=== PATIENT | male | born 1960 | race Caucasian/White ===

== ENCOUNTER → 2017-07-31 | Outpatient (CLI) | payer BC ==
[~2017-07-31] MED LIST: CATHETER FLUSH 10 ML SYR IV PRN; IOHEXOL 350 MG/ML 100 ML (OMNIPAQUE 350) VIAL IV ONE; LISI20TA PO; NS 100 ML (IVPB) BAG IV ONE; OXC10TCR PO; QTP100T PO; RT-COMBINH IH
--- NOTE | 2017-07-31 17:01 | Diagnostic Imaging Report ---
EXAMINATION: Multiplanar/multisequence MRI of the thoracic spine performed without intravenous contrast. INDICATION: Chronic back pain. FINDINGS: The thoracic spine has normal alignment at the posterior spinal line. The vertebral body heights are preserved. There is disc desiccation at the lower lumbar spine levels. There is mild disc herniations at T7/8 and T8/9 levels. This is not associated with significant spinal canal stenosis. The spinal cord has normal caliber, contour and signal. There is no cord compression at any level. The neural foramina are patent. There is an incidental note of a pulmonary nodule measuring 1.2 cm within the right lower lobe. Further evaluation with CT scan of the chest is recommended. IMPRESSION: 1. Mild degenerative changes and mild disc herniations around the mid to lower thoracic spine with no significant spinal canal stenosis or cord compression seen at any level. 2. There is an incidental note of a 1.2 cm pulmonary nodule in the right lower lobe. Further evaluation with an enhanced CT scan of the chest is recommended. The findings and the recommendations were discussed with Dr. Ara Abbasi by Dr. Neri at time of dictation. Dictated by: Dictated on workstation # [id number]
--- NOTE | 2017-07-31 17:18 | Diagnostic Imaging Report ---
PROCEDURE: MRI lumbar spine. TECHNIQUE: Multiplanar, multisequence MRI of the lumbar spine was performed without contrast. INDICATION: Back pain. FINDINGS: There is grade 1 spondylolisthesis of L5 over S1. Bilateral L5 pars defects are suggested. The vertebral body heights are preserved. There is disc desiccation at the lower lumbar spine and disc height loss. Significant disc height loss at L5/S1 is seen. There is mild marrow edema around the posterior elements of L4 and L5 that appears to relate to degenerative changes in the adjacent facet joints. No suspicious focal marrow lesion is identified. The cauda equina and conus medullaris appear grossly unremarkable. T12/L1: No disc herniation. No spinal canal or foraminal stenosis. L1/2: There is a mild disc bulge and mild to moderate facet hypertrophy. No central canal or lateral recess stenosis. No foraminal narrowing. L2/3: There is no disc herniation. There is mild to moderate facet hypertrophy. No central canal or lateral recess stenosis. No foraminal narrowing. L3/4: There is a minimal disc bulge and mild to moderate facet hypertrophy. No central canal or lateral recess stenosis. There is no foraminal stenosis. L4/5: There is a mild diffuse disc bulge with a posterior central annular tear. The facet joints demonstrate moderate to severe arthropathy. No central canal stenosis. Mild lateral recess stenosis on the left and minimal lateral recess stenosis on the right is seen. The foramina demonstrate bilateral stenosis moderate on the right and moderate to severe on the left. This is associated with a perineural cyst along the outer aspect of the foramen measuring 6 mm. L5/S1: There is grade 1 spondylolisthesis and facet hypertrophy. Mild diffuse disc bulge is seen. There is no central canal or lateral recess stenosis. The foramina demonstrate bilateral severe stenosis worse on the left side encroaching upon the exiting L5 spinal nerves bilaterally. IMPRESSION: 1. Grade 1 spondylolisthesis of L5 over S1 with underlying bilateral pars defects. 2. Bilateral severe foraminal stenosis at L5/S1 worse on the left side encroaching upon the exiting L5 spinal nerves. 3. Moderate to severe foraminal stenosis on the left side at L4/5 level. Dictated by: Dictated on workstation # [id number]
--- NOTE | 2017-08-01 13:46 | Diagnostic Imaging Report ---
PROCEDURE: CT chest with contrast only. TECHNIQUE: Multiple contiguous axial images were obtained through the chest after administration of intravenous contrast. DATE: July 31, 2017. COMPARISON: Chest radiograph, September 13, 2013. INDICATION: 56-year-old male, evaluation of right-sided pulmonary nodule. FINDINGS: There is a spiculated right lower lobe pulmonary nodule measuring 8.5 mm in size on axial image 38. There are areas of tree-in-bud nodularity in the lingula on axial image 42 and adjacent sequential images. There are upper lobe predominant changes of both centrilobular and paraseptal emphysema. There is no additional focal airspace consolidation. There is no pneumothorax. There is no pleural effusion. There is no identified pulmonary embolus. The main pulmonary artery is normal in caliber. The heart is not enlarged. There is no pericardial effusion. There is a right hilar lymph node on axial image 32 which measures 10 mm in short axis. There is no identified abnormally enlarged mediastinal or axillary lymph node. There is incompletely visualized ectasia of the infrarenal abdominal aorta which measures up to at least 2.4 cm in diameter. There is mild left intrahepatic bile duct dilation. Additional very limited evaluation of the visualized portions of the upper abdomen is grossly unremarkable. There is no identified acute bony abnormality. IMPRESSION: CT CHEST. 1. 8.5 mm spiculated right lower lobe pulmonary nodule. Recommend comparison with prior cross-sectional imaging if available to assess for stability. If comparison cross-sectional imaging is not available, consider PET/CT for further evaluation. 2. Upper lobe predominant changes of centrilobular and paraseptal emphysema. 3. Tree-in-bud nodularity in the left lingula which most likely relates to sequela of an infectious bronchiolitis or other process spreading via endobronchial means. This is uncertain in exact acuity without comparisons. Recommend correlation clinically. 4. Mild left intrahepatic bile duct dilation. Dictated by: Dictated on workstation # [id number]
== END ==
LOC: RAD 15:42
PROVIDERS: ATTEND Nurse Practitioner Family
DX: M43.17 Spondylolisthesis, lumbosacral region (principal); M48.07 Spinal stenosis, lumbosacral region; R91.1 Solitary pulmonary nodule
CPT/HCPCS: 71260; 72146; 72148

== ENCOUNTER → 2017-08-29 | Outpatient (CLI) | payer BC ==
[~2017-08-29] MED LIST changes: -CATHETER FLUSH 10 ML SYR IV PRN; -IOHEXOL 350 MG/ML 100 ML (OMNIPAQUE 350) VIAL IV ONE; -NS 100 ML (IVPB) BAG IV ONE
--- NOTE | 2017-08-30 10:02 | Diagnostic Imaging Report ---
EXAMINATION: PET-CT TECHNIQUE: Serum glucose level at the time of the study is: 98 mg/dL. 14.6 mCi of FDG was administered intravenously followed by obtaining PET images with corresponding noncontrast CT scan images. The CT scan was performed for anatomic correlation and attenuation correction and was not performed according to the diagnostic protocol of the areas covered. The scan was performed from the head to mid thighs. INDICATION: Right lower lobe lung nodule/mass. FINDINGS: There is symmetric FDG uptake in the brain seen. No hypermetabolic mass is seen in the neck. The right lower lobe pulmonary nodule demonstrates no associated significant hypermetabolism. There is also suggestion of decrease in the size of this nodule based on the localizer CT scan when compared to CT from 07/31/2017. No suspicious hypermetabolic mass is seen in the chest. IN THE ABDOMEN AND PELVIS: There is expected excretion of the tracer in the urinary tract with no definite suspicious hypermetabolic mass seen. IMPRESSION: No suspicious hypermetabolic mass. The right lower lobe nodule appears less prominent on the localizer CT compared to the previous exam also in favor of transient benign process. Followup low dose unenhanced CT chest in 3 months is suggested to ensure complete resolution. Dictated by: Dictated on workstation # [id number]
== END ==
LOC: RAD 08:19
PROVIDERS: ATTEND Nurse Practitioner Family
DX: R91.1 Solitary pulmonary nodule (principal); Z72.0 Tobacco use

== ENCOUNTER → 2017-11-27 | Outpatient (CLI) | payer SELFPAY ==
--- NOTE | 2017-11-27 14:18 | Diagnostic Imaging Report ---
PROCEDURE: CT chest without contrast. TECHNIQUE: Multiple contiguous axial images were obtained through the chest without the use of intravenous contrast. INDICATION: COPD and followup lung nodule. Comparison is made with prior CT from 07/31/2017. Comparison is also made with PET CT from 08/29/2017. FINDINGS: No axillary lymphadenopathy is identified. Hilar and mediastinal evaluation is limited without intravenous contrast but no gross abnormality is identified. There are coronary arterial calcifications present. No pericardial or pleural fluid is identified. Parenchymal evaluation again demonstrates significant emphysematous changes in both lungs. The previously noted irregular nodular density in the right lower lobe is no longer present and most likely was owing to an infectious/inflammatory process. No new parenchymal mass is identified. The upper abdomen is unremarkable. IMPRESSION: COPD. Previously noted right lower lobe parenchymal nodule has resolved and was likely on an infectious/inflammatory basis. No new abnormality is identified. Dictated by: Dictated on workstation # [id number]
== END ==
LOC: RAD 10:58
PROVIDERS: ATTEND Nurse Practitioner Family
DX: J44.9 Chronic obstructive pulmonary disease, unspecified (principal); Z72.0 Tobacco use
CPT/HCPCS: 71250

== ENCOUNTER → 2018-06-12 | Outpatient (CLI) | payer OTHER ==
[~2018-06-12] VITALS: Ht 175.3 cm; Wt 63.5 kg
[~2018-06-12] MED LIST changes: +ASCO500C17 PO; +ASPI-586 PO; +CATHETER FLUSH 10 ML SYR IV PRN; +IRON1TAB95 PO; +MULT-517 PO; +REGADENOSON 0.4 MG/5 ML SYR (LEXISCAN) IV ONE
[2018-06-12 12:48] VITALS: BP 144/98
--- NOTE | 2018-06-13 10:18 | STRESS TEST ---
DATE OF SERVICE: 06/12/2018 RESTING AND POST REGADENOSON TECHNETIUM-99M TETROFOSMIN SPECT CT IMAGING ORDERING PHYSICIAN: Minerva Concepcion APRN. OTHER PHYSICIAN: Patricia Varghese APRN. CLINICAL DIAGNOSES: Shortness of breath and hypertension. Baseline images were carried out after injection of 10.81 mCi of technetium-99m Tetrofosmin. This was followed by 0.4 mg of Regadenoson and 30.6 mCi of technetium-99m Tetrofosmin for stress imaging. The electrocardiogram showed sinus rhythm and did not change significantly with the Regadenoson infusion. The patient did not report any symptoms. Review of images at rest and following stress indicate a minimal apical perfusion defect, which appears transient. Gated images show normal global left ventricular systolic function, normal regional wall motion. Left ventricular ejection fraction is calculated to be 59%. Left ventricular end diastolic volume is 87 mL. TID is absent (1). CONCLUSIONS: 1. This study is suggestive of a minimal amount of apical ischemia. 2. Normal regional wall motion. 3. Normal global left ventricular systolic function with ejection fraction of 59%. Job ID: [id number] DocumentID: [id number] Dictated Date: 06/13/2018 09:06:58 [employer] Date: 06/13/2018 10:17:18 Dictated By: AFRICA MIRANDA MD, MA, FACP, FACC, MTDD
== END ==
LOC: RAD 10:49
PROVIDERS: ATTEND Nurse Practitioner Family
DX: I34.0 Nonrheumatic mitral (valve) insufficiency (principal); I10 Essential (primary) hypertension; J44.9 Chronic obstructive pulmonary disease, unspecified; R09.89 Other specified symptoms and signs involving the circulatory and respiratory systems
CPT/HCPCS: 78452; 93017; 93306

== ENCOUNTER 2018-07-03 09:22 | Day surgery (SDC) | payer OTHER ==
[2018-07-03] VITALS (9 sets, daily range): BP systolic 97–115; BP diastolic 58–77
[~2018-07-03] VITALS: Ht 175.3 cm; Wt 65.8 kg
[~2018-07-03 09:22] MED LIST changes: -ASCO500C17 PO; -ASPI-586 PO; -CATHETER FLUSH 10 ML SYR IV PRN; -IRON1TAB95 PO; -MULT-517 PO; -REGADENOSON 0.4 MG/5 ML SYR (LEXISCAN) IV ONE
[2018-07-03] MEDS ORDERED: HEParin (CATH LAB) 2,000 ML IV ONE (09:29)
[2018-07-03] MEDS ORDERED: LIDOCAINE 1% INJ 20 ML 20 ML VIAL ONE (09:29)
[2018-07-03] MEDS ORDERED: NS IV 1000 ML 1,000 ML ONE (09:29)
[2018-07-03] MEDS ORDERED: diphenhydrAMINE 25 MG TAB (BENADRYL) PO ONE (09:45)
--- OUTSIDE RECORDS SUMMARY | 2018-07-03 09:47 | XMS REPORT ---
Author Author [facility] Address [address] [place] [address] Care Team Providers Care External Grinder Name Role Phone SAMUEL VARGAS Unavailable PROBLEMS Type Condition ICD9-CM Code AFP57-CF Code Onset Dates Condition Status SNOMED Code Problem Essential (primary) hypertension I10 Active 87962440 Problem Other iron deficiency anemia D50.8 Active 27531621 Problem Anxiety F41.9 Active 41088183 Problem Chronic obstructive pulmonary disease, unspecified COPD type J44.9 Active 86479669 Problem Hypertension, unspecified type I10 Active 20125110 Problem Dysthymia F34.1 Active 86593198 Problem Long-term use of high-risk medication Z79.899 Active 061756488 Problem Aortic ectasia, abdominal I77.811 Active 256594707191831 Problem Pain in thoracic spine M54.6 Active 651190347142614 Problem Lumbago with sciatica, left side M54.42 Active 243735372 Problem Lumbago with sciatica, right side M54.41 Active 749667862 Problem Foraminal stenosis of lumbar region M99.83 Active 90676822 Problem Other chronic pain G89.29 Active 22553223 Problem COPD without exacerbation J44.9 Active 09160977 Problem Chronic viral hepatitis C B18.2 Active 820910335 ALLERGIES No Information ENCOUNTERS Encounter Location Date Diagnosis [facility] [id number] [address] Aug, [facility] [id number] [place] [address] 64858- 5153 Jun, [facility] [id number] [place] [address] 54800- 1350 13 May, 2018 Foraminal stenosis of lumbar region M99.83 [facility] [id number] [place] [address] 15734- 7337 May, Shortness of breath R06.02 ; Hypertension, unspecified type I10 ; Chronic obstructive pulmonary disease, unspecified COPD type J44.9 ; Bilateral carotid bruits R09.89 and Tobacco use Z72.0 [facility] [id number] [place] [address] 50952- 1617 Apr, Foraminal stenosis of lumbar region M99.83 [facility] [address] 31348- 8102 Mar, Foraminal stenosis of lumbar region M99.83 [place] [address] 27711- 4564 Mar, Essential (primary) hypertension I10 ; Foraminal stenosis of lumbar region M99.83 ; Long-term use of high-risk medication Z79.899 and Aortic ectasia, abdominal I77.811 [place] [address] 66346- 7303 February, Lumbago with sciatica, unspecified side M54.40 [facility] [id number] [place] [address] 82767- 7477 Jan, Lumbago with sciatica, unspecified side M54.40 [facility] [id number] [place] [address] 10570- 7743 Jan, Lumbago with sciatica, unspecified side M54.40 ; Essential ( primary) hypertension I10 ; COPD without exacerbation J44.9 ; Long-term use of high-risk medication Z79.899 ; Anxiety F41.9 and Dysthymia F34.1 [place] [id number] [place] [address] 15473- 9086 Dec, [facility] [address] 64223- 4430 Dec, Lumbago with sciatica, unspecified side M54.40 [place] [address] 08857- 2371 Dec, Anxiety F41.9 and Dysthymia F34.1 [place] [address] 37783- 7650 Nov, Other chronic pain G89.29 and Lumbago with sciatica, unspecified side M54.40 [place] [address] 92118- 7365 Oct, Lumbago with sciatica, unspecified side M54.40 [place] [address] 39158- 2909 Oct, Anxiety F41.9 and Dysthymia F34.1 [place] [address] 35492- 6108 Oct, Abnormal fasting glucose R73.01 [place] [address] 29224- 8351 Oct, Essential (primary) hypertension I10 and Lumbago with sciatica, unspecified side M54.40 [facility] [address] 34406- 5235 Sep, Abnormal fasting glucose R73.01 [place] [address] 73408- 1820 Sep, Pulmonary nodule R91.1 ; Aortic ectasia, abdominal I77.811 and Anxiety F41.9 [facility] [id number] [place] [address] 57778- 0942 Sep, Lumbago with sciatica, unspecified side M54.40 [facility] [address] 68332- 1130 Aug, Essential (primary) hypertension I10 and Lumbago with sciatica, unspecified side M54.40 [facility] [id number] [place] [address] 68979- [address] Jul, [address] R93.8 [facility] [address] [address]- 9479 16 Jul, 2017 Right pulmonary lesion R91.1 [facility] [id number] [place] [address] 70189- 7193 10 Jul, 2017 Lumbago with sciatica, unspecified side M54.40 [facility] [id number] [place] [address] 66666- 9275 Jul, Pain in thoracic spine M54.6 ; Lumbago with sciatica, left side M54.42 and Lumbago with sciatica, right side M54.41 [facility] [id number] [place] [address] 29319- 0188 13 Jun, 2017 Essential (primary) hypertension I10 ; Other chronic pain G89.29 ; Anxiety F41.9 ; Dysthymia F34.1 ; Sinusitis J32.9 ; Lumbago with sciatica, right side M54.41 ; Lumbago with sciatica, left side M54.42 ; History of long-term use of multiple prescription drugs Z92.29 ; COPD without exacerbation J44.9 ; Lumbago with sciatica, unspecified side M54.40 ; Chronic viral hepatitis C B18.2 ; Chronic obstructive pulmonary disease, unspecified J44.9 ; Other iron deficiency anemia D50.8 ; Long-term use of high-risk medication Z79.899 and Pain in thoracic spine M54.6 [facility] [id number] [place] [address] 59623- 7474 May, [facility] [id number] [place] [address] 59170- 0746 Apr, Lumbago with sciatica, unspecified side M54.40 [facility] [id number] [place] [address] 54251- 7283 Mar, Essential (primary) hypertension I10 ; Lumbago with sciatica , unspecified side M54.40 ; Chronic viral hepatitis C B18.2 ; Chronic obstructive pulmonary disease, unspecified J44.9 ; Other iron deficiency anemia D50.8 and Long-term use of high-risk medication Z79.899 [place] [address] [address]- 0056 Mar, Essential (primary) hypertension I10 [facility] [id number] [place] [address] 29436- 6962 February, [facility] [id number] [place] [address] 15303- 4073 February, Lumbago with sciatica, unspecified side M54.40 [facility] [id number] [place] [address] 67416- 1325 Jan, Lumbago with sciatica, unspecified side M54.40 [facility] [id number] [place] [address] 06047- 6788 Dec, Essential (primary) hypertension I10 ; Lumbago with sciatica , unspecified side M54.40 ; Chronic viral hepatitis C B18.2 ; Chronic obstructive pulmonary disease, unspecified J44.9 ; Other iron deficiency anemia D50.8 ; Long-term use of high-risk medication Z79.899 and General medical exam Z00.00 [facility] [id number] [place] [address] 32815- 7430 Nov, Essential (primary) hypertension I10 [facility] [id number] [place] [address] 58105- 7642 Oct, [facility] [id number] [place] [address] 77525- 0310 Oct, Essential (primary) hypertension I10 [facility] [id number] [place] [address] 90578- 0861 Oct, Anxiety F41.9 and Dysthymia F34.1 [facility] [id number] [place] [address] 80922- 2233 Oct, [facility] [id number] [place] [address] 60741- 9576 Oct, [facility] [id number] [place] [address] 08856- 7695 Oct, Essential (primary) hypertension I10 ; Lumbago with sciatica , unspecified side M54.40 ; Chronic viral hepatitis C B18.2 ; Chronic obstructive pulmonary disease, unspecified J44.9 ; Other iron deficiency anemia D50.8 ; Long-term use of high-risk medication Z79.899 and Anxiety F41.9 [place] [address] 48212- 1353 Sep, [address] 50491- 8914 Aug, [facility] [address] 57556- 5782 Jul, Abnormal fasting glucose R73.[address] 84363- 5247 Jul, Essential (primary) hypertension I10 ; Lumbago with sciatica , unspecified side M54.40 ; Chronic viral hepatitis C B18.2 ; Chronic obstructive pulmonary disease, unspecified J44.9 ; Other iron deficiency anemia D50.8 ; Long-term use of high-risk medication Z79.899 and Encounter for immunization Z23 [place] [id number] [place] [address] 35251- 0149 Jun, [address] [address]40- 0944 May, [facility] [address] 44578- 2759 Apr, Other iron deficiency anemia D50.8 [facility] [address] [address]257 -1099 Apr, Chronic fatigue R53.82 and Bradycardia R00.[address] 97866- 5634 Apr, [facility] [address] [place] [address] 75547- 6692 Mar, Essential (primary) hypertension I10 ; Lumbago with sciatica , unspecified side M54.40 ; Chronic viral hepatitis C B18.2 ; Chronic obstructive pulmonary disease, unspecified J44.9 and Other iron deficiency anemia D50.8 [place] [id number] [place] [address] 60449- 4618 February, [place] [id number] [place] [address] 68587- 2491 Jan, [place] [id number] [place] [address] 08730- 8063 Jan, Fatigue R53.83 [place] [place] [id number] [place] [address] 52865- 9638 Dec, Essential (primary) hypertension I10 ; Lumbago with sciatica , unspecified side M54.40 ; Chronic viral hepatitis C B18.2 ; Chronic obstructive pulmonary disease, unspecified J44.9 ; Sinusitis J32.9 and Fatigue R53.83 [place] [id number] [place] [address] 59030- 7619 Dec, [place] [address] [place] [address] 83089- 2611 Nov, [place] [address] [place] [address] 06871- 1167 Oct, Essential (primary) hypertension I10 ; Lumbago with sciatica , unspecified side M54.40 ; Chronic viral hepatitis C B18.2 ; Chronic obstructive pulmonary disease, unspecified J44.9 and History of long-term use of multiple prescription drugs Z92.29 [place] [address] [place] [address] 11357- 6584 Sep, [place] [address] [place] [address] 59648- 3410 Aug, [place] [place] [id number] [place] [address] 838571- 2827 Jul, Essential (primary) hypertension I10 ; Lumbago with sciatica , unspecified side M54.40 ; Chronic viral hepatitis C B18.2 ; Chronic obstructive pulmonary disease, unspecified J44.9 and Anxiety F41.9 [facility] [id number] [place] [address] 27415- 1216 Jun, [facility] [address] 528341- 4876 May, [facility] [id number] [place] [address] 355142- 2473 Apr, Essential hypertension, benign 401.1 ; Lumbago 724.2 ; Nondependent tobacco use disorder 305.1 and Chronic hepatitis C without mention of hepatic coma 070.54 [place] [id number] [place] [address] 98631- 3304 Mar, Lumbago 724.2 [facility] [id number] [place] [address] 71317- 7598 February, Essential hypertension, benign 401.1 ; Lumbago 724.2 ; Nondependent tobacco use disorder 305.1 and Chronic hepatitis C without mention of hepatic coma 070.54 [place] [id number] [place] [address] 15156- 8126 February, [place] [id number] [place] [address] 19055- 5530 Jan, [facility] [id number] [place] [address] 40686- 8052 Jan, [facility] [id number] [place] [address] 68384- 6696 Dec, [facility] [id number] [place] [address] 51858- 3156 Dec, [facility] [id number] [place] [address] 33253- 6935 Nov, 2014 [facility] [place] [facility] [address] [id number] [place] [address]- 3819 Nov, [facility] [place] [facility] [address] [id number] [place] [address]- 1385 Oct, [facility] [place] [facility] [address] [facility] [id number] [place] [address]- 8829 Oct, [facility] [place] [facility] [address] [id number] [place] [address]- 1472 Sep, [facility] [place] [facility] [address] [id number] [place] [address]- 7950 Sep, [facility] [place] [facility] [address] [id number] [place] [address]- 2834 Aug, [facility] [place] [facility] [address] [id number] [place] [address]- 7361 Aug, [facility] [place] [facility] [address] [id number] [address]- 7879 Aug, [facility] [place] [facility] [address] [id number] [place] [address]- 0895 Aug, [facility] [place] [facility] [address] [id number] [place] [address]- 2015 Jul, [facility] [place] [facility] [address] [id number] [place] [address]- 5154 17 Jul, 2014 [facility] [place] [facility] [address] [id number] [place] [address]- 9846 16 Jul, 2014 [facility] [place] [facility] [address] [id number] [place] [address]- 3171 13 Jul, 2014 [facility] [place] [facility] [address] [id number] [place] [address]- 6497 Jul, [facility] [place] [facility] [address] [id number] [place] [address]- 1156 10 Jul, 2014 [facility] [place] [facility] [address] [id number] [place] [address]- 2430 Jul, [facility] [place] [facility] [address] [id number] [place] [address]- 4986 11 Jun, 2014 [facility] [place] [facility] [address] [id number] [place] [address] 2546 Jun, [facility] [place] [facility] [address] [id number] [place] [address]- 2606 Jun, [facility] [place] [facility] [address] [id number] [place] [address] 2546 Jun, [facility] [place] [facility] [address] [id number] [place] [address]- 8352 Jun, [facility] [place] [facility] [address] [id number] [place] [address]- 4323 Jun, [facility] [place] [facility] [address] [id number] [place] [address]- 5545 Jun, [facility] [place] [facility] [address] [id number] [place] [address]- 9900 Jun, [facility] [place] [facility] [address] [id number] [place] [address]- 5010 May, [facility] [place] [facility] [address] [id number] [place] [address]- 8094 May, [facility] [place] [facility] [address] [id number] [place] [address]- 3322 Apr, [facility] [place] [facility] [address] [id number] [place] [address]- 4045 Apr, [facility] [place] [facility] [address] [id number] [place] [address]- 2194 Mar, [facility] [place] [facility] [address] [id number] [place] [address]- 0252 Mar, [facility] [place] [facility] [address] [id number] [place] [address]- 8648 Mar, [facility] [place] [facility] [address] [id number] [place] [address]- 1926 Mar, [facility] [place] [facility] [address] [id number] [place] [address]- 2143 Mar, [facility] [place] [facility] [address] [id number] [place] [address]- 4647 February, [facility] [place] [facility] [address] [id number] [place] [address]- 0800 February, [facility] [place] [facility] [address] [id number] [place] [address]- 2555 February, [facility] [place] [facility] [address] [id number] [place] [address]- 4587 February, [facility] [place] [facility] [address] [id number] [place] [address]- 2478 Jan, [facility] [place] [facility] [address] [id number] [place] [address]- 4880 Jan, [facility] [place] [facility] [address] [id number] [place] [address]- 9468 Jan, [facility] [place] [facility] [address] [id number] [place] [address]- 4281 Jan, [facility] [place] [facility] [address] [id number] [place] [address]- 6704 Jan, [facility] [place] [facility] [address] [id number] [place] [address]- 5514 Jan, [facility] [place] [facility] [address] [id number] [place] [address]- 7342 Jan, [facility] [place] [facility] [address] [id number] [place] [address]- 7686 Jan, [facility] [place] [facility] [address] [id number] [place] Dec, [facility] [place] [facility] [address] [id number] [place] [address]- 2079 Dec, [facility] [place] [facility] [address] [id number] [place] [address]- 0804 Dec, [facility] [place] [facility] [address] [id number] [place] [address]- 2219 Dec, [facility] [place] [facility] [address] [id number] [place] [address]- 3421 Dec, [facility] [place] [facility] [address] [id number] [place] [address]- 0288 Dec, [facility] [place] [facility] [address] [id number] [place] [address]- 7673 Dec, [facility] [place] [facility] [address] [id number] [place] [address]- 1752 Dec, [facility] [place] [facility] [address] [facility] [id number] [place] [address]- 1986 Dec, [facility] [place] [facility] [address] [id number] [place] [address]- 4400 Dec, [facility] [place] [facility] [address] [id number] [place] [address]- 7847 Nov, [facility] [place] [facility] [address] [id number] [place] [address]- 9168 Nov, [facility] [place] [facility] [address] [id number] [place] [address]- 6462 Nov, [facility] [place] [facility] [address] [id number] [place] [address]- 8725 Nov, [facility] [place] [facility] [address] [id number] [place] [address]- 4115 Nov, [facility] [place] [facility] [address] [id number] [place] [address]- 1143 Nov, [facility] [place] [facility] [address] [id number] [place] [address]- 2506 Oct, [facility] [place] [facility] [address] [id number] [place] [address]- 7362 Oct, [facility] [place] [facility] [address] [id number] [place] [address]- 1303 Sep, [facility] [place] [facility] [address] [id number] [place] [address]- 9857 Sep, [facility] [place] [facility] [address] [id number] [place] [address]- 8636 Sep, [facility] [place] [facility] [address] [id number] [place] [address]- 4920 Sep, [facility] [place] [facility] [address] [id number] [place] [address]- 6983 Aug, [facility] [place] [facility] [address] [id number] [place] [address]- 0966 Aug, [facility] [place] [facility] [address] [id number] [place] [address]- 5122 Aug, [facility] [place] [facility] [address] [id number] [place] [address]- 4483 Aug, [facility] [place] [facility] [address] [id number] [place] [address]- 8248 Aug, [facility] [place] [facility] [address] [id number] [place] [address]- 5583 Aug, [facility] [place] [facility] [address] [id number] [place] [address]- 9307 Aug, [facility] [place] [facility] [address] [id number] [place] [address]- 7901 Aug, [facility] [place] [facility] [address] [id number] [place] [address]- 7089 Jul, [facility] [place] [facility] [address] [id number] [place] [address]- 9101 Jul, [facility] [place] [facility] [address] [id number] [place] [address]- 4731 Jul, 2012 [facility] [place] [facility] [address] [id number] [place] [address]- 9384 25 Jul, 2012 [facility] [place] [facility] [address] [id number] [place] [address]- 1675 25 Jul, 2012 [facility] [place] [facility] [address] [id number] [place] [address]- 0077 Jul, 2012 [facility] [place] [facility] [address] [id number] [place] [address]- 3442 Jul, 2012 [facility] [place] [facility] [address] [id number] [place] [address]- 1007 Jul, 2012 [facility] [place] [facility] [address] [id number] [place] [address]- 9767 Jul, 2012 [facility] [place] [facility] [address] [id number] [place] [address]- 7560 Jul, 2012 [facility] [place] [facility] [address] [id number] [place] [address]- 9[address] 17 Jul, 2012 [facility] [place] [facility] [address] [id number] [place] [address] 17 Jul, 2012 [facility] [place] [facility] [address] [id number] [place] [address] 15 Jul, 2012 [facility] [place] [facility] [address] [id number] [place] [address] 15 Jul, 2012 [facility] [place] [facility] [address] [id number] [place] [address] 15 Jul, 2012 [facility] [place] [facility] [address] [id number] [place] [address] 1106 15 Jul, 2012 [facility] [place] [facility] [address] [id number] [place] [address] 14 Jul, 2012 [facility] [place] [facility] [address] [id number] [place] [address] 14 Jul, 2012 [facility] [place] [facility] [address] [id number] [place] [address] Jul, [facility] [address] [id number] [place] [address] Jul, [facility] [place] [facility] [address] [id number] [place] [address] Jul, [facility] [place] [facility] [address] [id number] [place] [address] Jul, [facility] [place] [facility] [address] [id number] [place] [address] Jul, [facility] [place] [facility] [address] [id number] [place] [address] Jun, [facility] [place] [facility] [address] [id number] [place] [address] Jun, [facility] [place] [facility] [address] [id number] [place] [address] May, [facility] [place] [facility] [address] [id number] [place] [address]99 May, [facility] [place] [facility] [address] [id number] [place] [address]- [address] May, [facility] [place] [facility] [address] [id number] [place] [address]- [address] May, [facility] [place] [facility] [address] [id number] [place] [address]- [address] May, [facility] [place] [facility] [address] [id number] [place] [address] May, [facility] [place] [facility] [address] [id number] [place] [address]- [address] May, [facility] [place] [facility] [address] [id number] [place] [address]- [address] May, [facility] [place] [facility] [address] [id number] [place] [address] Apr, [facility] [address] [id number] [place] [address] 14 Mar, 2013 [facility] [address] [id number] [place] [address] 14 Feb, 2013 [facility] [address] [id number] [place] [address] 12 Jan, 2013 [facility] [place] [facility] [address] [id number] [place] [address] 21 Dec, 2012 [facility] [address] [id number] [place] [address]- [address] 18 Dec, 2012 [facility] [place] [facility] [address] [id number] [place] [address]- [address] 15 Dec, 2012 [facility] [address] [id number] [place] [address]- [address] 07 Dec, 2012 [facility] [address] [id number] [place] [address] 28 Nov, 2012 [facility] [address] [id number] [place] [address]26 26 Nov, 2012 [facility] [address] [id number] [place] [address]- [address]26 15 Nov, 2012 [facility] [place] [facility] [address] [id number] [place] [address] 7026 15 Nov, 2012 [facility] [place] [facility] [address] [id number] [place] [address] 16 Oct, 2012 [facility] [place] [facility] [address] [id number] [place] [address]30 15 Oct, 2012 [facility] [place] [facility] [address] [id number] [place] [address] 15 Oct, 2012 [facility] [place] [facility] [address] [id number] [place] [address]- [address] 31 Sep, 2012 [facility] [place] [facility] [address] [facility] [id number] [place] [address] Sep, [facility] [facility] [address] [facility] [id number] [place] [address] Sep, [facility] [address] [facility] [id number] [place] [address] Sep, IMMUNIZATIONS No Known Immunizations SOCIAL HISTORY Never Assessed REASON FOR VISIT Controlled Med Refill 04/03 PLAN OF CARE VITAL SIGNS MEDICATIONS Medication Instructions Dosage Frequency Start Date End Date Duration Status Oxycodone HCl 10 mg Orally every 4-6 hrs hrs prn must last 28 days 1 tablet as needed February, Active RESULTS No Results PROCEDURES No Known procedures INSTRUCTIONS MEDICATIONS ADMINISTERED No Known Medications MEDICAL (GENERAL) HISTORY Type Description Date Medical History hepatitis C - Completed 6 months of treatment and had to have multiple transfusions. Did not complete full treatment. Medical History chronic bronchitis Medical History hypertension Medical History lower back pain Medical History 2008 MRI L-spine: Marked degenerative disc changes present with marked narrowing of L5 on S1. Moderate degenerative disc changes noted at L4-5. Mild posterior buldging at L4-5 with grade I anterolisthesis of L5 on S1 with bilateral spondylolysis with spinal fragmentation and mild spinal stenosis at L5-S1. Medical History 2011 Spine X-Ray: no evidence for an acute bony abnormality of the cervical, thoracic, or lumbar spine. The mild compression deformity of T5 is felt to be long standing in nature. Severe degenerative disc and bony disease at C5-C6, C6-C7, and L5-S1. Medical History Anxiety Medical History Depression Medical History Psychosis Mood Disorder Medical History herniated disc Medical History Right PUlmonary Nodule [address] Somers resolution -will continue fu Surgical History appendectomy Hospitalization History Blood transfusions for anemia from Hep C Treatments 2012
--- OUTSIDE RECORDS SUMMARY | 2018-07-03 09:47 | XMS REPORT ---
Author Author KING SAMU[facility] Address [address] [place] [address] Care Team Providers Care Tour Driver Name Role Phone SAMUEL VARGAS Unavailable PROBLEMS Type Condition ICD9-CM Code BDR85-GB Code Onset Dates Condition Status SNOMED Code Problem Essential (primary) hypertension I10 Active 47475722 Problem Other iron deficiency anemia D50.8 Active 43690315 Problem Anxiety F41.9 Active 00288656 Problem Chronic obstructive pulmonary disease, unspecified COPD type J44.9 Active 79558701 Problem Hypertension, unspecified type I10 Active 81120912 Problem Dysthymia F34.1 Active 13568769 Problem Long-term use of high-risk medication Z79.899 Active 312541096 Problem Aortic ectasia, abdominal I77.811 Active 458348652349045 Problem Pain in thoracic spine M54.6 Active 237896283048666 Problem Lumbago with sciatica, left side M54.42 Active 301434045 Problem Lumbago with sciatica, right side M54.41 Active 702895775 Problem Foraminal stenosis of lumbar region M99.83 Active 49732743 Problem Other chronic pain G89.29 Active 74465043 Problem COPD without exacerbation J44.9 Active 79456276 Problem Chronic viral hepatitis C B18.2 Active 413575984 ALLERGIES No Information ENCOUNTERS Encounter Location Date Diagnosis [facility] [id number] [address] Aug, [facility] [id number] [place] [address] 51052- 4904 Jun, [facility] [id number] [place] [address] 15864- 3434 May, Foraminal stenosis of lumbar region M99.83 [facility] [id number] [place] [address] 70488- 8244 May, Shortness of breath R06.02 ; Hypertension, unspecified type I10 ; Chronic obstructive pulmonary disease, unspecified COPD type J44.9 ; Bilateral carotid bruits R09.89 and Tobacco use Z72.0 [place] [id number] [place] [address] 05454- 4684 Apr, Foraminal stenosis of lumbar region M99.83 [place] [address] 43680- 9088 Mar, Foraminal stenosis of lumbar region M99.83 [place] [address] 77753- 8852 Mar, Essential (primary) hypertension I10 ; Foraminal stenosis of lumbar region M99.83 ; Long-term use of high-risk medication Z79.899 and Aortic ectasia, abdominal I77.811 [address] [address] 95917- 3418 February, Lumbago with sciatica, unspecified side M54.40 [place] [id number] [place] [address] 16458- 7731 Jan, Lumbago with sciatica, unspecified side M54.40 [place] [id number] [place] [address] 80860- 8659 Jan, Lumbago with sciatica, unspecified side M54.40 ; Essential ( primary) hypertension I10 ; COPD without exacerbation J44.9 ; Long-term use of high-risk medication Z79.899 ; Anxiety F41.9 and Dysthymia F34.1 [place] [id number] [place] [address] 64020- 2141 Dec, [place] [address] 82549- 7793 Dec, Lumbago with sciatica, unspecified side M54.40 [place] [address] 00828- 2162 Dec, Anxiety F41.9 and Dysthymia F34.1 [place] [address] 26842- 7338 Nov, Other chronic pain G89.29 and Lumbago with sciatica, unspecified side M54.40 [place] [address] 71608- 1351 Oct, Lumbago with sciatica, unspecified side M54.40 [place] [address] 51339- 4151 Oct, Anxiety F41.9 and Dysthymia F34.1 [address] [address] 20039- 2962 Oct, Abnormal fasting glucose R73.01 [place] [address] 03247- 6673 Oct, Essential (primary) hypertension I10 and Lumbago with sciatica, unspecified side M54.40 [place] [address] 65054- 5921 Sep, Abnormal fasting glucose R73.01 [place] [address] 55838- 0325 Sep, Pulmonary nodule R91.1 ; Aortic ectasia, abdominal I77.811 and Anxiety F41.9 [place] [id number] [place] [address] 74782- 2348 Sep, Lumbago with sciatica, unspecified side M54.40 [place] [address] 60317- 1361 Aug, Essential (primary) hypertension I10 and Lumbago with sciatica, unspecified side M54.40 [place] [id number] [place] [address] 69115- [address] Jul, [address] R93.8 [place] [address] [address] 7606 16 Jul, 2017 Right pulmonary lesion R91.1 [place] [id number] [place] [address] 80319- 9363 10 Jul, 2017 Lumbago with sciatica, unspecified side M54.40 [place] [id number] [place] [address] 81845- 0090 Jul, Pain in thoracic spine M54.6 ; Lumbago with sciatica, left side M54.42 and Lumbago with sciatica, right side M54.41 [place] [id number] [place] [address] 92372- 0123 13 Jun, 2017 Essential (primary) hypertension I10 ; COPD without exacerbation J44.9 ; Anxiety F41.9 ; History of long-term use of multiple prescription drugs Z92.29 ; Sinusitis J32.9 ; Other chronic pain G89.29 ; Lumbago with sciatica, right side M54.41 ; Lumbago with sciatica, left side M54.42 ; Dysthymia F34.1 ; Lumbago with sciatica, unspecified side M54.40 ; Chronic viral hepatitis C B18.2 ; Chronic obstructive pulmonary disease, unspecified J44.9 ; Other iron deficiency anemia D50.8 ; Long-term use of high- risk medication Z79.899 and Pain in thoracic spine M54.6 [place] [id number] [place] [address] 22796- 1390 May, [place] [id number] [place] [address] 99202- 8278 Apr, Lumbago with sciatica, unspecified side M54.40 [place] [id number] [place] [address] 25794- 9396 Mar, Essential (primary) hypertension I10 ; Lumbago with sciatica , unspecified side M54.40 ; Chronic viral hepatitis C B18.2 ; Chronic obstructive pulmonary disease, unspecified J44.9 ; Other iron deficiency anemia D50.8 and Long-term use of high-risk medication Z79.899 [address] [address] 2551 Mar, Essential (primary) hypertension I10 [place] [id number] [place] [address] 48396- 3818 February, [place] [id number] [place] [address] 05428- 2162 February, Lumbago with sciatica, unspecified side M54.40 [place] [id number] [place] [address] 97840- 7214 Jan, Lumbago with sciatica, unspecified side M54.40 [facility] [facility] [id number] [place] [address] 87139- 8590 Dec, Essential (primary) hypertension I10 ; Lumbago with sciatica , unspecified side M54.40 ; Chronic viral hepatitis C B18.2 ; Chronic obstructive pulmonary disease, unspecified J44.9 ; Other iron deficiency anemia D50.8 ; Long-term use of high-risk medication Z79.899 and General medical exam Z00.00 [place] [id number] [place] [address] 47024- 9756 Nov, Essential (primary) hypertension I10 [place] [id number] [place] [address] 91306- 2161 Oct, [place] [id number] [place] [address] 98537- 9709 Oct, Essential (primary) hypertension I10 [place] [id number] [place] [address] 44673- 1730 Oct, Anxiety F41.9 and Dysthymia F34.1 [place] [id number] [place] [address] 83631- 4899 Oct, [place] [id number] [place] [address] 09784- 7554 Oct, [place] [id number] [place] [address] 78797- 5615 Oct, Essential (primary) hypertension I10 ; Lumbago with sciatica , unspecified side M54.40 ; Chronic viral hepatitis C B18.2 ; Chronic obstructive pulmonary disease, unspecified J44.9 ; Other iron deficiency anemia D50.8 ; Long-term use of high-risk medication Z79.899 and Anxiety F41.9 [place] [address] 63446- 2767 Sep, [address] 79127- 0685 Aug, [place] [address] 36590- 5997 Jul, Abnormal fasting glucose R73.[address] 01564- 1431 Jul, Essential (primary) hypertension I10 ; Lumbago with sciatica , unspecified side M54.40 ; Chronic viral hepatitis C B18.2 ; Chronic obstructive pulmonary disease, unspecified J44.9 ; Other iron deficiency anemia D50.8 ; Long-term use of high-risk medication Z79.899 and Encounter for immunization Z23 [id number] [place] [address] 82059- 0050 Jun, [address] 74397- 2882 May, [place] [address] 09637- 3833 Apr, Other iron deficiency anemia D50.8 [facility] [address] [address]65 -2991 Apr, Chronic fatigue R53.82 and Bradycardia R00.[address] 71421- 8932 Apr, [facility] [address] [place] [address] 46087- 1684 Mar, Essential (primary) hypertension I10 ; Lumbago with sciatica , unspecified side M54.40 ; Chronic viral hepatitis C B18.2 ; Chronic obstructive pulmonary disease, unspecified J44.9 and Other iron deficiency anemia D50.8 [place] [id number] [place] [address] 97676- 1469 February, [place] [id number] [place] [address] 82982- 7173 Jan, [place] [id number] [place] [address] 33023- 8430 Jan, Fatigue R53.83 [place] [id number] [place] [address] 24958- 8362 Dec, Essential (primary) hypertension I10 ; Lumbago with sciatica , unspecified side M54.40 ; Chronic viral hepatitis C B18.2 ; Chronic obstructive pulmonary disease, unspecified J44.9 ; Sinusitis J32.9 and Fatigue R53.83 [place] [id number] [place] [address] 13471- 8151 Dec, [place] [address] [place] [address] 67218- 8579 Nov, [address] [address] [place] [address] 17739- 7833 Oct, Essential (primary) hypertension I10 ; Lumbago with sciatica , unspecified side M54.40 ; Chronic viral hepatitis C B18.2 ; Chronic obstructive pulmonary disease, unspecified J44.9 and History of long-term use of multiple prescription drugs Z92.29 [place] [address] [place] [address] 03681- 5430 Sep, [place] [address] [place] [address] 60844- 4191 Aug, [place] [id number] [place] [address] 851933- 9326 Jul, Essential (primary) hypertension I10 ; Lumbago with sciatica , unspecified side M54.40 ; Chronic viral hepatitis C B18.2 ; Chronic obstructive pulmonary disease, unspecified J44.9 and Anxiety F41.9 [facility] [id number] [place] [address] 39027- 6966 Jun, [facility] [address] 993726- 1296 May, [facility] [id number] [place] [address] 347880- 0911 Apr, Essential hypertension, benign 401.1 ; Lumbago 724.2 ; Nondependent tobacco use disorder 305.1 and Chronic hepatitis C without mention of hepatic coma 070.54 [place] [id number] [place] [address] 58007- 4797 Mar, Lumbago 724.2 [facility] [id number] [place] [address] 20953- 9923 February, Essential hypertension, benign 401.1 ; Lumbago 724.2 ; Nondependent tobacco use disorder 305.1 and Chronic hepatitis C without mention of hepatic coma 070.54 [place] [id number] [place] [address] 16039- 5546 February, [place] [id number] [place] [address] 07106- 4897 Jan, [facility] [id number] [place] [address] 69316- 1374 Jan, [facility] [id number] [place] [address] 11893- 8986 Dec, [facility] [id number] [place] [address] 05388- 5316 Dec, [facility] [id number] [place] [address] 09788- 2801 Nov, 2014 [facility] [place] [facility] [address] [id number] [place] [address]- 2670 Nov, [facility] [place] [facility] [address] [id number] [place] [address]- 9650 Oct, [facility] [place] [facility] [address] [facility] [id number] [place] [address]- 1318 Oct, [facility] [place] [facility] [address] [id number] [place] [address]- 1335 Sep, [facility] [place] [facility] [address] [id number] [place] [address]- 2666 Sep, [facility] [place] [facility] [address] [id number] [place] [address]- 2893 Aug, [facility] [place] [facility] [address] [id number] [place] [address]- 7436 Aug, [facility] [place] [facility] [address] [id number] [address]- 9493 Aug, [facility] [place] [facility] [address] [id number] [address]- 3473 Aug, [facility] [place] [facility] [address] [id number] [address]- 6480 Jul, [facility] [place] [facility] [address] [id number] [address]- 2280 17 Jul, 2014 [facility] [place] [facility] [address] [id number] [address]- 0021 16 Jul, 2014 [facility] [place] [facility] [address] [id number] [address]- 1918 13 Jul, 2014 [facility] [place] [facility] [address] [id number] [address]- 5786 Jul, [facility] [place] [facility] [address] [id number] [address]- 1315 10 Jul, 2014 [facility] [place] [facility] [address] [id number] [place] [address]- 7327 Jul, [facility] [place] [facility] [address] [id number] [place] [address]- 0916 11 Jun, 2014 [facility] [place] [facility] [address] [id number] [place] [address] 2546 Jun, [facility] [place] [facility] [address] [id number] [place] [address]- 7206 Jun, [facility] [place] [facility] [address] [id number] [place] [address] 2546 Jun, [facility] [place] [facility] [address] [id number] [place] [address]- 5027 Jun, [facility] [place] [facility] [address] [id number] [place] [address]- 3080 Jun, [facility] [place] [facility] [address] [id number] [place] [address]- 8258 Jun, [facility] [place] [facility] [address] [id number] [place] [address]- 1050 Jun, [facility] [place] [facility] [address] [id number] [place] [address]- 6091 May, [facility] [place] [facility] [address] [id number] [place] [address]- 8113 May, [facility] [place] [facility] [address] [id number] [place] [address]- 9572 Apr, [facility] [place] [facility] [address] [id number] [place] [address]- 0361 Apr, [facility] [place] [facility] [address] [id number] [place] [address]- 0407 Mar, [facility] [place] [facility] [address] [id number] [place] [address]- 5114 Mar, [facility] [place] [facility] [address] [id number] [place] [address]- 6623 Mar, [facility] [place] [facility] [address] [id number] [place] [address]- 9709 Mar, [facility] [place] [facility] [address] [id number] [place] [address]- 5258 Mar, [facility] [place] [facility] [address] [id number] [place] [address]- 2825 February, [facility] [place] [facility] [address] [id number] [place] [address]- 7383 February, [facility] [place] [facility] [address] [id number] [place] [address]- 6930 February, [facility] [place] [facility] [address] [id number] [place] [address]- 5822 February, [facility] [place] [facility] [address] [id number] [place] [address]- 6015 Jan, [facility] [place] [facility] [address] [id number] [place] [address]- 0598 Jan, [facility] [place] [facility] [address] [id number] [place] [address]- 2371 Jan, [facility] [place] [facility] [address] [id number] [place] [address]- 7942 Jan, [facility] [place] [facility] [address] [id number] [place] [address]- 6120 Jan, [facility] [place] [facility] [address] [id number] [place] [address]- 4255 Jan, [facility] [place] [facility] [address] [id number] [place] [address]- 2589 Jan, [facility] [place] [facility] [address] [id number] [place] [address]- 6479 Jan, [facility] [place] [facility] [address] [id number] [place] 8083 Dec, [facility] [place] [facility] [address] [id number] [address]- 6167 Dec, [facility] [place] [facility] [address] [id number] [place] [address]- 2807 Dec, [facility] [place] [facility] [address] [id number] [place] [address]- 1253 Dec, [facility] [place] [facility] [address] [id number] [place] [address]- 0228 Dec, [facility] [place] [facility] [address] [id number] [place] [address]- 3599 Dec, [facility] [place] [facility] [address] [id number] [place] [address]- 9501 Dec, [facility] [place] [facility] [address] [id number] [place] [address]- 2802 Dec, [facility] [place] [facility] [address] [facility] [id number] [place] [address]- 7507 Dec, [facility] [place] [facility] [address] [id number] [place] [address]- 2390 Dec, [facility] [place] [facility] [address] [id number] [place] [address]- 0205 Nov, [facility] [place] [facility] [address] [id number] [place] [address]- 9740 Nov, [facility] [place] [facility] [address] [id number] [place] [address]- 6665 Nov, [facility] [place] [facility] [address] [id number] [place] [address]- 0921 Nov, [facility] [place] [facility] [address] [id number] [place] [address]- 1695 Nov, [facility] [place] [facility] [address] [id number] [place] [address]- 9474 Nov, [facility] [place] [facility] [address] [id number] [place] [address]- 4971 Oct, [facility] [place] [facility] [address] [id number] [place] [address]- 5596 Oct, [facility] [place] [facility] [address] [id number] [place] [address]- 3450 Sep, [facility] [place] [facility] [address] [id number] [place] [address]- 5380 Sep, [facility] [place] [facility] [address] [id number] [place] [address]- 3567 Sep, [facility] [place] [facility] [address] [id number] [place] [address]- 2688 Sep, [facility] [place] [facility] [address] [id number] [place] [address]- 6206 Aug, [facility] [place] [facility] [address] [id number] [place] [address]- 3395 Aug, [facility] [place] [facility] [address] [id number] [place] [address]- 3515 Aug, [facility] [place] [facility] [address] [id number] [place] [address]- 1849 Aug, [facility] [place] [facility] [address] [id number] [place] [address]- 8086 Aug, [facility] [place] [facility] [address] [id number] [place] [address]- 8771 Aug, [facility] [place] [facility] [address] [id number] [place] [address]- 9744 Aug, [facility] [place] [facility] [address] [id number] [place] [address]- 4406 Aug, [facility] [place] [facility] [address] [id number] [place] [address]- 0674 Jul, [facility] [place] [facility] [address] [id number] [place] [address]- 7670 Jul, [facility] [place] [facility] [address] [id number] [place] [address]- 4315 Jul, 2012 [facility] [place] [facility] [address] [id number] [place] [address]- 8236 25 Jul, 2012 [facility] [place] [facility] [address] [id number] [place] [address]- 9521 25 Jul, 2012 [facility] [place] [facility] [address] [id number] [place] [address]- 8954 Jul, 2012 [facility] [place] [facility] [address] [id number] [place] [address]- 6715 Jul, 2012 [facility] [place] [facility] [address] [id number] [place] [address]- 6347 Jul, 2012 [facility] [place] [facility] [address] [id number] [place] [address]- 2081 Jul, 2012 [facility] [place] [facility] [address] [id number] [place] [address]- 1527 Jul, 2012 [facility] [place] [facility] [address] [id number] [place] [address]- 5473 17 Jul, 2012 [facility] [place] [facility] [address] [id number] [place] [address]- 9354 17 Jul, 2012 [facility] [place] [facility] [address] [id number] [place] [address]- 5744 15 Jul, 2012 [facility] [place] [facility] [address] [id number] [place] [address]- 1712 15 Jul, 2012 [facility] [place] [facility] [address] [id number] [place] [address]- 2341 15 Jul, 2012 [facility] [place] [facility] [address] [id number] [place] [address]- 9447 15 Jul, 2012 [facility] [place] [facility] [address] [id number] [place] [address]- 1892 14 Jul, 2012 [facility] [place] [facility] [address] [id number] [place] [address]- 3190 14 Jul, 2012 [facility] [place] [facility] [address] [id number] [place] [address]- 7033 Jul, [facility] [address] [id number] [place] [address]- 9273 Jul, [facility] [place] [facility] [address] [id number] [place] [address]- 7309 Jul, [facility] [place] [facility] [address] [id number] [place] [address]- 7181 Jul, [facility] [place] [facility] [address] [id number] [place] [address]- 1060 Jul, [facility] [place] [facility] [address] [id number] [place] [address]- [address] Jun, [facility] [place] [facility] [address] [id number] [place] [address] Jun, [facility] [place] [facility] [address] [id number] [place] [address] May, [facility] [place] [facility] [address] [id number] [place] [address] May, [facility] [place] [facility] [address] [id number] [place] [address] May, [facility] [place] [facility] [address] [id number] [place] [address] May, [facility] [place] [facility] [address] [id number] [place] [address] May, [facility] [place] [facility] [address] [id number] [place] [address] May, [facility] [place] [facility] [address] [id number] [place] [address] May, [facility] [place] [facility] [address] [id number] [place] [address] May, [facility] [place] [facility] [address] [id number] [place] [address] Apr, [facility] [address] [id number] [place] [address] 14 Mar, 2013 [facility] [address] [id number] [place] [address] 14 Feb, 2013 [facility] [address] [id number] [place] [address] 12 Jan, 2013 [facility] [place] [facility] [address] [id number] [place] [address] 21 Dec, 2012 [facility] [address] [id number] [place] [address] 18 Dec, 2012 [facility] [place] [facility] [address] [id number] [place] [address] 15 Dec, 2012 [facility] [address] [id number] [place] [address] 07 Dec, 2012 [facility] [address] [id number] [place] [address] 28 Nov, 2012 [facility] [address] [id number] [place] [address] 26 Nov, 2012 [facility] [address] [id number] [place] [address] 15 Nov, 2012 [facility] [place] [facility] [address] [id number] [place] [address] 15 Nov, 2012 [facility] [place] [facility] [address] [id number] [address] 16 Oct, 2012 [facility] [place] [facility] [address] [id number] [place] [address] 15 Oct, 2012 [facility] [place] [facility] [address] [id number] [place] [address] 15 Oct, 2012 [facility] [place] [facility] [address] [id number] [place] [address] 31 Sep, 2012 [facility] [place] [facility] [address] [facility] [id number] [place] [address] Sep, [facility] [address] [facility] [id number] [place] [address] Sep, [facility] [address] [facility] [id number] [place] [address] Sep, IMMUNIZATIONS No Known Immunizations SOCIAL HISTORY Never Assessed REASON FOR VISIT Controlled Med Refill PLAN OF CARE VITAL SIGNS MEDICATIONS Medication Instructions Dosage Frequency Start Date End Date Duration Status Oxycodone HCl 10 mg Orally every 4-6 hrs hrs prn must last 28 days 1 tablet as needed Apr, May, 28 days Active RESULTS No Results PROCEDURES No Known [...]
--- OUTSIDE RECORDS SUMMARY | 2018-07-03 09:48 | XMS REPORT ---
Author Author KING SAMUEL [facility] Address [address] [place] [address] Care Team Providers Care Tongue Trimmer Name Role Phone SAMUEL VARGAS Unavailable PROBLEMS Type Condition ICD9-CM Code EWW91-WS Code Onset Dates Condition Status SNOMED Code Problem Essential (primary) hypertension I10 Active 56900972 Problem Other iron deficiency anemia D50.8 Active 96339502 Problem Anxiety F41.9 Active 98311816 Problem Chronic obstructive pulmonary disease, unspecified COPD type J44.9 Active 95237418 Problem Hypertension, unspecified type I10 Active 43602384 Problem Dysthymia F34.1 Active 59676249 Problem Long-term use of high-risk medication Z79.899 Active 262084798 Problem Aortic ectasia, abdominal I77.811 Active [id number] Problem Pain in thoracic spine M54.6 Active [id number] Problem Lumbago with sciatica, left side M54.42 Active 411219115 Problem Lumbago with sciatica, right side M54.41 Active 002159613 Problem Foraminal stenosis of lumbar region M99.83 Active 49745490 Problem Other chronic pain G89.29 Active 48085590 Problem COPD without exacerbation J44.9 Active 06495611 Problem Chronic viral hepatitis C B18.2 Active 292753543 ALLERGIES No Known Allergies ENCOUNTERS Encounter Location Date Diagnosis [facility] [id number] [address] Aug, [facility] [id number] [place] [address] 39018- 3713 19 Jun, 2018 [facility] [id number] [place] [address] 75426- 8945 13 May, 2018 Foraminal stenosis of lumbar region M99.83 [facility] [id number] [place] [address] 47065- 0350 May, Shortness of breath R06.02 ; Hypertension, unspecified type I10 ; Chronic obstructive pulmonary disease, unspecified COPD type J44.9 ; Bilateral carotid bruits R09.89 and Tobacco use Z72.0 [place] [id number] [place] [address] 20885- 9107 Apr, Foraminal stenosis of lumbar region M99.83 [place] [address] 66207- 4565 Mar, Foraminal stenosis of lumbar region M99.83 [place] [address] 51621- 4882 Mar, Essential (primary) hypertension I10 ; Foraminal stenosis of lumbar region M99.83 ; Long-term use of high-risk medication Z79.899 and Aortic ectasia, abdominal I77.811 [place] [address] 24884- 0107 February, Lumbago with sciatica, unspecified side M54.40 [place] [id number] [place] [address] 97891- 4659 Jan, Lumbago with sciatica, unspecified side M54.40 [place] [id number] [place] [address] 10571- 6535 Jan, Lumbago with sciatica, unspecified side M54.40 ; Essential ( primary) hypertension I10 ; COPD without exacerbation J44.9 ; Long-term use of high-risk medication Z79.899 ; Anxiety F41.9 and Dysthymia F34.1 [place] [id number] [place] [address] 20553- 1376 Dec, [place] [address] 11201- 2598 Dec, Lumbago with sciatica, unspecified side M54.40 [place] [address] 62426- 2105 Dec, Anxiety F41.9 and Dysthymia F34.1 [place] [address] 071553- 1799 Nov, Other chronic pain G89.29 and Lumbago with sciatica, unspecified side M54.40 [place] [address] 04817- 1114 Oct, Lumbago with sciatica, unspecified side M54.40 [place] [address] 70500- 8190 Oct, Anxiety F41.9 and Dysthymia F34.1 [place] [address] 32169- 6334 Oct, Abnormal fasting glucose R73.01 [place] [address] 09910- 4718 Oct, Essential (primary) hypertension I10 and Lumbago with sciatica, unspecified side M54.40 [facility] [id number] [place] [address] 34820- 5543 Sep, Abnormal fasting glucose R73.01 [place] [id number] [place] [address] 59855- 6868 Sep, Pulmonary nodule R91.1 ; Aortic ectasia, abdominal I77.811 and Anxiety F41.9 [facility] [id number] [place] [address] 67014- 9707 Sep, Lumbago with sciatica, unspecified side M54.40 [place] [address] 99294- 1763 Aug, Essential (primary) hypertension I10 and Lumbago with sciatica, unspecified side M54.40 [facility] [id number] [place] [address] 87437- [address] Jul, [address] R93.8 [place] [address] [address] 8101 16 Jul, 2017 Right pulmonary lesion R91.1 [facility] [id number] [place] [address] 95427- 7730 10 Jul, 2017 Lumbago with sciatica, unspecified side M54.40 [place] [id number] [place] [address] 12711- 0383 Jul, Pain in thoracic spine M54.6 ; Lumbago with sciatica, left side M54.42 and Lumbago with sciatica, right side M54.41 [place] [id number] [place] [address] 32296- 2752 13 Jun, 2017 Essential (primary) hypertension I10 [...] Z79.899 and Pain in thoracic spine M54.6 [facility] [id number] [place] [address] 46602- 0115 May, [facility] [id number] [place] [address] 11446- 8418 Apr, Lumbago with sciatica, unspecified side M54.40 [place] [id number] [place] [address] 78955- 4791 Mar, Essential (primary) hypertension I10 ; Lumbago with sciatica , unspecified side M54.40 ; Chronic viral hepatitis C B18.2 ; Chronic obstructive pulmonary disease, unspecified J44.9 ; Other iron deficiency anemia D50.8 and Long-term use of high-risk medication Z79.899 [place] [address] [place] [address] 86949- 2929 Mar, Essential (primary) hypertension I10 [place] [id number] [place] [address] 51754- 8436 February, [place] [id number] [place] [address] 32325- 5843 February, Lumbago with sciatica, unspecified side M54.40 [place] [id number] [place] [address] 87587- 4416 Jan, Lumbago with sciatica, unspecified side M54.40 [place] [id number] [place] [address] 40631- 0432 Dec, Essential (primary) hypertension I10 ; Lumbago with sciatica , unspecified side M54.40 ; Chronic viral hepatitis C B18.2 ; Chronic obstructive pulmonary disease, unspecified J44.9 ; Other iron deficiency anemia D50.8 ; Long-term use of high-risk medication Z79.899 and General medical exam Z00.00 [place] [id number] [place] [address] 39424- 5695 Nov, Essential (primary) hypertension I10 [place] [id number] [place] [address] 44658- 0764 Oct, [place] [id number] [place] [address] 35962- 7034 Oct, Essential (primary) hypertension I10 [place] [id number] [place] [address] 64552- 7532 Oct, Anxiety F41.9 and Dysthymia F34.1 [place] [id number] [place] [address] 32463- 1223 Oct, [place] [id number] [place] [address] 92739- 9191 Oct, [place] [id number] [place] [address] 01528- 8550 Oct, Essential (primary) hypertension I10 ; Lumbago with sciatica , unspecified side M54.40 ; Chronic viral hepatitis C B18.2 ; Chronic obstructive pulmonary disease, unspecified J44.9 ; Other iron deficiency anemia D50.8 ; Long-term use of high-risk medication Z79.899 and Anxiety F41.9 [place] [address] 12010- 0072 Sep, [address] 11006- 4168 Aug, [place] [address] 23636- 5863 Jul, Abnormal fasting glucose R73.[address] 29660- 8719 Jul, Essential (primary) hypertension I10 ; Lumbago with sciatica , unspecified side M54.40 ; Chronic viral hepatitis C B18.2 ; Chronic obstructive pulmonary disease, unspecified J44.9 ; Other iron deficiency anemia D50.8 ; Long-term use of high-risk medication Z79.899 and Encounter for immunization Z23 [place] [id number] [place] [address] 72321- 5984 Jun, [address] 43995- 8500 May, [place] [address] 07391- 1785 Apr, Other iron deficiency anemia D50.8 [facility] [address] [place] [address] 11247 -1967 Apr, Chronic fatigue R53.82 and Bradycardia R00.[address] 90789- 9359 Apr, [facility] [address] [place] [address] 18884- 7148 Mar, Essential (primary) hypertension I10 ; Lumbago with sciatica , unspecified side M54.40 ; Chronic viral hepatitis C B18.2 ; Chronic obstructive pulmonary disease, unspecified J44.9 and Other iron deficiency anemia D50.8 [place] [id number] [place] [address] 03740- 9230 February, [place] [id number] [place] [address] 64103- 4053 Jan, [place] [id number] [place] [address] 83605- 9266 Jan, Fatigue R53.83 [place] [id number] [place] [address] 69783- 4534 Dec, Essential (primary) hypertension I10 ; Lumbago with sciatica , unspecified side M54.40 ; Chronic viral hepatitis C B18.2 ; Chronic obstructive pulmonary disease, unspecified J44.9 ; Sinusitis J32.9 and Fatigue R53.83 [place] [id number] [place] [address] 54999- 7059 Dec, [place] [id number] [place] [address] 56646- 6896 Nov, [place] [id number] [place] [address] 95623- 3617 Oct, Essential (primary) hypertension I10 ; Lumbago with sciatica , unspecified side M54.40 ; Chronic viral hepatitis C B18.2 ; Chronic obstructive pulmonary disease, unspecified J44.9 and History of long-term use of multiple prescription drugs Z92.29 [place] [address] [place] [address] 66235- 0908 Sep, [place] [id number] [place] [address] 25157- 9166 Aug, [place] [id number] [place] [address] 63555- 0668 Jul, Essential (primary) hypertension I10 ; Lumbago with sciatica , unspecified side M54.40 ; Chronic viral hepatitis C B18.2 ; Chronic obstructive pulmonary disease, unspecified J44.9 and Anxiety F41.9 [facility] [id number] [place] [address] 96243- 2746 Jun, [facility] [id number] [place] [address] 88686- 4606 May, [facility] [id number] [place] [address] 32848- 0059 Apr, Essential hypertension, benign 401.1 ; Lumbago 724.2 ; Nondependent tobacco use disorder 305.1 and Chronic hepatitis C without mention of hepatic coma 070.54 [place] [id number] [place] [address] 97865- 1899 Mar, Lumbago 724.2 [facility] [id number] [place] [address] 330021- 8918 February, Essential hypertension, benign 401.1 ; Lumbago 724.2 ; Nondependent tobacco use disorder 305.1 and Chronic hepatitis C without mention of hepatic coma 070.54 [place] [id number] [address]- 8636 February, [place] [id number] [place] [address] 03664- 9676 Jan, [facility] [id number] [place] [address] 17867- 4639 Jan, [facility] [id number] [place] [address] 45779- 6336 Dec, [facility] [id number] [place] [address] 73508- 6176 Dec, [facility] [id number] [place] [address] 21093- 4082 Nov, 2014 [facility] [place] [facility] [address] [id number] [place] [address]- 8557 Nov, [facility] [place] [facility] [address] [id number] [place] [address]- 1581 Oct, [facility] [place] [facility] [address] [facility] [id number] [place] [address]- 7321 Oct, [facility] [place] [facility] [address] [id number] [place] [address]- 7839 Sep, [facility] [place] [facility] [address] [id number] [place]377 Sep, [facility] [place] [facility] [address] [facility] [place] [id number] [address]- 6674 Aug, [facility] [place] [facility] [address] [facility] [place] [id number] [address]- 8267 Aug, [facility] [place] [facility] [address] [id number] [address]- 5946 Aug, [facility] [place] [facility] [address] [id number] [address]- 1517 Aug, [facility] [place] [facility] [address] [facility] [place] [id number] [address]- 2038 Jul, [facility] [place] [facility] [address] [id number] [address]- 0787 Jul, [facility] [place] [facility] [address] [id number] [address]- 2626 16 Jul, 2014 [facility] [place] [facility] [address] [id number] [address]- 4092 Jul, [facility] [place] [facility] [address] [facility] [place] [facility] [id number] [address]- 7492 Jul, [facility] [place] [facility] [address] [facility] [place] [facility] [id number] [address]- 7882 10 Jul, 2014 [facility] [place] [facility] [address] [id number] [place] [address]- 4142 Jul, [facility] [place] [facility] [address] [id number] [place] [address]- 3666 11 Jun, 2014 [facility] [place] [facility] [address] [id number] [place] [address]- 0806 Jun, [facility] [place] [facility] [address] [id number] [place] [address]- 9916 Jun, [facility] [place] [facility] [address] [id number] [place] [address]- 2544 Jun, [facility] [place] [facility] [address] [id number] [place] [address]- 1161 Jun, [facility] [place] [facility] [address] [id number] [place] [address]- 3797 Jun, [facility] [place] [facility] [address] [id number] [place] [address]- 1774 Jun, [facility] [place] [facility] [address] [id number] [place] [address]- 3639 Jun, [facility] [place] [facility] [address] [id number] [place] [address]- 9567 May, [facility] [place] [facility] [address] [id number] [place] [address]- 3178 May, [facility] [place] [facility] [address] [id number] [place] [address]- 4693 Apr, [facility] [place] [facility] [address] [id number] [place] [address]- 0419 Apr, [facility] [place] [facility] [address] [id number] [place] [address]- 4448 Mar, [facility] [place] [facility] [address] [id number] [place] [address]- 5900 Mar, [facility] [place] [facility] [address] [id number] [place] [address]- 4119 Mar, [facility] [place] [facility] [address] [id number] [place] [address]- 1954 Mar, [facility] [place] [facility] [address] [id number] [place] [address]- 3813 Mar, [facility] [place] [facility] [address] [id number] [place] [address]- 2121 February, [facility] [place] [facility] [address] [id number] [place] [address]- 9573 February, [facility] [place] [facility] [address] [id number] [place] [address]- 4430 February, [facility] [place] [facility] [address] [id number] [place] [address]- 5029 February, [facility] [place] [facility] [address] [id number] [place] [address]- 3325 Jan, [facility] [place] [facility] [address] [id number] [place] [address]- 0863 Jan, [facility] [place] [facility] [address] [id number] [place] [address]- 5947 Jan, [facility] [place] [facility] [address] [id number] [place] [address]- 4717 Jan, [facility] [place] [facility] [address] [id number] [place] [address]- 9267 Jan, [facility] [place] [facility] [address] [id number] [place] [address]- 5526 Jan, [facility] [place] [facility] [address] [id number] [place] [address]- 1112 Jan, [facility] [place] [facility] [address] [id number] [place] [address]- 1783 Jan, [facility] [place] [facility] [address] [id number] [place] 6397 Dec, [facility] [place] [facility] [address] [id number] [address]- 8267 Dec, [facility] [place] [facility] [address] [id number] [place] [address]- 3727 Dec, [facility] [place] [facility] [address] [id number] [place] [address]- 5808 14 Dec, 2013 [facility] [place] [facility] [address] [facility] [place] [id number] [place] [address]- 4493 Dec, [facility] [place] [facility] [address] [id number] [place] [address]- 3216 Dec, [facility] [place] [facility] [address] [id number] [place] [address]- 5592 Dec, [facility] [place] [facility] [address] [facility] [id number] [place] [address]- 6919 Dec, [facility] [place] [facility] [address] [facility] [id number] [place] [address]- 2155 Dec, [facility] [place] [facility] [address] [facility] [id number] [place] [address]- 6066 Dec, [facility] [place] [facility] [address] [id number] [place] [address]- 5592 Nov, [facility] [place] [facility] [address] [facility] [id number] [place] [address]- 0939 Nov, [facility] [place] [facility] [address] [id number] [place] [address]- 4588 Nov, [facility] [place] [facility] [address] [facility] [id number] [place] [address]- 1498 Nov, [facility] [place] [facility] [address] [id number] [place] [address]- 1269 Nov, [facility] [place] [facility] [address] [id number] [place] [address]- 4225 Nov, [facility] [place] [facility] [address] [id number] [address]- 2558 Oct, [facility] [place] [facility] [address] [id number] [place] [address]- 0906 Oct, [facility] [address] [id number] [place] [address]- 5974 Sep, [facility] [place] [facility] [address] [id number] [place] 0453 Sep, [facility] [place] [facility] [address] [id number] [place] 8102 Sep, [facility] [address] [id number] [place] [address]- 1920 Sep, [facility] [place] [facility] [address] [id number] [place] [address]- 4920 Aug, [facility] [address] [id number] [place] [address]- 7602 Aug, [facility] [address] [id number] [place] [address]- 3550 Aug, [facility] [address] [id number] [place] [address]- 8384 Aug, [facility] [address] [id number] [place] [address]- 7168 Aug, [facility] [place] [facility] [address] [id number] [place] [address]- 4885 Aug, [facility] [place] [facility] [address] [id number] [address]- 0739 Aug, [facility] [place] [facility] [address] [id number] [place] [address]- 7462 Aug, [facility] [place] [facility] [address] [id number] [place] [address]- 6421 Jul, [facility] [place] [facility] [address] [id number] [place] [address]- 4818 Jul, [facility] [place] [facility] [address] [id number] [place] [address]- 4848 Jul, 2012 [facility] [place] [facility] [address] [id number] [place] [address]- 7036 Jul, 2012 [facility] [place] [facility] [address] [id number] [place] [address]- 9453 Jul, 2012 [facility] [place] [facility] [address] [id number] [place] [address]- 9636 Jul, 2012 [facility] [place] [facility] [address] [id number] [address]- 2691 Jul, 2012 [facility] [place] [facility] [address] [id number] [place] [address]- 0576 Jul, 2012 [facility] [place] [facility] [address] [id number] [place] [address]- 0447 Jul, 2012 [facility] [place] [facility] [address] [id number] [address]- 5189 Jul, [facility] [place] [facility] [address] [id number] [address]- 6027 17 Jul, 2012 [facility] [place] [facility] [address] [id number] [place] [address]- 7820 17 Jul, 2012 [facility] [place] [facility] [address] [id number] [address] 15 Jul, 2012 [facility] [place] [facility] [address] [id number] [place] [address] 15 Jul, 2012 [facility] [place] [facility] [address] [id number] [address] 15 Jul, 2012 [facility] [place] [facility] [address] [id number] [address] 15 Jul, 2012 [facility] [place] [facility] [address] [id number] [address] 14 Jul, 2012 [facility] [place] [facility] [address] [id number] [address] 14 Jul, 2012 [facility] [place] [facility] [address] [id number] [place] [address] Jul, [facility] [place] [facility] [address] [id number] [place] [address] Jul, [facility] [place] [facility] [address] [id number] [place] [address] Jul, [facility] [place] [facility] [address] [id number] [place] [address] 79[address] Jul, [facility] [place] [facility] [address] [id number] [place] [address] Jul, [facility] [place] [facility] [address] [id number] [place] [address] Jun, [facility] [place] [facility] [address] [id number] [place] [address] Jun, [facility] [place] [facility] [address] [id number] [place] [address] May, [facility] [place] [facility] [address] [id number] [place] [address] May, [facility] [place] [facility] [address] [id number] [place] [address] May, [facility] [place] [facility] [address] [id number] [place] [address] May, [facility] [place] [facility] [address] [id number] [place] [address]- [address] May, [facility] [place] [facility] [address] [id number] [place] [address] May, [facility] [place] [facility] [address] [id number] [place] [address] May, [facility] [place] [facility] [address] [id number] [place] [address]- [address] May, [facility] [place] [facility] [address] [id number] [place] [address] Apr, [facility] [address] [id number] [place] [address] 14 Mar, 2013 [facility] [address] [id number] [place] [address] 14 Feb, 2013 [facility] [address] [id number] [place] [address]- [address] 12 Jan, 2013 [facility] [place] [facility] [address] [id number] [place] [address]24 21 Dec, 2012 [facility] [address] [id number] [place] [address] 18 Dec, 2012 [facility] [address] [id number] [place] [address] 15 Dec, 2012 [facility] [address] [id number] [place] [address]- [address] 07 Dec, 2012 [facility] [address] [id number] [place] [address] 8968 28 Nov, 2012 [facility] [address] [id number] [place] [address]- 2624 26 Nov, 2012 [facility] [address] [id number] [place] [address] 15 Nov, 2012 [facility] [address] [id number] [place] [address] 15 Nov, 2012 [facility] [place] [facility] [address] [id number] [address] 16 Oct, 2012 [facility] [place] [facility] [address] [id number] [place] [address]- [address]69 15 Oct, 2012 [facility] [place] [facility] [address] [id number] [place], [place] [address] 15 Oct, 2012 [facility] [place] [facility] [address] [id number] [place] [address] 31 Sep, 2012 [facility] [place] [facility] [address] [facility] [place] [id number] [place] [address] Sep, [facility] [address] [facility] [place] [id number] [place] [address] Sep, [facility] [address] [facility] [place] [id number] [place] [address] Sep, IMMUNIZATIONS No Known Immunizations SOCIAL HISTORY Never Assessed REASON FOR VISIT Transition of Care from enoch [facility] three month medication review. KIANA Murphy PLAN OF CARE Activity Details Follow Up 3 Months Reason:pain VITAL SIGNS Height 70 in 2018-03-26 Weight 139.3 lbs 2018-03-26 Temperature 98.2 degrees Fahrenheit 2018-03-26 Heart Rate 86 bpm 2018-03-26 Respiratory Rate 18 2018-03-26 Oximetry 99 % 2018-03-26 BMI 19.99 kg/m2 2018-03-26 Blood pressure systolic 122 mmHg 2018-03-26 Blood pressure diastolic 58 mmHg 2018-03-26 MEDICATIONS Medication Instructions Dosage Frequency Start Date End Date Duration Status Lisinopril 10 mg Orally Once a day TAKE ONE TABLET BY MOUTH ONCE DAILY 24h Active Oxycodone HCl 10 mg Orally every 4-6 hrs hrs prn must last 28 days 1 tablet as needed February, Active Iron Active Remeron 15 mg Orally QHS 1/2 tablet Active Prozac 10 mg Orally Once a day 1 capsule in the morning 24h Active Multi Complete Active Vitamin C Active RESULTS No Results PROCEDURES Procedure Date Ordered Result Body Site DRUG TEST PRSMV CHEM ANLYZR March 26, 2018 INSTRUCTIONS MEDICATIONS ADMINISTERED No Known Medications MEDICAL [...]
--- OUTSIDE RECORDS SUMMARY | 2018-07-03 09:48 | XMS REPORT ---
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 Name Role Phone DARLENE HARRY Unavailable PROBLEMS Type Condition ICD9-CM Code STK51-IU Code Onset Dates Condition Status SNOMED Code Problem Essential (primary) hypertension I10 Active 89887497 Problem Other iron deficiency anemia D50.8 Active 91923339 Problem Anxiety F41.9 Active 24030111 Problem Chronic obstructive pulmonary disease, unspecified COPD type J44.9 Active 80753068 Problem Hypertension, unspecified type I10 Active 37363401 Problem Dysthymia F34.1 Active 20242862 Problem Long-term use of high-risk medication Z79.899 Active 938529809 Problem Aortic ectasia, abdominal I77.811 Active 741208033547394 Problem Pain in thoracic spine M54.6 Active 280723626105718 Problem Lumbago with sciatica, left side M54.42 Active 838402907 Problem Lumbago with sciatica, right side M54.41 Active 470153621 Problem Foraminal stenosis of lumbar region M99.83 Active 71111850 Problem Other chronic pain G89.29 Active 89240945 Problem COPD without exacerbation J44.9 Active 44390785 Problem Chronic viral hepatitis C B18.2 Active 954226695 ALLERGIES No Information ENCOUNTERS Encounter Location Date Diagnosis [facility] [id number] [address] Aug, [facility] [id number] [place] [address] 14025- 6697 19 Jun, 2018 [facility] [address] [address] 13 May, 2018 Foraminal stenosis of lumbar region M99.83 [facility] [id number] [place] [address] 94817- 1351 May, Shortness of breath R06.02 ; Hypertension, unspecified type I10 ; Chronic obstructive pulmonary disease, unspecified COPD type J44.9 ; Bilateral carotid bruits R09.89 and Tobacco use Z72.0 [place] [id number] [place] [address] 91595- 4242 Apr, Foraminal stenosis of lumbar region M99.83 [place] [address] 36140- 7136 Mar, Foraminal stenosis of lumbar region M99.83 [place] [address] 509932- 0985 Mar, Essential (primary) hypertension I10 ; Foraminal stenosis of lumbar region M99.83 ; Long-term use of high-risk medication Z79.899 and Aortic ectasia, abdominal I77.811 [place] [address] [address]- 2300 February, Lumbago with sciatica, unspecified side M54.40 [place] [address] [address]- 8570 Jan, Lumbago with sciatica, unspecified side M54.40 [place] [address] 49256- 0437 Jan, Lumbago with sciatica, unspecified side M54.40 ; Essential ( primary) hypertension I10 ; COPD without exacerbation J44.9 ; Long-term use of high-risk medication Z79.899 ; Anxiety F41.9 and Dysthymia F34.1 [place] [address] 22293- 5506 Dec, [place] [address] 98404- 7752 Dec, Lumbago with sciatica, unspecified side M54.40 [place] [address] [place] [address] 7809 Dec, Anxiety F41.9 and Dysthymia F34.1 [place] [address] [id number]- 3925 Nov, Other chronic pain G89.29 and Lumbago with sciatica, unspecified side M54.40 [place] [address] 28961- 9185 Oct, Lumbago with sciatica, unspecified side M54.40 [place] [address] 54081- 7403 Oct, Anxiety F41.9 and Dysthymia F34.1 [place] [address] 22200- 9798 Oct, Abnormal fasting glucose R73.01 [place] [address] 74117- 7959 Oct, Essential (primary) hypertension I10 and Lumbago with sciatica, unspecified side M54.40 [place] [address] 83648- 2416 Sep, Abnormal fasting glucose R73.01 [place] [address] 42753- 7173 Sep, Pulmonary nodule R91.1 ; Aortic ectasia, abdominal I77.811 and Anxiety F41.9 [place] [address] 87059- 6345 Sep, Lumbago with sciatica, unspecified side M54.40 [place] [address] 135430- 5833 Aug, Essential (primary) hypertension I10 and Lumbago with sciatica, unspecified side M54.40 [place] [address] 63786- 2111 Jul, Abnormal chest CT R93.8 [place] [address] [place] [address] 96818- 1338 16 Jul, 2017 Right pulmonary lesion R91.1 [place] [id number] [place] [address] 04043- 1681 10 Jul, 2017 Lumbago with sciatica, unspecified side M54.40 [place] [id number] [place] [address] 29404- 5571 10 Jul, 2017 Pain in thoracic spine M54.6 ; Lumbago with sciatica, left side M54.42 and Lumbago with sciatica, right side M54.41 [place] [id number] [place] [address] 39952- 4046 13 Jun, 2017 Essential (primary) hypertension I10 [...] Z79.899 and Pain in thoracic spine M54.6 [place] [address] [place] [address] 09163- 0146 May, [place] [id number] [place] [address] 89226- 2496 Apr, Lumbago with sciatica, unspecified side M54.40 [place] [id number] [place] [address] 23244- 2056 Mar, Essential (primary) hypertension I10 ; Lumbago with sciatica , unspecified side M54.40 ; Chronic viral hepatitis C B18.2 ; Chronic obstructive pulmonary disease, unspecified J44.9 ; Other iron deficiency anemia D50.8 and Long-term use of high-risk medication Z79.899 [place] [address] [place] [address] 23158- 8502 Mar, Essential (primary) hypertension I10 [facility] [id number] [place] [address] 46812- 5383 February, [facility] [id number] [place] [address] 70393- 4645 February, Lumbago with sciatica, unspecified side M54.40 [place] [id number] [place] [address] 50764- 4879 Jan, Lumbago with sciatica, unspecified side M54.40 [place] [id number] [place] [address] 58082- 9763 Dec, Essential (primary) hypertension I10 ; Lumbago with sciatica , unspecified side M54.40 ; Chronic viral hepatitis C B18.2 ; Chronic obstructive pulmonary disease, unspecified J44.9 ; Other iron deficiency anemia D50.8 ; Long-term use of high-risk medication Z79.899 and General medical exam Z00.00 [place] [id number] [place] [address] 68568- 5495 Nov, Essential (primary) hypertension I10 [place] [id number] [place] [address] 08740- 6063 Oct, [place] [id number] [place] [address] 67236- 7092 Oct, Essential (primary) hypertension I10 [place] [id number] [place] [address] 43401- 5417 Oct, Anxiety F41.9 and Dysthymia F34.1 [place] [id number] [place] [address] 35713- 0925 Oct, [place] [id number] [place] [address] 67191- 5456 Oct, [place] [id number] [place] [address] 67949- 9826 Oct, Essential (primary) hypertension I10 ; Lumbago with sciatica , unspecified side M54.40 ; Chronic viral hepatitis C B18.2 ; Chronic obstructive pulmonary disease, unspecified J44.9 ; Other iron deficiency anemia D50.8 ; Long-term use of high-risk medication Z79.899 and Anxiety F41.9 [place] [address] 59095- 9733 Sep, [address] 91678- 0802 Aug, [place] [address] 74531- 6757 Jul, Abnormal fasting glucose R73.[address] 73794- 7115 Jul, Essential (primary) hypertension I10 ; Lumbago with sciatica , unspecified side M54.40 ; Chronic viral hepatitis C B18.2 ; Chronic obstructive pulmonary disease, unspecified J44.9 ; Other iron deficiency anemia D50.8 ; Long-term use of high-risk medication Z79.899 and Encounter for immunization Z23 [address] [id number] [place] [address] 91694- 5003 Jun, [place] [address] 03736- 0912 May, [place] [id number] [place] [address] 90875- 0494 Apr, Other iron deficiency anemia D50.8 [facility] [id number] [place] [address] 46275 -6663 Apr, Chronic fatigue R53.82 and Bradycardia R00.[address] 43927- 2493 Apr, [facility] [id number] [place] [address] 80124- 9516 Mar, Essential (primary) hypertension I10 ; Lumbago with sciatica , unspecified side M54.40 ; Chronic viral hepatitis C B18.2 ; Chronic obstructive pulmonary disease, unspecified J44.9 and Other iron deficiency anemia D50.8 [place] [address] 50644- 1947 February, [facility] [address] 73299- 1196 Jan, [place] [address] 04292- 1279 Jan, Fatigue R53.83 [place] [id number] [place] [address] 57792- 7529 Dec, Essential (primary) hypertension I10 ; Lumbago with sciatica , unspecified side M54.40 ; Chronic viral hepatitis C B18.2 ; Chronic obstructive pulmonary disease, unspecified J44.9 ; Sinusitis J32.9 and Fatigue R53.83 [place] [id number] [place] [address] 30760- 5893 Dec, [place] [id number] [place] [address] 09973- 9035 Nov, [place] [id number] [place] [address] 39866- 0963 Oct, Essential (primary) hypertension I10 ; Lumbago with sciatica , unspecified side M54.40 ; Chronic viral hepatitis C B18.2 ; Chronic obstructive pulmonary disease, unspecified J44.9 and History of long-term use of multiple prescription drugs Z92.29 [place] [id number] [place] [address] 51540- 9830 Sep, [place] [id number] [place] [address] 96345- 4459 Aug, [place] [address] [id number] [address]- 6038 Jul, Essential (primary) hypertension I10 ; Lumbago with sciatica , unspecified side M54.40 ; Chronic viral hepatitis C B18.2 ; Chronic obstructive pulmonary disease, unspecified J44.9 and Anxiety F41.9 [facility] [id number] [place] [address] 68775- 8447 Jun, [facility] [id number] [place] [address] 58160- 0508 May, [facility] [id number] [place] [address] 04976- 5725 Apr, Essential hypertension, benign 401.1 ; Lumbago 724.2 ; Nondependent tobacco use disorder 305.1 and Chronic hepatitis C without mention of hepatic coma 070.54 [place] [id number] [place] [address] 28854- 2398 Mar, Lumbago 724.2 [facility] [id number] [place] [address] 25873- 5768 February, Essential hypertension, benign 401.1 ; Lumbago 724.2 ; Nondependent tobacco use disorder 305.1 and Chronic hepatitis C without mention of hepatic coma 070.54 [place] [id number] [place] [address] 12280- 0040 February, [place] [id number] [place] [address] 84741- 6809 Jan, [facility] [id number] [place] [address] 15136- 6054 Jan, [facility] [id number] [place] [address] 08370- 8356 Dec, [facility] [id number] [place] [address] 91324- 0572 Dec, [facility] [id number] [place] [address] 97859- 8737 Nov, [facility] [place] [facility] [address] [id number] [place] [address]- 7668 Nov, [facility] [place] [facility] [address] [id number] 3461 Oct, [facility] [place] [facility] [address] [facility] [id number] [place] [address]- 8120 Oct, [facility] [place] [facility] [address] [id number], [place] [address]- 0520 Sep, [facility] [place] [facility] [address] [id number] [place] [address]- 8054 Sep, [facility] [place] [facility] [address] [id number] [place] [address]- 0074 Aug, [facility] [place] [facility] [address] [facility] [id number] [address]- 1599 Aug, [facility] [place] [facility] [address] [id number], [place] [address]- 1317 Aug, [facility] [place] [facility] [address] [id number], [place] [address]- 8976 Aug, [facility] [place] [facility] [address] [facility] [id number] [address]- 9554 Jul, [facility] [place] [facility] [address] [id number], [place] [address]- 0379 Jul, [facility] [place] [facility] [address] [id number], [place] [address]- 3084 16 Jul, 2014 [facility] [place] [facility] [address] [id number] [address]- 8723 13 Jul, 2014 [facility] [place] [facility] [address] [id number], [place] [address]- 4841 Jul, [facility] [place] [facility] [address] [id number] [address]- 3829 10 Jul, 2014 [facility] [place] [facility] [address] [id number] [place] [address]- 5928 Jul, [facility] [place] [facility] [address] [id number] [place] [address]- 8536 11 Jun, 2014 [facility] [place] [facility] [address] [id number] [place] [address]- 9296 Jun, [facility] [place] [facility] [address] [id number] [place] [address]- 3266 Jun, 2013 [facility] [place] [facility] [address] [id number] [place] [address]- 8626 Jun, [facility] [place] [facility] [address] [id number] [place] [address]- 2796 Jun, [facility] [place] [facility] [address] [id number] [place] [address]- 0135 Jun, [facility] [place] [facility] [address] [id number] [place] [address]- 3490 Jun, [facility] [place] [facility] [address] [id number] [place] [address]- 0948 Jun, [facility] [place] [facility] [address] [id number] [place] [address]- 7026 May, [facility] [place] [facility] [address] [id number] [place] [address]- 3597 May, [facility] [place] [facility] [address] [id number] [place] [address]- 8071 Apr, [facility] [place] [facility] [address] [id number] [place] [address]- 4732 Apr, [facility] [place] [facility] [address] [id number] [place] [address]- 4471 Mar, [facility] [place] [facility] [address] [id number] [place] [address]- 9820 Mar, [facility] [place] [facility] [address] [id number] [place] [address]- 9990 Mar, [facility] [place] [facility] [address] [id number] [place] [address]- 4418 Mar, [facility] [place] [facility] [address] [id number] [place] [address]- 3497 Mar, [facility] [place] [facility] [address] [id number] [place] [address]- 9343 February, [facility] [place] [facility] [address] [id number] [place] [address]- 9894 February, [facility] [place] [facility] [address] [id number] [place] [address]- 7658 February, [facility] [place] [facility] [address] [id number] [place] [address]- 1786 February, [facility] [place] [facility] [address] [id number] [place] [address]- 4991 Jan, [facility] [place] [facility] [address] [id number] [place] [address]- 7064 Jan, [facility] [place] [facility] [address] [id number] [place] [address]- 8634 Jan, [facility] [place] [facility] [address] [id number] [place] [address]- 5504 Jan, [facility] [place] [facility] [address] [id number] [place] [address]- 1185 Jan, [facility] [place] [facility] [address] [id number] [place] [address]- 2804 Jan, [facility] [place] [facility] [address] [id number] [place] [address]- 0558 Jan, [facility] [place] [facility] [address] [id number] [place] [address]- 5497 Jan, [facility] [place] [facility] [address] [id number] [place] [address]- 4310 Dec, [facility] [place] [facility] [address] [id number] [place] [address]- 9551 25 Dec, 2013 [facility] [place] [facility] [address] [id number] [place] [address]- 7680 14 Dec, 2013 [facility] [place] [facility] [address] [id number] [place] [address]- 3469 14 Dec, 2013 [facility] [place] [facility] [address] [facility] [id number] [place] [address]- 4766 Dec, [facility] [place] [facility] [address] [id number] [place] [address]- 8080 Dec, [facility] [place] [facility] [address] [id number] [place] [address]- 0269 Dec, [facility] [place] [facility] [address] [facility] [id number] [place] [address]- 1035 Dec, [facility] [place] [facility] [address] [id number] [place] [address]- 5065 Dec, [facility] [place] [facility] [address] [facility] [id number] [place] [address]- 9906 Dec, [facility] [place] [facility] [address] [id number] [place] [address]- 1246 Nov, [facility] [place] [facility] [address] [facility] [id number] [place] [address]- 8134 Nov, [facility] [place] [facility] [address] [facility] [id number] [place] [address]- 6040 Nov, [facility] [place] [facility] [address] [facility] [id number] [place] [address]- 7931 Nov, [facility] [place] [facility] [address] [id number] [place] [address]- 2889 Nov, [facility] [place] [facility] [address] [facility] [id number] [place] [address]- 6005 Nov, [facility] [place] [facility] [address] [facility] [id number] [place] [address]- 5357 Oct, [facility] [address] [id number] [place] [address]- 4560 Oct, [facility] [place] [facility] [address] [id number] [place] [address]- 6199 Sep, [facility] [place] [facility] [address] [id number] [place] [address]- 1929 Sep, [facility] [place] [facility] [address] [id number] [place] [address]- 8092 Sep, [facility] [place] [facility] [address] [id number] [place] [address]- 7270 Sep, [facility] [place] [facility] [address] [id number] [place] [address]- 5630 Aug, [facility] [place] [facility] [address] [id number] [place] [address]- 5957 Aug, [facility] [place] [facility] [address] [id number], [place] [address]- 2216 Aug, [facility] [place] [facility] [address] [id number] [place] [address]- 0404 Aug, [facility] [place] [facility] [address] [id number], [place] [address]- 9625 Aug, [facility] [place] [facility] [address] [id number], [place] [address]- 8222 Aug, [facility] [place] [facility] [address] [id number], [place] [address]- 3938 Aug, [facility] [place] [facility] [address] [id number], [place] [address]- 8531 Aug, [facility] [place] [facility] [address] [id number], [place] [address]- 4216 Jul, [facility] [place] [facility] [address] [id number] 9738 Jul, [facility] [place] [facility] [address] [id number], [place] [address]- 6952 25 Jul, 2012 [facility] [place] [facility] [address] [id number] [place] [address]- 5140 25 Jul, 2012 [facility] [place] [facility] [address] [id number], [place] [address]- 4507 25 Jul, 2012 [facility] [place] [facility] [address] [id number] [place] [address]- 2732 25 Jul, 2012 [facility] [place] [facility] [address] [id number][place] [address]- 8459 Jul, 2012 [facility] [place] [facility] [address] [id number] [place] [address]- 8154 21 Jul, 2012 [facility] [place] [facility] [address] [id number], [place] [address]- 9401 21 Jul, 2012 [facility] [place] [facility] [address] [id number], [place] [address]- 4365 21 Jul, 2012 [facility] [place] [facility] [address] [id number], [place] [address]- 3652 17 Jul, 2012 [facility] [place] [facility] [address] [id number][place] [address]- 2257 17 Jul, 2012 [facility] [place] [facility] [address] [id number], [place] [address]- 4611 15 Jul, 2012 [facility] [place] [facility] [address] [id number], [place] [address]- 2820 15 Jul, 2012 [facility] [place] [facility] [address] [id number], [place] [address]- 3686 15 Jul, 2012 [facility] [place] [facility] [address] [id number], [place] [address] 15 Jul, 2012 [facility] [place] [facility] [address] [id number], [place] [address] 14 Jul, 2012 [facility] [place] [facility] [address] [id number], [place] [address] 14 Jul, 2012 [facility] [place] [facility] [address] [id number] [place] [address] Jul, [facility] [place] [facility] [address] [id number] [place] [address] Jul, [facility] [place] [facility] [address] [id number] [place] [address] Jul, [facility] [place] [facility] [address] [id number] [place] [address] Jul, [facility] [place] [facility] [address] [id number] [place] [address] Jul, [facility] [place] [facility] [address] [id number] [place] [address] Jun, [facility] [place] [facility] [address] [id number] [place] [address] Jun, [facility] [place] [facility] [address] [id number] [place] [address] May, [facility] [place] [facility] [address] [id number] [place] [address] May, [facility] [place] [facility] [address] [id number] [place] [address] May, [facility] [place] [facility] [address] [id number] [place] [address] May, [facility] [place] [facility] [address] [id number] [place] [address] 16 May, 2013 [facility] [place] [facility] [address] [id number] [place] [address] May, [facility] [place] [facility] [address] [id number] [place] [address] May, [facility] [place] [facility] [address] [id number] [place] [address] May, [facility] [place] [facility] [address] [id number] [place] [address]- [address] 11 Apr, 2013 [facility] [address] [id number] [place] [address] 14 Mar, 2013 [facility] [address] [id number] [place] [address]- [address] 14 Feb, 2013 [facility] [address] [id number] [place] [address] 12 Jan, 2013 [facility] [place] [facility] [address] [id number] [place] [address]- [address] 21 Dec, 2012 [facility] [address] [id number] [place] [address] 18 Dec, 2012 [facility] [place] [facility] [address] [id number] [place] [address] 15 Dec, 2012 [facility] [address] [id number] [place] [address]- [address] Dec, [facility] [place] [facility] [address] [id number] [place] [address] 28 Nov, 2012 [facility] [place] [facility] [address] [id number] [place] [address] 26 Nov, 2012 [facility] [place] [facility] [address] [id number] [place] [address] 15 Nov, 2012 [facility] [place] [facility] [address] [id number] [place] [address]- [address] 15 Nov, 2012 [facility] [place] [facility] [address] [id number] [place] [address] 16 Oct, 2012 [facility] [place] [facility] [address] [id number] [place] [address] 15 Oct, 2012 [facility] [place] [facility] [address] [id number] [place] [address]- [address] 15 Oct, 2012 [facility] [place] [facility] [address] [id number] [place] [address]- [address] 31 Sep, 2012 [facility] [place] [facility] [address] [facility] [id number] [place] [address] Sep, [facility] [address] [facility] [id number] [place] [address] Sep, [facility] [address] [facility] [id number] [place] [id number] Sep, IMMUNIZATIONS No Known Immunizations SOCIAL HISTORY Never Assessed REASON FOR VISIT Controlled Med Refill 03/06 PLAN OF CARE VITAL SIGNS MEDICATIONS Medication Instructions Dosage Frequency Start Date End Date Duration Status Oxycodone HCl 10 mg Orally every 4-6 hrs hrs prn must last 28 days 1 tablet as needed February, 28 days Active RESULTS No Results PROCEDURES [...]
--- OUTSIDE RECORDS SUMMARY | 2018-07-03 09:49 | XMS REPORT ---
Author Author DARLENE HARRY [facility] Address [address] [place] [address] Care Team Providers Care Custom Studio Coordinator Name Role Phone DARLENE HARRY Unavailable PROBLEMS Type Condition ICD9-CM Code RMS98-YZ Code Onset Dates Condition Status SNOMED Code Problem Other chronic pain G89.29 Active 27470929 Problem Essential (primary) hypertension I10 Active 79702121 Problem Chronic viral hepatitis C B18.2 Active 635911454 Problem COPD without exacerbation J44.9 Active 48519425 Problem Foraminal stenosis of lumbar region M99.83 Active 97057703 Problem Lumbago with sciatica, left side M54.42 Active 954327979 Problem Lumbago with sciatica, right side M54.41 Active 131859595 Problem Aortic ectasia, abdominal I77.811 Active 417616129623558 Problem Pain in thoracic spine M54.6 Active 740950432398591 Problem Other iron deficiency anemia D50.8 Active 28266953 Problem Anxiety F41.9 Active 55332193 Problem Dysthymia F34.1 Active 89405272 Problem Long-term use of high-risk medication Z79.899 Active 750024909 ALLERGIES No Information ENCOUNTERS Encounter Location Date Diagnosis [place] [id number] [address] May, [place] [id number], [place] [address] Apr, Foraminal stenosis of lumbar region M99.83 [place] [id number] [place] [address] 68007- 6265 Mar, Foraminal stenosis of lumbar region M99.83 [place] [id number] [address] Mar, Essential (primary) hypertension I10 ; Foraminal stenosis of lumbar region M99.83 ; Long-term use of high-risk medication Z79.899 and Aortic ectasia, abdominal I77.811 [place] [address] [address]- [address] February, Lumbago with sciatica, unspecified side M54.40 [place] [address] [address]- [address] Jan, Lumbago with sciatica, unspecified side M54.40 [place] [address] 267 Jan, Lumbago with sciatica, unspecified side M54.40 ; Essential ( primary) hypertension I10 ; COPD without exacerbation J44.9 ; Long-term use of high-risk medication Z79.899 ; Anxiety F41.9 and Dysthymia F34.1 [place] [address] [address]- [address]90 Dec, [place] [address] [address] 7074 Dec, Lumbago with sciatica, unspecified side M54.40 [place] [id number] Dec, Anxiety F41.9 and Dysthymia F34.1 [place] [address] [address]- 6811 Nov, Other chronic pain G89.29 and Lumbago with sciatica, unspecified side M54.40 [place] [address] [place]- 6959 Oct, Lumbago with sciatica, unspecified side M54.40 [place] [address] [address]247- 412 Oct, Anxiety F41.9 and Dysthymia F34.1 [place] [id number] [place] [address] 36576- 5686 Oct, Abnormal fasting glucose R73.01 [place] [address] 9[address]60- 0985 Oct, Essential (primary) hypertension I10 and Lumbago with sciatica, unspecified side M54.40 [place] [address] 23679- 9118 Sep, Abnormal fasting glucose R73.01 [place] [address] 85936- 3513 Sep, Pulmonary nodule R91.1 ; Aortic ectasia, abdominal I77.811 and Anxiety F41.9 [place] [address] 21629- 2956 Sep, Lumbago with sciatica, unspecified side M54.40 [place] [address] 75907- 6589 Aug, Essential (primary) hypertension I10 and Lumbago with sciatica, unspecified side M54.40 [place] [address] 88000- 8027 Jul, Abnormal chest CT R93.8 [place] [address] 04498- 2649 Jul, Right pulmonary lesion R91.1 [place] [address] 60782- 6954 Jul, Lumbago with sciatica, unspecified side M54.40 [place] [address] 84764- 4738 Jul, Pain in thoracic spine M54.6 ; Lumbago with sciatica, left side M54.42 and Lumbago with sciatica, right side M54.41 [place] [address] 20547- 6406 Jun, Essential (primary) hypertension I10 ; COPD without [...] Z79.899 and Pain in thoracic spine M54.6 [place] [address] 7[address]- 4895 May, [place] [address] 22369- 1430 Apr, Lumbago with sciatica, unspecified side M54.40 [place] [address] 43350- 1117 Mar, Essential (primary) hypertension I10 ; Lumbago with sciatica , unspecified side M54.40 ; Chronic viral hepatitis C B18.2 ; Chronic obstructive pulmonary disease, unspecified J44.9 ; Other iron deficiency anemia D50.8 and Long-term use of high-risk medication Z79.899 [place] [id number] [place] [address] 95238- 2091 Mar, Essential (primary) hypertension I10 [place] [id number] [place] [address] 86780- 1763 February, [place] [address] 43321- 5824 February, Lumbago with sciatica, unspecified side M54.40 [place] [address] 00889- 4987 Jan, Lumbago with sciatica, unspecified side M54.40 [place] [address] [place] [address] 07237- 0378 Dec, Essential (primary) hypertension I10 ; Lumbago with sciatica , unspecified side M54.40 ; Chronic viral hepatitis C B18.2 ; Chronic obstructive pulmonary disease, unspecified J44.9 ; Other iron deficiency anemia D50.8 ; Long-term use of high-risk medication Z79.899 and General medical exam Z00.00 [place] [id number] [place] [address] 80783- 4515 Nov, Essential (primary) hypertension I10 [place] [id number] [place] [address] 80687- 1502 Oct, [place] [id number] [place] [address] 60641- 9854 Oct, Essential (primary) hypertension I10 [place] [address] 83618- 7365 Oct, Anxiety F41.9 and Dysthymia F34.1 [place] [id number] [place] [address] 56316- 1896 Oct, [place] [id number] [place] [address] 01167- 4274 Oct, [place] [id number] [place] [address] 47909- 1795 Oct, Essential (primary) hypertension I10 ; Lumbago with sciatica , unspecified side M54.40 ; Chronic viral hepatitis C B18.2 ; Chronic obstructive pulmonary disease, unspecified J44.9 ; Other iron deficiency anemia D50.8 ; Long-term use of high-risk medication Z79.899 and Anxiety F41.9 [place] [id number] [place] [address] 99303- 7038 Sep, [place] [id number] [place] [address] 71502- 1985 Aug, [place] [id number] [place] [address] 68533- 1544 Jul, Abnormal fasting glucose R73.01 [place] [id number] [place] [address] 13281- 0434 Jul, Essential (primary) hypertension I10 ; Lumbago with sciatica , unspecified side M54.40 ; Chronic viral hepatitis C B18.2 ; Chronic obstructive pulmonary disease, unspecified J44.9 ; Other iron deficiency anemia D50.8 ; Long-term use of high-risk medication Z79.899 and Encounter for immunization Z23 [place] [id number] [place] [address] 71282- 7637 Jun, [place] [id number] [place] [address] 93179- 7742 May, [place] [id number] [place] [address] 65796- 6986 Apr, Other iron deficiency anemia D50.8 [facility] [id number] [place] [address] 89402 -8282 Apr, Chronic fatigue R53.82 and Bradycardia R00.1 [place] [id number] [place] [address] 73530- 7550 Apr, [place] [id number] [place] [address] 60699- 4782 Mar, Essential (primary) hypertension I10 ; Lumbago with sciatica , unspecified side M54.40 ; Chronic viral hepatitis C B18.2 ; Chronic obstructive pulmonary disease, unspecified J44.9 and Other iron deficiency anemia D50.8 [place] [id number] [place] [address] 90911- 7106 February, [facility] [id number] [place] [address] 73333- 9650 Jan, [place] [id number] [place] [address] 56503- 3159 Jan, Fatigue R53.83 [place] [address] [place] [address] 49777- 0422 Dec, Essential (primary) hypertension I10 ; Lumbago with sciatica , unspecified side M54.40 ; Chronic viral hepatitis C B18.2 ; Chronic obstructive pulmonary disease, unspecified J44.9 ; Sinusitis J32.9 and Fatigue R53.83 [place] [address] 89386- 9883 Dec, [place] [id number] [place] [address] 52969- 2387 Nov, [place] [address] 84569- 2060 Oct, Essential (primary) hypertension I10 ; Lumbago with sciatica , unspecified side M54.40 ; Chronic viral hepatitis C B18.2 ; Chronic obstructive pulmonary disease, unspecified J44.9 and History of long-term use of multiple prescription drugs Z92.29 [place] [id number] [place] [address] 38807- 8041 Sep, [place] [id number] [place] [address] 50119- 2368 Aug, [place] [id number] [place] [address] 86201- 2650 Jul, Essential (primary) hypertension I10 ; Lumbago with sciatica , unspecified side M54.40 ; Chronic viral hepatitis C B18.2 ; Chronic obstructive pulmonary disease, unspecified J44.9 and Anxiety F41.9 [place] [id number] [place] [address] 15529- 6756 Jun, [place] [id number] [place] [address] 83653- 0848 May, [place] [id number] [place] [address] 65760- 7198 Apr, Essential hypertension, benign 401.1 ; Lumbago 724.2 ; Nondependent tobacco use disorder 305.1 and Chronic hepatitis C without mention of hepatic coma 070.54 [facility] [address] [address]- 5654 Mar, Lumbago 724.2 [facility] [address] [address]- 3429 February, Essential hypertension, benign 401.1 ; Lumbago 724.2 ; Nondependent tobacco use disorder 305.1 and Chronic hepatitis C without mention of hepatic coma 070.54 [facility] [address] [address]- 3100 February, [facility] [address] [address]- 0979 Jan, [facility] [address] [address]- 1177 Jan, [facility] [address] [address]- 2285 Dec, [facility] [address] [address]- 4126 Dec, [facility] [address] [address]- 8530 Nov, [facility] [address] [address]- 7928 Nov, [facility] [address] [place] [address]- 0234 Oct, [facility] [address] 7223 Oct, [facility] [address], [place] [address]- 4214 Sep, [facility] [id number] [address]- 9030 Sep, [facility] [address] [address]- 4466 13 Aug, 2014 [facility] [place] [facility] [address] [id number] [place] [address]- 1809 13 Aug, 2014 [facility] [place] [facility] [address] [id number] [place] [address]- 4644 11 Aug, 2014 [facility] [place] [facility] [address] [id number] [place] [address]- 1167 Aug, [facility] [place] [facility] [address] [id number] [place] [address]- 7835 17 Jul, 2014 [facility] [place] [facility] [address] [id number] [place] [address]- 5554 17 Jul, 2014 [facility] [place] [facility] [address] [id number] [place] [address]- 6965 16 Jul, 2014 [facility] [place] [facility] [address] [id number] [place] [address]- 4083 Jul, [facility] [place] [facility] [address] [id number] [place] [address]- 1926 13 Jul, 2014 [facility] [place] [facility] [address] [id number] [place] [address]- 8113 10 Jul, 2014 [facility] [place] [facility] [address] [id number] [place] [address]- 8545 10 Jul, 2014 [facility] [place] [facility] [address] [id number] [place] [address]- 2978 11 Jun, 2014 [facility] [place] [facility] [address] [id number] [place] [address]- 9912 11 Jun, 2014 [facility] [place] [facility] [address] [id number] [place] [address]- 8976 11 Jun, 2014 [facility] [place] [facility] [address] [id number] [place] [address]- 1782 11 Jun, 2013 [facility] [place] [facility] [address] [id number] [place] [address]- 2307 Jun, [facility] [place] [facility] [address] [id number] [place] [address]- 4392 Jun, [facility] [place] [facility] [address] [id number] [place] [address]- 1553 Jun, [facility] [place] [facility] [address] [id number] [place] [address]- 2875 Jun, [facility] [place] [facility] [address] [id number] [place] [address]- 9824 May, [facility] [place] [facility] [address] [id number] [place] [address]- 6574 May, [facility] [place] [facility] [address] [id number] [place] [address]- 6532 Apr, [facility] [place] [facility] [address] [id number] [place] [address]- 4541 Apr, [facility] [place] [facility] [address] [id number] [place] [address]- 8488 Mar, [facility] [place] [facility] [address] [id number] [place] [address]- 7598 Mar, [facility] [place] [facility] [address] [id number] [place] [address]- 8273 Mar, [facility] [place] [facility] [address] [id number] [place] [address]- 0926 Mar, [facility] [place] [facility] [address] [id number] [place] [address]- 8288 Mar, [facility] [place] [facility] [address] [id number] [place] [address]- 6066 February, [facility] [place] [facility] [address] [id number] [place] [address]- 3077 February, [facility] [place] [facility] [address] [id number] [place] [address]- 1534 February, [facility] [place] [facility] [address] [id number] [place] [address]- 2950 February, [facility] [place] [facility] [address] [id number] [place] [address]- 7611 Jan, [facility] [place] [facility] [address] [id number] [place] [address]- 3909 Jan, [facility] [place] [facility] [address] [id number] [place] [address]- 4917 Jan, [facility] [place] [facility] [address] [id number] [place] [address]- 4904 Jan, [facility] [place] [facility] [address] [id number] [place] [address]- 5882 Jan, [facility] [place] [facility] [address] [id number] [place] [address]- 7222 Jan, [facility] [place] [facility] [address] [id number] [place] [address]- 3864 Jan, [facility] [place] [facility] [address] [id number] [place] [address]- 6104 Jan, [facility] [place] [facility] [address] [id number] [place] [address]- 5467 Dec, [facility] [place] [facility] [address] [id number] [place] [address]- 4258 Dec, [facility] [place] [facility] [address] [id number] [place] [address]- 5089 Dec, [facility] [place] [facility] [address] [id number] [place] [address]- 5895 14 Dec, 2013 [facility] [place] [facility] [address] [id number] [place] [address]- 5638 Dec, [facility] [place] [facility] [address] [id number] [place] [address]- 2022 Dec, [facility] [place] [facility] [address] [id number] [place] [address]- 4523 Dec, [facility] [place] [facility] [address] [id number] [place] [address]- 1777 Dec, [facility] [place] [facility] [address] [id number] [place] [address]- 4656 Dec, [facility] [place] [facility] [address] [id number] [place] [address]- 0736 Dec, [facility] [place] [facility] [address] [id number] [place] [address]- 0372 Nov, [facility] [place] [facility] [address] [id number] [place] [address]- 5285 Nov, [facility] [place] [facility] [address] [id number] [place] [address]- 2400 Nov, [facility] [place] [facility] [address] [id number] [place] [address]- 1008 Nov, [facility] [place] [facility] [address] [id number] [place] [address]- 2709 Nov, [facility] [place] [facility] [address] [id number] [place] [address]- 6467 Nov, [facility] [place] [facility] [address] [id number] [place] [address]- 7085 Oct, [facility] [place] [facility] [address] [id number] [place] [address]- 8309 Oct, [facility] [place] [facility] [address] [id number] [place] [address]- 9262 Sep, [facility] [place] [facility] [address] [id number] [place] [address]- 5508 Sep, [facility] [place] [facility] [address] [id number] [place] 3076 Sep, [facility] [place] [facility] [address] [id number] [place] [address]- 4830 Sep, [facility] [place] [facility] [address] [id number], [place] [address]- 8792 Aug, [facility] [place] [facility] [address] [id number] [place] [address]- 1803 Aug, [facility] [place] [facility] [address] [id number], [place] [address]- 5951 Aug, [facility] [place] [facility] [address] [id number] [place] [address]- 8779 Aug, [facility] [place] [facility] [address] [id number], [place] [address]- 8195 Aug, [facility] [place] [facility] [address] [id number] [place] [address]- 8250 Aug, [facility] [place] [facility] [address] [id number] [place] [address]- 5689 Aug, [facility] [place] [facility] [address] [id number], [place] [address]- 6529 Aug, [facility] [place] [facility] [address] [id number], [place] [address]- 5125 Jul, [facility] [place] [facility] [address] [id number], [place] [address]- 1206 Jul, [facility] [place] [facility] [address] [id number], [place] [address]- 5380 Jul, [facility] [place] [facility] [address] [id number], [place] [address]- 9249 Jul, [facility] [place] [facility] [address] [id number], [place] [address]- 1460 Jul, [facility] [place] [facility] [address] [id number], [place] [address]- 6911 Jul, [facility] [place] [facility] [address] [id number], [place] [address]- 4763 Jul, [facility] [place] [facility] [address] [id number] [place] [address]- 0707 Jul, [facility] [place] [facility] [address] [id number] [place] [address]- 9505 21 Jul, 2012 [facility] [address] [id number] [place] [address]- 8695 21 Jul, 2012 [facility] [place] [facility] [address] [id number] [place] [address]- 0648 17 Jul, 2012 [facility] [address] [id number] [place] [address]- 5486 17 Jul, 2012 [facility] [place] [facility] [address] [id number] [place] [address]- 3599 15 Jul, 2012 [facility] [address] [id number] [place] [address]- 1780 15 Jul, 2012 [facility] [place] [facility] [address] [id number] [place] [address]- 1648 15 Jul, 2012 [facility] [place] [facility] [address] [id number] [place] [address]- 0284 15 Jul, 2012 [facility] [address] [id number] [place] [address]- 7718 14 Jul, 2012 [facility] [place] [facility] [address] [id number] [place] [address]- 6620 14 Jul, 2012 [facility] [place] [facility] [address] [id number] [place] [address]- 1042 11 Jul, 2012 [facility] [place] [facility] [address] [id number] [place] [address]- 0172 11 Jul, 2012 [facility] [place] [facility] [address] [id number] [place] [address] 11 Jul, 2012 [facility] [place] [facility] [address] [id number] [place] [address] 11 Jul, 2012 [facility] [place] [facility] [address] [id number] [place] [address] 02 Jul, 2013 [facility] [place] [facility] [address] [id number] [place] [address] Jun, [facility] [place] [facility] [address] [id number] [place] [address] 05 Jun, 2013 [facility] [place] [facility] [address] [id number] [place] [address] May, [facility] [place] [facility] [address] [id number] [place] [address] May, [facility] [place] [facility] [address] [id number] [place] [address] May, [facility] [place] [facility] [address] [id number] [place] [address] May, [facility] [place] [facility] [address] [id number] [place] [address] May, [facility] [place] [facility] [address] [id number] [place] [address] May, [facility] [place] [facility] [address] [id number] [place] [address] May, [facility] [place] [facility] [address] [id number] [place] [address] May, [facility] [place] [facility] [address] [id number] [place] [address] Apr, [facility] [place] [facility] [address] [id number] [place] [address] Mar, [facility] [place] [facility] [address] [id number] [place] [address] February, [facility] [place] [facility] [address] [id number] [place] [address] Jan, [facility] [place] [facility] [address] [id number] [place] [address] Dec, [facility] [place] [facility] [address] [id number] [place] [address] Dec, [facility] [place] [facility] [address] [id number] [address] Dec, [facility] [id number] [place] [address] Dec, [facility] [id number] [address] Nov, [facility] [id number] [place] [address] Nov, [facility] [id number], [place] [address] Nov, [facility] [id number] [place] [address] Nov, [facility] [id number] [place] [address] 810067- [address] Oct, [facility] [id number] [place] [address] 8[address]- [address] Oct, [facility] [id number] Oct, [facility] [id number] [place] [id number]- [address] Sep, [facility] [address] [address] Sep, [facility] [id number] [address] Sep, [facility] [id number], [place] [address] Sep, IMMUNIZATIONS No Known Immunizations SOCIAL HISTORY Never Assessed REASON FOR VISIT Controlled Med Refill PLAN OF CARE VITAL SIGNS MEDICATIONS Medication Instructions Dosage Frequency Start Date End Date Duration Status Oxycodone HCl 10 mg Orally every 4-6 hrs hrs prn must last 28 days 1 tablet as needed Jan, 28 days Active RESULTS No Results PROCEDURES [...]
--- OUTSIDE RECORDS SUMMARY | 2018-07-03 09:49 | XMS REPORT ---
Author Author DARLENE HARRY [facility] Address [address] [place] [address] Care Team Providers Care [employer] H[employer] Developer Name Role Phone DARLENE HARRY Unavailable PROBLEMS Type Condition ICD9-CM Code XIE46-SV Code Onset Dates Condition Status SNOMED Code Problem Other chronic pain G89.29 Active 77253084 Problem Essential (primary) hypertension I10 Active 16054642 Problem Chronic viral hepatitis C B18.2 Active 552106531 Problem COPD without exacerbation J44.9 Active 99448172 Problem Foraminal stenosis of lumbar region M99.83 Active 26508928 Problem Lumbago with sciatica, left side M54.42 Active 669250117 Problem Lumbago with sciatica, right side M54.41 Active 591710904 Problem Aortic ectasia, abdominal I77.811 Active 135445421036798 Problem Pain in thoracic spine M54.6 Active 224094449871012 Problem Other iron deficiency anemia D50.8 Active 78144412 Problem Anxiety F41.9 Active 88060120 Problem Dysthymia F34.1 Active 03926904 Problem Long-term use of high-risk medication Z79.899 Active 423584785 ALLERGIES No Known Allergies ENCOUNTERS Encounter Location Date Diagnosis [place] [address] [id number], [place] [address] May, [facility] [id number] [place] [address] 41952- 5745 Apr, Foraminal stenosis of lumbar region M99.83 [facility] [id number] [place] [address] 84701- 9829 Mar, Foraminal stenosis of lumbar region M99.83 [place] [id number], [place] [address] 1542 Mar, Essential (primary) hypertension I10 ; Foraminal stenosis of lumbar region M99.83 ; Long-term use of high-risk medication Z79.899 and Aortic ectasia, abdominal I77.811 [place] [address] 235 February, Lumbago with sciatica, unspecified side M54.40 [place] [address] 734 Jan, Lumbago with sciatica, unspecified side M54.40 [place] [address] 260 Jan, Lumbago with sciatica, unspecified side M54.40 ; Essential ( primary) hypertension I10 ; COPD without exacerbation J44.9 ; Long-term use of high-risk medication Z79.899 ; Anxiety F41.9 and Dysthymia F34.1 [place] [address] 930 Dec, [place] [address] [place] [address] 452 Dec, Lumbago with sciatica, unspecified side M54.40 [place] [address] 439 Dec, Anxiety F41.9 and Dysthymia F34.1 [place] [address] 014503- 970 Nov, Other chronic pain G89.29 and Lumbago with sciatica, unspecified side M54.40 [place] [address] 883 Oct, Lumbago with sciatica, unspecified side M54.40 [place] [address] 318357- 743 Oct, Anxiety F41.9 and Dysthymia F34.1 [place] [id number] [place] [address] 90398- 9073 Oct, Abnormal fasting glucose R73.01 [place] [address] 94067- 5370 Oct, Essential (primary) hypertension I10 and Lumbago with sciatica, unspecified side M54.40 [place] [address] 19252- 1826 Sep, Abnormal fasting glucose R73.01 [place] [address] 26513- 6851 Sep, Pulmonary nodule R91.1 ; Aortic ectasia, abdominal I77.811 and Anxiety F41.9 [place] [address] 20704- 0852 Sep, Lumbago with sciatica, unspecified side M54.40 [place] [address] 11357- 7795 Aug, Essential (primary) hypertension I10 and Lumbago with sciatica, unspecified side M54.40 [place] [address] 95063- 0996 Jul, Abnormal chest CT R93.8 [place] [address] 40474- 5879 Jul, Right pulmonary lesion R91.1 [place] [address] 75242- 7066 Jul, Lumbago with sciatica, unspecified side M54.40 [place] [address] 60460- 2429 Jul, Pain in thoracic spine M54.6 ; Lumbago with sciatica, left side M54.42 and Lumbago with sciatica, right side M54.41 [place] [address] 80427- 1142 Jun, Essential (primary) hypertension I10 ; COPD [...] Z79.899 and Pain in thoracic spine M54.6 [place] [address] 77455- 8197 May, [place] [address] 22965- 9464 Apr, Lumbago with sciatica, unspecified side M54.40 [place] [address] 55014- 0874 Mar, Essential (primary) hypertension I10 ; Lumbago with sciatica , unspecified side M54.40 ; Chronic viral hepatitis C B18.2 ; Chronic obstructive pulmonary disease, unspecified J44.9 ; Other iron deficiency anemia D50.8 and Long-term use of high-risk medication Z79.899 [place] [id number] [place] [address] 77964- 1209 Mar, Essential (primary) hypertension I10 [place] [id number] [place] [address] 50348- 0139 February, [place] [address] 96323- 4266 February, Lumbago with sciatica, unspecified side M54.40 [place] [id number] [place] [address] 62060- 3914 Jan, Lumbago with sciatica, unspecified side M54.40 [place] [id number] [place] [address] 57546- 2233 Dec, Essential (primary) hypertension I10 ; Lumbago with sciatica , unspecified side M54.40 ; Chronic viral hepatitis C B18.2 ; Chronic obstructive pulmonary disease, unspecified J44.9 ; Other iron deficiency anemia D50.8 ; Long-term use of high-risk medication Z79.899 and General medical exam Z00.00 [place] [id number] [place] [address] 78172- 9960 Nov, Essential (primary) hypertension I10 [place] [address] 99635- 6637 Oct, [place] [id number] [place] [address] 52054- 7171 Oct, Essential (primary) hypertension I10 [place] [address] 50716- 9602 Oct, Anxiety F41.9 and Dysthymia F34.1 [place] [id number] [place] [address] 39239- 1439 Oct, [place] [id number] [place] [address] 49425- 4646 Oct, [place] [address] [id number] [place] [address] 11081- 4739 Oct, Essential (primary) hypertension I10 ; Lumbago with sciatica , unspecified side M54.40 ; Chronic viral hepatitis C B18.2 ; Chronic obstructive pulmonary disease, unspecified J44.9 ; Other iron deficiency anemia D50.8 ; Long-term use of high-risk medication Z79.899 and Anxiety F41.9 [place] [id number] [place] [address] 15764- 3407 Sep, [place] [id number] [place] [address] 96144- 3906 Aug, [place] [id number] [place] [address] 17589- 1058 Jul, Abnormal fasting glucose R73.01 [place] [id number] [place] [address] 14729- 3420 Jul, Essential (primary) hypertension I10 ; Lumbago with sciatica , unspecified side M54.40 ; Chronic viral hepatitis C B18.2 ; Chronic obstructive pulmonary disease, unspecified J44.9 ; Other iron deficiency anemia D50.8 ; Long-term use of high-risk medication Z79.899 and Encounter for immunization Z23 [place] [id number] [place] [address] 58903- 0945 Jun, [place] [id number] [place] [address] 82606- 8739 May, [place] [id number] [place] [address] 86974- 4423 Apr, Other iron deficiency anemia D50.8 [facility] [id number] [place] [address] 86779 -5225 Apr, Chronic fatigue R53.82 and Bradycardia R00.1 [place] [id number] [place] [address] 64838- 5246 Apr, [place] [id number] [place] [address] 43034- 7450 Mar, Essential (primary) hypertension I10 ; Lumbago with sciatica , unspecified side M54.40 ; Chronic viral hepatitis C B18.2 ; Chronic obstructive pulmonary disease, unspecified J44.9 and Other iron deficiency anemia D50.8 [place] [id number] [place] [address] 36361- 3887 February, [facility] [id number] [place] [address] 76736- 4094 Jan, [place] [address] 54170- 7455 Jan, Fatigue R53.83 [place] [address] [place] [address] 77243- 3050 Dec, Essential (primary) hypertension I10 ; Lumbago with sciatica , unspecified side M54.40 ; Chronic viral hepatitis C B18.2 ; Chronic obstructive pulmonary disease, unspecified J44.9 ; Sinusitis J32.9 and Fatigue R53.83 [place] [id number] [place] [address] 82696- 1572 Dec, [place] [id number] [place] [address] 37753- 3736 Nov, [place] [id number] [place] [address] 18840- 2945 Oct, Essential (primary) hypertension I10 ; Lumbago with sciatica , unspecified side M54.40 ; Chronic viral hepatitis C B18.2 ; Chronic obstructive pulmonary disease, unspecified J44.9 and History of long-term use of multiple prescription drugs Z92.29 [place] [id number] [place] [address] 09065- 4123 Sep, [place] [id number] [place] [address] 58823- 5002 Aug, [place] [id number] [place] [address] 06835- 5553 Jul, Essential (primary) hypertension I10 ; Lumbago with sciatica , unspecified side M54.40 ; Chronic viral hepatitis C B18.2 ; Chronic obstructive pulmonary disease, unspecified J44.9 and Anxiety F41.9 [place] [id number] [place] [address] 41147- 1499 Jun, [place] [address] [id number] [place] [address] 818949- 8166 May, [place] [address] [id number] [place] [address] 42741- 5130 Apr, Essential hypertension, benign 401.1 ; Lumbago 724.2 ; Nondependent tobacco use disorder 305.1 and Chronic hepatitis C without mention of hepatic coma 070.54 [facility] [address], [place] [address]- 9937 Mar, Lumbago 724.2 [facility] [address], [place] [address]- 0468 February, Essential hypertension, benign 401.1 ; Lumbago 724.2 ; Nondependent tobacco use disorder 305.1 and Chronic hepatitis C without mention of hepatic coma 070.54 [facility] [address], [place] [address]- 9084 February, [facility] [id number] [place] [address] 25323- 4262 Jan, [facility] [id number] [address]- 9374 Jan, [facility] [address], [place] [address]- 7254 Dec, [facility] [address], [place] [address]- 6800 Dec, [facility] [address], [place] [address]- 7911 Nov, [facility] [address], [place] [address]- 6546 Nov, [facility] [address], [place] [address]- 9153 Oct, [facility] [address] 2923 Oct, [facility] [address] 5203 Sep, [facility] [address], [place] [address]- 5109 Sep, [facility] [address] [place] [address]- 4478 13 Aug, 2014 [facility] [place] [facility] [address] [id number] [place] [address]- 9871 13 Aug, 2014 [facility] [place] [facility] [address] [id number] [place] [address]- 5940 Aug, [facility] [place] [facility] [address] [id number] [place] [address]- 0836 Aug, [facility] [place] [facility] [address] [id number] [place] [address]- 6910 17 Jul, 2014 [facility] [place] [facility] [address] [id number] [place] [address]- 9619 17 Jul, 2014 [facility] [place] [facility] [address] [id number] [place] [address]- 3859 16 Jul, 2014 [facility] [place] [facility] [address] [id number] [place] [address]- 1516 Jul, [facility] [place] [facility] [address] [id number] [place] [address]- 0402 13 Jul, 2014 [facility] [place] [facility] [address] [id number] [place] [address]- 4126 10 Jul, 2014 [facility] [place] [facility] [address] [id number] [place] [address]- 2854 10 Jul, 2014 [facility] [place] [facility] [address] [id number] [place] [address]- 1826 11 Jun, 2014 [facility] [place] [facility] [address] [id number] [place] [address]- 8796 11 Jun, 2014 [facility] [place] [facility] [address] [id number] [place] [address]- 6372 11 Jun, 2014 [facility] [place] [facility] [address] [id number] [place] [address]- 7384 11 Jun, 2013 [facility] [place] [facility] [address] [id number] [place] [address]- 0581 Jun, [facility] [place] [facility] [address] [id number] [place] [address]- 8554 Jun, [facility] [place] [facility] [address] [id number] [place] [address]- 6084 Jun, [facility] [place] [facility] [address] [id number] [place] [address]- 4280 Jun, [facility] [place] [facility] [address] [id number] [place] [address]- 6649 May, [facility] [place] [facility] [address] [id number] [place] [address]- 0353 May, [facility] [place] [facility] [address] [id number] [place] [address]- 2969 Apr, [facility] [place] [facility] [address] [id number] [place] [address]- 3914 Apr, [facility] [place] [facility] [address] [id number] [place] [address]- 6787 Mar, [facility] [place] [facility] [address] [id number] [place] [address]- 8767 Mar, [facility] [place] [facility] [address] [id number] [place] [address]- 3513 Mar, [facility] [place] [facility] [address] [id number] [place] [address]- 2148 Mar, [facility] [place] [facility] [address] [id number] [place] [address]- 7393 Mar, [facility] [place] [facility] [address] [id number] [place] [address]- 3226 February, [facility] [place] [facility] [address] [id number] [place] [address]- 0991 February, [facility] [place] [facility] [address] [id number] [place] [address]- 8368 February, [facility] [place] [facility] [address] [id number] [address]- 8732 February, [facility] [place] [facility] [address] [id number] [place] [address]- 3174 Jan, [facility] [place] [facility] [address] [id number] [place] [address]- 7053 Jan, [facility] [place] [facility] [address] [id number] [place] [address]- 5112 Jan, [facility] [place] [facility] [address] [id number] [place] [address]- 6455 Jan, [facility] [place] [facility] [address] [id number] [place] [address]- 1363 Jan, [facility] [place] [facility] [address] [id number] [place] [address]- 7934 Jan, [facility] [place] [facility] [address] [id number] [place] [address]- 7602 Jan, [facility] [place] [facility] [address] [id number] [place] [address]- 1788 Jan, [facility] [place] [facility] [address] [id number] [place] [address]- 3278 Dec, [facility] [place] [facility] [address] [id number] [place] [address]- 7504 Dec, [facility] [place] [facility] [address] [id number] [place] [address]- 7093 Dec, [facility] [place] [facility] [address] [id number] [place] [address]- 4736 Dec, [facility] [place] [facility] [address] [id number] [place] [address]- 5111 Dec, [facility] [place] [facility] [address] [id number] [place] [address]- 5423 Dec, [facility] [place] [facility] [address] [id number] [place] [address]- 9852 Dec, [facility] [place] [facility] [address] [id number] [place] [address]- 7247 Dec, [facility] [place] [facility] [address] [id number] [place] [address]- 5730 Dec, [facility] [place] [facility] [address] [id number] [place] [address]- 6520 Dec, [facility] [place] [facility] [address] [id number] [place] [address]- 6048 Nov, [facility] [place] [facility] [address] [id number] [place] [address]- 9581 Nov, [facility] [place] [facility] [address] [id number] [place] [address]- 7918 Nov, [facility] [place] [facility] [address] [id number] [place] [address]- 1260 Nov, [facility] [place] [facility] [address] [id number] [place] [address]- 2900 Nov, [facility] [place] [facility] [address] [id number] [place] [address]- 1160 Nov, [facility] [place] [facility] [address] [id number] [place] [address]- 9067 Oct, [facility] [place] [facility] [address] [id number] [place] [address]- 2422 Oct, [facility] [place] [facility] [address] [id number] [place] [address]- 8426 Sep, [facility] [place] [facility] [address] [id number] [place] [address]- 2656 Sep, [facility] [place] [facility] [address] [id number] [place] 5127 Sep, [facility] [place] [facility] [address] [id number] [place] [address]- 1910 Sep, [facility] [place] [facility] [address] [id number], [place] [address]- 5149 Aug, [facility] [place] [facility] [address] [id number] [place] [address]- 9509 Aug, [facility] [place] [facility] [address] [id number], [place] [address]- 3971 Aug, [facility] [place] [facility] [address] [id number] [place] [address]- 7476 Aug, [facility] [place] [facility] [address] [id number] [place] [address]- 0025 Aug, [facility] [place] [facility] [address] [id number] [place] [address]- 3996 Aug, [facility] [place] [facility] [address] [id number] [place] [address]- 8321 Aug, [facility] [place] [facility] [address] [id number], [place] [address]- 3395 Aug, [facility] [place] [facility] [address] [id number] [place] [address]- 9038 Jul, [facility] [place] [facility] [address] [id number], [place] [address]- 9233 Jul, [facility] [place] [facility] [address] [id number], [place] [address]- 7914 Jul, [facility] [place] [facility] [address] [id number], [place] [address]- 5038 Jul, [facility] [place] [facility] [address] [id number], [place] [address]- 6435 Jul, [facility] [place] [facility] [address] [id number], [place] [address]- 0268 Jul, [facility] [place] [facility] [address] [id number], [place] [address]- 8350 Jul, [facility] [place] [facility] [address] [id number] [place] [address]- 7717 Jul, [facility] [place] [facility] [address] [id number] [place] [address]- 0099 21 Jul, 2012 [facility] [place] [facility] [address] [id number] [place] [address]- 0797 21 Jul, 2012 [facility] [place] [facility] [address] [id number] [place] [address]- 5688 17 Jul, 2012 [facility] [place] [facility] [address] [id number] [place] [address]- 8460 17 Jul, 2012 [facility] [place] [facility] [address] [id number] [place] [address]- 4920 15 Jul, 2012 [facility] [place] [facility] [address] [id number] [place] [address]- 3527 15 Jul, 2012 [facility] [place] [facility] [address] [id number] [place] [address]- 9046 15 Jul, 2012 [facility] [place] [facility] [address] [id number] [place] [address]- 3881 15 Jul, 2012 [facility] [place] [facility] [address] [id number] [place] [address]- 5459 14 Jul, 2012 [facility] [place] [facility] [address] [id number] [place] [address]- 9896 14 Jul, 2012 [facility] [place] [facility] [address] [id number] [place] [address]- 2782 11 Jul, 2012 [facility] [place] [facility] [address] [id number] [place] [address]- 3113 11 Jul, 2012 [facility] [place] [facility] [address] [id number] [place] [address]- 9879 11 Jul, 2012 [facility] [place] [facility] [address] [id number] [place] [address]- 3044 11 Jul, 2012 [facility] [place] [facility] [address] [id number] [place] [address]- 5324 02 Jul, 2013 [facility] [place] [facility] [address] [id number] [place] [address]- 9730 Jun, [facility] [address] [id number] [place] [address]- 4309 Jun, [facility] [place] [facility] [address] [id number] [place] [address]- 0532 May, [facility] [place] [facility] [address] [id number] [place] [address]- 6912 May, [facility] [place] [facility] [address] [id number] [place] [address]- 6474 May, [facility] [place] [facility] [address] [id number] [place] [address] May, [facility] [place] [facility] [address] [id number] [place] [address] May, [facility] [place] [facility] [address] [id number] [place] [address] May, [facility] [place] [facility] [address] [id number] [place] [address] May, [facility] [place] [facility] [address] [id number] [place] [address] May, [facility] [place] [facility] [address] [id number] [place] [address] Apr, [facility] [place] [facility] [address] [id number] [place] [address] Mar, [facility] [place] [facility] [address] [id number] [place] [address] February, [facility] [place] [facility] [address] [id number] [place] [address] Jan, [facility] [place] [facility] [address] [id number] [place] [address] Dec, [facility] [place] [facility] [address] [id number] [place] [address] Dec, [facility] [place] [facility] [address] [id number], [place] [address] Dec, [facility] [id number] [address] Dec, [facility] [address] [id number] [address] Nov, [facility] [id number] [address] Nov, [facility] [id number] [place] [address] Nov, [facility] [id number] [place] [address] Nov, [facility] [id number] [address] Oct, [facility] [id number] [place] [address] Oct, [facility] [id number], [place] [address] Oct, [facility] [id number] [place] [address] Sep, [facility] [id number], [place] [address] Sep, [facility] [id number], [place] [address] Sep, [facility] [address] [id number], [place] [address] Sep, IMMUNIZATIONS No Known Immunizations SOCIAL HISTORY Never Assessed REASON FOR VISIT Blood Pressure--Tram, --he is seeing the specialist and was told that the spot on his lung had disappeared. , --blood pressure is higher today, he states that he took his medication this am. PLAN OF CARE Activity Details Follow Up 3 Months Reason:pain VITAL SIGNS Height 70 in 2018-01-24 Weight 147.7 lbs 2018-01-24 Temperature 97.7 degrees Fahrenheit 2018-01-24 Heart Rate 80 bpm 2018-01-24 Respiratory Rate 20 2018-01-24 BMI 21.19 kg/m2 2018-01-24 Blood pressure systolic 138 mmHg 2018-01-24 Blood pressure diastolic 76 mmHg 2018-01-24 MEDICATIONS Medication Instructions Dosage Frequency Start Date End Date Duration Status Oxycodone HCl 10 mg Orally every 4-6 hrs hrs prn must last 28 days 1 tablet as needed 28 days Active Prozac 10 mg Orally Once a day 1 capsule in the morning 24h Active Remeron 15 mg Orally QHS 1/2 tablet Active Lisinopril 10 mg Orally Once a day TAKE ONE TABLET BY MOUTH ONCE DAILY 24h Active RESULTS No Results PROCEDURES No Known [...]
--- OUTSIDE RECORDS SUMMARY | 2018-07-03 09:50 | XMS REPORT ---
Author Author FREEDOM LOVE [facility] [address] Address [address] [place] [address] [address] Providers Care Drive Away Driver Name Role Phone CHELLY LOVEABHINAV Unavailable PROBLEMS Type Condition ICD9-CM Code [id number] Code Onset Dates Condition Status SNOMED Code Problem Other chronic pain G89.29 Active 71521275 Problem Essential (primary) hypertension I10 Active 14589563 Problem Chronic viral hepatitis C B18.2 Active 180365078 Problem COPD without exacerbation J44.9 Active 95149874 Problem Foraminal stenosis of lumbar region M99.83 Active 57770590 Problem Lumbago with sciatica, left side M54.42 Active 456541177 Problem Lumbago with sciatica, right side M54.41 Active 057857320 Problem Aortic ectasia, abdominal I77.811 Active 804729532420450 Problem Pain in thoracic spine M54.6 Active 476800770244222 Problem Other iron deficiency anemia D50.8 Active 99124772 Problem Anxiety F41.9 Active 94768423 Problem Dysthymia F34.1 Active 50905002 Problem Long-term use of high-risk medication Z79.899 Active 371518807 ALLERGIES No Information ENCOUNTERS Encounter Location Date Diagnosis [place] [id number], [place] [address] May, [place] [address] [address] Apr, Foraminal stenosis of lumbar region M99.83 [place] [address], [place] [address] 0288 Mar, Foraminal stenosis of lumbar region M99.83 [place] [address] [address] 5[address] Mar, Essential (primary) hypertension I10 ; Foraminal stenosis of lumbar region M99.83 ; Long-term use of high-risk medication Z79.899 and Aortic ectasia, abdominal I77.811 [place] [id number] [place] [address] 987 February, Lumbago with sciatica, unspecified side M54.40 [place] [id number] [place] [address] 259 Jan, Lumbago with sciatica, unspecified side M54.40 [place] [address] [address] Jan, Lumbago with sciatica, unspecified side M54.40 ; Essential ( primary) hypertension I10 ; COPD without exacerbation J44.9 ; Long-term use of high-risk medication Z79.899 ; Anxiety F41.9 and Dysthymia F34.1 [place] [address] [address]235[address]- 870 Dec, [place] [address] 067571- 5796 Dec, Lumbago with sciatica, unspecified side M54.40 [place] [id number] [place] [address] 261 Dec, Anxiety F41.9 and Dysthymia F34.1 [place] [id number] [place] [address]38- 0934 Nov, Other chronic pain G89.29 and Lumbago with sciatica, unspecified side M54.40 [place] [address] 932364- 909 Oct, Lumbago with sciatica, unspecified side M54.40 [place] [id number] [place] [address] 121 Oct, Anxiety F41.9 and Dysthymia F34.1 [place] [id number] [place] [address] 68840- 2716 Oct, Abnormal fasting glucose R73.01 [place] [address] [address]- 3582 Oct, Essential (primary) hypertension I10 and Lumbago with sciatica, unspecified side M54.40 [place] [id number] [place] [address] 70717- 8683 Sep, Abnormal fasting glucose R73.01 [place] [address] [address]- 7872 Sep, Pulmonary nodule R91.1 ; Aortic ectasia, abdominal I77.811 and Anxiety F41.9 [place] [id number] [place] [address] 70518- 8314 Sep, Lumbago with sciatica, unspecified side M54.40 [place] [id number] [place] [address] 28563- 6936 Aug, Essential (primary) hypertension I10 and Lumbago with sciatica, unspecified side M54.40 [place] [address] [address]- 3024 Jul, Abnormal chest CT R93.8 [place] [id number] [place] [address] 10105- 9884 Jul, Right pulmonary lesion R91.1 [place] [address] 94592- 5924 Jul, Lumbago with sciatica, unspecified side M54.40 [place] [id number] [place] [address] 21676- 7284 Jul, Pain in thoracic spine M54.6 ; Lumbago with sciatica, left side M54.42 and Lumbago with sciatica, right side M54.41 [place] [address] [address]- 4161 Jun, Essential (primary) hypertension I10 ; COPD [...] Z79.899 and Pain in thoracic spine M54.6 [place] [address] 02540- 2922 May, [place] [address] [address]- 4553 Apr, Lumbago with sciatica, unspecified side M54.40 [place] [address] 11004- 2755 Mar, Essential (primary) hypertension I10 ; Lumbago with sciatica , unspecified side M54.40 ; Chronic viral hepatitis C B18.2 ; Chronic obstructive pulmonary disease, unspecified J44.9 ; Other iron deficiency anemia D50.8 and Long-term use of high-risk medication Z79.899 [place] [id number] [place] [address] 50767- 4603 Mar, Essential (primary) hypertension I10 [place] [id number] [place] [address] 36235- 5390 February, [place] [address] 93422- 0834 February, Lumbago with sciatica, unspecified side M54.40 [place] [address] 73352- 8510 Jan, Lumbago with sciatica, unspecified side M54.40 [place] [id number] [place] [address] 84458- 6809 Dec, Essential (primary) hypertension I10 ; Lumbago with sciatica , unspecified side M54.40 ; Chronic viral hepatitis C B18.2 ; Chronic obstructive pulmonary disease, unspecified J44.9 ; Other iron deficiency anemia D50.8 ; Long-term use of high-risk medication Z79.899 and General medical exam Z00.00 [place] [id number] [place] [address] 46686- 7323 Nov, Essential (primary) hypertension I10 [place] [id number] [place] [address] 03788- 2014 Oct, [place] [id number] [place] [address] 18621- 4954 Oct, Essential (primary) hypertension I10 [place] [id number] [place] [address] 30593- 4630 Oct, Anxiety F41.9 and Dysthymia F34.1 [place] [id number] [place] [address] 97907- 8489 Oct, [place] [id number] [place] [address] 31223- 6233 Oct, [place] [id number] [place] [address] 87029- 0324 Oct, Essential (primary) hypertension I10 ; Lumbago with sciatica , unspecified side M54.40 ; Chronic viral hepatitis C B18.2 ; Chronic obstructive pulmonary disease, unspecified J44.9 ; Other iron deficiency anemia D50.8 ; Long-term use of high-risk medication Z79.899 and Anxiety F41.9 [place] [id number] [place] [address] 85169- 3230 Sep, [place] [id number] [place] [address] 78851- 9492 Aug, [id number] [place] [address] 17406- 9029 Jul, Abnormal fasting glucose R73.01 [place] [id number] [place] [address] 87731- 1190 Jul, Essential (primary) hypertension I10 ; Lumbago with sciatica , unspecified side M54.40 ; Chronic viral hepatitis C B18.2 ; Chronic obstructive pulmonary disease, unspecified J44.9 ; Other iron deficiency anemia D50.8 ; Long-term use of high-risk medication Z79.899 and Encounter for immunization Z23 [place] [id number] [place] [address] 78222- 8951 Jun, [place] [id number] [place] [address] 71719- 0577 May, [place] [id number] [place] [address] 25966- 6247 Apr, Other iron deficiency anemia D50.8 [facility] [id number] [place] [address] 63781 -9663 Apr, Chronic fatigue R53.82 and Bradycardia R00.1 [place] [id number] [place] [address] 40901- 1810 Apr, [place] [id number] [place] [address] 22745- 9902 Mar, Essential (primary) hypertension I10 ; Lumbago with sciatica , unspecified side M54.40 ; Chronic viral hepatitis C B18.2 ; Chronic obstructive pulmonary disease, unspecified J44.9 and Other iron deficiency anemia D50.8 [place] [id number] [place] [address] 33944- 3418 February, [place] [id number] [place] [address] 11289- 6761 Jan, [place] [id number] [place] [address] 67545- 7978 Jan, Fatigue R53.83 [place] [address], [place] [address]- 7756 Dec, Essential (primary) hypertension I10 ; Lumbago with sciatica , unspecified side M54.40 ; Chronic viral hepatitis C B18.2 ; Chronic obstructive pulmonary disease, unspecified J44.9 ; Sinusitis J32.9 and Fatigue R53.83 [place] [id number] [place] [address] 13817- 1704 Dec, [place] [id number] [place] [address] 59341- 7937 Nov, [place] [id number] [place] [address] 16285- 6110 Oct, Essential (primary) hypertension I10 ; Lumbago with sciatica , unspecified side M54.40 ; Chronic viral hepatitis C B18.2 ; Chronic obstructive pulmonary disease, unspecified J44.9 and History of long-term use of multiple prescription drugs Z92.29 [place] [id number] [place] [address] 25880- 4929 Sep, [place] [id number] [place] [address] 50479- 1288 Aug, [place] [id number] [place] [address] 10395- 7882 Jul, Essential (primary) hypertension I10 ; Lumbago with sciatica , unspecified side M54.40 ; Chronic viral hepatitis C B18.2 ; Chronic obstructive pulmonary disease, unspecified J44.9 and Anxiety F41.9 [place] [id number] [place] [address] 98870- 8396 Jun, [place] [id number] [place] [address] 45435- 6669 May, [place] [id number] [place] [address] 30295- 6872 Apr, Essential hypertension, benign 401.1 ; Lumbago 724.2 ; Nondependent tobacco use disorder 305.1 and Chronic hepatitis C without mention of hepatic coma 070.54 [facility] [address], [place] [address]- 6315 Mar, Lumbago 724.2 [facility] [id number] [place] [address]- 3821 February, Essential hypertension, benign 401.1 ; Lumbago 724.2 ; Nondependent tobacco use disorder 305.1 and Chronic hepatitis C without mention of hepatic coma 070.54 [facility] [address], [place] [address]- 3709 February, [facility] [id number] [place] [address] 95145- 2789 Jan, [facility] [id number] [place] [address] 79529- 3654 Jan, [facility] [id number] [place] [address] 90602- 4314 Dec, [facility] [id number] [place] [address] 92785- 4852 Dec, [facility] [id number] [place] [address] 84862- 5325 Nov, [facility] [address], [place] [address]- 3078 Nov, [facility] [address] [place] [address] 32205- 0839 Oct, [facility] [address], [place] [address]- 7324 Oct, [facility] [id number] [place] [address] 977057- 4442 Sep, [facility] [address]- 8662 Sep, [facility] [address] [place] [address]- 8183 13 Aug, 2014 [facility] [place] [facility] [address] [id number] [place] [address]- 6299 13 Aug, 2014 [facility] [place] [facility] [address] [id number] [place] [address]- 2764 11 Aug, 2014 [facility] [place] [facility] [address] [id number] [place] [address]- 8803 Aug, [facility] [place] [facility] [address] [id number] [place] [address]- 0581 17 Jul, 2014 [facility] [place] [facility] [address] [id number] [place] [address]- 7708 17 Jul, 2014 [facility] [place] [facility] [address] [id number] [place] [address]- 2845 16 Jul, 2014 [facility] [place] [facility] [address] [id number] [place] [address]- 9633 Jul, [facility] [place] [facility] [address] [id number] [place] [address]- 0787 13 Jul, 2014 [facility] [place] [facility] [address] [id number] [place] [address]- 0281 10 Jul, 2014 [facility] [place] [facility] [address] [id number] [place] [address]- 9044 10 Jul, 2014 [facility] [place] [facility] [address] [id number] [place] [address]- 6277 11 Jun, 2014 [facility] [place] [facility] [address] [id number] [place] [address]- 8397 11 Jun, 2014 [facility] [place] [facility] [address] [id number] [place] [address]- 4215 11 Jun, 2014 [facility] [place] [facility] [address] [id number] [place] [address]- 7603 11 Jun, 2013 [facility] [place] [facility] [address] [id number] [place] [address]- 9160 Jun, [facility] [place] [facility] [address] [id number] [place] [address]- 4906 Jun, [facility] [place] [facility] [address] [id number] [place] [address]- 2418 Jun, [facility] [place] [facility] [address] [id number] [place] [address]- 3291 Jun, [facility] [place] [facility] [address] [id number] [place] [address]- 5083 May, [facility] [place] [facility] [address] [id number] [place] [address]- 0861 May, [facility] [place] [facility] [address] [id number] [place] [address]- 7997 Apr, [facility] [place] [facility] [address] [id number] [place] [address]- 7303 Apr, [facility] [place] [facility] [address] [id number] [place] [address]- 7980 Mar, [facility] [place] [facility] [address] [id number] [place] [address]- 0934 Mar, [facility] [place] [facility] [address] [id number] [place] [address]- 2121 Mar, [facility] [place] [facility] [address] [id number] [place] [address]- 9466 Mar, [facility] [place] [facility] [address] [id number] [place] [address]- 2189 Mar, [facility] [place] [facility] [address] [id number] [place] [address]- 0638 February, [facility] [place] [facility] [address] [id number] [place] [address]- 7696 February, [facility] [place] [facility] [address] [id number] [place] [address]- 8911 February, [facility] [place] [facility] [address] [id number] [place] [address]- 8057 February, [facility] [place] [facility] [address] [id number] [place] [address]- 8583 Jan, [facility] [place] [facility] [address] [id number] [place] [address]- 1083 Jan, [facility] [place] [facility] [address] [id number] [place] [address]- 8807 Jan, [facility] [place] [facility] [address] [id number] [place] [address]- 1815 Jan, [facility] [place] [facility] [address] [id number] [place] [address]- 0053 Jan, [facility] [place] [facility] [address] [id number] [place] [address]- 8231 Jan, [facility] [place] [facility] [address] [id number] [place] [address]- 5537 Jan, [facility] [place] [facility] [address] [id number] [place] [address]- 5671 Jan, [facility] [place] [facility] [address] [id number] [place] [address]- 8151 Dec, [facility] [place] [facility] [address] [id number] [place] [address]- 2193 Dec, [facility] [place] [facility] [address] [id number] [place] [address]- 9154 Dec, [facility] [place] [facility] [address] [id number] [place] [address]- 7138 14 Dec, 2013 [facility] [place] [facility] [address] [id number] [place] [address]- 2447 Dec, [facility] [place] [facility] [address] [id number] [place] [address]- 0867 Dec, [facility] [place] [facility] [address] [id number] [place] [address]- 8824 Dec, [facility] [place] [facility] [address] [id number] [place] [address]- 6769 Dec, [facility] [place] [facility] [address] [id number] [place] [address]- 1927 Dec, [facility] [place] [facility] [address] [id number] [place] [address]- 4947 Dec, [facility] [place] [facility] [address] [id number] [place] [address]- 5104 Nov, [facility] [place] [facility] [address] [id number] [place] [address]- 3093 Nov, [facility] [place] [facility] [address] [id number] [place] [address]- 3463 Nov, [facility] [place] [facility] [address] [id number] [place] [address]- 7192 Nov, [facility] [place] [facility] [address] [id number] [place] [address]- 2505 Nov, [facility] [place] [facility] [address] [id number] [place] [address]- 3999 Nov, [facility] [place] [facility] [address] [id number] [place] [address]- 4561 Oct, [facility] [place] [facility] [address] [id number] [place] [address]- 8266 Oct, [facility] [place] [facility] [address] [id number] [place] [address]- 8801 Sep, [facility] [place] [facility] [address] [id number] [place] [address]- 9047 Sep, [facility] [place] [facility] [address] [id number] [place] [address]- 5802 Sep, [facility] [place] [facility] [address] [id number] [place]- 1208 Sep, [facility] [place] [facility] [address] [id number], [place] [address]- 6856 Aug, [facility] [place] [facility] [address] [id number] [place] [address]- 8568 Aug, [facility] [place] [facility] [address] [id number] [place] [address]- 5463 Aug, [facility] [place] [facility] [address] [id number] [place] [address]- 9710 Aug, [facility] [place] [facility] [address] [id number], [place] [address]- 5551 Aug, [facility] [place] [facility] [address] [id number] [place] [address]- 2826 Aug, [facility] [place] [facility] [address] [id number], [place] [address]- 2707 Aug, [facility] [place] [facility] [address] [id number], [place] [address]- 5759 Aug, [facility] [place] [facility] [address] [id number], [place] [address]- 5231 Jul, [facility] [place] [facility] [address] [id number], [place] [address]- 9259 Jul, [facility] [place] [facility] [address] [id number], [place] [address]- 3759 Jul, [facility] [place] [facility] [address] [id number], [place] [address]- 8742 Jul, [facility] [place] [facility] [address] [id number], [place] [address]- 8809 Jul, [facility] [place] [facility] [address] [id number], [place] [address]- 3590 Jul, [facility] [place] [facility] [address] [id number], [place] [address]- 6621 Jul, [facility] [place] [facility] [address] [id number], [place] [address]- 2928 Jul, [facility] [place] [facility] [address] [id number] [place] [address]- 1977 21 Jul, 2012 [facility] [address] [id number] [place] [address]- 9188 21 Jul, 2012 [facility] [place] [facility] [address] [id number] [place] [address]- 6353 17 Jul, 2012 [facility] [address] [id number] [place] [address]- 2171 17 Jul, 2012 [facility] [place] [facility] [address] [id number] [place] [address]- 4902 15 Jul, 2012 [facility] [address] [id number] [place] [address]- 1608 15 Jul, 2012 [facility] [address] [id number] [place] [address]- 4547 15 Jul, 2012 [facility] [place] [facility] [address] [id number] [place] [address]- 9252 15 Jul, 2012 [facility] [address] [id number] [place] [address]- 9478 14 Jul, 2013 [facility] [place] [facility] [address] [id number] [place] [address]- 6178 14 Jul, 2012 [facility] [address] [id number] [place] [address]- 3201 11 Jul, 2012 [facility] [place] [facility] [address] [id number] [place] [address]- 8613 11 Jul, 2012 [facility] [place] [facility] [address] [id number] [place] [address]- 2721 11 Jul, 2012 [facility] [place] [facility] [address] [id number] [place] [address]- 7416 11 Jul, 2012 [facility] [place] [facility] [address] [id number] [place] [address]- 8271 02 Jul, 2013 [facility] [place] [facility] [address] [id number] [place] [address]- 9007 Jun, [facility] [address] [id number] [place] [address]- 9884 Jun, [facility] [place] [facility] [address] [id number] [place] [address]- 3090 May, [facility] [place] [facility] [address] [id number] [place] [address]- 2650 May, [facility] [place] [facility] [address] [id number] [place] [address] May, [facility] [place] [facility] [address] [id number] [place] [address] May, [facility] [place] [facility] [address] [id number] [place] [address] May, [facility] [place] [facility] [address] [id number] [place] [address] May, [facility] [place] [facility] [address] [id number] [place] [address] May, [facility] [place] [facility] [address] [id number] [place] [address] May, [facility] [place] [facility] [address] [id number] [place] [address] Apr, [facility] [place] [facility] [address] [id number] [place] [address] Mar, [facility] [place] [facility] [address] [id number] [place] [address] February, [facility] [place] [facility] [address] [id number] [place] [address] Jan, [facility] [place] [facility] [address] [id number] [place] [address] Dec, [facility] [place] [facility] [address] [id number] [place] [address] Dec, [facility] [place] [facility] [address] [id number], [place] [address] Dec, [facility] [id number] [address] Dec, [facility] [id number] [address] Nov, [facility] [id number] [address] Nov, [facility] [id number] [address] Nov, [facility] [id number] [place] [address] Nov, [facility] [id number] [address] Oct, [facility] [id number] [place] [address] Oct, [facility] [id number] [address] Oct, [facility] [id number] [place] [address] Sep, [facility] [id number] [address] Sep, [facility] [id number] [address] Sep, [facility] [id number] [address] Sep, IMMUNIZATIONS No Known Immunizations SOCIAL HISTORY Never Assessed REASON FOR VISIT f/u PLAN OF CARE Activity Details Follow Up 2 Months Reason: VITAL SIGNS MEDICATIONS Medication Instructions Dosage Frequency Start Date End Date Duration Status Remeron 15 mg Orally QHS 1/2 tablet 30 days Active Prozac 10 mg Orally Once a day 1 capsule in the morning 24h 30 days Active RESULTS No Results PROCEDURES No [...]
--- OUTSIDE RECORDS SUMMARY | 2018-07-03 09:50 | XMS REPORT ---
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 Name Role Phone DARLENE HARRY Unavailable PROBLEMS Type Condition ICD9-CM Code ILO24-ST Code Onset Dates Condition Status SNOMED Code Problem Other chronic pain G89.29 Active 37443367 Problem Essential (primary) hypertension I10 Active 83371175 Problem Chronic viral hepatitis C B18.2 Active 391164303 Problem COPD without exacerbation J44.9 Active 30413147 Problem Foraminal stenosis of lumbar region M99.83 Active 42384808 Problem Lumbago with sciatica, left side M54.42 Active 964118098 Problem Lumbago with sciatica, right side M54.41 Active 731120458 Problem Aortic ectasia, abdominal I77.811 Active 598179327313005 Problem Pain in thoracic spine M54.6 Active 641018321990804 Problem Other iron deficiency anemia D50.8 Active 79905008 Problem Anxiety F41.9 Active 23910703 Problem Dysthymia F34.1 Active 51557951 Problem Long-term use of high-risk medication Z79.899 Active 519785699 ALLERGIES No Information ENCOUNTERS Encounter Location Date Diagnosis [place] [id number] [address] May, [place] [id number], [place] [address] Apr, Foraminal stenosis of lumbar region M99.83 [place] [id number] [place] [address]20- 6230 Mar, Foraminal stenosis of lumbar region M99.83 [place] [id number], [place] [address] Mar, Essential (primary) hypertension I10 ; Foraminal stenosis of lumbar region M99.83 ; Long-term use of high-risk medication Z79.899 and Aortic ectasia, abdominal I77.811 [place] [address] [address] February, Lumbago with sciatica, unspecified side M54.40 [place] [address] [address]89- 451 Jan, Lumbago with sciatica, unspecified side M54.40 [place] [address] 120 Jan, Lumbago with sciatica, unspecified side M54.40 ; Essential ( primary) hypertension I10 ; COPD without exacerbation J44.9 ; Long-term use of high-risk medication Z79.899 ; Anxiety F41.9 and Dysthymia F34.1 [place] [address] [address]- [address]24 Dec, [place] [address] [address] Dec, Lumbago with sciatica, unspecified side M54.40 [place] [id number] Dec, Anxiety F41.9 and Dysthymia F34.1 [place] [address] [address]- 1548 Nov, Other chronic pain G89.29 and Lumbago with sciatica, unspecified side M54.40 [place] [address] [place] [address]- 3730 Oct, Lumbago with sciatica, unspecified side M54.40 [place] [address] [address]- 304 Oct, Anxiety F41.9 and Dysthymia F34.1 [place] [id number] [place] [address] 99382- 6535 Oct, Abnormal fasting glucose R73.01 [place] [address] [address]- 3136 Oct, Essential (primary) hypertension I10 and Lumbago with sciatica, unspecified side M54.40 [place] [address] 97375- 0687 Sep, Abnormal fasting glucose R73.01 [place] [address] [address]66- 2078 Sep, Pulmonary nodule R91.1 ; Aortic ectasia, abdominal I77.811 and Anxiety F41.9 [place] [address] 8[address]90- 3969 Sep, Lumbago with sciatica, unspecified side M54.40 [place] [address] 54[address]- 9608 Aug, Essential (primary) hypertension I10 and Lumbago with sciatica, unspecified side M54.40 [place] [address] 6[address]- 7820 Jul, Abnormal chest CT R93.8 [place] [address] 46850- 8664 Jul, Right pulmonary lesion R91.1 [place] [address] 27201- 4875 Jul, Lumbago with sciatica, unspecified side M54.40 [place] [address] 81087- 9006 Jul, Pain in thoracic spine M54.6 ; Lumbago with sciatica, left side M54.42 and Lumbago with sciatica, right side M54.41 [place] [address] [address]41- 0534 Jun, Essential (primary) hypertension I10 ; Other chronic [...] Z79.899 and Pain in thoracic spine M54.6 [place] [address] 89487- 1419 May, [place] [address] 26206- 7914 Apr, Lumbago with sciatica, unspecified side M54.40 [place] [address] 07952- 9266 Mar, Essential (primary) hypertension I10 ; Lumbago with sciatica , unspecified side M54.40 ; Chronic viral hepatitis C B18.2 ; Chronic obstructive pulmonary disease, unspecified J44.9 ; Other iron deficiency anemia D50.8 and Long-term use of high-risk medication Z79.899 [place] [id number] [place] [address] 93001- 8818 Mar, Essential (primary) hypertension I10 [place] [id number] [place] [address] 02834- 9057 February, [place] [address] 51788- 6407 February, Lumbago with sciatica, unspecified side M54.40 [place] [address] 94849- 7451 Jan, Lumbago with sciatica, unspecified side M54.40 [place] [id number] [place] [address] 66123- 8266 Dec, Essential (primary) hypertension I10 ; Lumbago with sciatica , unspecified side M54.40 ; Chronic viral hepatitis C B18.2 ; Chronic obstructive pulmonary disease, unspecified J44.9 ; Other iron deficiency anemia D50.8 ; Long-term use of high-risk medication Z79.899 and General medical exam Z00.00 [place] [id number] [place] [address] 14926- 1926 Nov, Essential (primary) hypertension I10 [place] [id number] [place] [address] 44669- 1888 Oct, [place] [id number] [place] [address] 09263- 5199 Oct, Essential (primary) hypertension I10 [place] [address] 39939- 0698 Oct, Anxiety F41.9 and Dysthymia F34.1 [place] [id number] [place] [address] 73136- 3897 Oct, [place] [id number] [place] [address] 20165- 7577 Oct, [place] [id number] [place] [address] 31990- 5650 Oct, Essential (primary) hypertension I10 ; Lumbago with sciatica , unspecified side M54.40 ; Chronic viral hepatitis C B18.2 ; Chronic obstructive pulmonary disease, unspecified J44.9 ; Other iron deficiency anemia D50.8 ; Long-term use of high-risk medication Z79.899 and Anxiety F41.9 [place] [id number] [place] [address] 32044- 5982 Sep, [place] [id number] [place] [address] 50087- 1595 Aug, [place] [id number] [place] [address] 19734- 6301 Jul, Abnormal fasting glucose R73.01 [place] [id number] [place] [address] 16121- 5904 Jul, Essential (primary) hypertension I10 ; Lumbago with sciatica , unspecified side M54.40 ; Chronic viral hepatitis C B18.2 ; Chronic obstructive pulmonary disease, unspecified J44.9 ; Other iron deficiency anemia D50.8 ; Long-term use of high-risk medication Z79.899 and Encounter for immunization Z23 [place] [id number] [place] [address] 18309- 3594 Jun, [place] [id number] [place] [address] 13688- 6872 May, [place] [id number] [place] [address] 01126- 7253 Apr, Other iron deficiency anemia D50.8 [facility] [id number] [place] [address] 28395 -9934 Apr, Chronic fatigue R53.82 and Bradycardia R00.1 [place] [id number] [place] [address] 69002- 7966 Apr, [place] [id number] [place] [address] 86969- 1731 Mar, Essential (primary) hypertension I10 ; Lumbago with sciatica , unspecified side M54.40 ; Chronic viral hepatitis C B18.2 ; Chronic obstructive pulmonary disease, unspecified J44.9 and Other iron deficiency anemia D50.8 [place] [id number] [place] [address] 63797- 7884 February, [facility] [id number] [place] [address] 83527- 0002 Jan, [place] [id number] [place] [address] 77630- 7939 Jan, Fatigue R53.83 [place] [address] [place] [address] 55540- 5172 Dec, Essential (primary) hypertension I10 ; Lumbago with sciatica , unspecified side M54.40 ; Chronic viral hepatitis C B18.2 ; Chronic obstructive pulmonary disease, unspecified J44.9 ; Sinusitis J32.9 and Fatigue R53.83 [place] [address] 07537- 1495 Dec, [place] [id number] [place] [address] 43524- 8284 Nov, [place] [address] 94821- 6594 Oct, Essential (primary) hypertension I10 ; Lumbago with sciatica , unspecified side M54.40 ; Chronic viral hepatitis C B18.2 ; Chronic obstructive pulmonary disease, unspecified J44.9 and History of long-term use of multiple prescription drugs Z92.29 [place] [id number] [place] [address] 23301- 4195 Sep, [place] [id number] [place] [address] 14907- 1523 Aug, [place] [id number] [place] [address] 69807- 5518 Jul, Essential (primary) hypertension I10 ; Lumbago with sciatica , unspecified side M54.40 ; Chronic viral hepatitis C B18.2 ; Chronic obstructive pulmonary disease, unspecified J44.9 and Anxiety F41.9 [place] [id number] [place] [address] 09336- 5699 Jun, [place] [id number] [place] [address] 13387- 6095 May, [place] [id number] [place] [address] 48560- 9789 Apr, Essential hypertension, benign 401.1 ; Lumbago 724.2 ; Nondependent tobacco use disorder 305.1 and Chronic hepatitis C without mention of hepatic coma 070.54 [facility] [address], [place] [address]- 7665 Mar, Lumbago 724.2 [facility] [address], [place] [address]- 9716 February, Essential hypertension, benign 401.1 ; Lumbago 724.2 ; Nondependent tobacco use disorder 305.1 and Chronic hepatitis C without mention of hepatic coma 070.54 [facility] [address], [place] [address]- 4297 February, [facility] [address], [place] [address]- 4347 Jan, [facility] [address], [place] [address]- 8784 Jan, [facility] [address], [place] [address]- 1186 Dec, [facility] [address], [place] [address]- 8365 Dec, [facility] [address], [place] [address]- 5900 Nov, [facility] [address], [place] [address]- 7210 Nov, [facility] [address], [place] [address]- 0574 Oct, [facility] [address] 8946 Oct, [facility] [address], [place] [address]- 7725 Sep, [facility] [id number], [place] [address]- 3043 Sep, [facility] [address] [place] [address]- 8716 13 Aug, 2014 [facility] [place] [facility] [address] [id number] [place] [address]- 2386 13 Aug, 2014 [facility] [place] [facility] [address] [id number] [place] [address]- 7475 11 Aug, 2014 [facility] [place] [facility] [address] [id number] [place] [address]- 3808 Aug, [facility] [place] [facility] [address] [id number] [place] [address]- 6675 17 Jul, 2014 [facility] [place] [facility] [address] [id number] [place] [address]- 8433 17 Jul, 2014 [facility] [place] [facility] [address] [id number] [place] [address]- 2840 16 Jul, 2014 [facility] [place] [facility] [address] [id number] [place] [address]- 9805 Jul, [facility] [place] [facility] [address] [id number] [place] [address]- 3324 13 Jul, 2014 [facility] [place] [facility] [address] [id number] [place] [address]- 1691 10 Jul, 2014 [facility] [place] [facility] [address] [id number] [place] [address]- 4575 10 Jul, 2014 [facility] [place] [facility] [address] [id number] [place] [address]- 9011 11 Jun, 2014 [facility] [place] [facility] [address] [id number] [place] [address]- 3290 11 Jun, 2014 [facility] [place] [facility] [address] [id number] [place] [address]- 9118 11 Jun, 2014 [facility] [place] [facility] [address] [id number] [place] [address]- 5419 11 Jun, 2013 [facility] [place] [facility] [address] [id number] [place] [address]- 5590 Jun, [facility] [place] [facility] [address] [id number] [place] [address]- 6110 Jun, [facility] [place] [facility] [address] [id number] [place] [address]- 2738 Jun, [facility] [place] [facility] [address] [id number] [place] [address]- 5117 Jun, [facility] [place] [facility] [address] [id number] [place] [address]- 4272 May, [facility] [place] [facility] [address] [id number] [place] [address]- 4831 May, [facility] [place] [facility] [address] [id number] [place] [address]- 9914 Apr, [facility] [place] [facility] [address] [id number] [place] [address]- 6155 Apr, [facility] [place] [facility] [address] [id number] [place] [address]- 0739 Mar, [facility] [place] [facility] [address] [id number] [place] [address]- 6221 Mar, [facility] [place] [facility] [address] [id number] [place] [address]- 0754 Mar, [facility] [place] [facility] [address] [id number] [place] [address]- 9383 Mar, [facility] [place] [facility] [address] [id number] [place] [address]- 9409 Mar, [facility] [place] [facility] [address] [id number] [place] [address]- 1031 February, [facility] [place] [facility] [address] [id number] [place] [address]- 4741 February, [facility] [place] [facility] [address] [id number] [place] [address]- 9016 February, [facility] [place] [facility] [address] [id number] [place] [address]- 9461 February, [facility] [place] [facility] [address] [id number] [place] [address]- 7928 Jan, [facility] [place] [facility] [address] [id number] [place] [address]- 3432 Jan, [facility] [place] [facility] [address] [id number] [place] [address]- 2798 Jan, [facility] [place] [facility] [address] [id number] [place] [address]- 7463 Jan, [facility] [place] [facility] [address] [id number] [place] [address]- 1941 Jan, [facility] [place] [facility] [address] [id number] [place] [address]- 4009 Jan, [facility] [place] [facility] [address] [id number] [place] [address]- 1168 Jan, [facility] [place] [facility] [address] [id number] [place] [address]- 2133 Jan, [facility] [place] [facility] [address] [id number] [place] [address]- 1040 Dec, [facility] [place] [facility] [address] [id number] [place] [address]- 1703 Dec, [facility] [place] [facility] [address] [id number] [place] [address]- 5621 Dec, [facility] [place] [facility] [address] [id number] [place] [address]- 8395 14 Dec, 2013 [facility] [place] [facility] [address] [id number] [place] [address]- 0845 Dec, [facility] [place] [facility] [address] [id number] [place] [address]- 7337 Dec, [facility] [place] [facility] [address] [id number] [place] [address]- 7543 Dec, [facility] [place] [facility] [address] [id number] [place] [address]- 4241 Dec, [facility] [place] [facility] [address] [id number] [place] [address]- 1774 Dec, [facility] [place] [facility] [address] [id number] [place] [address]- 3866 Dec, [facility] [place] [facility] [address] [id number] [place] [address]- 0671 Nov, [facility] [place] [facility] [address] [id number] [place] [address]- 8442 Nov, [facility] [place] [facility] [address] [id number] [place] [address]- 1500 Nov, [facility] [place] [facility] [address] [id number] [place] [address]- 7258 Nov, [facility] [place] [facility] [address] [id number] [place] [address]- 1297 Nov, [facility] [place] [facility] [address] [id number] [place] [address]- 8120 Nov, [facility] [place] [facility] [address] [id number] [place] [address]- 0387 Oct, [facility] [place] [facility] [address] [id number] [place] [address]- 5293 Oct, [facility] [place] [facility] [address] [id number] [place] [address]- 1560 Sep, [facility] [place] [facility] [address] [id number] [place] [address]- 2087 Sep, [facility] [place] [facility] [address] [id number] [place] 4754 Sep, [facility] [place] [facility] [address] [id number] [place] [address]- 9037 Sep, [facility] [place] [facility] [address] [id number], [place] [address]- 0434 Aug, [facility] [place] [facility] [address] [id number] [place] [address]- 4377 Aug, [facility] [place] [facility] [address] [id number], [place] [address]- 6370 Aug, [facility] [place] [facility] [address] [id number] [place] [address]- 0957 Aug, [facility] [place] [facility] [address] [id number], [place] [address]- 7138 Aug, [facility] [place] [facility] [address] [id number] [place] [address]- 5357 Aug, [facility] [place] [facility] [address] [id number] [place] [address]- 7300 Aug, [facility] [place] [facility] [address] [id number], [place] [address]- 0113 Aug, [facility] [place] [facility] [address] [id number], [place] [address]- 8658 Jul, [facility] [place] [facility] [address] [id number], [place] [address]- 7849 Jul, [facility] [place] [facility] [address] [id number], [place] [address]- 5408 Jul, [facility] [place] [facility] [address] [id number], [place] [address]- 7082 Jul, [facility] [place] [facility] [address] [id number], [place] [address]- 5991 Jul, [facility] [place] [facility] [address] [id number], [place] [address]- 2994 Jul, [facility] [place] [facility] [address] [id number], [place] [address]- 8949 Jul, [facility] [place] [facility] [address] [id number] [place] [address]- 6612 Jul, [facility] [place] [facility] [address] [id number] [place] [address]- 8834 21 Jul, 2012 [facility] [address] [id number] [place] [address]- 1326 21 Jul, 2012 [facility] [place] [facility] [address] [id number] [place] [address]- 7523 17 Jul, 2012 [facility] [address] [id number] [place] [address]- 5859 17 Jul, 2012 [facility] [place] [facility] [address] [id number] [place] [address]- 4060 15 Jul, 2012 [facility] [address] [id number] [place] [address]- 3377 15 Jul, 2012 [facility] [place] [facility] [address] [id number] [place] [address]- 5405 15 Jul, 2012 [facility] [place] [facility] [address] [id number] [place] [address]- 1797 15 Jul, 2012 [facility] [address] [id number] [place] [address]- 3597 14 Jul, 2012 [facility] [place] [facility] [address] [id number] [place] [address]- 5301 14 Jul, 2012 [facility] [place] [facility] [address] [id number] [place] [address]- 2379 11 Jul, 2012 [facility] [place] [facility] [address] [id number] [place] [address]- 1526 11 Jul, 2012 [facility] [place] [facility] [address] [id number] [place] [address]- 9051 11 Jul, 2012 [facility] [place] [facility] [address] [id number] [place] [address]- 0933 11 Jul, 2012 [facility] [place] [facility] [address] [id number] [place] [address]- 4380 02 Jul, 2013 [facility] [place] [facility] [address] [id number] [place] [address]- 1463 Jun, [facility] [place] [facility] [address] [id number] [place] [address]- 6082 05 Jun, 2013 [facility] [place] [facility] [address] [id number] [place] [address] May, [facility] [place] [facility] [address] [id number] [place] [address] May, [facility] [place] [facility] [address] [id number] [place] [address] May, [facility] [place] [facility] [address] [id number] [place] [address] May, [facility] [place] [facility] [address] [id number] [place] [address] May, [facility] [place] [facility] [address] [id number] [place] [address] May, [facility] [place] [facility] [address] [id number] [place] [address] May, [facility] [place] [facility] [address] [id number] [place] [address] May, [facility] [place] [facility] [address] [id number] [place] [address] Apr, [facility] [place] [facility] [address] [id number] [place] [address] Mar, [facility] [place] [facility] [address] [id number] [place] [address] February, [facility] [place] [facility] [address] [id number] [place] [address] Jan, [facility] [place] [facility] [address] [id number] [place] [address] Dec, [facility] [place] [facility] [address] [id number] [place] [address] Dec, [facility] [place] [facility] [address] [id number], [place] [address] 15 Dec, 2012 [facility] [id number] [address] Dec, [facility] [id number] [address] Nov, [facility] [id number] [address] Nov, [facility] [id number], [place] [address] Nov, [facility] [id number] [place] [address] Nov, [facility] [id number] [place] [address]- [address] Oct, [facility] [id number] [place] [address]- [address] Oct, [facility] [id number] [address] Oct, [facility] [id number] [place] [address]- [address] Sep, [facility] [id number] [address] Sep, [facility] [id number] [address] Sep, [facility] [id number], [place] [address] Sep, IMMUNIZATIONS No Known Immunizations SOCIAL HISTORY Never Assessed REASON FOR VISIT Controlled Med Refill PLAN OF CARE VITAL SIGNS MEDICATIONS Medication Instructions Dosage Frequency Start Date End Date Duration Status Oxycodone HCl 10 mg Orally every 4-6 hrs hrs prn must last 28 days 1 tablet as needed Dec, 28 days Active RESULTS No Results PROCEDURES [...]
--- OUTSIDE RECORDS SUMMARY | 2018-07-03 09:51 | XMS REPORT ---
Author Author DARLENE HARRY [facility] Address [address] [place] [address] Care Team Providers Care Hosiery Knitter Name Role Phone DARLENE HARRY Unavailable PROBLEMS Type Condition ICD9-CM Code PGB16-EF Code Onset Dates Condition Status SNOMED Code Problem Other chronic pain G89.29 Active 44886883 Problem Essential (primary) hypertension I10 Active 40936725 Problem Chronic viral hepatitis C B18.2 Active 557211191 Problem COPD without exacerbation J44.9 Active 41776756 Problem Foraminal stenosis of lumbar region M99.83 Active 64283612 Problem Lumbago with sciatica, left side M54.42 Active 797967995 Problem Lumbago with sciatica, right side M54.41 Active 993843861 Problem Aortic ectasia, abdominal I77.811 Active [id number] Problem Pain in thoracic spine M54.6 Active 943897551105313 Problem Other iron deficiency anemia D50.8 Active 78407010 Problem Anxiety F41.9 Active 33311050 Problem Dysthymia F34.1 Active 41491451 Problem Long-term use of high-risk medication Z79.899 Active 854119477 ALLERGIES No Information ENCOUNTERS Encounter Location Date Diagnosis [place] [id number] [address] May, [place] [id number], [place] [address] Apr, Foraminal stenosis of lumbar region M99.83 [place] [id number] [place] [address]21- 9206 Mar, Foraminal stenosis of lumbar region M99.83 [place] [id number] [address] Mar, Essential (primary) hypertension I10 ; Foraminal stenosis of lumbar region M99.83 ; Long-term use of high-risk medication Z79.899 and Aortic ectasia, abdominal I77.811 [place] [address] [address] February, Lumbago with sciatica, unspecified side M54.40 [place] [address] [address]- 143 Jan, Lumbago with sciatica, unspecified side M54.40 [place] [address] 301 Jan, Lumbago with sciatica, unspecified side M54.40 ; Essential ( primary) hypertension I10 ; COPD without exacerbation J44.9 ; Long-term use of high-risk medication Z79.899 ; Anxiety F41.9 and Dysthymia F34.1 [place] [address] [address]- [address] Dec, [place] [address] [address] Dec, Lumbago with sciatica, unspecified side M54.40 [place] [id number] Dec, Anxiety F41.9 and Dysthymia F34.1 [place] [address] [address]- 1259 Nov, Other chronic pain G89.29 and Lumbago with sciatica, unspecified side M54.40 [place] [address] [place] [address]- 3667 Oct, Lumbago with sciatica, unspecified side M54.40 [place] [address] 8[address]55- 696 Oct, Anxiety F41.9 and Dysthymia F34.1 [place] [address] [id number] [place] [address] 98713- 0307 Oct, Abnormal fasting glucose R73.01 [place] [address] 81224- 0238 Oct, Essential (primary) hypertension I10 and Lumbago with sciatica, unspecified side M54.40 [place] [address] 61378- 4233 Sep, Abnormal fasting glucose R73.01 [place] [address] 26167- 1193 Sep, Pulmonary nodule R91.1 ; Aortic ectasia, abdominal I77.811 and Anxiety F41.9 [place] [address] 37622- 7675 Sep, Lumbago with sciatica, unspecified side M54.40 [place] [address] 77650- 1739 Aug, Essential (primary) hypertension I10 and Lumbago with sciatica, unspecified side M54.40 [place] [address] 41898- 0111 Jul, Abnormal chest CT R93.8 [place] [address] 79871- 5280 Jul, Right pulmonary lesion R91.1 [place] [address] 21600- 6992 Jul, Lumbago with sciatica, unspecified side M54.40 [place] [address] 08491- 6338 Jul, Pain in thoracic spine M54.6 ; Lumbago with sciatica, left side M54.42 and Lumbago with sciatica, right side M54.41 [place] [address] 16934- 9003 Jun, Essential (primary) hypertension I10 ; COPD [...] Z79.899 and Pain in thoracic spine M54.6 [place] [address] 03273- 2030 May, [place] [address] 25412- 0900 Apr, Lumbago with sciatica, unspecified side M54.40 [place] [address] 70347- 5108 Mar, Essential (primary) hypertension I10 ; Lumbago with sciatica , unspecified side M54.40 ; Chronic viral hepatitis C B18.2 ; Chronic obstructive pulmonary disease, unspecified J44.9 ; Other iron deficiency anemia D50.8 and Long-term use of high-risk medication Z79.899 [place] [id number] [place] [address] 45544- 8517 Mar, Essential (primary) hypertension I10 [place] [id number] [place] [address] 96538- 0902 February, [place] [address] 28533- 6841 February, Lumbago with sciatica, unspecified side M54.40 [place] [address] 10490- 4363 Jan, Lumbago with sciatica, unspecified side M54.40 [place] [id number] [place] [address] 87663- 2814 Dec, Essential (primary) hypertension I10 ; Lumbago with sciatica , unspecified side M54.40 ; Chronic viral hepatitis C B18.2 ; Chronic obstructive pulmonary disease, unspecified J44.9 ; Other iron deficiency anemia D50.8 ; Long-term use of high-risk medication Z79.899 and General medical exam Z00.00 [place] [id number] [place] [address] 17115- 0047 Nov, Essential (primary) hypertension I10 [place] [id number] [place] [address] 57925- 5735 Oct, [place] [id number] [place] [address] 00226- 0382 Oct, Essential (primary) hypertension I10 [place] [address] 35568- 9410 Oct, Anxiety F41.9 and Dysthymia F34.1 [place] [id number] [place] [address] 76028- 4882 Oct, [place] [id number] [place] [address] 93622- 5683 Oct, [place] [id number] [place] [address] 66331- 7338 Oct, Essential (primary) hypertension I10 ; Lumbago with sciatica , unspecified side M54.40 ; Chronic viral hepatitis C B18.2 ; Chronic obstructive pulmonary disease, unspecified J44.9 ; Other iron deficiency anemia D50.8 ; Long-term use of high-risk medication Z79.899 and Anxiety F41.9 [place] [id number] [place] [address] 10530- 2772 Sep, [place] [id number] [place] [address] 90471- 1024 Aug, [place] [id number] [place] [address] 69452- 3180 Jul, Abnormal fasting glucose R73.01 [place] [id number] [place] [address] 23877- 2713 Jul, Essential (primary) hypertension I10 ; Lumbago with sciatica , unspecified side M54.40 ; Chronic viral hepatitis C B18.2 ; Chronic obstructive pulmonary disease, unspecified J44.9 ; Other iron deficiency anemia D50.8 ; Long-term use of high-risk medication Z79.899 and Encounter for immunization Z23 [place] [id number] [place] [address] 32924- 7642 Jun, [place] [id number] [place] [address] 62336- 9839 May, [place] [id number] [place] [address] 58960- 0223 Apr, Other iron deficiency anemia D50.8 [facility] [id number] [place] [address] 12481 -3899 Apr, Chronic fatigue R53.82 and Bradycardia R00.1 [place] [id number] [place] [address] 33628- 8981 Apr, [place] [id number] [place] [address] 18263- 8327 Mar, Essential (primary) hypertension I10 ; Lumbago with sciatica , unspecified side M54.40 ; Chronic viral hepatitis C B18.2 ; Chronic obstructive pulmonary disease, unspecified J44.9 and Other iron deficiency anemia D50.8 [place] [id number] [place] [address] 51708- 3265 February, [facility] [id number] [place] [address] 10519- 1735 Jan, [place] [id number] [place] [address] 89060- 8945 Jan, Fatigue R53.83 [place] [address] [place] [address] 29705- 3926 Dec, Essential (primary) hypertension I10 ; Lumbago with sciatica , unspecified side M54.40 ; Chronic viral hepatitis C B18.2 ; Chronic obstructive pulmonary disease, unspecified J44.9 ; Sinusitis J32.9 and Fatigue R53.83 [place] [address] 66303- 7261 Dec, [place] [id number] [place] [address] 35375- 9070 Nov, [place] [address] 98163- 6580 Oct, Essential (primary) hypertension I10 ; Lumbago with sciatica , unspecified side M54.40 ; Chronic viral hepatitis C B18.2 ; Chronic obstructive pulmonary disease, unspecified J44.9 and History of long-term use of multiple prescription drugs Z92.29 [place] [id number] [place] [address] 86660- 9745 Sep, [place] [id number] [place] [address] 09041- 5729 Aug, [place] [id number] [place] [address] 19608- 0172 Jul, Essential (primary) hypertension I10 ; Lumbago with sciatica , unspecified side M54.40 ; Chronic viral hepatitis C B18.2 ; Chronic obstructive pulmonary disease, unspecified J44.9 and Anxiety F41.9 [place] [id number] [place] [address] 22504- 5719 Jun, [place] [id number] [place] [address] 46028- 9194 May, [place] [id number] [place] [address] 06402- 1937 Apr, Essential hypertension, benign 401.1 ; Lumbago 724.2 ; Nondependent tobacco use disorder 305.1 and Chronic hepatitis C without mention of hepatic coma 070.54 [facility] [address] [address]- 8515 Mar, Lumbago 724.2 [facility] [address], [place] [address]- 0191 February, Essential hypertension, benign 401.1 ; Lumbago 724.2 ; Nondependent tobacco use disorder 305.1 and Chronic hepatitis C without mention of hepatic coma 070.54 [facility] [address] [address]- 4004 February, [facility] [address], [place] [address]- 2839 Jan, [facility] [address], [place] [address]- 3922 Jan, [facility] [address], [place] [address]- 0935 Dec, [facility] [address], [place] [address]- 7617 Dec, [facility] [address], [place] [address]- 1610 Nov, [facility] [address], [place] [address]- 3058 Nov, [facility] [address], [place] [address]- 8470 Oct, [facility] [address] 6966 Oct, [facility] [address], [place] [address]- 1066 Sep, [facility] [id number], [place] [address]- 2782 Sep, [facility] [address] [place] [address]- 5818 13 Aug, 2014 [facility] [place] [facility] [address] [id number] [place] [address]- 7729 13 Aug, 2014 [facility] [place] [facility] [address] [id number] [place] [address]- 6848 11 Aug, 2014 [facility] [place] [facility] [address] [id number] [place] [address]- 2904 Aug, [facility] [place] [facility] [address] [id number] [place] [address]- 0139 17 Jul, 2014 [facility] [place] [facility] [address] [id number] [place] [address]- 5012 17 Jul, 2014 [facility] [place] [facility] [address] [id number] [place] [address]- 3924 16 Jul, 2014 [facility] [place] [facility] [address] [id number] [place] [address]- 1470 Jul, [facility] [place] [facility] [address] [id number] [place] [address]- 3359 13 Jul, 2014 [facility] [place] [facility] [address] [id number] [place] [address]- 9611 10 Jul, 2014 [facility] [place] [facility] [address] [id number] [place] [address]- 2019 10 Jul, 2014 [facility] [place] [facility] [address] [id number] [place] [address]- 8186 11 Jun, 2014 [facility] [place] [facility] [address] [id number] [place] [address]- 0364 11 Jun, 2014 [facility] [place] [facility] [address] [id number] [place] [address]- 2469 11 Jun, 2014 [facility] [place] [facility] [address] [id number] [place] [address]- 0221 11 Jun, 2013 [facility] [place] [facility] [address] [id number] [place] [address]- 7817 Jun, [facility] [place] [facility] [address] [id number] [place] [address]- 0340 Jun, [facility] [place] [facility] [address] [id number] [place] [address]- 7606 Jun, [facility] [place] [facility] [address] [id number] [place] [address]- 6202 Jun, [facility] [place] [facility] [address] [id number] [place] [address]- 5244 May, [facility] [place] [facility] [address] [id number] [place] [address]- 3782 May, [facility] [place] [facility] [address] [id number] [place] [address]- 3004 Apr, [facility] [place] [facility] [address] [id number] [place] [address]- 8139 Apr, [facility] [place] [facility] [address] [id number] [place] [address]- 7185 Mar, [facility] [place] [facility] [address] [id number] [place] [address]- 3362 Mar, [facility] [place] [facility] [address] [id number] [place] [address]- 2729 Mar, [facility] [place] [facility] [address] [id number] [place] [address]- 6712 Mar, [facility] [place] [facility] [address] [id number] [place] [address]- 3191 Mar, [facility] [place] [facility] [address] [id number] [place] [address]- 3068 February, [facility] [place] [facility] [address] [id number] [place] [address]- 5134 February, [facility] [place] [facility] [address] [id number] [place] [address]- 3296 February, [facility] [place] [facility] [address] [id number] [place] [address]- 4598 February, [facility] [place] [facility] [address] [id number] [place] [address]- 3516 Jan, [facility] [place] [facility] [address] [id number] [place] [address]- 1882 Jan, [facility] [place] [facility] [address] [id number] [place] [address]- 3474 Jan, [facility] [place] [facility] [address] [id number] [place] [address]- 1827 Jan, [facility] [place] [facility] [address] [id number] [place] [address]- 3518 Jan, [facility] [place] [facility] [address] [id number] [place] [address]- 2810 Jan, [facility] [place] [facility] [address] [id number] [place] [address]- 8100 Jan, [facility] [place] [facility] [address] [id number] [place] [address]- 0392 Jan, [facility] [place] [facility] [address] [id number] [place] [address]- 7222 Dec, [facility] [place] [facility] [address] [id number] [place] [address]- 1383 Dec, [facility] [place] [facility] [address] [id number] [place] [address]- 6482 Dec, [facility] [place] [facility] [address] [id number] [place] [address]- 7570 14 Dec, 2013 [facility] [place] [facility] [address] [id number] [place] [address]- 7723 Dec, [facility] [place] [facility] [address] [id number] [place] [address]- 1310 Dec, [facility] [place] [facility] [address] [id number] [place] [address]- 9145 Dec, [facility] [place] [facility] [address] [id number] [place] [address]- 1110 Dec, [facility] [place] [facility] [address] [id number] [place] [address]- 6383 Dec, [facility] [place] [facility] [address] [id number] [place] [address]- 7906 Dec, [facility] [place] [facility] [address] [id number] [place] [address]- 9730 Nov, [facility] [place] [facility] [address] [id number] [place] [address]- 6731 Nov, [facility] [place] [facility] [address] [id number] [place] [address]- 8328 Nov, [facility] [place] [facility] [address] [id number] [place] [address]- 0404 Nov, [facility] [place] [facility] [address] [id number] [place] [address]- 4966 Nov, [facility] [place] [facility] [address] [id number] [place] [address]- 0671 Nov, [facility] [place] [facility] [address] [id number] [place] [address]- 2364 Oct, [facility] [place] [facility] [address] [id number] [place] [address]- 8328 Oct, [facility] [place] [facility] [address] [id number] [place] [address]- 4592 Sep, [facility] [place] [facility] [address] [id number] [place] [address]- 4046 Sep, [facility] [place] [facility] [address] [id number] [place] 1824 Sep, [facility] [place] [facility] [address] [id number] [place] [address]- 9290 Sep, [facility] [place] [facility] [address] [id number], [place] [address]- 7138 Aug, [facility] [place] [facility] [address] [id number] [place] [address]- 6037 Aug, [facility] [place] [facility] [address] [id number], [place] [address]- 3072 Aug, [facility] [place] [facility] [address] [id number] [place] [address]- 8355 Aug, [facility] [place] [facility] [address] [id number], [place] [address]- 8507 Aug, [facility] [place] [facility] [address] [id number] [place] [address]- 4652 Aug, [facility] [place] [facility] [address] [id number] [place] [address]- 1704 Aug, [facility] [place] [facility] [address] [id number], [place] [address]- 0827 Aug, [facility] [place] [facility] [address] [id number], [place] [address]- 9447 Jul, [facility] [place] [facility] [address] [id number], [place] [address]- 2743 Jul, [facility] [place] [facility] [address] [id number], [place] [address]- 5622 Jul, [facility] [place] [facility] [address] [id number], [place] [address]- 6344 Jul, [facility] [place] [facility] [address] [id number], [place] [address]- 6893 Jul, [facility] [place] [facility] [address] [id number], [place] [address]- 1513 Jul, [facility] [place] [facility] [address] [id number], [place] [address]- 4160 Jul, [facility] [place] [facility] [address] [id number] [place] [address]- 0205 Jul, [facility] [place] [facility] [address] [id number] [place] [address]- 4389 21 Jul, 2012 [facility] [address] [id number] [place] [address]- 1554 21 Jul, 2012 [facility] [place] [facility] [address] [id number] [place] [address]- 2617 17 Jul, 2012 [facility] [address] [id number] [place] [address]- 0768 17 Jul, 2012 [facility] [place] [facility] [address] [id number] [place] [address]- 2121 15 Jul, 2012 [facility] [address] [id number] [place] [address]- 6760 15 Jul, 2012 [facility] [place] [facility] [address] [id number] [place] [address]- 3975 15 Jul, 2012 [facility] [place] [facility] [address] [id number] [place] [address]- 2399 15 Jul, 2012 [facility] [address] [id number] [place] [address]- 8224 14 Jul, 2012 [facility] [place] [facility] [address] [id number] [place] [address]- 2761 14 Jul, 2012 [facility] [place] [facility] [address] [id number] [place] [address]- 5484 11 Jul, 2012 [facility] [place] [facility] [address] [id number] [place] [address]- 4284 11 Jul, 2012 [facility] [place] [facility] [address] [id number] [place] [address]- 1895 11 Jul, 2012 [facility] [place] [facility] [address] [id number] [place] [address]- 0642 11 Jul, 2012 [facility] [place] [facility] [address] [id number] [place] [address]- 2395 02 Jul, 2013 [facility] [place] [facility] [address] [id number] [place] [address]- 0597 Jun, [facility] [place] [facility] [address] [id number] [place] [address]- 2239 05 Jun, 2013 [facility] [place] [facility] [address] [id number] [place] [address]- 7089 May, [facility] [place] [facility] [address] [id number] [place] [address]- 3738 May, [facility] [place] [facility] [address] [id number] [place] [address]- 8314 May, [facility] [place] [facility] [address] [id number] [place] [address]- 3999 May, [facility] [place] [facility] [address] [id number] [place] [address]- 7604 May, [facility] [place] [facility] [address] [id number] [place] [address]- 7399 May, [facility] [place] [facility] [address] [id number] [place] [address] May, [facility] [place] [facility] [address] [id number] [place] [address] May, [facility] [place] [facility] [address] [id number] [place] [address] Apr, [facility] [place] [facility] [address] [id number] [place] [address] Mar, [facility] [place] [facility] [address] [id number] [place] [address] February, [facility] [place] [facility] [address] [id number] [place] [address] Jan, [facility] [place] [facility] [address] [id number] [place] [address] Dec, [facility] [place] [facility] [address] [id number] [place] [address] Dec, [facility] [place] [facility] [address] [id number] [address] Dec, [facility] [id number] [address] Dec, [facility] [id number] [address] Nov, [facility] [id number], [place] [address] Nov, [facility] [id number], [place] [address] Nov, [facility] [id number] [place] [address] Nov, [facility] [id number], [place] [address] Oct, [facility] [id number] [place] [address] Oct, [facility] [id number], [place] [address] Oct, [facility] [id number] [place] [address] Sep, [facility] [id number], [place] [address] Sep, [facility] [id number], [place] [address] Sep, [facility] [id number], [place] [address] Sep, IMMUNIZATIONS No Known Immunizations SOCIAL HISTORY Never Assessed REASON FOR VISIT med correction PLAN OF CARE VITAL SIGNS MEDICATIONS Medication Instructions Dosage Frequency Start Date End Date Duration Status Lisinopril 10 mg Orally Once a day TAKE ONE TABLET BY MOUTH ONCE DAILY 24h 30 Active RESULTS No Results PROCEDURES No Known [...]
--- OUTSIDE RECORDS SUMMARY | 2018-07-03 09:51 | XMS REPORT ---
Author Author TEODORA JIANG [facility] Address [address] [place] [address] Care Team Providers Care Government Minister Name Role Phone TEODORA JIANG Unavailable PROBLEMS Type Condition ICD9-CM Code JTY41-KP Code Onset Dates Condition Status SNOMED Code Problem Other chronic pain G89.29 Active 53419905 Problem Essential (primary) hypertension I10 Active 91582978 Problem Chronic viral hepatitis C B18.2 Active 044644760 Problem COPD without exacerbation J44.9 Active 81920414 Problem Foraminal stenosis of lumbar region M99.83 Active 96446797 Problem Lumbago with sciatica, left side M54.42 Active 333683931 Problem Lumbago with sciatica, right side M54.41 Active 597586628 Problem Aortic ectasia, abdominal I77.811 Active 337217790613750 Problem Pain in thoracic spine M54.6 Active 859730306736562 Problem Other iron deficiency anemia D50.8 Active 44817409 Problem Anxiety F41.9 Active 63056506 Problem Dysthymia F34.1 Active 26207974 Problem Long-term use of high-risk medication Z79.899 Active 847610426 ALLERGIES No Information ENCOUNTERS Encounter Location Date Diagnosis [facility] [id number] [place] [address]20- 2755 February, [facility] [address] [address] 28[address] February, [facility] [id number] [place] [address] 73656- 1617 Jan, Lumbago with sciatica, unspecified side M54.40 [facility] [address] [place] [place] [id number] [place] [address] 27076- 7620 Jan, Lumbago with sciatica, unspecified side M54.40 ; Essential ( primary) hypertension I10 ; COPD without exacerbation J44.9 ; Long-term use of high-risk medication Z79.899 ; Anxiety F41.9 and Dysthymia F34.1 [place] [address] [address]- 8728 Dec, [place] [address] [place] [id number]- 897 Dec, Lumbago with sciatica, unspecified side M54.40 [place] [address] 05361- 4341 Dec, Anxiety F41.9 and Dysthymia F34.1 [place] [address] 32245- 6804 Nov, Other chronic pain G89.29 and Lumbago with sciatica, unspecified side M54.40 [place] [address] 68301- 6593 Oct, Lumbago with sciatica, unspecified side M54.40 [place] [address] 72117- 351 Oct, Anxiety F41.9 and Dysthymia F34.1 [place] [address] 67171- 5658 Oct, Abnormal fasting glucose R73.01 [place] [address] 96245- 4327 Oct, Essential (primary) hypertension I10 and Lumbago with sciatica, unspecified side M54.40 [place] [address] 88035- 3984 Sep, Abnormal fasting glucose R73.01 [place] [address] 12299- 8760 Sep, Pulmonary nodule R91.1 ; Aortic ectasia, abdominal I77.811 and Anxiety F41.9 [place] [id number] [place] [address] 93223- 1479 Sep, Lumbago with sciatica, unspecified side M54.40 [place] [address] [id number] [place] [address] 13740- 7881 Aug, Essential (primary) hypertension I10 and Lumbago with sciatica, unspecified side M54.40 [place] [address] [place] [id number] [place] [address] 99575- 9850 Jul, Abnormal chest CT R93.[address] 83518- 5000 Jul, Right pulmonary lesion R91.[address] 02601- 2867 Jul, Lumbago with sciatica, unspecified side M54.40 [place] [id number] [place] [address] 34640- 4571 Jul, Pain in thoracic spine M54.6 ; Lumbago with sciatica, left side M54.42 and Lumbago with sciatica, right side M54.41 [place] [address] [id number] [place] [address] 65947- 6617 Jun, Essential (primary) hypertension I10 ; COPD [...] Z79.899 and Pain in thoracic spine M54.6 [place] [id number] [place] [address] 08841- 2301 May, [place] [address] [id number] [place] [address] 24579- 0696 Apr, Lumbago with sciatica, unspecified side M54.40 [place] [id number] [place] [address] 79035- 0302 Mar, Essential (primary) hypertension I10 ; Lumbago with sciatica , unspecified side M54.40 ; Chronic viral hepatitis C B18.2 ; Chronic obstructive pulmonary disease, unspecified J44.9 ; Other iron deficiency anemia D50.8 and Long-term use of high-risk medication Z79.899 [place] [address] [id number] [place] [address] 01014- 5239 Mar, Essential (primary) hypertension I10 [place] [address] [id number] [place] [address] 44040- 9409 February, [place] [address] [id number] [place] [address] 57974- 3435 February, Lumbago with sciatica, unspecified side M54.40 [place] [address] [id number] [place] [address] 16851- 2085 Jan, Lumbago with sciatica, unspecified side M54.40 [place] [id number] [place] [address] 18361- 1272 Dec, Essential (primary) hypertension I10 ; Lumbago with sciatica , unspecified side M54.40 ; Chronic viral hepatitis C B18.2 ; Chronic obstructive pulmonary disease, unspecified J44.9 ; Other iron deficiency anemia D50.8 ; Long-term use of high-risk medication Z79.899 and General medical exam Z00.00 [place] [address] [place] [id number] [place] [address] 05108- 1588 Nov, Essential (primary) hypertension I10 [place] [id number] [place] [address] 10060- 3086 Oct, [place] [address], [place] [address] 1925 Oct, Essential (primary) hypertension I10 [place] [address] [place] [address] [id number] [place] [address] 86048- 2957 Oct, Anxiety F41.9 and Dysthymia F34.1 [place] [id number] [place] [address] 14820- 7397 Oct, [place] [address] [id number] [place] [address] 36327- 5859 Oct, [place] [address] [id number] [place] [address] 14979- 7544 Oct, Essential (primary) hypertension I10 ; Lumbago with sciatica , unspecified side M54.40 ; Chronic viral hepatitis C B18.2 ; Chronic obstructive pulmonary disease, unspecified J44.9 ; Other iron deficiency anemia D50.8 ; Long-term use of high-risk medication Z79.899 and Anxiety F41.9 [place] [address] [id number] [place] [address] 44134- 4263 Sep, [place] [address] [place] [id number] [place] [address] 25575- 0439 Aug, [place] [address] [place] [address] 49941- 0387 Jul, Abnormal fasting glucose R73.01 [place] [address] [id number] [place] [address] 40383- 9802 Jul, Essential (primary) hypertension I10 ; Lumbago with sciatica , unspecified side M54.40 ; Chronic viral hepatitis C B18.2 ; Chronic obstructive pulmonary disease, unspecified J44.9 ; Other iron deficiency anemia D50.8 ; Long-term use of high-risk medication Z79.899 and Encounter for immunization Z23 [place] [address] [place] [address] 67316- 3893 Jun, [place] [id number] [address]- 0863 May, [facility] [id number] [place] [address] 13778- 8274 Apr, Other iron deficiency anemia D50.8 [facility] [address] [address] -0251 Apr, Chronic fatigue R53.82 and Bradycardia R00.1 [facility] [address] [place] [id number] [place] [address] 52049- 9872 Apr, [facility] [address] [place] [address] [id number] [place] [address] 61894- 0175 Mar, Essential (primary) hypertension I10 ; Lumbago with sciatica , unspecified side M54.40 ; Chronic viral hepatitis C B18.2 ; Chronic obstructive pulmonary disease, unspecified J44.9 and Other iron deficiency anemia D50.8 [facility] [address] [place] [id number] [place] [address] 07187- 6163 February, [facility] [address] [id number] [place] [address] 76184- 4627 Jan, [place] [address] [id number] [place] [address] 07871- 6916 Jan, Fatigue R53.83 [facility] [address] [address]- 8114 Dec, Essential (primary) hypertension I10 ; Lumbago with sciatica , unspecified side M54.40 ; Chronic viral hepatitis C B18.2 ; Chronic obstructive pulmonary disease, unspecified J44.9 ; Sinusitis J32.9 and Fatigue R53.83 [place] [address] [place] [id number] [place] [address] 48284- 4269 Dec, [facility] [address] [id number] [place] [address] 88996- 9989 Nov, [facility] [id number] [place] [address] 29459- 1422 Oct, Essential (primary) hypertension I10 ; Lumbago with sciatica , unspecified side M54.40 ; Chronic viral hepatitis C B18.2 ; Chronic obstructive pulmonary disease, unspecified J44.9 and History of long-term use of multiple prescription drugs Z92.29 [place] [address] 6123 Sep, [facility] [address] [id number] [place] [address] 55168- 9238 Aug, [place] [address] [id number] [place] [address] 42226- 5084 Jul, Essential (primary) hypertension I10 ; Lumbago with sciatica , unspecified side M54.40 ; Chronic viral hepatitis C B18.2 ; Chronic obstructive pulmonary disease, unspecified J44.9 and Anxiety F41.9 [place] [address] [id number] [place] [address] 48725- 0171 Jun, [place] [address] [id number] [place] [address] 02463- 2058 May, [place] [id number] [place] [address] 74766- 4024 Apr, Essential hypertension, benign 401.1 ; Lumbago 724.2 ; Nondependent tobacco use disorder 305.1 and Chronic hepatitis C without mention of hepatic coma 070.54 [place] [id number] [address]- 9715 Mar, Lumbago 724.2 [place] [address] [place] [address] 40131- 7197 February, Essential hypertension, benign 401.1 ; Lumbago 724.2 ; Nondependent tobacco use disorder 305.1 and Chronic hepatitis C without mention of hepatic coma 070.54 [place] [address], [place] [address]- 9155 February, [place] [address] [id number] [place] [address]- 1204 14 Jan, 2015 [facility] [address] [id number] [place] [address]- 3465 Jan, [facility] [place] [facility] [address] [id number] [place] [address]- 6641 Dec, [facility] [address] [id number] [place] [address]- 3207 Dec, [facility] [place] [facility] [address] [id number] [place] [address]- 1250 Nov, [facility] [place] [facility] [address] [id number] [place] [address]- 6819 Nov, [facility] [place] [facility] [address] [id number] [place] [address]- 1300 Oct, [facility] [place] [facility] [address] [facility] [id number] [place] [address]- 6279 Oct, [facility] [place] [facility] [address] [id number] [place] [address]- 3226 Sep, [facility] [place] [facility] [address] [id number] [place] [address]- 3222 Sep, [facility] [place] [facility] [address] [facility] [id number] [place] [address]- 4186 Aug, [facility] [place] [facility] [address] [id number] [place] [address]- 8366 Aug, [facility] [place] [facility] [address] [id number] [place] [address]- 6620 Aug, [facility] [place] [facility] [address] [id number] [place] [address]- 9323 Aug, [facility] [place] [facility] [address] [id number] [place] [address]- 7313 Jul, [facility] [place] [facility] [address] [id number] [place] [address]- 7712 Jul, [facility] [place] [facility] [address] [id number] [place] [address]- 1627 16 Jul, 2014 [facility] [place] [facility] [address] [id number] [place] [address]- 0946 13 Jul, 2014 [facility] [place] [facility] [address] [id number] [place] [address]- 4626 13 Jul, 2014 [facility] [place] [facility] [address] [id number] [place] [address]- 4004 10 Jul, 2014 [facility] [place] [facility] [address] [id number] [place] [address]- 4865 10 Jul, 2014 [facility] [place] [facility] [address] [id number] [place] [address]- 9018 11 Jun, 2014 [facility] [place] [facility] [address] [id number] [place] [address]- 6035 11 Jun, 2014 [facility] [place] [facility] [address] [id number] [place] [address]- 4667 11 Jun, 2014 [facility] [place] [facility] [address] [id number] [place] [address]- 8045 Jun, [facility] [place] [facility] [address] [id number] [place] [address]- 2790 Jun, [facility] [place] [facility] [address] [id number] [place] [address]- 1177 Jun, [facility] [place] [facility] [address] [id number], [place] [address]- 4119 04 Jun, 2013 [facility] [place] [facility] [address] [id number] [place] [address]- 5934 Jun, [facility] [place] [facility] [address] [id number] [place] [address]- 9224 May, [facility] [place] [facility] [address] [id number] [place] [address]- 1621 May, [facility] [place] [facility] [address] [id number], [place] [address]- 9044 Apr, [facility] [place] [facility] [address] [id number] [place] [address]- 7100 Apr, [facility] [place] [facility] [address] [id number] [place] [address]- 0303 Mar, [facility] [place] [facility] [address] [id number] [place] [address]- 1660 Mar, [facility] [place] [facility] [address] [id number] [place] [address]- 4010 Mar, [facility] [place] [facility] [address] [id number] [place] [address]- 4980 Mar, [facility] [place] [facility] [address] [id number] [place] [address]- 3614 Mar, [facility] [place] [facility] [address] [id number] [place] [address]- 4834 February, [facility] [place] [facility] [address] [id number] [place] [address]- 6444 February, [facility] [place] [facility] [address] [id number] [place] [address]- 6137 February, [facility] [place] [facility] [address] [id number] [place] [address]- 4374 February, [facility] [place] [facility] [address] [id number] [place] [address]- 3725 Jan, [facility] [place] [facility] [address] [id number] [place] [address]- 4289 Jan, [facility] [place] [facility] [address] [id number] [place] [address]- 2408 Jan, [facility] [place] [facility] [address] [id number] [place] [address]- 9135 Jan, [facility] [place] [facility] [address] [id number] [place] [address]- 3574 Jan, [facility] [place] [facility] [address] [id number] [place] [address]- 4576 07 Jan, 2014 [facility] [place] [facility] [address] [id number] [place] [address]- 1560 Jan, [facility] [place] [facility] [address] [id number] [place] [address]- 4466 Jan, [facility] [place] [facility] [address] [id number] [place] [address]- 4533 Dec, [facility] [place] [facility] [address] [id number] [place] [address]- 5905 Dec, [facility] [place] [facility] [address] [id number] [place] [address]- 9319 Dec, [facility] [place] [facility] [address] [id number] [place] [address]- 6302 Dec, [facility] [place] [facility] [address] [id number] [place] [address]- 9370 Dec, [facility] [place] [facility] [address] [id number] [place] [address]- 5325 Dec, [facility] [place] [facility] [address] [id number] [place] [address]- 9165 Dec, [facility] [place] [facility] [address] [id number] [place] [address]- 9880 Dec, [facility] [place] [facility] [address] [id number] [place] [address]- 0744 Dec, [facility] [place] [facility] [address] [id number] [place] [address]- 2520 Dec, [facility] [place] [facility] [address] [id number] [place] [address]- 7320 Nov, [facility] [place] [facility] [address] [id number] [place] [address]- 1569 Nov, [facility] [place] [facility] [address] [id number] [place] [address]- 3843 Nov, [facility] [place] [facility] [address] [id number] [place] [address]- 3913 Nov, [facility] [place] [facility] [address] [id number] [place] [address]- 6086 Nov, [facility] [place] [facility] [address] [id number] [place] [address]- 0218 Nov, [facility] [place] [facility] [address] [id number] [place] [address]- 2878 Oct, [facility] [place] [facility] [address] [id number] [place] [address]- 3400 Oct, [facility] [place] [facility] [address] [id number] [place] [address]- 5927 Sep, [facility] [place] [facility] [address] [id number] [place] [address]- 3403 Sep, [facility] [place] [facility] [address] [id number] [place] [address]- 0176 Sep, [facility] [place] [facility] [address] [id number] [place] [address]- 8885 Sep, [facility] [place] [facility] [address] [id number] [place] [address]- 1822 Aug, [facility] [place] [facility] [address] [id number] [place] [address]- 8047 Aug, [facility] [place] [facility] [address] [id number] [place] [address]- 1883 Aug, [facility] [place] [facility] [address] [id number] [place] [address]- 1588 Aug, [facility] [place] [facility] [address] [id number] [place] [address]- 5928 Aug, [facility] [place] [facility] [address] [id number] [place] [address]- 4383 Aug, [facility] [place] [facility] [address] [id number] [place] [address]- 6590 Aug, 2012 [facility] [place] [facility] [address] [id number] [place] [address]- 9746 Aug, 2012 [facility] [place] [facility] [address] [id number] [place] [address]- 1341 Jul, 2012 [facility] [place] [facility] [address] [id number] [place] [address]- 0172 Jul, 2012 [facility] [place] [facility] [address] [id number] [place] [address]- 7259 Jul, 2012 [facility] [place] [facility] [address] [id number] [place] 2332 Jul, 2012 [facility] [place] [facility] [address] [id number] [place] [address]- 7367 Jul, [facility] [place] [facility] [address] [id number] [place] [address]- 3035 Jul, 2012 [facility] [address] [id number] [place] [address]- 9091 Jul, [facility] [place] [facility] [address] [id number] [place] [address]- 0653 Jul, [facility] [address] [id number] [place] [address]- 7038 Jul, [facility] [place] [facility] [address] [id number] [place] [address]- 1041 Jul, 2012 [facility] [place] [facility] [address] [id number] [place] [address]- 4291 Jul, [facility] [place] [facility] [address] [id number] [place] [address]- 4327 Jul, 2012 [facility] [place] [facility] [address] [id number] [place] [address]- 1846 Jul, [facility] [place] [facility] [address] [id number] [place] 0268 15 Jul, 2013 [facility] [place] [facility] [address] [id number] [place] [address]- 4014 15 Jul, 2013 [facility] [place] [facility] [address] [id number] [place] [address]- 6499 15 Jul, 2013 [facility] [place] [facility] [address] [id number] [place] [address]- 6840 14 Jul, 2013 [facility] [place] [facility] [address] [id number] [place] [address]- 9732 14 Jul, 2013 [facility] [place] [facility] [address] [id number] [place] [address]- 6553 Jul, [facility] [place] [facility] [address] [id number] [place] [address]- 8220 Jul, [facility] [place] [facility] [address] [id number] [place] [address]- 3401 Jul, [facility] [place] [facility] [address] [id number] [place] [address]- 8747 Jul, [facility] [place] [facility] [address] [id number] [place] [address]- 9202 Jul, [facility] [place] [facility] [address] [id number], [place] [address]- 9533 Jun, [facility] [place] [facility] [address] [id number], [place] [address]- 1946 Jun, [facility] [place] [facility] [address] [id number], [place] [address] May, [facility] [place] [facility] [address] [id number] [place] [address] May, [facility] [place] [facility] [address] [id number], [place] [address] May, [facility] [place] [facility] [address] [id number], [place] [address] May, [facility] [place] [facility] [address] [id number], [place] [address] 16 May, 2013 [facility] [address] [id number] [place] [address] May, [facility] [address] [id number] [place] [address] May, [facility] [address] [facility] [id number] [place] [address] May, [facility] [address] [id number] [place] [address] Apr, [facility] [address] [id number] [place] [address] Mar, [facility] [address] [facility] [id number] [place] [address] February, [facility] [address] [id number] [place] [address] Jan, [facility] [address] [facility] [id number] [place] [address] Dec, [facility] [address] [id number] [place] [address] Dec, [facility] [address] [id number] [place] [address] Dec, [facility] [address] [facility] [id number] [place] [address] Dec, [facility] [place] [facility] [address] [facility] [id number], [place] [address] Nov, [facility] [place] [facility] [address] [id number] [place] [address] Nov, [facility] [place] [facility] [address] [facility] [id number] [place] [address] 15 Nov, 2012 [facility] [address] [facility] [id number], [place] [address] 15 Nov, 2012 [facility] [address] [id number], [place] [address] Oct, [facility] [address] [id number], [place] [address] Oct, [facility] [address] [id number], [place] [address] Oct, [facility] [id number] [place] [address] Sep, [facility] [id number] [place] [address] Sep, [facility] [id number] [place] [address] Sep, [facility] [id number], [place] [address] Sep, IMMUNIZATIONS No Known Immunizations SOCIAL HISTORY Never Assessed REASON FOR VISIT CT PLAN OF CARE VITAL SIGNS MEDICATIONS Unknown Medications RESULTS Name Result Date Reference Range CT Scan : Chest w/ Contrast 2017-07-31 PROCEDURES No Known procedures INSTRUCTIONS MEDICATIONS ADMINISTERED No Known Medications MEDICAL (GENERAL) HISTORY Type Description Date Medical History hypertension Medical History hepatitis C - Completed 6 months of treatment and had to have multiple transfusions. Did not complete full treatment. Medical History chronic bronchitis Medical History lower back pain Medical History [...]
--- OUTSIDE RECORDS SUMMARY | 2018-07-03 09:52 | XMS REPORT ---
Author Author FREEDOM LOVE Organization [facility] Address [address] [place] [address] Care Team Providers Care Cyber Security Administrator Name Role Phone CHELLY LOVEABHINAV Unavailable PROBLEMS Type Condition ICD9-CM Code [id number] Code Onset Dates Condition Status SNOMED Code Problem Chronic viral hepatitis C B18.2 Active 557652472 Problem Anxiety F41.9 Active 07501472 Problem Essential (primary) hypertension I10 Active 20326871 Problem COPD without exacerbation J44.9 Active 27137802 Problem Lumbago with sciatica, left side M54.42 Active 575728394 Problem Lumbago with sciatica, right side M54.41 Active 077298042 Problem Other chronic pain G89.29 Active 95644269 Problem Pain in thoracic spine M54.6 Active 379200796126077 Problem Dysthymia F34.1 Active 52125077 Problem Sinusitis J32.9 Active 57751955 Problem History of long-term use of multiple prescription drugs Z92.29 Active 872297922 Problem Long-term use of high-risk medication Z79.899 Active 014749276 Problem Other iron deficiency anemia D50.8 Active 55859901 ALLERGIES No Information SOCIAL HISTORY Never Assessed PLAN OF CARE VITAL SIGNS MEDICATIONS No Known Medications RESULTS No Results PROCEDURES No Known procedures IMMUNIZATIONS No Known Immunizations MEDICAL (GENERAL) HISTORY Type Description Date Medical [...] History Depression Medical History Psychosis Mood Disorder Surgical History appendectomy Hospitalization History Blood transfusions for anemia from Hep C Treatments 2012
--- OUTSIDE RECORDS SUMMARY | 2018-07-03 09:52 | XMS REPORT ---
Author Author DARLENE HARRY Organization [facility] Address [address] [place] [address] Care Team Providers Care Property Clerk Name Role Phone DARLENE HARRY Unavailable PROBLEMS Type Condition ICD9-CM Code [id number] Code Onset Dates Condition Status SNOMED Code Problem Other chronic pain G89.29 Active 18379644 Problem Chronic viral hepatitis C B18.2 Active 904864452 Problem Anxiety F41.9 Active 43430088 Problem COPD without exacerbation J44.9 Active 04156727 Problem Lumbago with sciatica, left side M54.42 Active 414093544 Problem Lumbago with sciatica, right side M54.41 Active 367665804 Problem Dysthymia F34.1 Active 82736247 Problem Long-term use of high-risk medication Z79.899 Active 256395485 Problem History of long-term use of multiple prescription drugs Z92.29 Active 836035872 Problem Essential (primary) hypertension I10 Active 04113816 Problem Other iron deficiency anemia D50.8 Active 28160476 Problem Sinusitis J32.9 Active 63298785 ALLERGIES Unknown Allergies SOCIAL HISTORY No smoking Hx information available PLAN OF CARE VITAL SIGNS MEDICATIONS Unknown Medications RESULTS No Results PROCEDURES No Known procedures IMMUNIZATIONS No Known Immunizations
--- OUTSIDE RECORDS SUMMARY | 2018-07-03 09:52 | XMS REPORT ---
Author Author DARLENE HARRY [facility] Address [address] [place] [address] Care Team Providers Care Conductor And Engineer Name Role Phone DARLENE HARRY Unavailable PROBLEMS Type Condition ICD9-CM Code [id number] Code Onset Dates Condition Status SNOMED Code Problem Other chronic pain G89.29 Active 33442783 Problem Essential (primary) hypertension I10 Active 00955954 Problem Chronic viral hepatitis C B18.2 Active 950527638 Problem COPD without exacerbation J44.9 Active 53648684 Problem Foraminal stenosis of lumbar region M99.83 Active 68763422 Problem Lumbago with sciatica, left side M54.42 Active 585965421 Problem Lumbago with sciatica, right side M54.41 Active 529568293 Problem Aortic ectasia, abdominal I77.811 Active [id number] Problem Pain in thoracic spine M54.6 Active 144181877082476 Problem Other iron deficiency anemia D50.8 Active 71459050 Problem Anxiety F41.9 Active 57758030 Problem Dysthymia F34.1 Active 45033979 Problem Long-term use of high-risk medication Z79.899 Active 932612582 ALLERGIES No Information ENCOUNTERS Encounter Location Date Diagnosis [facility] [id number] [place] [address] 39825- 2857 February, [facility] [address] [address] February, [facility] [id number] [place] [address] 07420- 3190 Jan, Lumbago with sciatica, unspecified side M54.40 [facility] [id number] [place] [address] 24527- 2870 Jan, Lumbago with sciatica, unspecified side M54.40 ; Essential ( primary) hypertension I10 ; COPD without exacerbation J44.9 ; Long-term use of high-risk medication Z79.899 ; Anxiety F41.9 and Dysthymia F34.1 [place] [address] 39574- 9488 Dec, [place] [address] 615107- 202 Dec, Lumbago with sciatica, unspecified side M54.40 [place] [address] 05765- 1262 Dec, Anxiety F41.9 and Dysthymia F34.1 [place] [address] 8[address]39- 1970 Nov, Other chronic pain G89.29 and Lumbago with sciatica, unspecified side M54.40 [place] [address] 17297- 8344 Oct, Lumbago with sciatica, unspecified side M54.40 [place] [address] 555447- 4680 Oct, Anxiety F41.9 and Dysthymia F34.1 [place] [address] 73076- 0527 Oct, Abnormal fasting glucose R73.01 [place] [address] 30911- 2025 Oct, Essential (primary) hypertension I10 and Lumbago with sciatica, unspecified side M54.40 [place] [address] 72265- 0751 Sep, Abnormal fasting glucose R73.01 [place] [address] 31718- 8795 Sep, Pulmonary nodule R91.1 ; Aortic ectasia, abdominal I77.811 and Anxiety F41.9 [place] [id number] [place] [address] 60126- 2048 Sep, Lumbago with sciatica, unspecified side M54.40 [place] [id number] [place] [address] 24658- 1680 Aug, Essential (primary) hypertension I10 and Lumbago with sciatica, unspecified side M54.40 [place] [address] 41148- 3905 Jul, Abnormal chest CT R93.[address] 34757- 1411 Jul, Right pulmonary lesion R91.[address] 45340- 0701 Jul, Lumbago with sciatica, unspecified side M54.40 [place] [address] 86079- 3618 Jul, Pain in thoracic spine M54.6 ; Lumbago with sciatica, left side M54.42 and Lumbago with sciatica, right side M54.41 [place] [address] 08630- 9066 13 Jun, 2017 Essential (primary) hypertension I10 [...] Z79.899 and Pain in thoracic spine M54.6 [place] [id number] [place] [address] 85124- 6541 May, [place] [address] [place] [address] 28805- 4308 Apr, Lumbago with sciatica, unspecified side M54.40 [place] [id number] [place] [address] 22966- 2340 Mar, Essential (primary) hypertension I10 ; Lumbago with sciatica , unspecified side M54.40 ; Chronic viral hepatitis C B18.2 ; Chronic obstructive pulmonary disease, unspecified J44.9 ; Other iron deficiency anemia D50.8 and Long-term use of high-risk medication Z79.899 [place] [id number] [place] [address] 79278- 7226 Mar, Essential (primary) hypertension I10 [place] [id number] [place] [address] 33527- 2903 February, [place] [id number] [place] [address] 49098- 2190 February, Lumbago with sciatica, unspecified side M54.40 [place] [id number] [place] [address] 37718- 0811 Jan, Lumbago with sciatica, unspecified side M54.40 [place] [address] [place] [address] 62721- 9313 Dec, Essential (primary) hypertension I10 ; Lumbago with sciatica , unspecified side M54.40 ; Chronic viral hepatitis C B18.2 ; Chronic obstructive pulmonary disease, unspecified J44.9 ; Other iron deficiency anemia D50.8 ; Long-term use of high-risk medication Z79.899 and General medical exam Z00.00 [place] [address] [place] [address] 17207- 9055 Nov, Essential (primary) hypertension I10 [place] [id number] [place] [address] 70817- 1121 Oct, [place] [id number] [place] [address] 22897- 2184 Oct, Essential (primary) hypertension I10 [place] [address] 99833- 9828 Oct, Anxiety F41.9 and Dysthymia F34.1 [place] [address] 01390- 3110 Oct, [place] [address] 32577- 2832 Oct, [place] [address] 50924- 4700 Oct, Essential (primary) hypertension I10 ; Lumbago with sciatica , unspecified side M54.40 ; Chronic viral hepatitis C B18.2 ; Chronic obstructive pulmonary disease, unspecified J44.9 ; Other iron deficiency anemia D50.8 ; Long-term use of high-risk medication Z79.899 and Anxiety F41.9 [place] [id number] [place] [address] 71699- 7285 Sep, [place] [address] 11343- 3067 Aug, [place] [id number] [place] [address] 56693- 3692 Jul, Abnormal fasting glucose R73.01 [place] [id number] [place] [address] 64597- 3424 Jul, Essential (primary) hypertension I10 ; Lumbago with sciatica , unspecified side M54.40 ; Chronic viral hepatitis C B18.2 ; Chronic obstructive pulmonary disease, unspecified J44.9 ; Other iron deficiency anemia D50.8 ; Long-term use of high-risk medication Z79.899 and Encounter for immunization Z23 [place] [id number] [place] [address] 59029- 0135 Jun, [place] [id number] [address]- 3626 May, [facility] [id number] [place] [address] 26915- 1569 Apr, Other iron deficiency anemia D50.8 [facility] [id number] [place] [address] 11734 -0789 Apr, Chronic fatigue R53.82 and Bradycardia R00.1 [facility] [id number] [place] [address] 34598- 1346 Apr, [facility] [id number] [place] [address] 70979- 4092 Mar, Essential (primary) hypertension I10 ; Lumbago with sciatica , unspecified side M54.40 ; Chronic viral hepatitis C B18.2 ; Chronic obstructive pulmonary disease, unspecified J44.9 and Other iron deficiency anemia D50.8 [facility] [id number] [place] [address] 58620- 2924 February, [facility] [id number] [place] [address] 24311- 5227 Jan, [facility] [id number] [place] [address] 97209- 6874 Jan, Fatigue R53.83 [facility] [id number] [place] [address] 83034- 9172 Dec, Essential (primary) hypertension I10 ; Lumbago with sciatica , unspecified side M54.40 ; Chronic viral hepatitis C B18.2 ; Chronic obstructive pulmonary disease, unspecified J44.9 ; Sinusitis J32.9 and Fatigue R53.83 [facility] [id number] [place] [address] 38991- 6839 Dec, [facility] [id number] [place] [address] 73538- 4940 Nov, [facility] [id number] [place] [address] 25650- 2082 Oct, Essential (primary) hypertension I10 ; Lumbago with sciatica , unspecified side M54.40 ; Chronic viral hepatitis C B18.2 ; Chronic obstructive pulmonary disease, unspecified J44.9 and History of long-term use of multiple prescription drugs Z92.29 [place] [address] [address] Sep, [place] [id number] [place] [address] 12517- 8969 Aug, [place] [id number] [place] [address] 77608- 4602 Jul, Essential (primary) hypertension I10 ; Lumbago with sciatica , unspecified side M54.40 ; Chronic viral hepatitis C B18.2 ; Chronic obstructive pulmonary disease, unspecified J44.9 and Anxiety F41.9 [place] [id number] [place] [address] 85255- 1741 Jun, [place] [id number] [place] [address] 19093- 5503 May, [place] [id number] [place] [address] 82895- 0791 Apr, Essential hypertension, benign 401.1 ; Lumbago 724.2 ; Nondependent tobacco use disorder 305.1 and Chronic hepatitis C without mention of hepatic coma 070.54 [place] [address] [place] [address] 91154- 2332 Mar, Lumbago 724.2 [place] [address] [place] [address] 19843- 0994 February, Essential hypertension, benign 401.1 ; Lumbago 724.2 ; Nondependent tobacco use disorder 305.1 and Chronic hepatitis C without mention of hepatic coma 070.54 [place] [address] [address]- 1804 February, [place] [address] [address]- 8844 14 Jan, 2015 [facility] [place] [facility] [address] [id number] [place] [address]- 8881 Jan, [facility] [place] [facility] [address] [id number] [place] [address] 2548 Dec, [facility] [place] [facility] [address] [id number] [place] [address]- 5322 Dec, [facility] [place] [facility] [address] [id number] [place] [address]- 0291 Nov, [facility] [place] [facility] [address] [id number] [place] [address]- 9453 Nov, [facility] [place] [facility] [address] [id number] [place] [address]- 0592 Oct, [facility] [place] [facility] [address] [id number] [place] [address]- 8464 Oct, [facility] [place] [facility] [address] [id number] [place] [address]- 3050 Sep, [facility] [place] [facility] [address] [id number] [place] [address]- 6618 Sep, [facility] [place] [facility] [address] [facility] [id number] [place] [address]- 0752 Aug, [facility] [place] [facility] [address] [id number] [place] [address]- 2659 Aug, [facility] [place] [facility] [address] [id number] [place] [address]- 6659 Aug, [facility] [place] [facility] [address] [id number] [place] [address]- 0207 Aug, [facility] [place] [facility] [address] [id number] [place] [address]- 2546 Jul, [facility] [place] [facility] [address] [id number] [place] [address]- 7719 Jul, [facility] [place] [facility] [address] [id number] [place] [address]- 7898 16 Jul, 2014 [facility] [place] [facility] [address] [id number] [place] [address]- 9660 13 Jul, 2014 [facility] [place] [facility] [address] [id number] [place] [address]- 4983 13 Jul, 2014 [facility] [place] [facility] [address] [id number] [place] [address]- 2456 10 Jul, 2014 [facility] [place] [facility] [address] [id number] [place] [address]- 2139 10 Jul, 2014 [facility] [place] [facility] [address] [id number] [place] [address]- 5374 11 Jun, 2014 [facility] [place] [facility] [address] [id number] [place] [address]- 8092 11 Jun, 2014 [facility] [place] [facility] [address] [id number] [place] [address]- 7464 11 Jun, 2014 [facility] [place] [facility] [address] [id number] [place] [address]- 3963 Jun, [facility] [place] [facility] [address] [id number] [place] [address]- 1572 Jun, [facility] [place] [facility] [address] [id number] [place] [address]- 6627 Jun, [facility] [place] [facility] [address] [id number] [address]- 1759 Jun, [facility] [place] [facility] [address] [id number] [place] [address]- 7759 Jun, [facility] [place] [facility] [address] [id number] [address]- 3494 May, [facility] [place] [facility] [address] [id number] [place] [address]- 2865 May, [facility] [place] [facility] [address] [id number] [place] [address]- 3920 11 Apr, 2014 [facility] [place] [facility] [address] [id number] [place] [address]- 0174 Apr, [facility] [place] [facility] [address] [id number] [place] [address]- 4643 Mar, [facility] [place] [facility] [address] [id number] [place] [address]- 4239 Mar, [facility] [place] [facility] [address] [id number] [place] [address]- 4608 Mar, [facility] [place] [facility] [address] [id number] [place] [address]- 2428 Mar, [facility] [place] [facility] [address] [id number] [place] [address]- 6490 Mar, [facility] [place] [facility] [address] [id number] [place] [address]- 4536 February, [facility] [place] [facility] [address] [id number] [place] [address]- 3523 February, [facility] [place] [facility] [address] [id number] [place] [address]- 2102 February, [facility] [place] [facility] [address] [id number] [place] [address]- 8635 February, [facility] [place] [facility] [address] [id number] [place] [address]- 1774 Jan, [facility] [place] [facility] [address] [id number] [place] [address]- 7386 Jan, [facility] [place] [facility] [address] [id number] [place] [address]- 7840 Jan, [facility] [place] [facility] [address] [id number] [place] [address]- 2983 Jan, [facility] [place] [facility] [address] [id number] [place] [address]- 6163 Jan, [facility] [place] [facility] [address] [id number] [place] [address]- 2227 Jan, [facility] [place] [facility] [address] [id number] [place] [address]- 9470 Jan, [facility] [place] [facility] [address] [id number] [place] [address]- 7046 Jan, [facility] [place] [facility] [address] [id number] [place] [address]- 3330 Dec, [facility] [place] [facility] [address] [id number] [place] [address]- 2180 Dec, [facility] [place] [facility] [address] [id number] [place] [address]- 3449 Dec, [facility] [place] [facility] [address] [id number] [place] [address]- 5692 Dec, [facility] [place] [facility] [address] [id number] [place] [address]- 2016 Dec, [facility] [place] [facility] [address] [id number] [place] [address]- 3476 Dec, [facility] [place] [facility] [address] [id number] [place] [address]- 6911 Dec, [facility] [place] [facility] [address] [id number] [place] [address]- 7412 Dec, [facility] [place] [facility] [address] [id number] [place] [address]- 8371 Dec, [facility] [place] [facility] [address] [id number] [place] [address]- 0853 Dec, [facility] [place] [facility] [address] [id number] [place] [address]- 3013 Nov, [facility] [place] [facility] [address] [id number] [place] [address]- 7418 Nov, [facility] [place] [facility] [address] [id number] [place] [address]- 4921 Nov, [facility] [address] [id number] [place] [address]- 1927 Nov, [facility] [place] [facility] [address] [id number] [place] [address]- 5332 Nov, [facility] [address] [id number] [place] [address]- 3414 Nov, [facility] [place] [facility] [address] [id number] [place] [address]- 5394 Oct, [facility] [address] [id number] [place] [address]- 5672 Oct, [facility] [address] [id number] [place] [address]- 9829 Sep, [facility] [address] [id number] [place] [address]- 1550 Sep, [facility] [address] [id number] [place] [address]- 4332 Sep, [facility] [address] [facility] [id number] [place] [address]- 9542 Sep, [facility] [place] [facility] [address] [facility] [id number] [place] [address]- 3135 Aug, [facility] [address] [id number] [place] [address]- 6779 Aug, [facility] [place] [facility] [address] [id number] [address]- 4293 Aug, [facility] [place] [facility] [address] [id number] [place] [address]- 6807 Aug, [facility] [place] [facility] [address] [facility] [id number] [place] [address]- 0271 Aug, [facility] [place] [facility] [address] [facility] [id number] [place] [address]- 2131 Aug, [facility] [place] [facility] [address] [id number] [place] [address]- 7667 Aug, [facility] [place] [facility] [address] [id number] [place] [address]- 4503 Aug, [facility] [place] [facility] [address] [id number] [place] 1559 Jul, [facility] [place] [facility] [address] [id number] [place] [address]- 5639 Jul, [facility] [place] [facility] [address] [id number] [place] [address]- 0265 Jul, 2012 [facility] [place] [facility] [address] [id number] [place] [address]- 1211 Jul, [facility] [place] [facility] [address] [id number] [place] [address]- 3966 Jul, [facility] [place] [facility] [address] [id number] [place] [address]- 4286 Jul, [facility] [place] [facility] [address] [id number] [place] [address]- 2155 Jul, [facility] [place] [facility] [address] [id number] [place] [address]- 5762 Jul, [facility] [place] [facility] [address] [id number] [place] [address]- 4598 Jul, [facility] [place] [facility] [address] [id number] [place] [address]- 2593 Jul, [facility] [place] [facility] [address] [id number] [place] [address]- 9057 Jul, [facility] [place] [facility] [address] [id number] [place] 6994 17 Jul, 2013 [facility] [place] [facility] [address] [id number] [place] 6693 15 Jul, 2013 [facility] [place] [facility] [address] [id number] [place] [address]- 5898 15 Jul, 2013 [facility] [place] [facility] [address] [id number] [place] [address]- 7049 15 Jul, 2013 [facility] [place] [facility] [address] [id number] [place] [address]- 4367 15 Jul, 2013 [facility] [place] [facility] [address] [id number] [place] [address]- 0284 14 Jul, 2013 [facility] [place] [facility] [address] [id number] [place] [address]- 0212 14 Jul, 2013 [facility] [place] [facility] [address] [id number] [place] [address]- 0621 11 Jul, 2013 [facility] [place] [facility] [address] [id number] [place] [address]- 8007 11 Jul, 2013 [facility] [place] [facility] [address] [id number] [place] [address]- 4815 Jul, [facility] [place] [facility] [address] [id number] [place] [address]- 5425 Jul, [facility] [place] [facility] [address] [id number] [place] [address]- 7779 02 Jul, 2013 [facility] [place] [facility] [address] [id number], [place] [address]- 5659 27 Jun, 2013 [facility] [place] [facility] [address] [id number] [address]- 8621 05 Jun, 2013 [facility] [place] [facility] [address] [id number] [address]- 4822 May, [facility] [place] [facility] [address] [id number] [place] [address]- 9224 May, [facility] [place] [facility] [address] [id number] [address] May, [facility] [place] [facility] [address] [id number] [place] [address] May, [facility] [place] [facility] [address] [id number] [place] [address] 16 May, 2013 [facility] [address] [id number] [place] [address] May, [facility] [place] [facility] [address] [id number] [place] [address] May, [facility] [address] [id number] [place] [address] May, [facility] [place] [facility] [address] [id number] [place] [address] Apr, [facility] [address] [id number] [place] [address] Mar, [facility] [address] [id number] [place] [address] February, [facility] [address] [id number] [place] [address] Jan, [facility] [address] [id number] [place] [address] Dec, [facility] [address] [id number] [place] [address] Dec, [facility] [address] [facility] [id number] [place] [address] Dec, [facility] [place] [facility] [address] [id number] [place] [address] Dec, [facility] [place] [facility] [address] [id number] [place] [address] 28 Nov, 2012 [facility] [place] [facility] [address] [id number] [place] [address] 26 Nov, 2012 [facility] [place] [facility] [address] [id number] [place] [address] 15 Nov, 2012 [facility] [place] [facility] [address] [id number] [place] [address] Nov, [facility] [address] [facility] [id number] [address] Oct, [facility] [address] [id number] [address] Oct, [facility] [address] [id number] [address] Oct, [facility] [id number] [address] Sep, [facility] [address] [id number] [address] Sep, [facility] [id number] [address] Sep, [facility] [address] [id number] [address] Sep, IMMUNIZATIONS No Known Immunizations SOCIAL HISTORY Never Assessed REASON FOR VISIT Controlled Med Refill PLAN OF CARE VITAL SIGNS MEDICATIONS Medication Instructions Dosage Frequency Start Date End Date Duration Status Oxycodone HCl 10 mg Orally every 4-6 hrs hrs prn must last 28 days 1 tablet as needed Jul, 28 days Active RESULTS No Results PROCEDURES [...] [address] Somers resolution 4 /2018-will continue fu Surgical History appendectomy Hospitalization History Blood transfusions for anemia from Hep C Treatments 2012
--- OUTSIDE RECORDS SUMMARY | 2018-07-03 09:52 | XMS REPORT ---
Author Author DARLENE HARRY [facility] eClinicalWorks Address Unknown Phone Unavailable Care Team Providers Care Carton Stamper Name Role Phone DARLENE HARRY Unavailable Allergies, Adverse Reactions, Alerts Substance Reaction Event Type N.K.D.A. Info Not Available Non Drug Allergy Problems Problem Type Condition Code Onset Dates Condition Status Problem Anxiety F41.9 Active Assessment Other iron deficiency anemia D50.8 Active Problem Sinusitis J32.9 Active Problem History of long-term use of multiple prescription drugs Z92.29 Active Problem Other iron deficiency anemia D50.8 Active Problem Chronic viral hepatitis C B18.2 Active Problem Chronic obstructive pulmonary disease, unspecified J44.9 Active Problem Essential (primary) hypertension I10 Active Problem Lumbago with sciatica, unspecified side M54.40 Active Medications Medication Code System Code Instructions Start Date End Date Status Dosage Xanax [facility] [address]-17 1 mg Nov 24, 2014 1 tablet by Oral route 3 times per day Multivitamin Adult [facility] [place] [address] Orally not defined Lisinopril [facility] [address]-65 10 MG Orally Once a day [address] [facility] [place] [address]-41 65 MG Orally Once a day [address] [facility] 0 10 mg orally every 4-6 hours prn must last 28 days take [address] [facility] [address]-08 50 MG Orally Once a day 1 tablet at bedtime S[address] [facility] [place] [address]-93 5 mg Nov 24, 2014 place 1 tablet under the tongue and allow to dissolve by Sublingual route 1 time per day ProAir HFA [facility] [place] [address]-66 90 mcg/actuation Inhalation every 4 hrs prn inhale 2 puffs by Inhalation route every 4 hours as needed PRN must transition care- no more refills Vitamin C [facility] [address] 500 MG Orally not defined Procedures Procedure Coding System Code Date B12, VITAMIN (UP TO 1000 MCG) CPT-4 J3420 May 11, 2016 THER/PROPH/DIAG INJ, SC/IM CPT-4 98656 May 11, 2016 TEST FOR BLOOD, FECES CPT-4 60076 May 11, 2016 Office Visit, Est Pt., Level 3 CPT-4 72241 May 11, 2016 Vital Signs Date/Time: May 11, 2016 Cardiac Monitoring Heart Rate 72 bpm Weight 124.7 lbs Height 70 in BMI 17.89 Index Blood Pressure Diastolic 62 mmHg Blood Pressure Systolic 104 mmHg Results No Known Results Summary Purpose eClinicalWorks Submission
--- OUTSIDE RECORDS SUMMARY | 2018-07-03 09:53 | XMS REPORT ---
Author Author DARLENE HARRY [facility] eClinicalWorks Address Unknown Phone Unavailable Care Team Providers Care Barrel Loader Name Role Phone DARLENE HARRY CP Unavailable Allergies, Adverse Reactions, Alerts Substance Reaction Event Type N.K.D.A. Info Not Available Non Drug Allergy Problems Problem Type Condition Code Onset Dates Condition Status Assessment Essential (primary) hypertension I10 Active Problem Chronic obstructive pulmonary disease, unspecified J44.9 Active Problem Anxiety F41.9 Active Problem Other iron deficiency anemia D50.8 Active Problem Sinusitis J32.9 Active Problem Long-term use of high-risk medication Z79.899 Active Problem Lumbago with sciatica, unspecified side M54.40 Active Problem Chronic viral hepatitis C B18.2 Active Problem History of long-term use of multiple prescription drugs Z92.29 Active Problem Essential (primary) hypertension I10 Active Assessment Other iron deficiency anemia D50.8 Active Assessment Chronic obstructive pulmonary disease, unspecified J44.9 Active Assessment Encounter for immunization Z23 Active Assessment Chronic viral hepatitis C B18.2 Active Assessment Long-term use of high-risk medication Z79.899 Active Assessment Lumbago with sciatica, unspecified side M54.40 Active Medications Medication Code System Code Instructions Start Date End Date Status Dosage Lisinopril [facility] [address]-10 10 MG Orally Once a day 1 tablet ProAir HFA [facility] [address]-83 90 mcg/actuation Inhalation every 4 hrs prn inhale 2 puffs by Inhalation route every 4 hours as needed PRN must transition care- no more refills Multivitamin Adult [facility] [address] Orally not defined oxycodone [facility] 0 10 mg orally every 4-6 hours prn must last 28 days take 1 tablet Xanax [facility] [address]-14 1 mg Nov 24, 2014 1 tablet by Oral route 3 times per day Seroquel [facility] [address]-23 50 MG Orally Once a day 1 tablet at bedtime Vitamin C NDC 11799-82219 500 MG Orally not defined Iron [facility] [address]-89 65 MG Orally Once a day 1 tabley Oxycodone HCl [facility] [address]-37 10 mg appt needed before next refill TAKE ONE TABLET BY MOUTH EVERY 4 TO 6 HOURS NEEDED (MUST LAST 28 DAYS) Procedures Procedure Coding System Code Date COMPLETE CBC W/AUTO DIFF WBC CPT-4 96720 Jul 26, 2016 COMPREHEN METABOLIC PANEL CPT-4 42577 Jul 26, 2016 No Charge CPT-4 71085 Jul 26, 2016 IMMUNIZATION ADMIN, EACH ADD (please include units) CPT-4 14496 Jul 26, 2016 SINGLE IMMUNIZATION ADMIN CPT-4 82078 Jul 26, 2016 Office Visit, Est Pt., Level 4 CPT-4 29517 Jul 26, 2016 VENIPUNCT, ROUTINE* CPT-4 32642 Jul 26, 2016 LIPID PANEL CPT-4 24733 Jul 26, 2016 FLUARIX QUAD P-FREE 3 AND UP .50 2015 CPT-4 14383 Jul 26, 2016 PPV23 (PNEUMOVAX) CPT-4 15765 Jul 26, 2016 Vital Signs Date/Time: Jul 26, 2016 Cardiac Monitoring Heart Rate 70 bpm Weight 137.0 lbs Height 70 in BMI 19.66 Index Blood Pressure Diastolic 76 mmHg Blood Pressure Systolic 118 mmHg Results No Known Results Immunizations Vaccine Administration Date PPV23 (PNEUMOVAX) Jul 26, 2016 FLUARIX QUAD P-FREE 3 AND UP .50 2015Jul 26, 2016 Summary Purpose eClinicalWorks Submission
--- OUTSIDE RECORDS SUMMARY | 2018-07-03 09:53 | XMS REPORT ---
Author Author DARLENE HARRY [facility] Address [address] [place] [address] Care Team Providers Care Juvenile Justice Specialist Name Role Phone DARLENE HARRY Unavailable PROBLEMS Type Condition ICD9-CM Code SCK26-UM Code Onset Dates Condition Status SNOMED Code Problem Other chronic pain G89.29 Active 60373964 Problem Essential (primary) hypertension I10 Active 46230357 Problem Chronic viral hepatitis C B18.2 Active 651868536 Problem COPD without exacerbation J44.9 Active 45869813 Problem Foraminal stenosis of lumbar region M99.83 Active 00802607 Problem Lumbago with sciatica, left side M54.42 Active 515250902 Problem Lumbago with sciatica, right side M54.41 Active 074823278 Problem Aortic ectasia, abdominal I77.811 Active 231621252008014 Problem Pain in thoracic spine M54.6 Active 006277146626208 Problem Other iron deficiency anemia D50.8 Active 22421457 Problem Anxiety F41.9 Active 04948974 Problem Dysthymia F34.1 Active 23784897 Problem Long-term use of high-risk medication Z79.899 Active 272121854 ALLERGIES No Information ENCOUNTERS Encounter Location Date Diagnosis [place] [address], [place] [address] May, [place] [address], [place] [address] Mar, [place] [address] [place] [id number] [place] [address] 23008- 2367 Mar, Essential (primary) hypertension I10 ; Foraminal stenosis of lumbar region M99.83 ; Long-term use of high-risk medication Z79.899 and Aortic ectasia, abdominal I77.811 [place] [address] [address]- [address] February, Lumbago with sciatica, unspecified side M54.40 [place] [address] [place] [address]- [address] Jan, Lumbago with sciatica, unspecified side M54.40 [place] [address] 518870- 534 Jan, Lumbago with sciatica, unspecified side M54.40 ; Essential ( primary) hypertension I10 ; COPD without exacerbation J44.9 ; Long-term use of high-risk medication Z79.899 ; Anxiety F41.9 and Dysthymia F34.1 [place] [address] [address]- 3020 Dec, [place] [address] 31676- 8676 Dec, Lumbago with sciatica, unspecified side M54.40 [place] [address] 37642- 6979 Dec, Anxiety F41.9 and Dysthymia F34.1 [place] [address] 7[address]61- 1390 Nov, Other chronic pain G89.29 and Lumbago with sciatica, unspecified side M54.40 [place] [address] 43192- 8567 Oct, Lumbago with sciatica, unspecified side M54.40 [place] [address] 01318- 2863 Oct, Anxiety F41.9 and Dysthymia F34.1 [place] [address] 39327- 9666 Oct, Abnormal fasting glucose R73.01 [place] [address] 80992- 8493 Oct, Essential (primary) hypertension I10 and Lumbago with sciatica, unspecified side M54.40 [place] [address] 55890- 5925 Sep, Abnormal fasting glucose R73.01 [place] [address] 69681- 5718 Sep, Pulmonary nodule R91.1 ; Aortic ectasia, abdominal I77.811 and Anxiety F41.9 [place] [address] 68027- 2803 Sep, Lumbago with sciatica, unspecified side M54.40 [place] [address] 65094- 8053 Aug, Essential (primary) hypertension I10 and Lumbago with sciatica, unspecified side M54.40 [place] [address] 66950- 7743 Jul, Abnormal chest CT R93.8 [place] [address] 77943- 1375 Jul, Right pulmonary lesion R91.1 [place] [address] 41073- 7864 Jul, Lumbago with sciatica, unspecified side M54.40 [place] [address] [place] [id number] [place] [address] 21038- 2829 Jul, Pain in thoracic spine M54.6 ; Lumbago with sciatica, left side M54.42 and Lumbago with sciatica, right side M54.41 [place] [address] [place] [id number] [place] [address] 74534- 6950 Jun, Essential (primary) hypertension I10 ; COPD [...] Z79.899 and Pain in thoracic spine M54.6 [place] [address] [place] [id number] [place] [address] 24488- 3102 May, [place] [address] [place] [id number] [place] [address] 56048- 4228 Apr, Lumbago with sciatica, unspecified side M54.40 [place] [address] [place] [id number] [place] [address] 62677- 6517 Mar, Essential (primary) hypertension I10 ; Lumbago with sciatica , unspecified side M54.40 ; Chronic viral hepatitis C B18.2 ; Chronic obstructive pulmonary disease, unspecified J44.9 ; Other iron deficiency anemia D50.8 and Long-term use of high-risk medication Z79.899 [place] [address] [place] [id number] [place] [address] 89055- 0558 Mar, Essential (primary) hypertension I10 [place] [address] [place] [id number] [place] [address] 60821- 0400 February, [place] [address] [place] [id number] [place] [address] 47444- 3520 February, Lumbago with sciatica, unspecified side M54.40 [place] [address] [place] [id number] [place] [address] 03888- 6269 Jan, Lumbago with sciatica, unspecified side M54.40 [place] [address] [place] [id number] [place] [address] 43147- 6687 Dec, Essential (primary) hypertension I10 ; Lumbago with sciatica , unspecified side M54.40 ; Chronic viral hepatitis C B18.2 ; Chronic obstructive pulmonary disease, unspecified J44.9 ; Other iron deficiency anemia D50.8 ; Long-term use of high-risk medication Z79.899 and General medical exam Z00.00 [place] [address] [place] [id number] [place] [address] 74900- 1754 Nov, Essential (primary) hypertension I10 [place] [address] [place] [id number] [place] [address] 94029- 4019 Oct, [place] [address] [place] [id number] [place] [address] 80241- 2919 Oct, Essential (primary) hypertension I10 [place] [address] [place] [id number] [place] [address] 49050- 8911 Oct, Anxiety F41.9 and Dysthymia F34.1 [place] [id number] [place] [address] 24214- 0625 Oct, [place] [address] [place] [id number] [place] [address] 35005- 5749 Oct, [place] [address] [place] [id number] [place] [address] 66520- 7067 Oct, Essential (primary) hypertension I10 ; Lumbago with sciatica , unspecified side M54.40 ; Chronic viral hepatitis C B18.2 ; Chronic obstructive pulmonary disease, unspecified J44.9 ; Other iron deficiency anemia D50.8 ; Long-term use of high-risk medication Z79.899 and Anxiety F41.9 [place] [id number] [place] [address] 88348- 9294 Sep, [place] [id number] [place] [address] 31092- 0360 Aug, [place] [address] [place] [id number] [place] [address] 21994- 8528 Jul, Abnormal fasting glucose R73.01 [place] [address] [place] [id number] [place] [address] 13080- 2727 Jul, Essential (primary) hypertension I10 ; Lumbago with sciatica , unspecified side M54.40 ; Chronic viral hepatitis C B18.2 ; Chronic obstructive pulmonary disease, unspecified J44.9 ; Other iron deficiency anemia D50.8 ; Long-term use of high-risk medication Z79.899 and Encounter for immunization Z23 [place] [address] [place] [id number] [place] [address] 82167- 4956 Jun, [place] [address] [place] [id number] [place] [address] 44940- 1598 May, [place] [address] 65898- 0193 Apr, Other iron deficiency anemia D50.8 [facility] [address] [place] [id number] [place] [address] 53502 -4523 Apr, Chronic fatigue R53.82 and Bradycardia R00.1 [place] [address] [place] [id number] [place] [address] 77532- 8628 Apr, [place] [address] [place] [id number] [place] [address] 77460- 2988 Mar, Essential (primary) hypertension I10 ; Lumbago with sciatica , unspecified side M54.40 ; Chronic viral hepatitis C B18.2 ; Chronic obstructive pulmonary disease, unspecified J44.9 and Other iron deficiency anemia D50.8 [place] [address] [place] [id number] [place] [address] 94323- 4606 February, [place] [address] [place] [id number] [place] [address] 94731- 8981 Jan, [place] [address] [place] [id number] [place] [address] 11000- 9287 Jan, Fatigue R53.83 [place] [address] [place] [id number] [place] [address] 92676- 2782 Dec, Essential (primary) hypertension I10 ; Lumbago with sciatica , unspecified side M54.40 ; Chronic viral hepatitis C B18.2 ; Chronic obstructive pulmonary disease, unspecified J44.9 ; Sinusitis J32.9 and Fatigue R53.83 [place] [address] [place] [id number] [place] [address] 06472- 9486 Dec, [place] [address] [place] [id number] [place] [address] 64802- 9069 Nov, [place] [address] 08514- 7328 Oct, Essential (primary) hypertension I10 ; Lumbago with sciatica , unspecified side M54.40 ; Chronic viral hepatitis C B18.2 ; Chronic obstructive pulmonary disease, unspecified J44.9 and History of long-term use of multiple prescription drugs Z92.29 [place] [address] 08865- 5473 Sep, [place] [address] 86276- 4932 Aug, [place] [address] [place] [id number] [place] [address] 35966- 7482 Jul, Essential (primary) hypertension I10 ; Lumbago with sciatica , unspecified side M54.40 ; Chronic viral hepatitis C B18.2 ; Chronic obstructive pulmonary disease, unspecified J44.9 and Anxiety F41.9 [place] [address] [place] [id number] [place] [address] 43143- 9193 Jun, [place] [address] [place] [id number] [place] [address] 98208- 9043 May, [place] [address] 18717- 6847 Apr, Essential hypertension, benign 401.1 ; Lumbago 724.2 ; Nondependent tobacco use disorder 305.1 and Chronic hepatitis C without mention of hepatic coma 070.54 [place] [address] [place] [id number] [place] [address] 25206- 3096 Mar, Lumbago 724.2 [facility] [address], [place] [address]- 8482 February, Essential hypertension, benign 401.1 ; Lumbago 724.2 ; Nondependent tobacco use disorder 305.1 and Chronic hepatitis C without mention of hepatic coma 070.54 [facility] [address], [place] [address]- 7804 February, [facility] [address], [place] [address]- 6056 Jan, [facility] [id number] [place] [address] 54475- 2713 Jan, [facility] [address] [id number] [address]- 3640 Dec, [facility] [address], [place] [address]- 2164 Dec, [facility] [address], [place] [address]- 9062 Nov, [facility] [address], [place] [address]- 9464 Nov, [facility] [address], [place] [address]- 1574 Oct, [facility] [address], [place] [address]- 4819 Oct, [facility] [address] [place] [id number], [place] [address]- 1857 Sep, [facility] [address] 2766 Sep, [facility] [address], [place] [address]- 6980 Aug, [facility] [address] [address] [id number], [place] [address]- 2288 Aug, [facility] [place] [facility] [address] [id number] [place] [address]- 5400 Aug, [facility] [place] [facility] [address] [id number] [place] [address]- 1933 Aug, [facility] [place] [facility] [address] [id number] [place] [address]- 4229 17 Jul, 2014 [facility] [place] [facility] [address] [id number] [place] [address]- 6905 17 Jul, 2014 [facility] [place] [facility] [address] [id number] [place] [address]- 7790 16 Jul, 2014 [facility] [place] [facility] [address] [id number] [place] [address]- 0038 Jul, [facility] [place] [facility] [address] [id number] [place] [address]- 7117 Jul, [facility] [place] [facility] [address] [id number] [place] [address]- 1308 Jul, [facility] [place] [facility] [address] [id number] [place] [address]- 1180 10 Jul, 2014 [facility] [place] [facility] [address] [id number] [place] [address]- 7894 11 Jun, 2014 [facility] [place] [facility] [address] [id number] [place] [address]- 8056 11 Jun, 2014 [facility] [place] [facility] [address] [id number] [place] [address]- 7798 11 Jun, 2013 [facility] [place] [facility] [address] [id number] [place] [address]- 3697 11 Jun, 2013 [facility] [place] [facility] [address] [id number] [place] [address]- 3692 11 Jun, 2013 [facility] [place] [facility] [address] [id number] [place] [address]- 6904 11 Jun, 2013 [facility] [place] [facility] [address] [id number] [place] [address]- 5964 Jun, [facility] [place] [facility] [address] [id number] [place] [address]- 4965 Jun, [facility] [place] [facility] [address] [id number] [place] [address]- 6236 May, [facility] [place] [facility] [address] [id number] [place] [address]- 6231 May, [facility] [place] [facility] [address] [id number] [place] [address]- 1718 Apr, [facility] [place] [facility] [address] [id number] [place] [address]- 8038 Apr, [facility] [place] [facility] [address] [id number] [place] [address]- 6160 Mar, [facility] [place] [facility] [address] [id number] [place] [address]- 8373 Mar, [facility] [place] [facility] [address] [id number] [place] [address]- 0420 Mar, [facility] [place] [facility] [address] [id number] [place] [address]- 9061 Mar, [facility] [place] [facility] [address] [id number] [place] [address]- 7834 Mar, [facility] [place] [facility] [address] [id number] [place] [address]- 0059 February, [facility] [place] [facility] [address] [id number] [place] [address]- 3107 February, [facility] [place] [facility] [address] [id number] [place] [address]- 1062 February, [facility] [place] [facility] [address] [id number] [place] [address]- 1352 February, [facility] [place] [facility] [address] [id number] [place] [address]- 5625 Jan, [facility] [place] [facility] [address] [id number] [place] [address]- 7258 11 Jan, 2014 [facility] [address] [id number] [place] [address]- 2826 Jan, [facility] [place] [facility] [address] [id number] [place] [address]- 8396 Jan, [facility] [place] [facility] [address] [id number] [place] [address]- 3853 Jan, [facility] [place] [facility] [address] [id number] [place] [address]- 9576 Jan, [facility] [place] [facility] [address] [id number] [place] [address]- 8502 Jan, [facility] [place] [facility] [address] [id number] [place] [address]- 8410 Jan, [facility] [place] [facility] [address] [id number] [place] [address]- 6183 Dec, [facility] [address] [id number] [place] [address]- 9933 Dec, [facility] [place] [facility] [address] [id number] [place] [address]- 8693 Dec, [facility] [place] [facility] [address] [id number] [place] [address]- 6477 14 Dec, 2013 [facility] [place] [facility] [address] [id number] [place] [address]- 3136 Dec, [facility] [place] [facility] [address] [id number] [place] [address]- 6885 Dec, [facility] [place] [facility] [address] [id number] [place] [address]- 4229 Dec, [facility] [place] [facility] [address] [id number] [place] [address]- 1546 Dec, [facility] [place] [facility] [address] [id number] [place] [address]- 0073 Dec, [facility] [place] [facility] [address] [id number] [place] 0478 Dec, [facility] [place] [facility] [address] [id number] [place] [address]- 6118 Nov, [facility] [place] [facility] [address] [id number] [place] [address]- 8131 Nov, [facility] [place] [facility] [address] [id number] [place] [address]- 2929 Nov, [facility] [place] [facility] [address] [id number] [place] [address]- 7701 Nov, [facility] [place] [facility] [address] [id number] [place] [address]- 3238 Nov, [facility] [place] [facility] [address] [id number] [place] [address]- 3832 Nov, [facility] [place] [facility] [address] [id number] [place] [address]- 9811 Oct, [facility] [place] [facility] [address] [id number] [place] [address]- 8395 Oct, [facility] [place] [facility] [address] [id number] [place] [address]- 9883 Sep, [facility] [place] [facility] [address] [id number] [place] [address]- 9375 Sep, [facility] [place] [facility] [address] [id number] [place] [address]- 5960 Sep, [facility] [place] [facility] [address] [id number] [place] [address]- 0578 Sep, [facility] [place] [facility] [address] [facility] [id number] [place] [address]- 7066 Aug, [facility] [place] [facility] [address] [id number] [place] [address]- 2940 Aug, [facility] [place] [facility] [address] [id number] [place] [address]- 4367 Aug, [facility] [address] [id number] [place] [address]- 9624 Aug, [facility] [place] [facility] [address] [id number] [place] [address]- 2525 Aug, [facility] [address] [id number] [place] [address]- 0077 Aug, [facility] [place] [facility] [address] [id number] [place] [address]- 3539 Aug, [facility] [address] [id number] [place] [address]- 2352 Aug, [facility] [place] [facility] [address] [id number] [place] [address]- 4089 Jul, [facility] [place] [facility] [address] [id number] [place] [address]- 0299 Jul, [facility] [address] [id number] [place] [address]- 4182 Jul, [facility] [place] [facility] [address] [id number] [place] [address]- 0503 Jul, [facility] [address] [id number] [place] [address]- 8416 Jul, [facility] [place] [facility] [address] [id number] [place] [address]- 7447 Jul, [facility] [place] [facility] [address] [id number] [place] [address]- 8379 Jul, [facility] [place] [facility] [address] [id number] [place] [address]- 1166 Jul, [facility] [place] [facility] [address] [id number] [place] [address]- 5517 Jul, [facility] [place] [facility] [address] [id number] [place] [address]- 2770 Jul, [facility] [place] [facility] [address] [id number] [place] [address]- 9268 17 Jul, 2012 [facility] [place] [facility] [address] [id number] [place] [address]- 9451 17 Jul, 2012 [facility] [place] [facility] [address] [id number] [place] [address]- 1271 15 Jul, 2012 [facility] [place] [facility] [address] [id number] [place] [address]- 0536 15 Jul, 2012 [facility] [place] [facility] [address] [id number] [place] [address]- 1468 15 Jul, 2012 [facility] [place] [facility] [address] [id number] [place] [address]- 3597 15 Jul, 2012 [facility] [place] [facility] [address] [id number] [place] [address]- 1785 14 Jul, 2013 [facility] [place] [facility] [address] [id number], [place] [address]- 9824 14 Jul, 2013 [facility] [place] [facility] [address] [id number], [place] [address]- 2807 11 Jul, 2013 [facility] [place] [facility] [address] [id number], [place] [address]- 5101 11 Jul, 2012 [facility] [place] [facility] [address] [id number], [place] [address]- 6253 11 Jul, 2013 [facility] [place] [facility] [address] [id number], [place] [address]- 0744 11 Jul, 2013 [facility] [place] [facility] [address] [id number], [place] [address]- 49[address] 02 Jul, 2013 [facility] [place] [facility] [address] [id number], [place] [address] 27 Jun, 2012 [facility] [place] [facility] [address] [id number] [address] 05 Jun, 2012 [facility] [place] [facility] [address] [id number], [place] [address] May, [facility] [address] [id number] [place] [address] May, [facility] [place] [facility] [address] [id number] [place] [address] May, [facility] [place] [facility] [address] [id number] [place] [address] May, [facility] [place] [facility] [address] [id number] [place] [address] May, [facility] [address] [id number] [place] [address] May, [facility] [place] [facility] [address] [id number] [place] [address] May, [facility] [address] [id number] [place] [address] May, [facility] [place] [facility] [address] [id number] [place] [address] Apr, [facility] [address] [id number] [place] [address] Mar, [facility] [place] [facility] [address] [id number] [place] [address] February, [facility] [place] [facility] [address] [id number] [place] [address] Jan, [facility] [place] [facility] [address] [id number] [place] [address] Dec, [facility] [place] [facility] [address] [id number] [place] [address] 18 Dec, 2012 [facility] [place] [facility] [address] [id number] [place] [address] 15 Dec, 2012 [facility] [place] [facility] [address] [id number] [place] [address] 07 Dec, 2012 [facility] [place] [facility] [id number] [address] Nov, [facility] [id number] [address] Nov, [facility] [id number], [place] [address] Nov, [facility] [id number] [place] [address] Nov, [facility] [id number] [address] Oct, [facility] [id number] [place] [address] Oct, [facility] [id number], [place] [address] Oct, [facility] [id number] [place] [id number]- [address] Sep, [facility] [id number] Sep, [facility] [id number] [address] Sep, [facility] [id number] [address] Sep, IMMUNIZATIONS No Known Immunizations SOCIAL HISTORY Never Assessed REASON FOR VISIT Deferred Lab PLAN OF CARE VITAL SIGNS MEDICATIONS Unknown [...]
[2018-07-03] MEDS ORDERED: fentaNYL INJECTION 100 MCG/2 ML AMP ONE (09:54)
[2018-07-03] MEDS ORDERED: HEParin 1000 UNIT/ML (10ML VIAL) FOR BOLUS ONE (09:54)
[2018-07-03] MEDS ORDERED: MIDAZOLAM 5 MG/5 ML (VERSED) VIAL ONE (09:54)
--- OUTSIDE RECORDS SUMMARY | 2018-07-03 09:54 | XMS REPORT ---
Author Author DARLENE HARRY Organization [facility] Address [address] [place] [address] Care Team Providers Care Acid Treater Name Role Phone DARLENE AHRRY Unavailable PROBLEMS Type Condition ICD9-CM Code JMF11-MY Code Onset Dates Condition Status SNOMED Code Problem Chronic obstructive pulmonary disease, unspecified J44.9 Active 61248192 Problem Anxiety F41.9 Active 48308095 Problem Other iron deficiency anemia D50.8 Active 85645048 Problem Sinusitis J32.9 Active 14634245 Problem Lumbago with sciatica, unspecified side M54.40 Active 779919369 Problem Chronic viral hepatitis C B18.2 Active 092149909 Problem History of long-term use of multiple prescription drugs Z92.29 Active 876601795 Problem Essential (primary) hypertension I10 Active 60101784 ALLERGIES Unknown Allergies SOCIAL HISTORY No smoking Hx information available PLAN OF CARE VITAL SIGNS MEDICATIONS Medication Instructions Dosage Frequency Start Date End Date Duration Status Oxycodone HCl 10 mg TAKE ONE TABLET BY MOUTH EVERY 4 TO 6 HOURS NEEDED ( MUST LAST 28 DAYS) 28 Active RESULTS No Results PROCEDURES No Known procedures IMMUNIZATIONS No Known Immunizations
--- OUTSIDE RECORDS SUMMARY | 2018-07-03 09:54 | XMS REPORT ---
Author Author DARLENE HARRY Organization [employer] Address Unknown Phone Unavailable Care Team Providers Care Warp Spooler Name Role Phone DARLENE HARRY CP Unavailable Allergies No Known Allergies Problems Problem Type Condition ICD-9 Code Onset Dates Condition Status Problem Nausea alone 787.02 Active Problem Anxiety state, unspecified 300.00 Active Problem Unspecified constipation 564.00 Active Problem Lumbago 724.2 Active Problem Encounter for long-term (current) use of other medications V58.69 Active Problem Essential hypertension, benign 401.1 Active Problem Chronic hepatitis C without mention of hepatic coma 070.54 Active Problem Other pancytopenia 284.19 Active Problem Nondependent tobacco use disorder 305.1 Active Problem Other abnormal blood chemistry 790.6 Active Medications Medication Code System Code Instructions Start Date End Date Status Dosage oxycodone NDC 0 10 mg orally every 4-6 hours prn must last 30 days December take 1 tablet Results No Known Results Summary Purpose [employer] Submission
--- OUTSIDE RECORDS SUMMARY | 2018-07-03 09:54 | XMS REPORT ---
Author Author DARLENE HARRY [facility] [employer] Address Unknown Phone Unavailable Care Team Providers Care Flue Blower Name Role Phone DARLENE HARRY CP Unavailable Allergies No Known Allergies Problems Problem Type Condition Code Onset Dates Condition Status Problem Chronic obstructive pulmonary disease, unspecified J44.9 Active Problem Anxiety F41.9 Active Problem Other iron deficiency anemia D50.8 Active Problem Sinusitis J32.9 Active Problem Long-term use of high-risk medication Z79.899 Active Problem Lumbago with sciatica, unspecified side M54.40 Active Problem Chronic viral hepatitis C B18.2 Active Problem History of long-term use of multiple prescription drugs Z92.29 Active Problem Essential (primary) hypertension I10 Active Medications Medication Code System Code Instructions Start Date End Date Status Dosage oxycodone NDC 0 10 mg orally every 4-6 hours prn must last 28 days take 1 tablet Results No Known Results Summary Purpose [employer] Submission
--- OUTSIDE RECORDS SUMMARY | 2018-07-03 09:54 | XMS REPORT ---
Author Author DARLENE HARRY [facility] Address [address] [place] [address] Care Team Providers Care Ct Scan Tech Name Role Phone DARLENE HARRY Unavailable PROBLEMS Type Condition ICD9-CM Code SGZ45-XG Code Onset Dates Condition Status SNOMED Code Problem Other chronic pain G89.29 Active 95158008 Problem Essential (primary) hypertension I10 Active 26173221 Problem Chronic viral hepatitis C B18.2 Active 423388824 Problem COPD without exacerbation J44.9 Active 67590974 Problem Foraminal stenosis of lumbar region M99.83 Active 70853625 Problem Lumbago with sciatica, left side M54.42 Active 520041787 Problem Lumbago with sciatica, right side M54.41 Active 261789227 Problem Aortic ectasia, abdominal I77.811 Active 106727728463599 Problem Pain in thoracic spine M54.6 Active 935506828556151 Problem Other iron deficiency anemia D50.8 Active 58341875 Problem Anxiety F41.9 Active 51801675 Problem Dysthymia F34.1 Active 57110015 Problem Long-term use of high-risk medication Z79.899 Active 489966538 ALLERGIES No Information ENCOUNTERS Encounter Location Date Diagnosis [facility] [id number] [address] Mar, [facility] [address], [place] [address] February, [facility] [id number] [place] [address] 39081- 4488 February, Lumbago with sciatica, unspecified side M54.40 [facility] [id number] [address] Jan, Lumbago with sciatica, unspecified side M54.40 [place] [address] [address]- [address]78 Jan, Lumbago with sciatica, unspecified side M54.40 ; Essential ( primary) hypertension I10 ; COPD without exacerbation J44.9 ; Long-term use of high-risk medication Z79.899 ; Anxiety F41.9 and Dysthymia F34.1 [place] [address] [address]149- 1147 Dec, [place] [address] [address]- 8950 Dec, Lumbago with sciatica, unspecified side M54.40 [place] [address] [place] [address]382 664 Dec, Anxiety F41.9 and Dysthymia F34.1 [place] [address] 74109- 6195 Nov, Other chronic pain G89.29 and Lumbago with sciatica, unspecified side M54.40 [place] [address] 989154- 5347 Oct, Lumbago with sciatica, unspecified side M54.40 [place] [address] 09152- 1057 Oct, Anxiety F41.9 and Dysthymia F34.1 [place] [address] 24486- 1238 Oct, Abnormal fasting glucose R73.01 [place] [address] 76519- 3206 Oct, Essential (primary) hypertension I10 and Lumbago with sciatica, unspecified side M54.40 [place] [address] 23349- 2984 Sep, Abnormal fasting glucose R73.01 [place] [address] 10186- 5277 Sep, Pulmonary nodule R91.1 ; Aortic ectasia, abdominal I77.811 and Anxiety F41.9 [place] [address] 61912- 3689 Sep, Lumbago with sciatica, unspecified side M54.40 [place] [address] 14159- 5690 Aug, Essential (primary) hypertension I10 and Lumbago with sciatica, unspecified side M54.[address] [address]181- 1609 Jul, Abnormal chest CT R93.[address] 44329- 6627 Jul, Right pulmonary lesion R91.1 [place] [address] 52740- 8206 Jul, Lumbago with sciatica, unspecified side M54.[address] 94284- 3186 Jul, Pain in thoracic spine M54.6 ; Lumbago with sciatica, left side M54.42 and Lumbago with sciatica, right side M54.41 [place] [address] 05806- 6048 Jun, Essential (primary) hypertension I10 ; COPD [...] Pain in thoracic spine M54.6 [place] [id number] [place] [address] 64068- 4939 May, [place] [id number] [place] [address] 93395- 5668 Apr, Lumbago with sciatica, unspecified side M54.40 [place] [id number] [place] [address] 57828- 1619 Mar, Essential (primary) hypertension I10 ; Lumbago with sciatica , unspecified side M54.40 ; Chronic viral hepatitis C B18.2 ; Chronic obstructive pulmonary disease, unspecified J44.9 ; Other iron deficiency anemia D50.8 and Long-term use of high-risk medication Z79.899 [place] [id number] [place] [address] 97976- 5229 Mar, Essential (primary) hypertension I10 [place] [id number] [place] [address] 92094- 1732 February, [place] [id number] [place] [address] 89419- 0469 February, Lumbago with sciatica, unspecified side M54.40 [place] [id number] [place] [address] 84505- 0383 Jan, Lumbago with sciatica, unspecified side M54.40 [place] [id number] [place] [address] 24268- 8711 Dec, Essential (primary) hypertension I10 ; Lumbago with sciatica , unspecified side M54.40 ; Chronic viral hepatitis C B18.2 ; Chronic obstructive pulmonary disease, unspecified J44.9 ; Other iron deficiency anemia D50.8 ; Long-term use of high-risk medication Z79.899 and General medical exam Z00.00 [place] [id number] [place] [address] 30284- 7096 Nov, Essential (primary) hypertension I10 [place] [address], [place] [address] 2963 Oct, [place] [id number] [place] [address] 69845- 8197 Oct, Essential (primary) hypertension I10 [place] [id number] [place] [address] 18719- 3588 Oct, Anxiety F41.9 and Dysthymia F34.1 [place] [id number] [place] [address] 64275- 7149 Oct, [place] [id number] [place] [address] 83999- 5083 Oct, [place] [id number] [place] [address] 51516- 1861 Oct, Essential (primary) hypertension I10 ; Lumbago with sciatica , unspecified side M54.40 ; Chronic viral hepatitis C B18.2 ; Chronic obstructive pulmonary disease, unspecified J44.9 ; Other iron deficiency anemia D50.8 ; Long-term use of high-risk medication Z79.899 and Anxiety F41.9 [place] [address] [place] [address] 97171- 3783 Sep, [place] [id number] [place] [address] 51097- 3340 Aug, [place] [id number] [place] [address] 65282- 9028 Jul, Abnormal fasting glucose R73.01 [place] [id number] [place] [address] 60420- 1558 Jul, Essential (primary) hypertension I10 ; Lumbago with sciatica , unspecified side M54.40 ; Chronic viral hepatitis C B18.2 ; Chronic obstructive pulmonary disease, unspecified J44.9 ; Other iron deficiency anemia D50.8 ; Long-term use of high-risk medication Z79.899 and Encounter for immunization Z23 [facility] [address] [place] [address] 58579- 4089 Jun, [facility] [id number] [place] [address] 19917- 9646 May, [facility] [id number] [place] [address] 14972- 0482 Apr, Other iron deficiency anemia D50.8 [facility] [id number] [place] [address] 67915 -5285 Apr, Chronic fatigue R53.82 and Bradycardia R00.1 [facility] [id number] [place] [address] 44293- 4297 Apr, [place] [id number] [place] [address] 91059- 0457 Mar, Essential (primary) hypertension I10 ; Lumbago with sciatica , unspecified side M54.40 ; Chronic viral hepatitis C B18.2 ; Chronic obstructive pulmonary disease, unspecified J44.9 and Other iron deficiency anemia D50.8 [facility] [id number] [place] [address] 94526- 2574 February, [facility] [id number] [place] [address] 47805- 0972 Jan, [place] [id number] [place] [address] 81391- 0639 Jan, Fatigue R53.83 [facility] [id number] [place] [address] 74722- 4356 Dec, Essential (primary) hypertension I10 ; Lumbago with sciatica , unspecified side M54.40 ; Chronic viral hepatitis C B18.2 ; Chronic obstructive pulmonary disease, unspecified J44.9 ; Sinusitis J32.9 and Fatigue R53.83 [facility] [id number] [place] [address] 35336- 9210 Dec, [facility] [address] [address]- 8661 Nov, [facility] [id number] [place] [address] 07141- 4454 Oct, Essential (primary) hypertension I10 ; Lumbago with sciatica , unspecified side M54.40 ; Chronic viral hepatitis C B18.2 ; Chronic obstructive pulmonary disease, unspecified J44.9 and History of long-term use of multiple prescription drugs Z92.29 [place] [id number] [place] [address] 31537- 1661 Sep, [place] [id number] [place] [address] 92183- 7700 Aug, [place] [id number] [place] [address] 53560- 7311 Jul, Essential (primary) hypertension I10 ; Lumbago with sciatica , unspecified side M54.40 ; Chronic viral hepatitis C B18.2 ; Chronic obstructive pulmonary disease, unspecified J44.9 and Anxiety F41.9 [place] [address], [place] [address]- 5396 Jun, [place] [id number] [place] [address] 78816- 1015 May, [place] [address] [place] [address] 82616- 2405 Apr, Essential hypertension, benign 401.1 ; Lumbago 724.2 ; Nondependent tobacco use disorder 305.1 and Chronic hepatitis C without mention of hepatic coma 070.54 [place] [address] [place] [address] 99465- 7485 Mar, Lumbago 724.2 [place] [id number] [place] [address] 89541- 8146 February, Essential hypertension, benign 401.1 ; Lumbago 724.2 ; Nondependent tobacco use disorder 305.1 and Chronic hepatitis C without mention of hepatic coma 070.54 [facility] [place] [facility] [address] [id number] [place] [address]- 2410 February, [facility] [place] [facility] [address] [id number] [place] [address]- 8189 Jan, [facility] [place] [facility] [address] [facility] [id number] [place] [address]- 2897 Jan, [facility] [place] [facility] [address] [id number] [place] [address]- 5239 Dec, [facility] [place] [facility] [address] [facility] [id number] [place] [address]- 8420 Dec, [facility] [place] [facility] [address] [facility] [id number] [place] [address]- 5800 Nov, [facility] [place] [facility] [address] [facility] [id number] [place] [address]- 9219 Nov, [facility] [place] [facility] [address] [facility] [id number], [place] [address]- 6537 Oct, [facility] [place] [facility] [address] [facility] [id number], [place] [address]- 4985 Oct, [facility] [place] [facility] [address] [facility] [id number], [place] [address]- 6125 Sep, [facility] [place] [facility] [address] [facility] [id number], [place] [address]- 9826 Sep, [facility] [place] [facility] [address] [facility] [id number], [place] [address]- 2405 Aug, [facility] [place] [facility] [address] [facility] [id number] [place] [address]- 1491 Aug, [facility] [place] [facility] [address] [facility] [id number], [place] [address]- 6947 Aug, [facility] [place] [facility] [address] [facility] [id number], [place] [address]- 8642 Aug, [facility] [place] [facility] [address] [id number] [place] [address]- 3592 17 Jul, 2013 [facility] [place] [facility] [address] [id number] [place] [address]- 8554 17 Jul, 2014 [facility] [place] [facility] [address] [id number] [place] [address]- 4216 16 Jul, 2014 [facility] [place] [facility] [address] [id number] [place] [address]- 2387 13 Jul, 2014 [facility] [place] [facility] [address] [id number] [place] [address]- 0967 13 Jul, 2014 [facility] [place] [facility] [address] [id number] [place] [address]- 0883 10 Jul, 2014 [facility] [place] [facility] [address] [id number] [place] [address]- 5085 10 Jul, 2014 [facility] [place] [facility] [address] [id number] [place] [address]- 4138 11 Jun, 2013 [facility] [place] [facility] [address] [id number] [place] [address]- 7194 11 Jun, 2013 [facility] [place] [facility] [address] [id number] [place] [address] 2545 11 Jun, 2013 [facility] [place] [facility] [address] [id number] [place] [address]- 6440 11 Jun, 2013 [facility] [place] [facility] [address] [id number] [place] [address] 2546 11 Jun, 2013 [facility] [place] [facility] [address] [id number] [place] [address]- 2543 11 Jun, 2013 [facility] [place] [facility] [address] [id number] [place] [address] 2544 04 Jun, 2014 [facility] [place] [facility] [address] [id number] [place] [address]- 254 04 Jun, 2013 [facility] [place] [facility] [address] [id number] [place] [address]- 8339 May, [facility] [place] [facility] [address] [id number] [place] [address]- 0634 May, [facility] [place] [facility] [address] [id number] [place] [address]- 7003 Apr, [facility] [place] [facility] [address] [id number] [place] [address]- 7696 Apr, [facility] [place] [facility] [address] [id number] [place] [address]- 8041 Mar, [facility] [place] [facility] [address] [id number] [place] [address]- 7810 Mar, [facility] [place] [facility] [address] [id number] [place] [address]- 7694 Mar, [facility] [place] [facility] [address] [id number] [place] [address]- 4808 Mar, [facility] [place] [facility] [address] [id number] [place] [address]- 6515 Mar, [facility] [place] [facility] [address] [id number] [place] [address]- 1683 February, [facility] [place] [facility] [address] [id number] [place] [address]- 5178 February, [facility] [place] [facility] [address] [id number] [place] [address]- 4086 February, [facility] [place] [facility] [address] [id number] [place] [address]- 6536 February, [facility] [place] [facility] [address] [id number] [place] [address]- 9763 Jan, [facility] [place] [facility] [address] [id number] [place] [address]- 3284 Jan, [facility] [place] [facility] [address] [id number] [place] [address]- 1420 Jan, [facility] [place] [facility] [address] [id number] [place] [address]- 2546 Jan, [facility] [place] [facility] [address] [id number] [place] [address]- 5029 Jan, [facility] [place] [facility] [address] [id number] [place] [address]- 5333 Jan, [facility] [place] [facility] [address] [id number] [place] [address]- 6168 Jan, [facility] [place] [facility] [address] [id number] [place] [address]- 2369 Jan, [facility] [place] [facility] [address] [id number] [place] [address]- 5117 Dec, [facility] [place] [facility] [address] [id number] [place] [address]- 4489 Dec, [facility] [place] [facility] [address] [id number] [place] [address]- 0568 Dec, [facility] [place] [facility] [address] [id number] [place] [address]- 5367 Dec, [facility] [place] [facility] [address] [id number] [place] [address]- 3874 Dec, [facility] [place] [facility] [address] [id number] [place] [address]- 9391 Dec, [facility] [place] [facility] [address] [id number] [place] [address]- 3390 Dec, [facility] [place] [facility] [address] [id number] [place] [address]- 7152 Dec, [facility] [place] [facility] [address] [id number] [place] 7724 Dec, [facility] [place] [facility] [address] [id number] [place] 7584 Dec, [facility] [place] [facility] [address] [id number] [place] [address]- 1791 Nov, [facility] [place] [facility] [address] [id number] [place] [address]- 4350 Nov, [facility] [address] [id number] [place] [address]- 1540 Nov, [facility] [place] [facility] [address] [id number] [place] [address]- 2326 Nov, [facility] [place] [facility] [address] [id number] [place] [address]- 1406 Nov, [facility] [place] [facility] [address] [id number] [place] [address]- 2544 Nov, [facility] [place] [facility] [address] [id number] [place] [address]- 3047 Oct, [facility] [place] [facility] [address] [id number] [place] [address]- 4022 Oct, [facility] [place] [facility] [address] [id number] [place] [address]- 4001 Sep, [facility] [place] [facility] [address] [id number] [place] [address]- 9535 Sep, [facility] [place] [facility] [address] [id number] [place] [address]- 6373 Sep, [facility] [place] [facility] [address] [id number] [place] [address]- 1544 Sep, [facility] [place] [facility] [address] [id number] [place] [address]- 0602 Aug, [facility] [place] [facility] [address] [id number] [place] [address]- 9978 Aug, [facility] [place] [facility] [address] [id number] [place] [address]- 5952 Aug, [facility] [place] [facility] [address] [id number] [place] [address]- 7101 Aug, [facility] [place] [facility] [address] [id number] [place] [address]- 5847 Aug, [facility] [place] [facility] [address] [id number] [place] [address]- 1041 Aug, [facility] [place] [facility] [address] [id number] [place] [address]- 4180 Aug, [facility] [place] [facility] [address] [id number] [place] [address]- 1932 Aug, [facility] [place] [facility] [address] [id number] [place] [address]- 0951 Jul, [facility] [place] [facility] [address] [id number] [place] [address]- 1937 Jul, [facility] [place] [facility] [address] [id number], [place] [address]- 6911 Jul, [facility] [place] [facility] [address] [id number] [place] [address]- 6661 Jul, [facility] [place] [facility] [address] [id number], [place] [address]- 2860 Jul, [facility] [place] [facility] [address] [id number], [place] [address]- 0225 Jul, [facility] [place] [facility] [address] [id number], [place] [address]- 8273 Jul, [facility] [place] [facility] [address] [id number], [place] [address]- 0365 Jul, [facility] [place] [facility] [address] [id number], [place] [address]- 3822 Jul, [facility] [place] [facility] [address] [id number] [place] [address]- 9591 Jul, [facility] [place] [facility] [address] [id number], [place] [address]- 0402 Jul, [facility] [place] [facility] [address] [id number] 4178 Jul, [facility] [place] [facility] [address] [id number] [place] [address]- 5560 15 Jul, 2012 [facility] [address] [id number] [place] [address]- 8183 15 Jul, 2013 [facility] [place] [facility] [address] [id number] [place] [address]- 2246 15 Jul, 2012 [facility] [address] [id number] [place] [address]- 3260 15 Jul, 2013 [facility] [place] [facility] [address] [id number] [place] [address]- 9566 14 Jul, 2013 [facility] [place] [facility] [address] [id number] [place] [address]- 1270 14 Jul, 2013 [facility] [place] [facility] [address] [id number] [place] [address]- 5314 11 Jul, 2013 [facility] [place] [facility] [address] [id number] [place] [address]- 0125 11 Jul, 2013 [facility] [place] [facility] [address] [id number] [place] [address]- 9282 11 Jul, 2013 [facility] [place] [facility] [address] [id number] [place] [address]- 3450 11 Jul, 2013 [facility] [place] [facility] [address] [id number] [place] [address] 02 Jul, 2013 [facility] [place] [facility] [address] [id number] [place] [address] 27 Jun, 2013 [facility] [place] [facility] [address] [id number] [place] [address] 05 Jun, 2013 [facility] [place] [facility] [address] [id number] [place] [address] May, [facility] [place] [facility] [address] [id number] [place] [address] May, [facility] [place] [facility] [address] [id number] [place] [address] May, [facility] [place] [facility] [address] [id number] [place] [address] May, [facility] [place] [facility] [address] [id number] [place] [address] 16 May, 2013 [facility] [place] [facility] [address] [id number] [place] [address] May, [facility] [place] [facility] [address] [id number] [place] [address] May, [facility] [place] [facility] [address] [id number] [place] [address] May, [facility] [place] [facility] [address] [id number] [place] [address] Apr, [facility] [place] [facility] [address] [id number] [place] [address] Mar, [facility] [place] [facility] [address] [id number] [place] [address] February, [facility] [place] [facility] [address] [id number] [place] [address] Jan, [facility] [place] [facility] [address] [id number] [place] [address] Dec, [facility] [place] [facility] [address] [id number] [place] [address] 18 Dec, 2012 [facility] [place] [facility] [address] [id number] [address] 15 Dec, 2012 [facility] [place] [facility] [address] [id number] [place] [address] 07 Dec, 2012 [facility] [place] [facility] [address] [id number] [place] [address] 28 Nov, 2012 [facility] [place] [facility] [address] [id number] [place] [address] Nov, [facility] [place] [facility] [address] [id number], [place] [address] 15 Nov, 2012 [facility] [address] [facility] [id number], [place] [address] Nov, [facility] [address] [id number] [address] Oct, [facility] [id number] [address] Oct, [facility] [id number], [place] [address] Oct, [facility] [id number] [place] [address] Sep, [facility] [id number], [place] [address] Sep, [facility] [id number], [place] [address] Sep, [facility] [address] [id number] [address] Sep, IMMUNIZATIONS No Known Immunizations SOCIAL HISTORY Never Assessed REASON FOR VISIT Controlled Refill REquest PLAN OF CARE VITAL SIGNS MEDICATIONS Medication Instructions Dosage Frequency Start Date End Date Duration Status Oxycodone HCl 10 mg Orally every 4-6 hrs hrs prn must last 28 days 1 tablet as needed Aug, 28 days Active Lisinopril 10 mg Orally Once a day 1 tablet 24h Active RESULTS No Results PROCEDURES No [...]
--- OUTSIDE RECORDS SUMMARY | 2018-07-03 09:54 | XMS REPORT ---
Author Author DARLENE HARRY [facility] Address [address] [place] [address] Care Team Providers Care Academic Services Coordinator Name Role Phone DARLENE HARRY Unavailable PROBLEMS Type Condition ICD9-CM Code [id number] Code Onset Dates Condition Status SNOMED Code Problem Other chronic pain G89.29 Active 89678057 Problem Chronic viral hepatitis C B18.2 Active 324412682 Problem Anxiety F41.9 Active 50666971 Problem COPD without exacerbation J44.9 Active 86095539 Problem Lumbago with sciatica, left side M54.42 Active 942596282 Problem Lumbago with sciatica, right side M54.41 Active 632428656 Problem Dysthymia F34.1 Active 65362425 Problem Long-term use of high-risk medication Z79.899 Active 915677273 Problem History of long-term use of multiple prescription drugs Z92.29 Active 332887189 Problem Essential (primary) hypertension I10 Active 84061579 Problem Other iron deficiency anemia D50.8 Active 98799866 Problem Sinusitis J32.9 Active 87518998 ALLERGIES Substance Reaction Event Type Date Status N.K.D.A. Unknown Non Drug Allergy Oct, Unknown SOCIAL HISTORY No smoking Hx information available PLAN OF CARE Activity Details Follow Up Medication Consult /Pain 3 month Reason:henrry Med VITAL SIGNS Height 70 in 2016-10-18 Weight 138.0 lbs 2016-10-18 Temperature 99.4 degrees Fahrenheit 2016-10-18 Heart Rate 68 bpm 2016-10-18 Respiratory Rate 18 2016-10-18 BMI 19.80 kg/m2 2016-10-18 Blood pressure systolic 138 mmHg 2016-10-18 Blood pressure diastolic 73 mmHg 2016-10-18 MEDICATIONS Medication Instructions Dosage Frequency Start Date End Date Duration Status Seroquel 50 MG Orally Once a day 1 tablet at bedtime 24h Active ProAir HFA 90 mcg/actuation Inhalation every 4 hrs prn inhale 2 puffs by Inhalation route every 4 hours as needed PRN must transition care- no more refills Active oxycodone 10 mg orally every 4-6 hours prn must last 28 days take 1 tablet Active Multivitamin Adult Active Lisinopril 10 MG Orally Once a day 1 tablet 24h Active Xanax 1 mg 1 tablet by Oral route 3 times per day Nov, Active Oxycodone HCl 10 mg TAKE ONE TABLET BY MOUTH EVERY 4 TO 6 HOURS NEEDED ( MUST LAST 28 DAYS) 28 Active Vitamin C 500 MG Active Iron 65 MG Orally Once a day 1 tabley 24h Active RESULTS Name Result Date Reference Range CBC 2016-10-18 WBC 4.7 3.4-10.8 RBC 3.51 4.14-5.80 Hemoglobin 12.7 12.6-17.7 Hematocrit 35.7 37.5-51.0 MCV 102 79-97 MCH 36.2 26.6-33.0 MCHC 35.6 31.5-35.7 RDW 13.3 12.3-15.4 Platelets 181 150-379 Neutrophils 56 Lymphs 30 Monocytes 11 Eos 2 Basos 1 Neutrophils (Absolute) 2.7 1.4-7.0 Lymphs (Absolute) 1.4 0.7-3.1 Monocytes(Absolute) 0.5 0.1-0.9 Eos (Absolute) 0.1 0.0-0.4 Baso (Absolute) 0.0 0.0-0.2 Immature Granulocytes 0 Immature Grans (Abs) 0.0 0.0-0.1 CMP 2016-10-18 Glucose, Serum 125 65-99 BUN 16 6-24 Creatinine, Serum 0.90 0.76-1.27 eGFR If NonAfricn Am 95 >59 eGFR If Africn Am 110 >59 BUN/Creatinine Ratio 18 9-20 Sodium, Serum 139 134-144 Potassium, Serum 4.4 3.5-5.2 Chloride, Serum 100 96-106 Carbon Dioxide, Total 25 18-29 Calcium, Serum 9.5 8.7-10.2 Protein, Total, Serum 7.2 6.0-8.5 Albumin, Serum 4.3 3.5-5.5 Globulin, Total 2.9 1.5-4.5 A/G Ratio 1.5 1.1-2.5 Bilirubin, Total 0.3 0.0-1.2 Alkaline Phosphatase, S 58 39-117 AST (SGOT) 12 0-40 ALT (SGPT) 8 0-44 PROCEDURES Procedure Date Ordered Related Diagnosis Body Site COMPLETE CBC W/AUTO DIFF WBC Oct 18, 2016 COMPREHEN METABOLIC PANEL Oct 18, 2016 VENIPUNCT, ROUTINE* Oct 18, 2016 Office Visit, Est Pt., Level 4 Oct 18, 2016 IMMUNIZATIONS No Known Immunizations
--- OUTSIDE RECORDS SUMMARY | 2018-07-03 09:54 | XMS REPORT ---
Author Author DARLENE HARRY [facility] Address [address] [place] [address] Care Team Providers Care Internet Marketing Manager Name Role Phone DARLENE HARRY Unavailable PROBLEMS Type Condition ICD9-CM Code PMP92-TH Code Onset Dates Condition Status SNOMED Code Problem Anxiety F41.9 Active 36039047 Problem Chronic viral hepatitis C B18.2 Active 258817434 Problem Chronic obstructive pulmonary disease, unspecified J44.9 Active 08862400 Problem Long-term use of high-risk medication Z79.899 Active 500708753 Problem Other iron deficiency anemia D50.8 Active 68875831 Problem Essential (primary) hypertension I10 Active 80258355 Problem Lumbago with sciatica, unspecified side M54.40 Active 444386705 Problem Sinusitis J32.9 Active 23583861 Problem History of long-term use of multiple prescription drugs Z92.29 Active 891340879 ALLERGIES Unknown Allergies SOCIAL HISTORY No smoking Hx information available PLAN OF CARE VITAL SIGNS MEDICATIONS Medication Instructions Dosage Frequency Start Date End Date Duration Status Lisinopril 10 MG Orally Once a day 1 tablet 24h Active oxycodone 10 mg orally every 4-6 hours prn must last 28 days take 1 tablet Active RESULTS No Results PROCEDURES No Known procedures IMMUNIZATIONS No Known Immunizations
--- OUTSIDE RECORDS SUMMARY | 2018-07-03 09:54 | XMS REPORT ---
Author Author DARLENE HARRY [facility] Address [address] [place] [address] Care Team Providers Care Ndt Inspector Name Role Phone DARLENE HARRY Unavailable PROBLEMS Type Condition ICD9-CM Code PLL44-LL Code Onset Dates Condition Status SNOMED Code Problem Other chronic pain G89.29 Active 99470547 Problem Essential (primary) hypertension I10 Active 41762520 Problem Chronic viral hepatitis C B18.2 Active 021305361 Problem COPD without exacerbation J44.9 Active 49211318 Problem Foraminal stenosis of lumbar region M99.83 Active 56989493 Problem Lumbago with sciatica, left side M54.42 Active 467155464 Problem Lumbago with sciatica, right side M54.41 Active 610390216 Problem Aortic ectasia, abdominal I77.811 Active 455048698555827 Problem Pain in thoracic spine M54.6 Active 739568784563834 Problem Other iron deficiency anemia D50.8 Active 52860925 Problem Anxiety F41.9 Active 85596990 Problem Dysthymia F34.1 Active 09661011 Problem Long-term use of high-risk medication Z79.899 Active 488037886 ALLERGIES No Information ENCOUNTERS Encounter Location Date Diagnosis [facility] [address] [address] Mar, [facility] [address] [address] Mar, [facility] [id number] [place] [address]5914- 9248 February, Lumbago with sciatica, unspecified side M54.40 [facility] [id number] [address] Jan, Lumbago with sciatica, unspecified side M54.40 [place] [address] [address] Jan, Lumbago with sciatica, unspecified side M54.40 ; Essential ( primary) hypertension I10 ; COPD without exacerbation J44.9 ; Long-term use of high-risk medication Z79.899 ; Anxiety F41.9 and Dysthymia F34.1 [place] [address] [address]- [address] Dec, [place] [address] [address]- 9836 Dec, Lumbago with sciatica, unspecified side M54.40 [place] [address] [place] [id number] 882 Dec, Anxiety F41.9 and Dysthymia F34.1 [place] [address] [address]- [address] Nov, Other chronic pain G89.29 and Lumbago with sciatica, unspecified side M54.40 [place] [address] 821341- 0664 Oct, Lumbago with sciatica, unspecified side M54.40 [place] [address] [address]- 4671 Oct, Anxiety F41.9 and Dysthymia F34.1 [place] [address] [address]- 3210 Oct, Abnormal fasting glucose R73.01 [place] [address] [address]49- 4971 Oct, Essential (primary) hypertension I10 and Lumbago with sciatica, unspecified side M54.40 [place] [address] 91488- 3312 Sep, Abnormal fasting glucose R73.01 [place] [address] [address]27- 0632 Sep, Pulmonary nodule R91.1 ; Aortic ectasia, abdominal I77.811 and Anxiety F41.9 [place] [address] 97262- 5209 Sep, Lumbago with sciatica, unspecified side M54.40 [place] [address] 66755- 2371 Aug, Essential (primary) hypertension I10 and Lumbago with sciatica, unspecified side M54.[address] [address]- [address] Jul, Abnormal chest CT R93.[address] [address]- 5045 Jul, Right pulmonary lesion R91.1 [place] [address] 28[address]- 1952 Jul, Lumbago with sciatica, unspecified side M54.[address] 9[address]51- 2164 Jul, Pain in thoracic spine M54.6 ; Lumbago with sciatica, left side M54.42 and Lumbago with sciatica, right side M54.41 [place] [address] 269[address]- 4760 Jun, Essential (primary) hypertension I10 ; COPD [...] Z79.899 and Pain in thoracic spine M54.6 [place] [id number] [place] [address] 47636- 7308 May, [place] [id number] [place] [address] 62272- 6588 Apr, Lumbago with sciatica, unspecified side M54.40 [place] [id number] [place] [address] 25486- 3434 Mar, Essential (primary) hypertension I10 ; Lumbago with sciatica , unspecified side M54.40 ; Chronic viral hepatitis C B18.2 ; Chronic obstructive pulmonary disease, unspecified J44.9 ; Other iron deficiency anemia D50.8 and Long-term use of high-risk medication Z79.899 [place] [id number] [place] [address] 88037- 7580 Mar, Essential (primary) hypertension I10 [place] [id number] [place] [address] 89734- 1776 February, [place] [id number] [place] [address] 37348- 2785 February, Lumbago with sciatica, unspecified side M54.40 [place] [id number] [place] [address] 56553- 5689 Jan, Lumbago with sciatica, unspecified side M54.40 [place] [id number] [place] [address] 83333- 2273 Dec, Essential (primary) hypertension I10 ; Lumbago with sciatica , unspecified side M54.40 ; Chronic viral hepatitis C B18.2 ; Chronic obstructive pulmonary disease, unspecified J44.9 ; Other iron deficiency anemia D50.8 ; Long-term use of high-risk medication Z79.899 and General medical exam Z00.00 [place] [id number] [place] [address] 07084- 4279 Nov, Essential (primary) hypertension I10 [place] [address], [place] [address] 27[address] Oct, [place] [id number] [place] [address] 40823- 0703 Oct, Essential (primary) hypertension I10 [place] [id number] [place] [address] 45707- 4828 Oct, Anxiety F41.9 and Dysthymia F34.1 [place] [id number] [place] [address] 44648- 7740 Oct, [place] [id number] [place] [address] 04811- 5626 Oct, [place] [id number] [place] [address] 17097- 4435 Oct, Essential (primary) hypertension I10 ; Lumbago with sciatica , unspecified side M54.40 ; Chronic viral hepatitis C B18.2 ; Chronic obstructive pulmonary disease, unspecified J44.9 ; Other iron deficiency anemia D50.8 ; Long-term use of high-risk medication Z79.899 and Anxiety F41.9 [place] [id number] [place] [address] 35982- 5634 Sep, [place] [id number] [place] [address] 77738- 0287 Aug, [place] [id number] [place] [address] 79352- 5809 Jul, Abnormal fasting glucose R73.01 [place] [id number] [place] [address] 77354- 8776 Jul, Essential (primary) hypertension I10 ; Lumbago with sciatica , unspecified side M54.40 ; Chronic viral hepatitis C B18.2 ; Chronic obstructive pulmonary disease, unspecified J44.9 ; Other iron deficiency anemia D50.8 ; Long-term use of high-risk medication Z79.899 and Encounter for immunization Z23 [facility] [id number] [place] [address] 04226- 3806 Jun, [facility] [id number] [place] [address] 62716- 7752 May, [facility] [id number] [place] [address] 44440- 3484 Apr, Other iron deficiency anemia D50.8 [facility] [id number] [place] [address] 01686 -7449 Apr, Chronic fatigue R53.82 and Bradycardia R00.1 [facility] [id number] [place] [address] 01710- 9104 Apr, [place] [id number] [place] [address] 54477- 0188 Mar, Essential (primary) hypertension I10 ; Lumbago with sciatica , unspecified side M54.40 ; Chronic viral hepatitis C B18.2 ; Chronic obstructive pulmonary disease, unspecified J44.9 and Other iron deficiency anemia D50.8 [facility] [id number] [place] [address] 18846- 1081 February, [facility] [id number] [place] [address] 12067- 8793 Jan, [place] [id number] [place] [address] 28917- 1780 Jan, Fatigue R53.83 [facility] [id number] [place] [address] 67895- 3337 Dec, Essential (primary) hypertension I10 ; Lumbago with sciatica , unspecified side M54.40 ; Chronic viral hepatitis C B18.2 ; Chronic obstructive pulmonary disease, unspecified J44.9 ; Sinusitis J32.9 and Fatigue R53.83 [facility] [id number] [place] [address] 87558- 4625 Dec, [facility] [address] [address]- 8084 Nov, [facility] [id number] [place] [address] 05379- 6680 Oct, Essential (primary) hypertension I10 ; Lumbago with sciatica , unspecified side M54.40 ; Chronic viral hepatitis C B18.2 ; Chronic obstructive pulmonary disease, unspecified J44.9 and History of long-term use of multiple prescription drugs Z92.29 [place] [id number] [place] [address] 29671- 3104 Sep, [place] [id number] [place] [address] 49829- 0286 Aug, [place] [id number] [place] [address] 53801- 1583 Jul, Essential (primary) hypertension I10 ; Lumbago with sciatica , unspecified side M54.40 ; Chronic viral hepatitis C B18.2 ; Chronic obstructive pulmonary disease, unspecified J44.9 and Anxiety F41.9 [place] [address], [place] [address]- 5912 Jun, [place] [id number] [place] [address] 89039- 8214 May, [place] [address] [place] [address] 30703- 9830 Apr, Essential hypertension, benign 401.1 ; Lumbago 724.2 ; Nondependent tobacco use disorder 305.1 and Chronic hepatitis C without mention of hepatic coma 070.54 [place] [address] [place] [address] 31649- 3495 Mar, Lumbago 724.2 [place] [id number] [place] [address] 85570- 3619 February, Essential hypertension, benign 401.1 ; Lumbago 724.2 ; Nondependent tobacco use disorder 305.1 and Chronic hepatitis C without mention of hepatic coma 070.54 [facility] [place] [facility] [address] [id number] [place] [address]- 6922 February, [facility] [place] [facility] [address] [id number] [place] [address]- 7171 Jan, [facility] [place] [facility] [address] [facility] [id number] [place] [address]- 5941 Jan, [facility] [place] [facility] [address] [id number] [place] [address]- 5202 Dec, [facility] [place] [facility] [address] [facility] [id number] [place] [address]- 0916 Dec, [facility] [place] [facility] [address] [facility] [id number] [place] [address]- 7405 Nov, [facility] [place] [facility] [address] [facility] [id number] [place] [address]- 4111 Nov, [facility] [place] [facility] [address] [facility] [id number], [place] [address]- 0464 Oct, [facility] [place] [facility] [address] [facility] [id number], [place] [address]- 3161 Oct, [facility] [place] [facility] [address] [facility] [id number], [place] [address]- 8163 Sep, [facility] [place] [facility] [address] [facility] [id number], [place] [address]- 5918 Sep, [facility] [place] [facility] [address] [facility] [id number], [place] [address]- 8009 Aug, [facility] [place] [facility] [address] [facility] [id number] [place] [address]- 3624 Aug, [facility] [place] [facility] [address] [facility] [id number], [place] [address]- 3842 Aug, [facility] [place] [facility] [address] [facility] [id number], [place] [address]- 5101 Aug, [facility] [place] [facility] [address] [id number] [place] [address]- 8419 17 Jul, 2013 [facility] [place] [facility] [address] [id number] [place] [address]- 2970 17 Jul, 2014 [facility] [place] [facility] [address] [id number] [place] [address]- 6006 16 Jul, 2014 [facility] [place] [facility] [address] [id number] [place] [address]- 6923 13 Jul, 2014 [facility] [place] [facility] [address] [id number] [place] [address]- 2893 13 Jul, 2014 [facility] [place] [facility] [address] [id number] [place] [address]- 6191 10 Jul, 2014 [facility] [place] [facility] [address] [id number] [place] [address]- 1957 10 Jul, 2014 [facility] [place] [facility] [address] [id number] [place] [address]- 3570 11 Jun, 2013 [facility] [place] [facility] [address] [id number] [place] [address]- 9067 11 Jun, 2013 [facility] [place] [facility] [address] [id number] [place] [address] 2543 11 Jun, 2013 [facility] [place] [facility] [address] [id number] [place] [address]- 3540 11 Jun, 2013 [facility] [place] [facility] [address] [id number] [place] [address] 2546 11 Jun, 2013 [facility] [place] [facility] [address] [id number] [place] [address]- 2548 11 Jun, 2013 [facility] [place] [facility] [address] [id number] [place] [address] 254 04 Jun, 2014 [facility] [place] [facility] [address] [id number] [place] [address]- 2543 04 Jun, 2013 [facility] [place] [facility] [address] [id number] [place] [address]- 5445 May, [facility] [place] [facility] [address] [id number] [place] [address]- 4766 May, [facility] [place] [facility] [address] [id number] [place] [address]- 4678 Apr, [facility] [place] [facility] [address] [id number] [place] [address]- 3179 Apr, [facility] [place] [facility] [address] [id number] [place] [address]- 7803 Mar, [facility] [place] [facility] [address] [id number] [place] [address]- 6746 Mar, [facility] [place] [facility] [address] [id number] [place] [address]- 6697 Mar, [facility] [place] [facility] [address] [id number] [place] [address]- 7893 Mar, [facility] [place] [facility] [address] [id number] [place] [address]- 2685 Mar, [facility] [place] [facility] [address] [id number] [place] [address]- 1985 February, [facility] [place] [facility] [address] [id number] [place] [address]- 2925 February, [facility] [place] [facility] [address] [id number] [place] [address]- 6719 February, [facility] [place] [facility] [address] [id number] [place] [address]- 1056 February, [facility] [place] [facility] [address] [id number] [place] [address]- 5795 Jan, [facility] [place] [facility] [address] [id number] [place] [address]- 7760 Jan, [facility] [place] [facility] [address] [id number] [place] [address]- 3491 Jan, [facility] [place] [facility] [address] [id number] [place] [address]- 2546 Jan, [facility] [place] [facility] [address] [id number] [place] [address]- 4392 Jan, [facility] [place] [facility] [address] [id number] [place] [address]- 9662 Jan, [facility] [place] [facility] [address] [id number] [place] [address]- 9658 Jan, [facility] [place] [facility] [address] [id number] [place] [address]- 0658 Jan, [facility] [place] [facility] [address] [id number] [place] [address]- 9471 Dec, [facility] [place] [facility] [address] [id number] [place] [address]- 8682 Dec, [facility] [place] [facility] [address] [id number] [place] [address]- 6346 Dec, [facility] [place] [facility] [address] [id number] [place] [address]- 2420 Dec, [facility] [place] [facility] [address] [id number] [place] [address]- 3243 Dec, [facility] [place] [facility] [address] [id number] [place] [address]- 6842 Dec, [facility] [place] [facility] [address] [id number] [place] [address]- 3583 Dec, [facility] [place] [facility] [address] [id number] [place] [address]- 2591 Dec, [facility] [place] [facility] [address] [id number] [place] 8198 Dec, [facility] [place] [facility] [address] [id number] [place] 7901 Dec, [facility] [place] [facility] [address] [id number] [place] [address]- 4206 Nov, [facility] [place] [facility] [address] [id number] [place] [address]- 2867 Nov, [facility] [address] [id number] [place] [address]- 0660 Nov, [facility] [place] [facility] [address] [id number] [place] [address]- 0146 Nov, [facility] [place] [facility] [address] [id number] [place] [address]- 9096 Nov, [facility] [place] [facility] [address] [id number] [place] [address]- 2541 Nov, [facility] [place] [facility] [address] [id number] [place] [address]- 2218 Oct, [facility] [place] [facility] [address] [id number] [place] [address]- 1644 Oct, [facility] [place] [facility] [address] [id number] [place] [address]- 5737 Sep, [facility] [place] [facility] [address] [id number] [place] [address]- 6886 Sep, [facility] [place] [facility] [address] [id number] [place] [address]- 5031 Sep, [facility] [place] [facility] [address] [id number] [place] [address]- 8278 Sep, [facility] [place] [facility] [address] [id number] [place] [address]- 5251 Aug, [facility] [place] [facility] [address] [id number] [place] [address]- 0769 Aug, [facility] [place] [facility] [address] [id number] [place] [address]- 9338 Aug, [facility] [place] [facility] [address] [id number] [place] [address]- 5088 Aug, [facility] [place] [facility] [address] [id number] [place] [address]- 7837 Aug, [facility] [place] [facility] [address] [id number] [place] [address]- 5131 Aug, [facility] [place] [facility] [address] [id number] [place] [address]- 8696 Aug, [facility] [place] [facility] [address] [id number] [place] [address]- 0325 Aug, [facility] [place] [facility] [address] [id number] [place] [address]- 2014 Jul, [facility] [place] [facility] [address] [id number] [place] [address]- 6857 Jul, [facility] [place] [facility] [address] [id number], [place] [address]- 9164 Jul, [facility] [place] [facility] [address] [id number] [place] [address]- 4363 Jul, [facility] [place] [facility] [address] [id number], [place] [address]- 1313 Jul, [facility] [place] [facility] [address] [id number], [place] [address]- 7714 Jul, [facility] [place] [facility] [address] [id number], [place] [address]- 1002 Jul, [facility] [place] [facility] [address] [id number], [place] [address]- 3710 Jul, [facility] [place] [facility] [address] [id number], [place] [address]- 3034 Jul, [facility] [place] [facility] [address] [id number] [place] [address]- 5230 Jul, [facility] [place] [facility] [address] [id number], [place] [address]- 3261 Jul, [facility] [place] [facility] [address] [id number] 7127 Jul, [facility] [place] [facility] [address] [id number] [place] [address]- 3863 15 Jul, 2012 [facility] [address] [id number] [place] [address]- 2724 15 Jul, 2013 [facility] [place] [facility] [address] [id number] [place] [address]- 2115 15 Jul, 2012 [facility] [address] [id number] [place] [address]- 6892 15 Jul, 2013 [facility] [place] [facility] [address] [id number] [place] [address] 14 Jul, 2013 [facility] [place] [facility] [address] [id number] [place] [address] 14 Jul, 2013 [facility] [place] [facility] [address] [id number] [place] [address] 11 Jul, 2013 [facility] [place] [facility] [address] [id number] [place] [address] 11 Jul, 2013 [facility] [place] [facility] [address] [id number] [place] [address] 11 Jul, 2013 [facility] [place] [facility] [address] [id number] [place] [address] 11 Jul, 2013 [facility] [place] [facility] [address] [id number] [place] [address] 02 Jul, 2013 [facility] [place] [facility] [address] [id number] [place] [address] 27 Jun, 2013 [facility] [place] [facility] [address] [id number] [place] [address] 05 Jun, 2013 [facility] [place] [facility] [address] [id number] [place] [address] May, [facility] [place] [facility] [address] [id number] [place] [address] May, [facility] [place] [facility] [address] [id number] [place] [address] May, [facility] [place] [facility] [address] [id number] [place] [address] May, [facility] [place] [facility] [address] [id number] [place] [address] 16 May, 2013 [facility] [place] [facility] [address] [id number] [place] [address] May, [facility] [place] [facility] [address] [id number] [place] [address] May, [facility] [place] [facility] [address] [id number] [place] [address] May, [facility] [place] [facility] [address] [id number] [place] [address] Apr, [facility] [place] [facility] [address] [id number] [place] [address] Mar, [facility] [place] [facility] [address] [id number] [place] [address] February, [facility] [place] [facility] [address] [id number] [place] [address] Jan, [facility] [place] [facility] [address] [id number] [place] [address] Dec, [facility] [place] [facility] [address] [id number] [place] [address] 18 Dec, 2012 [facility] [place] [facility] [address] [id number], [place] [address] 15 Dec, 2012 [facility] [place] [facility] [address] [id number] [place] [address] 07 Dec, 2012 [facility] [place] [facility] [address] [id number] [place] [address] 28 Nov, 2012 [facility] [place] [facility] [address] [id number] [place] [address] Nov, [facility] [place] [facility] [address] [id number], [place] [address] Nov, [facility] [address] [facility] [id number], [place] [address] Nov, [facility] [address] [id number], [place] [address] Oct, [facility] [id number] [address] Oct, [facility] [id number], [place] [address] Oct, [facility] [id number] [place] [address] Sep, [facility] [id number], [place] [address] Sep, [facility] [id number] [address] Sep, [facility] [address] [id number], [place] [address] Sep, IMMUNIZATIONS No Known Immunizations SOCIAL HISTORY Never Assessed REASON FOR VISIT Controlled/Refill Request PLAN OF CARE VITAL SIGNS MEDICATIONS Medication Instructions Dosage Frequency Start Date End Date Duration Status Oxycodone HCl 10 mg Orally every 4-6 hrs hrs prn must last 28 days 1 tablet as needed Sep, 28 days Active RESULTS No Results PROCEDURES [...]
--- OUTSIDE RECORDS SUMMARY | 2018-07-03 09:55 | XMS REPORT ---
Author Author SAVANAH KEYS Organization [facility] Address [address] [place] [address] Care Team Providers Care Diagnostic Imaging Manager Name Role Phone RITU KEYSNETTE Unavailable PROBLEMS Type Condition ICD9-CM Code [id number] Code Onset Dates Condition Status SNOMED Code Problem Other chronic pain G89.29 Active 93107077 Problem Chronic viral hepatitis C B18.2 Active 716050787 Problem Anxiety F41.9 Active 52535497 Problem COPD without exacerbation J44.9 Active 92590782 Problem Lumbago with sciatica, left side M54.42 Active 119989432 Problem Lumbago with sciatica, right side M54.41 Active 083333905 Problem Pain in thoracic spine M54.6 Active 331523869905930 Problem Dysthymia F34.1 Active 79513942 Problem History of long-term use of multiple prescription drugs Z92.29 Active 405498196 Problem Essential (primary) hypertension I10 Active 53436876 Problem Long-term use of high-risk medication Z79.899 Active 678137205 Problem Other iron deficiency anemia D50.8 Active [id number] ALLERGIES No Information SOCIAL HISTORY Never Assessed PLAN OF CARE VITAL SIGNS MEDICATIONS Medication Instructions Dosage Frequency Start Date End Date Duration Status Oxycodone HCl 10 mg TAKE ONE TABLET BY MOUTH EVERY 4 TO 6 HOURS NEEDED ( MUST LAST 28 DAYS) 28 Active Lisinopril 10 mg Orally Once a [...]
--- OUTSIDE RECORDS SUMMARY | 2018-07-03 09:55 | XMS REPORT ---
Author Author DARLENE HARRY Organization [facility] Address [address] [place] [address] Care Team Providers Care Facility Maintenance Worker Name Role Phone DARLENE HARRY Unavailable PROBLEMS Type Condition ICD9-CM Code PVR93-MM Code Onset Dates Condition Status SNOMED Code Problem Chronic viral hepatitis C B18.2 Active 626672219 Problem Anxiety F41.9 Active 11914185 Problem Essential (primary) hypertension I10 Active 11782389 Problem Right pulmonary lesion R91.1 Active 647124701 Problem Pain in thoracic spine M54.6 Active 029207430029393 Problem Other iron deficiency anemia D50.8 Active 16158316 Problem History of long-term use of multiple prescription drugs Z92.29 Active 833181337 Problem Dysthymia F34.1 Active 31265949 Problem Long-term use of high-risk medication Z79.899 Active 148504815 Problem COPD without exacerbation J44.9 Active 87592784 Problem Pulmonary nodule, right R91.1 Active 445086448 Problem Lumbago with sciatica, left side M54.42 Active 769631335 Problem Abnormal chest CT R93.8 Active 613049626 Problem Lumbago with sciatica, right side M54.41 Active 184840348 Problem Foraminal stenosis of lumbar region M99.83 Active 46002128 Problem Other chronic pain G89.29 Active 50107670 ALLERGIES No Information SOCIAL HISTORY Never Assessed PLAN OF CARE VITAL SIGNS MEDICATIONS Medication Instructions Dosage Frequency Start Date End Date Duration Status Oxycodone HCl 10 mg Orally every 4-6 hrs hrs prn must last 28 days 1 tablet as needed February, Mar, 28 days Active RESULTS No Results PROCEDURES [...]
--- OUTSIDE RECORDS SUMMARY | 2018-07-03 09:55 | XMS REPORT ---
Author Author DARLENE HARRY Organization [employer] Address Unknown Phone Unavailable Care Team Providers Care Powder And Primer Canning Leader Name Role Phone DARLENE HARRY CP Unavailable Allergies No Known Allergies Problems Problem Type Condition Code Onset Dates Condition Status Problem Lumbago with sciatica, unspecified side M54.40 Active Problem Chronic viral hepatitis C B18.2 Active Problem Essential (primary) hypertension I10 Active Problem Chronic obstructive pulmonary disease, unspecified J44.9 Active Problem Anxiety F41.9 Active Medications Medication Code System Code Instructions Start Date End Date Status Dosage oxycodone NDC 0 10 mg orally every 4-6 hours prn must last 30 days December take 1 tablet Results No Known Results Summary Purpose [employer] Submission
--- OUTSIDE RECORDS SUMMARY | 2018-07-03 09:55 | XMS REPORT ---
Author Author DARLENE HARRY [facility] Address [address] [place] [address] Care Team Providers Care Court Transcriber Name Role Phone DARLENE HARRY Unavailable PROBLEMS Type Condition ICD9-CM Code OYK51-ZI Code Onset Dates Condition Status SNOMED Code Problem Other chronic pain G89.29 Active 21197104 Problem Essential (primary) hypertension I10 Active 82649784 Problem Chronic viral hepatitis C B18.2 Active 418577668 Problem COPD without exacerbation J44.9 Active 61075151 Problem Foraminal stenosis of lumbar region M99.83 Active 61727708 Problem Lumbago with sciatica, left side M54.42 Active 871140814 Problem Lumbago with sciatica, right side M54.41 Active 165129313 Problem Aortic ectasia, abdominal I77.811 Active 951890060463054 Problem Pain in thoracic spine M54.6 Active 776806210186870 Problem Other iron deficiency anemia D50.8 Active 59575917 Problem Anxiety F41.9 Active 80389011 Problem Dysthymia F34.1 Active 10890616 Problem Long-term use of high-risk medication Z79.899 Active 891673807 ALLERGIES No Information ENCOUNTERS Encounter Location Date Diagnosis [place] [id number] [place] [address] 63393- 0246 May, [facility] [address] [address] Mar, [place] [address] [place] [id number] [place] [address] 15913- 5503 Mar, Foraminal stenosis of lumbar region M99.83 [facility] [id number] [place] [address] 68743- 7526 Mar, Essential (primary) hypertension I10 ; Foraminal stenosis of lumbar region M99.83 ; Long-term use of high-risk medication Z79.899 and Aortic ectasia, abdominal I77.811 [place] [address] [place] [id number]- 6915 February, Lumbago with sciatica, unspecified side M54.40 [place] [address] 9[address]46- 3446 Jan, Lumbago with sciatica, unspecified side M54.40 [place] [address] [address] 5076 Jan, Lumbago with sciatica, unspecified side M54.40 ; Essential ( primary) hypertension I10 ; COPD without exacerbation J44.9 ; Long-term use of high-risk medication Z79.899 ; Anxiety F41.9 and Dysthymia F34.1 [place] [address] 59662- 8781 Dec, [place] [address] 03669- 7641 Dec, Lumbago with sciatica, unspecified side M54.40 [place] [address] 13329- 0555 Dec, Anxiety F41.9 and Dysthymia F34.1 [place] [address] 72719- 9755 Nov, Other chronic pain G89.29 and Lumbago with sciatica, unspecified side M54.40 [place] [address] 05405- 8664 Oct, Lumbago with sciatica, unspecified side M54.40 [place] [address] 21551- 6771 Oct, Anxiety F41.9 and Dysthymia F34.1 [place] [address] 38247- 6073 Oct, Abnormal fasting glucose R73.01 [place] [address] [place] [id number] [place] [address] 58835- 4062 Oct, Essential (primary) hypertension I10 and Lumbago with sciatica, unspecified side M54.40 [place] [address] [place] [id number] [place] [address] 03043- 9356 Sep, Abnormal fasting glucose R73.01 [place] [address] [place] [id number] [place] [address] 13685- 8244 Sep, Pulmonary nodule R91.1 ; Aortic ectasia, abdominal I77.811 and Anxiety F41.9 [place] [address] [place] [id number] [place] [address] 67681- 6040 Sep, Lumbago with sciatica, unspecified side M54.40 [place] [address] 32550- 2601 Aug, Essential (primary) hypertension I10 and Lumbago with sciatica, unspecified side M54.40 [place] [address] [place] [id number] [place] [address] 98382- [address] Jul, [address] R93.8 [place] [address] [place] [id number] [place] [address] 61349- 9840 Jul, Right pulmonary lesion R91.1 [place] [address] [place] [id number] [place] [address] 82989- 9618 Jul, Lumbago with sciatica, unspecified side M54.40 [place] [address] [place] [id number] [place] [address] 02602- 9221 Jul, Pain in thoracic spine M54.6 ; Lumbago with sciatica, left side M54.42 and Lumbago with sciatica, right side M54.41 [place] [address] [place] [id number] [place] [address] 25100- 0371 13 Jun, 2017 Essential (primary) hypertension I10 [...] Z79.899 and Pain in thoracic spine M54.6 [place] [address] 85894- 0009 May, [place] [address] 21163- 8886 Apr, Lumbago with sciatica, unspecified side M54.40 [place] [address] 02527- 7818 Mar, Essential (primary) hypertension I10 ; Lumbago with sciatica , unspecified side M54.40 ; Chronic viral hepatitis C B18.2 ; Chronic obstructive pulmonary disease, unspecified J44.9 ; Other iron deficiency anemia D50.8 and Long-term use of high-risk medication Z79.899 [place] [address] [place] [id number] [place] [address] 68369- 5214 Mar, Essential (primary) hypertension I10 [place] [address] 22047- 6458 February, [place] [address] 25459- 9244 February, Lumbago with sciatica, unspecified side M54.40 [place] [address] 09511- 9913 Jan, Lumbago with sciatica, unspecified side M54.40 [place] [address] [place] [id number] [place] [address]- 7296 Dec, Essential (primary) hypertension I10 ; Lumbago with sciatica , unspecified side M54.40 ; Chronic viral hepatitis C B18.2 ; Chronic obstructive pulmonary disease, unspecified J44.9 ; Other iron deficiency anemia D50.8 ; Long-term use of high-risk medication Z79.899 and General medical exam Z00.00 [place] [address] 19396- 2090 Nov, Essential (primary) hypertension I10 [place] [address] [place] [id number] [place] [address] 46159- 0593 Oct, [place] [address] 84230- 7818 Oct, Essential (primary) hypertension I10 [place] [address] [place] [id number] [place] [address] 52944- 4927 Oct, Anxiety F41.9 and Dysthymia F34.1 [place] [address] [place] [id number] [place] [address] 31451- 8684 Oct, [place] [address] [place] [id number] [place] [address] 02369- 4255 Oct, [place] [address] [place] [id number] [place] [address] 66576- 0253 Oct, Essential (primary) hypertension I10 ; Lumbago with sciatica , unspecified side M54.40 ; Chronic viral hepatitis C B18.2 ; Chronic obstructive pulmonary disease, unspecified J44.9 ; Other iron deficiency anemia D50.8 ; Long-term use of high-risk medication Z79.899 and Anxiety F41.9 [place] [address] [place] [id number] [place] [address] 11737- 3571 Sep, [place] [address] [place] [id number] [place] [address] 37735- 3311 Aug, [place] [address] [place] [id number] [place] [address] 65977- 2350 Jul, Abnormal fasting glucose R73.01 [facility] [address] [place] [id number] [place] [address] 56319- 9321 Jul, Essential (primary) hypertension I10 ; Lumbago with sciatica , unspecified side M54.40 ; Chronic viral hepatitis C B18.2 ; Chronic obstructive pulmonary disease, unspecified J44.9 ; Other iron deficiency anemia D50.8 ; Long-term use of high-risk medication Z79.899 and Encounter for immunization Z23 [facility] [address] [place] [id number] [place] [address] 72053- 0509 Jun, [place] [address] [place] [id number] [place] [address] 80146- 3048 May, [place] [address] [place] [id number] [place] [address] 19741- 8982 Apr, Other iron deficiency anemia D50.8 [facility] [address] [place] [id number] [place] [address] 96112 -7052 Apr, Chronic fatigue R53.82 and Bradycardia R00.1 [place] [address] [place] [id number] [place] [address] 51062- 2368 Apr, [place] [address] [place] [id number] [place] [address] 98187- 3793 Mar, Essential (primary) hypertension I10 ; Lumbago with sciatica , unspecified side M54.40 ; Chronic viral hepatitis C B18.2 ; Chronic obstructive pulmonary disease, unspecified J44.9 and Other iron deficiency anemia D50.8 [facility] [address] [place] [id number] [place] [address] 79407- 4437 February, [place] [address] 73853- 7622 Jan, [facility] [address] [place] [id number] [place] [address] 51209- 4391 Jan, Fatigue R53.83 [place] [address] [address]- 2483 Dec, Essential (primary) hypertension I10 ; Lumbago with sciatica , unspecified side M54.40 ; Chronic viral hepatitis C B18.2 ; Chronic obstructive pulmonary disease, unspecified J44.9 ; Sinusitis J32.9 and Fatigue R53.83 [place] [address] [place] [id number] [place] [address] 69521- 8172 Dec, [place] [address] [place] [id number] [place] [address] 83003- 8303 Nov, [place] [address] 69260- 8979 Oct, Essential (primary) hypertension I10 ; Lumbago with sciatica , unspecified side M54.40 ; Chronic viral hepatitis C B18.2 ; Chronic obstructive pulmonary disease, unspecified J44.9 and History of long-term use of multiple prescription drugs Z92.29 [place] [address] [place] [id number] [place] [address] 93229- 3267 Sep, [place] [address] [place] [id number] [place] [address] 83768- 4778 Aug, [place] [address] [place] [id number] [place] [address] 65790- 2577 Jul, Essential (primary) hypertension I10 ; Lumbago with sciatica , unspecified side M54.40 ; Chronic viral hepatitis C B18.2 ; Chronic obstructive pulmonary disease, unspecified J44.9 and Anxiety F41.9 [place] [address] [place] [id number] [place] [address] 20520- 1995 Jun, [place] [address] [place] [id number] [place] [address] 96093- 8863 May, [place] [address] [place] [id number] [place] [address] 41983- 1373 Apr, Essential hypertension, benign 401.1 ; Lumbago 724.2 ; Nondependent tobacco use disorder 305.1 and Chronic hepatitis C without mention of hepatic coma 070.54 [facility] [id number] [address]- 3499 Mar, Lumbago 724.2 [facility] [address] [place] [id number] [place] [address] 41569- 1017 February, Essential hypertension, benign 401.1 ; Lumbago 724.2 ; Nondependent tobacco use disorder 305.1 and Chronic hepatitis C without mention of hepatic coma 070.54 [facility] [address] [place] [id number] [place] [address] 50054- 7259 February, [facility] [address] [place] [id number] [place] [address] 44501- 7267 Jan, [facility] [address] [id number] [place] [address] 14858- 2848 Jan, [facility] [address] [place] [id number] [place] [address] 54269- 9720 Dec, [facility] [address] [place] [id number] [place] [address] 35738- 7828 Dec, [facility] [address] [id number] [place] [address] 08612- 7873 Nov, [facility] [id number] [place] [address] 33969- 0922 Nov, [facility] [address] [place] [address] 63133- 6157 Oct, [facility] [address] [address]- 6242 Oct, [facility] [address] [id number] [place] [address] 028140- 3714 Sep, [facility] [address] [place] [id number] [place] [address] 25951- 8981 Sep, [facility] [address] [place] [id number] [place] [address] 68380- 3802 Aug, [facility] [place] [facility] [address] [id number] [place] [address]- 1855 Aug, [facility] [place] [facility] [address] [id number] [place] [address]- 6585 Aug, [facility] [place] [facility] [address] [id number] [place] [address]- 3297 Aug, [facility] [place] [facility] [address] [id number] [place] [address]- 6031 17 Jul, 2014 [facility] [place] [facility] [address] [id number] [place] [address]- 7771 17 Jul, 2014 [facility] [place] [facility] [address] [id number] [place] [address]- 5907 16 Jul, 2014 [facility] [place] [facility] [address] [id number] [place] [address]- 5397 Jul, [facility] [place] [facility] [address] [id number] [place] [address]- 5662 13 Jul, 2014 [facility] [place] [facility] [address] [id number] [place] [address]- 4505 10 Jul, 2014 [facility] [place] [facility] [address] [id number] [place] [address]- 9949 10 Jul, 2014 [facility] [place] [facility] [address] [id number] [place] [address]- 2102 11 Jun, 2014 [facility] [place] [facility] [address] [id number], [place] [address]- 1341 11 Jun, 2014 [facility] [place] [facility] [address] [id number] [place] [address]- 7667 11 Jun, 2014 [facility] [place] [facility] [address] [id number] [place] [address]- 5815 11 Jun, 2014 [facility] [place] [facility] [address] [id number] [place] [address]- 5871 11 Jun, 2014 [facility] [place] [facility] [address] [id number] [place] [address]- 2177 Jun, [facility] [place] [facility] [address] [id number] [place] [address]- 9179 Jun, [facility] [place] [facility] [address] [id number] [place] [address]- 7926 Jun, [facility] [place] [facility] [address] [id number] [place] [address]- 1443 May, [facility] [place] [facility] [address] [id number] [place] [address]- 1430 May, [facility] [place] [facility] [address] [id number] [place] [address]- 3185 Apr, [facility] [place] [facility] [address] [id number] [place] [address]- 0899 Apr, [facility] [place] [facility] [address] [id number] [place] [address]- 7952 Mar, [facility] [place] [facility] [address] [id number] [place] [address]- 6158 Mar, [facility] [place] [facility] [address] [id number] [place] [address]- 6829 Mar, [facility] [place] [facility] [address] [id number] [place] [address]- 3558 Mar, [facility] [place] [facility] [address] [id number] [place] [address]- 4598 Mar, [facility] [place] [facility] [address] [id number] [place] [address]- 8739 February, [facility] [place] [facility] [address] [id number] [place] [address]- 6983 February, [facility] [place] [facility] [address] [id number] [place] [address]- 0109 February, [facility] [place] [facility] [address] [id number] [place] [address]- 8008 February, [facility] [place] [facility] [address] [id number] [place] [address]- 9968 Jan, [facility] [place] [facility] [address] [id number] [place] [address]- 6472 Jan, [facility] [place] [facility] [address] [id number] [place] [address]- 8746 Jan, [facility] [place] [facility] [address] [id number] [place] [address]- 7730 Jan, [facility] [place] [facility] [address] [id number] [place] [address]- 4742 Jan, [facility] [place] [facility] [address] [id number] [place] [address]- 7405 Jan, [facility] [place] [facility] [address] [id number] [place] [address]- 7704 Jan, [facility] [place] [facility] [address] [id number] [place] [address]- 4823 Jan, [facility] [place] [facility] [address] [id number] [place] [address]- 9335 Dec, [facility] [place] [facility] [address] [id number] [place] [address]- 3700 Dec, [facility] [place] [facility] [address] [id number] [place] [address]- 8845 Dec, [facility] [place] [facility] [address] [id number] [place] [address]- 1515 14 Dec, 2013 [facility] [place] [facility] [address] [id number] [place] [address]- 9598 Dec, [facility] [place] [facility] [address] [id number] [place] [address]- 8008 Dec, [facility] [place] [facility] [address] [id number] [place] [address]- 1099 Dec, [facility] [place] [facility] [address] [id number], [place] [address]- 6713 Dec, [facility] [place] [facility] [address] [id number] [place] [address]- 0014 Dec, [facility] [place] [facility] [address] [id number] [place] [address]- 3990 Dec, [facility] [place] [facility] [address] [id number] [place] [address]- 0009 Nov, [facility] [place] [facility] [address] [id number] [place] [address]- 7754 Nov, [facility] [place] [facility] [address] [id number] [place] [address]- 6947 Nov, [facility] [place] [facility] [address] [id number] [place] [address]- 5048 Nov, [facility] [place] [facility] [address] [id number] [place] [address]- 3445 Nov, [facility] [place] [facility] [address] [id number] [place] [address]- 5857 Nov, [facility] [place] [facility] [address] [id number] [place] [address]- 9938 Oct, [facility] [place] [facility] [address] [facility] [id number] [place] [address]- 3082 Oct, [facility] [place] [facility] [address] [id number] [place] [address]- 9205 Sep, [facility] [place] [facility] [address] [id number] [place] [address]- 2914 Sep, [facility] [place] [facility] [address] [id number] [place] [address]- 9557 Sep, [facility] [place] [facility] [address] [facility] [id number] [place] [address]- 4192 Sep, [facility] [place] [facility] [address] [id number] [place] [address]- 5214 Aug, [facility] [place] [facility] [address] [id number] [place] [address]- 2225 Aug, [facility] [place] [facility] [address] [id number] [place] [address]- 7385 Aug, [facility] [place] [facility] [address] [id number] [place] [address]- 1565 Aug, [facility] [place] [facility] [address] [id number] [place] [address]- 2234 Aug, [facility] [place] [facility] [address] [id number] [place] [address]- 5057 Aug, [facility] [place] [facility] [address] [id number] [place] [address]- 0291 Aug, [facility] [place] [facility] [address] [id number] [place] [address]- 8963 Aug, [facility] [place] [facility] [address] [id number], [place] [address]- 2024 Jul, [facility] [place] [facility] [address] [id number] [place] [address]- 7821 Jul, [facility] [place] [facility] [address] [id number], [place] [address]- 3424 Jul, [facility] [place] [facility] [address] [id number], [place] [address]- 7689 Jul, [facility] [place] [facility] [address] [id number], [place] [address]- 4525 Jul, [facility] [place] [facility] [address] [id number], [place] [address]- 1622 Jul, [facility] [place] [facility] [address] [id number], [place] [address]- 1795 Jul, [facility] [place] [facility] [address] [id number], [place] [address]- 4989 Jul, [facility] [place] [facility] [address] [id number], [place] [address]- 1440 21 Jul, 2012 [facility] [place] [facility] [address] [id number] [place] [address]- 1502 21 Jul, 2012 [facility] [place] [facility] [address] [id number], [place] [address]- 2712 17 Jul, 2012 [facility] [place] [facility] [address] [id number] [place] [address]- 2996 17 Jul, 2012 [facility] [place] [facility] [address] [id number], [place] [address]- 7421 15 Jul, 2012 [facility] [place] [facility] [address] [id number] [place] [address]- 5451 15 Jul, 2012 [facility] [place] [facility] [address] [id number] [place] [address]- 8921 15 Jul, 2012 [facility] [place] [facility] [address] [id number], [place] [address]- 3627 15 Jul, 2012 [facility] [place] [facility] [address] [id number], [place] [address]- 9595 14 Jul, 2013 [facility] [place] [facility] [address] [id number], [place] [address]- 6595 14 Jul, 2013 [facility] [place] [facility] [address] [id number], [place] [address]- 0694 11 Jul, 2012 [facility] [place] [facility] [address] [id number], [place] [address]- 1414 11 Jul, 2012 [facility] [place] [facility] [address] [id number], [place] [address]- 1585 11 Jul, 2012 [facility] [place] [facility] [address] [id number], [place] [address] 11 Jul, 2012 [facility] [place] [facility] [address] [id number], [place] [address] 02 Jul, 2012 [facility] [place] [facility] [address] [id number] [place] [address] 27 Jun, 2013 [facility] [place] [facility] [address] [id number] [place] [address] 05 Jun, 2013 [facility] [address] [id number] [place] [address] May, [facility] [place] [facility] [address] [id number] [place] [address] May, [facility] [address] [id number] [place] [address] May, [facility] [place] [facility] [address] [id number] [place] [address] May, [facility] [address] [id number] [place] [address] May, [facility] [address] [id number] [place] [address] May, [facility] [address] [id number] [place] [address] May, [facility] [address] [id number] [place] [address] May, [facility] [place] [facility] [address] [id number] [place] [address] Apr, [facility] [address] [id number] [place] [address] Mar, [facility] [place] [facility] [address] [id number] [place] [address] February, [facility] [place] [facility] [address] [id number] [place] [address] Jan, [facility] [place] [facility] [address] [id number] [place] [address] Dec, [facility] [place] [facility] [address] [id number] [place] [address] 18 Dec, 2012 [facility] [place] [facility] [address] [id number] [place] [address] Dec, [facility] [id number] [address] Dec, [facility] [id number], [place] [address] Nov, [facility] [id number], [place] [address] Nov, [facility] [id number], [place] [address] Nov, [facility] [id number], [place] [address] Nov, [facility] [id number], [place] [address] Oct, [facility] [id number], [place] [address] Oct, [facility] [id number], [place] [address] Oct, [facility] [id number], [place] [address] Sep, [facility] [id number] Sep, [facility] [id number], [place] [address] Sep, [facility] [id number], [place] [address] Sep, IMMUNIZATIONS No Known Immunizations SOCIAL HISTORY Never Assessed REASON FOR VISIT Controlled Med Refill PLAN OF CARE VITAL SIGNS MEDICATIONS Medication Instructions Dosage Frequency Start Date End Date Duration Status Oxycodone HCl 10 mg Orally every 4-6 hrs hrs prn must last 28 days 1 tablet as needed Oct, 28 days Active RESULTS No Results PROCEDURES [...]
--- OUTSIDE RECORDS SUMMARY | 2018-07-03 09:56 | XMS REPORT ---
Author Author DARLENE HARRY Organization [facility] Address [address] [place] [address] Care Team Providers Care Payment Poster Name Role Phone DARLENE HARRY Unavailable PROBLEMS Type Condition ICD9-CM Code [id number] Code Onset Dates Condition Status SNOMED Code Problem Chronic viral hepatitis C B18.2 Active 075929299 Problem Anxiety F41.9 Active 24940384 Problem Essential (primary) hypertension I10 Active 16139515 Problem Right pulmonary lesion R91.1 Active 210835731 Problem Pain in thoracic spine M54.6 Active [id number] Problem Other iron deficiency anemia D50.8 Active 65483497 Problem History of long-term use of multiple prescription drugs Z92.29 Active 274211345 Problem Dysthymia F34.1 Active 34558406 Problem Long-term use of high-risk medication Z79.899 Active 204273152 Problem COPD without exacerbation J44.9 Active 97226203 Problem Pulmonary nodule, right R91.1 Active 098174840 Problem Lumbago with sciatica, left side M54.42 Active 247812955 Problem Abnormal chest CT R93.8 Active 129141949 Problem Lumbago with sciatica, right side M54.41 Active 600549097 Problem Foraminal stenosis of lumbar region M99.83 Active 53597083 Problem Other chronic pain G89.29 Active 95280439 ALLERGIES No Information SOCIAL HISTORY Never Assessed [...]
--- OUTSIDE RECORDS SUMMARY | 2018-07-03 09:56 | XMS REPORT ---
Author Author DARLENE HARRY 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 Name Role Phone DARLENE HARRY Unavailable PROBLEMS Type Condition ICD9-CM Code QKP11-QY Code Onset Dates Condition Status SNOMED Code Problem Other chronic pain G89.29 Active 95742302 Problem Essential (primary) hypertension I10 Active 37432583 Problem Chronic viral hepatitis C B18.2 Active 656032872 Problem COPD without exacerbation J44.9 Active 43302451 Problem Foraminal stenosis of lumbar region M99.83 Active 00396559 Problem Lumbago with sciatica, left side M54.42 Active 707803603 Problem Lumbago with sciatica, right side M54.41 Active 749786191 Problem Aortic ectasia, abdominal I77.811 Active 874853893125011 Problem Pain in thoracic spine M54.6 Active 489030551419473 Problem Other iron deficiency anemia D50.8 Active 82964485 Problem Anxiety F41.9 Active 86009857 Problem Dysthymia F34.1 Active 35181576 Problem Long-term use of high-risk medication Z79.899 Active 194306759 ALLERGIES No Known Allergies ENCOUNTERS Encounter Location Date Diagnosis [place] [address] [address] May, [place] [address] [address] Mar, [place] [address] [address] 7[address] Mar, Essential (primary) hypertension I10 ; Foraminal stenosis of lumbar region M99.83 ; Long-term use of high-risk medication Z79.899 and Aortic ectasia, abdominal I77.811 [place] [address] [address] February, Lumbago with sciatica, unspecified side M54.40 [place] [address] [place] [address] [address] Jan, Lumbago with sciatica, unspecified side M54.40 [place] [address] 348 Jan, Lumbago with sciatica, unspecified side M54.40 ; Essential ( primary) hypertension I10 ; COPD without exacerbation J44.9 ; Long-term use of high-risk medication Z79.899 ; Anxiety F41.9 and Dysthymia F34.1 [place] [address] [address]- 9336 Dec, [place] [address] [place] [address] 633 Dec, Lumbago with sciatica, unspecified side M54.40 [place] [address] [address]- 6841 Dec, Anxiety F41.9 and Dysthymia F34.1 [place] [address] [address]37- 5128 Nov, Other chronic pain G89.29 and Lumbago with sciatica, unspecified side M54.40 [place] [address] [address]- 9178 Oct, Lumbago with sciatica, unspecified side M54.40 [place] [address] 8[address]31- 415 Oct, Anxiety F41.9 and Dysthymia F34.1 [place] [address] 7[address]95- 1171 Oct, Abnormal fasting glucose R73.01 [place] [address] 95411- 7229 Oct, Essential (primary) hypertension I10 and Lumbago with sciatica, unspecified side M54.40 [place] [address] 11794- 9134 Sep, Abnormal fasting glucose R73.01 [place] [address] 37746- 4761 Sep, Pulmonary nodule R91.1 ; Aortic ectasia, abdominal I77.811 and Anxiety F41.9 [place] [address] 45367- 7879 Sep, Lumbago with sciatica, unspecified side M54.40 [place] [address] 91244- 0892 Aug, Essential (primary) hypertension I10 and Lumbago with sciatica, unspecified side M54.40 [place] [address] 26247- 0448 Jul, Abnormal chest CT R93.8 [place] [address] 92229- 3125 Jul, Right pulmonary lesion R91.1 [place] [address] 26583- 2705 Jul, Lumbago with sciatica, unspecified side M54.40 [place] [address] 84240- 4303 Jul, Pain in thoracic spine M54.6 ; Lumbago with sciatica, left side M54.42 and Lumbago with sciatica, right side M54.41 [place] [address] 97043- 0270 Jun, Essential (primary) hypertension I10 ; COPD [...] Z79.899 and Pain in thoracic spine M54.6 [place] [address] [place] [id number] [place] [address] 79537- 1365 May, [place] [address] [place] [id number] [place] [address] 19665- 3164 Apr, Lumbago with sciatica, unspecified side M54.40 [place] [address] [place] [id number] [place] [address] 88484- 8221 Mar, Essential (primary) hypertension I10 ; Lumbago with sciatica , unspecified side M54.40 ; Chronic viral hepatitis C B18.2 ; Chronic obstructive pulmonary disease, unspecified J44.9 ; Other iron deficiency anemia D50.8 and Long-term use of high-risk medication Z79.899 [place] [address] [place] [id number] [place] [address] 03340- 9382 Mar, Essential (primary) hypertension I10 [place] [address] [place] [id number] [place] [address] 64619- 7700 February, [place] [address] [place] [id number] [place] [address] 88707- 2169 February, Lumbago with sciatica, unspecified side M54.40 [place] [address] [place] [id number] [place] [address] 99439- 4920 Jan, Lumbago with sciatica, unspecified side M54.40 [place] [address] [place] [id number] [place] [address] 51910- 2673 Dec, Essential (primary) hypertension I10 ; Lumbago with sciatica , unspecified side M54.40 ; Chronic viral hepatitis C B18.2 ; Chronic obstructive pulmonary disease, unspecified J44.9 ; Other iron deficiency anemia D50.8 ; Long-term use of high-risk medication Z79.899 and General medical exam Z00.00 [place] [address] [place] [id number] [place] [address] 66027- 3175 Nov, Essential (primary) hypertension I10 [place] [address] 42306- 9854 Oct, [place] [address] 38371- 3732 Oct, Essential (primary) hypertension I10 [place] [address] 90241- 6019 Oct, Anxiety F41.9 and Dysthymia F34.[address] [address]26- 7646 Oct, [place] [address] [place] [id number] [place] [address] 12862- 1194 Oct, [place] [address] [place] [id number] [place] [address] 83228- 7144 Oct, Essential (primary) hypertension I10 ; Lumbago with sciatica , unspecified side M54.40 ; Chronic viral hepatitis C B18.2 ; Chronic obstructive pulmonary disease, unspecified J44.9 ; Other iron deficiency anemia D50.8 ; Long-term use of high-risk medication Z79.899 and Anxiety F41.9 [place] [address] [place] [id number] [place] [address] 11447- 3677 Sep, [place] [id number] [place] [address] 26789- 5715 Aug, [place] [id number] [place] [address] 75542- 4447 Jul, Abnormal fasting glucose R73.01 [place] [address] [place] [id number] [place] [address] 37557- 4427 Jul, Essential (primary) hypertension I10 ; Lumbago with sciatica , unspecified side M54.40 ; Chronic viral hepatitis C B18.2 ; Chronic obstructive pulmonary disease, unspecified J44.9 ; Other iron deficiency anemia D50.8 ; Long-term use of high-risk medication Z79.899 and Encounter for immunization Z23 [place] [address] [place] [id number] [place] [address] 14380- 7008 Jun, [place] [address] 23651- 3821 May, [place] [address] 12837- 9689 Apr, Other iron deficiency anemia D50.8 [facility] [address] [place] [id number] [place] [address] 68099 -1339 Apr, Chronic fatigue R53.82 and Bradycardia R00.1 [place] [address] [place] [id number] [place] [address] 76694- 2725 Apr, [place] [address] [place] [id number] [place] [address] 25967- 0080 Mar, Essential (primary) hypertension I10 ; Lumbago with sciatica , unspecified side M54.40 ; Chronic viral hepatitis C B18.2 ; Chronic obstructive pulmonary disease, unspecified J44.9 and Other iron deficiency anemia D50.8 [place] [address] [place] [id number] [place] [address] 36208- 6476 February, [place] [address] [place] [id number] [place] [address] 50957- 2642 Jan, [place] [address] 58614- 4724 Jan, Fatigue R53.83 [place] [address] [place] [id number] [place] [address] 32747- 5959 Dec, Essential (primary) hypertension I10 ; Lumbago with sciatica , unspecified side M54.40 ; Chronic viral hepatitis C B18.2 ; Chronic obstructive pulmonary disease, unspecified J44.9 ; Sinusitis J32.9 and Fatigue R53.83 [place] [address] [place] [id number] [place] [address] 12204- 1955 Dec, [place] [address] [place] [id number] [place] [address] 57987- 1080 Nov, [place] [address] 91920- 6815 Oct, Essential (primary) hypertension I10 ; Lumbago with sciatica , unspecified side M54.40 ; Chronic viral hepatitis C B18.2 ; Chronic obstructive pulmonary disease, unspecified J44.9 and History of long-term use of multiple prescription drugs Z92.29 [place] [address] [place] [id number] [place] [address] 09862- 7012 Sep, [place] [address] 41640- 4911 Aug, [place] [address] [place] [id number] [place] [address] 82442- 2160 Jul, Essential (primary) hypertension I10 ; Lumbago with sciatica , unspecified side M54.40 ; Chronic viral hepatitis C B18.2 ; Chronic obstructive pulmonary disease, unspecified J44.9 and Anxiety F41.9 [place] [address] [place] [id number] [place] [address] 52973- 8288 Jun, [place] [address] [place] [id number] [place] [address] 70906- 4876 May, [address] 88023- 7244 Apr, Essential hypertension, benign 401.1 ; Lumbago 724.2 ; Nondependent tobacco use disorder 305.1 and Chronic hepatitis C without mention of hepatic coma 070.54 [place] [address] [place] [id number] [place] [address] 53900- 1782 Mar, Lumbago 724.2 [facility] [address] [address]- 8244 February, Essential hypertension, benign 401.1 ; Lumbago 724.2 ; Nondependent tobacco use disorder 305.1 and Chronic hepatitis C without mention of hepatic coma 070.54 [facility] [address] [address] February, [facility] [address] [place] [id number] [address]- 4939 Jan, [facility] [address] [place] [id number] [place] [address] 42480- 8642 Jan, [facility] [address] [place] [id number] [place] [address] 37478- 6251 Dec, [facility] [address] [place] [id number] [place] [address] 09740- 8882 Dec, [facility] [address] [address]- 5067 Nov, [facility] [address] [place] [id number] [place] [address] 28517- 4767 Nov, [facility] [address] [address]- 1207 Oct, [facility] [address] [address]- 8273 Oct, [facility] [address] 3794 Sep, [facility] [address] 3140 Sep, [facility] [address] [address] 5366 Aug, [facility] [address] [address]- 3428 Aug, [facility] [place] [facility] [address] [id number] [place] [address]- 9401 11 Aug, 2014 [facility] [place] [facility] [address] [id number] [place] [address]- 3748 Aug, [facility] [place] [facility] [address] [id number] [place] [address]- 1584 17 Jul, 2014 [facility] [place] [facility] [address] [id number] [place] [address]- 0584 17 Jul, 2014 [facility] [place] [facility] [address] [id number] [place] [address]- 9664 16 Jul, 2014 [facility] [place] [facility] [address] [id number] [place] [address]- 1340 13 Jul, 2014 [facility] [place] [facility] [address] [id number] [place] [address]- 1942 Jul, [facility] [place] [facility] [address] [id number] [place] [address]- 5016 10 Jul, 2014 [facility] [place] [facility] [address] [id number] [place] [address]- 2102 10 Jul, 2014 [facility] [place] [facility] [address] [id number] [place] [address]- 2058 11 Jun, 2014 [facility] [place] [facility] [address] [id number] [place] [address]- 4748 11 Jun, 2014 [facility] [place] [facility] [address] [id number] [address]- 0289 11 Jun, 2013 [facility] [place] [facility] [address] [id number] [place] [address]- 3074 11 Jun, 2013 [facility] [place] [facility] [address] [id number] [place] [address]- 9828 11 Jun, 2013 [facility] [place] [facility] [address] [id number] [place] [address]- 0336 11 Jun, 2013 [facility] [place] [facility] [address] [id number] [address]- 4153 Jun, [facility] [place] [facility] [address] [id number] [place] [address]- 6868 Jun, [facility] [place] [facility] [address] [id number] [place] [address]- 2947 May, [facility] [place] [facility] [address] [id number] [place] [address]- 2388 May, [facility] [place] [facility] [address] [id number] [place] [address]- 4857 Apr, [facility] [place] [facility] [address] [id number] [place] [address]- 0536 Apr, [facility] [place] [facility] [address] [id number] [place] [address]- 7121 Mar, [facility] [place] [facility] [address] [id number] [place] [address]- 6765 Mar, [facility] [place] [facility] [address] [id number] [place] [address]- 7725 Mar, [facility] [place] [facility] [address] [id number] [place] [address]- 7998 Mar, [facility] [place] [facility] [address] [id number] [place] [address]- 4556 Mar, [facility] [place] [facility] [address] [id number] [place] [address]- 7209 February, [facility] [place] [facility] [address] [id number] [place] [address]- 9975 February, [facility] [place] [facility] [address] [id number] [place] [address]- 7974 February, [facility] [place] [facility] [address] [id number] [place] [address]- 0357 February, [facility] [place] [facility] [address] [id number] [place] [address]- 5747 Jan, [facility] [place] [facility] [address] [id number] [place] [address]- 0925 11 Jan, 2014 [facility] [place] [facility] [address] [id number] [place] [address]- 4993 Jan, [facility] [place] [facility] [address] [id number] [place] [address]- 4506 Jan, [facility] [place] [facility] [address] [id number] [place] [address]- 2450 Jan, [facility] [place] [facility] [address] [id number] [place] [address]- 9782 Jan, [facility] [place] [facility] [address] [id number] [place] [address]- 3205 Jan, [facility] [place] [facility] [address] [id number] [place] [address]- 4662 Jan, [facility] [place] [facility] [address] [id number] [place] [address]- 0466 Dec, [facility] [place] [facility] [address] [id number] [place] [address]- 0263 Dec, [facility] [place] [facility] [address] [id number] [place] [address]- 4525 14 Dec, 2013 [facility] [place] [facility] [address] [id number] [place] [address]- 6052 14 Dec, 2013 [facility] [place] [facility] [address] [id number] [place] [address]- 9552 Dec, [facility] [place] [facility] [address] [id number] [place] [address]- 1927 Dec, [facility] [place] [facility] [address] [id number] [place] [address]- 9392 Dec, [facility] [place] [facility] [address] [id number] [place] [address]- 8386 Dec, [facility] [place] [facility] [address] [id number] [place] [address]- 2712 Dec, [facility] [place] [facility] [address] [id number] [place] [address]- 8129 Dec, [facility] [place] [facility] [address] [id number] [place] [address]- 3344 Nov, [facility] [place] [facility] [address] [id number] [place] [address]- 0543 Nov, [facility] [place] [facility] [address] [id number] [place] [address]- 6925 Nov, [facility] [place] [facility] [address] [id number] [place] [address]- 2145 Nov, [facility] [place] [facility] [address] [id number] [place] [address]- 3670 Nov, [facility] [place] [facility] [address] [id number] [place] [address]- 8071 Nov, [facility] [place] [facility] [address] [id number] [place] [address]- 1197 Oct, [facility] [place] [facility] [address] [id number] [place] [address]- 7870 Oct, [facility] [place] [facility] [address] [id number] [place] [address]- 1434 Sep, [facility] [place] [facility] [address] [id number] [place] [address]- 6000 Sep, [facility] [place] [facility] [address] [id number] [place] [address]- 7976 Sep, [facility] [place] [facility] [address] [id number] [place] [address]- 7585 Sep, [facility] [place] [facility] [address] [id number] [place] [address]- 5072 Aug, [facility] [place] [facility] [address] [id number] [place] [address]- 1217 Aug, [facility] [place] [facility] [address] [id number] [place] [address]- 3828 Aug, [facility] [place] [facility] [address] [id number] [place] [address]- 8072 Aug, [facility] [place] [facility] [address] [id number] [place] [address]- 3364 Aug, [facility] [place] [facility] [address] [id number] [place] [address]- 0518 Aug, [facility] [place] [facility] [address] [id number] [place] [address]- 6850 Aug, [facility] [place] [facility] [address] [id number] [place] [address]- 4531 Aug, [facility] [place] [facility] [address] [id number] [place] [address]- 5534 Jul, [facility] [place] [facility] [address] [id number] [place] [address]- 9382 Jul, [facility] [address] [id number] [place] [address]- 7713 Jul, [facility] [place] [facility] [address] [id number] [place] [address]- 1367 Jul, [facility] [address] [id number] [place] [address]- 2000 Jul, [facility] [place] [facility] [address] [id number] [place] [address]- 1345 Jul, [facility] [place] [facility] [address] [id number] [place] [address]- 7659 Jul, [facility] [place] [facility] [address] [id number] [place] [address]- 9308 Jul, [facility] [place] [facility] [address] [id number] [place] [address]- 2499 Jul, [facility] [place] [facility] [address] [id number] [place] [address]- 2533 Jul, [facility] [place] [facility] [address] [id number] [place] [address]- 6761 17 Jul, 2012 [facility] [place] [facility] [address] [id number] [place] [address]- 8600 17 Jul, 2012 [facility] [place] [facility] [address] [id number] [place] [address]- 3897 15 Jul, 2012 [facility] [place] [facility] [address] [id number] [place] [address]- 1670 15 Jul, 2012 [facility] [place] [facility] [address] [id number] [place] [address]- 2996 15 Jul, 2012 [facility] [place] [facility] [address] [id number] [place] [address]- 9953 15 Jul, 2012 [facility] [place] [facility] [address] [id number] [place] [address]- 0601 14 Jul, 2013 [facility] [place] [facility] [address] [id number] [place] [address]- 4296 14 Jul, 2013 [facility] [place] [facility] [address] [id number] [place] [address]- 4166 11 Jul, 2013 [facility] [place] [facility] [address] [id number] [place] [address]- 9369 11 Jul, 2012 [facility] [place] [facility] [address] [id number] [place] [address]- 2227 11 Jul, 2012 [facility] [place] [facility] [address] [id number] [place] [address]- 6623 11 Jul, 2013 [facility] [place] [facility] [address] [id number] [place] [address]- 0197 02 Jul, 2013 [facility] [place] [facility] [address] [id number] [place] [address]- 9065 27 Jun, 2012 [facility] [place] [facility] [address] [id number] [place] 5601 05 Sep, 2012 [facility] [place] [facility] [address] [id number] [place] [address]- 0496 May, [facility] [address] [id number] [place] [address]- 5579 May, [facility] [place] [facility] [address] [id number] [place] [address]- 9102 May, [facility] [address] [id number] [place] [address]- 8304 May, [facility] [address] [id number] [place] [address]- 5225 May, [facility] [address] [id number] [place] [address] May, [facility] [address] [id number] [place] [address] May, [facility] [address] [id number] [place] [address] May, [facility] [address] [id number] [place] [address] Apr, [facility] [address] [id number] [place] [address] Mar, [facility] [address] [id number] [place] [address] February, [facility] [address] [id number] [place] [address] Jan, [facility] [place] [facility] [address] [id number] [place] [address] Dec, [facility] [place] [facility] [address] [id number] [place] [address] 18 Dec, 2012 [facility] [place] [facility] [address] [id number] [place] [address] 15 Dec, 2012 [facility] [place] [facility] [address] [id number] [place] [address] 07 Dec, 2012 [facility] [place] [facility] [id number] [address] Nov, [facility] [id number] [address] Nov, [facility] [address] [facility] [id number] [place] [address] [address] Nov, [facility] [id number] [address] Nov, [facility] [address] [facility] [id number] [place] [address] Oct, [facility] [id number] [address] Oct, [facility] [id number] [address] Oct, [facility] [id number] [address] Sep, [facility] [id number] [address] Sep, [facility] [id number] [address] Sep, [facility] [id number] [address] Sep, IMMUNIZATIONS No Known Immunizations SOCIAL HISTORY Never Assessed REASON FOR VISIT bp/chronic pain: three month follow up, would like results from MRI and CT scan , Continued pain issues with lower back , Continued issues with anxiety, exhaserbated by most recent testing PLAN OF CARE Activity Details Follow Up 3 Months, prn pain and sooner pending consults Reason:Pain VITAL SIGNS Height 70 in 2017-10-04 Weight 144 lbs 2017-10-04 Temperature 98.5 degrees Fahrenheit 2017-10-04 Heart Rate 88 bpm 2017-10-04 Respiratory Rate 20 2017-10-04 BMI 20.66 kg/m2 2017-10-04 Blood pressure systolic 128 mmHg 2017-10-04 Blood pressure diastolic 78 mmHg 2017-10-04 MEDICATIONS Medication Instructions Dosage Frequency Start Date End Date Duration Status Vitamin C 500 MG Active Trintellix 10 MG Orally Once a day 1 tablet 24h Oct, 30 day(s) Not-Taking Multivitamin Adult Active Oxycodone HCl 10 mg Orally every 4-6 hrs hrs prn must last 28 days 1 tablet as needed Sep, 28 days Active ProAir HFA 108 (90 Base) mcg/act Inhalation every 4 hrs prn inhale 2 puffs by Inhalation route every 4 hours as needed PRN must transition care- no more refills Active Remeron 15 MG Orally QHS 1/2 tablet Oct, 30 day(s) Not- Taking Iron 65 MG Orally Once a day 1 tabley 24h Active Lisinopril 10 mg Orally Once a day 1 tablet 24h Active RESULTS No Results PROCEDURES Procedure Date Ordered Result Body Site EKG, TRACING (IN-HOUSE) 2017-10-04 N/A ELECTROCARDIOGRAM, TRACING Oct 04, 2017 ASSAY THYROID STIM HORMONE Oct 04, 2017 VENIPUNCT, ROUTINE* Oct 04, 2017 COMPREHEN METABOLIC PANEL Oct 04, 2017 LIPID PANEL Oct 04, 2017 COMPLETE CBC W/AUTO DIFF WBC Oct 04, 2017 ASSAY OF MAGNESIUM Oct 04, 2017 INSTRUCTIONS MEDICATIONS ADMINISTERED No Known Medications MEDICAL [...] herniated disc Medical History Right PUlmonary Nodule [address] Somers resolution -will continue fu Surgical History appendectomy Hospitalization History Blood transfusions for anemia from Hep C Treatments 2012
--- OUTSIDE RECORDS SUMMARY | 2018-07-03 09:56 | XMS REPORT ---
Author Author DARLENE HARRY Organization [facility] Address [address] [place] [address] Care Team Providers Care Corporate Development Associate Name Role Phone DARLENE HARRY Unavailable PROBLEMS Type Condition ICD9-CM Code UDN84-RE Code Onset Dates Condition Status SNOMED Code Problem Other chronic pain G89.29 Active 62172146 Problem Chronic viral hepatitis C B18.2 Active 932828345 Problem Anxiety F41.9 Active 29251512 Problem COPD without exacerbation J44.9 Active 45958793 Problem Lumbago with sciatica, left side M54.42 Active 912199511 Problem Lumbago with sciatica, right side M54.41 Active 169999961 Problem Dysthymia F34.1 Active 38596394 Problem Long-term use of high-risk medication Z79.899 Active 185940519 Problem History of long-term use of multiple prescription drugs Z92.29 Active 545757487 Problem Essential (primary) hypertension I10 Active 40520760 Problem Other iron deficiency anemia D50.8 Active 27329240 Problem Sinusitis J32.9 Active 11515728 ALLERGIES Unknown Allergies SOCIAL HISTORY No smoking [...]
--- OUTSIDE RECORDS SUMMARY | 2018-07-03 09:56 | XMS REPORT ---
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
--- OUTSIDE RECORDS SUMMARY | 2018-07-03 09:57 | XMS REPORT ---
Author Author DARLENE HARRY [facility] Address [address] [place] [address] Care Team Providers Care Precipitator Supervisor Name Role Phone DARLENE HARRY Unavailable PROBLEMS Type Condition ICD9-CM Code YMT39-FG Code Onset Dates Condition Status SNOMED Code Problem Other chronic pain G89.29 Active 25732453 Problem Essential (primary) hypertension I10 Active 68876142 Problem Chronic viral hepatitis C B18.2 Active 864102495 Problem COPD without exacerbation J44.9 Active 03612730 Problem Foraminal stenosis of lumbar region M99.83 Active 30576784 Problem Lumbago with sciatica, left side M54.42 Active 739560541 Problem Lumbago with sciatica, right side M54.41 Active 254841093 Problem Aortic ectasia, abdominal I77.811 Active 278074395121045 Problem Pain in thoracic spine M54.6 Active 432730834691393 Problem Other iron deficiency anemia D50.8 Active 79612360 Problem Anxiety F41.9 Active 90071879 Problem Dysthymia F34.1 Active 47557214 Problem Long-term use of high-risk medication Z79.899 Active 514091211 ALLERGIES No Information ENCOUNTERS Encounter Location Date Diagnosis [place] [id number] [address] May, [facility] [id number] [address] Mar, [facility] [id number] [place] [address]53- 4562 Mar, [facility] [id number] [address] Mar, Essential (primary) hypertension I10 ; Foraminal stenosis of lumbar region M99.83 ; Long-term use of high-risk medication Z79.899 and Aortic ectasia, abdominal I77.811 [place] [address] [address]3707- [address] February, Lumbago with sciatica, unspecified side M54.40 [place] [address] [address]6789- 0988 Jan, Lumbago with sciatica, unspecified side M54.40 [place] [address] [address] Jan, Lumbago with sciatica, unspecified side M54.40 ; Essential ( primary) hypertension I10 ; COPD without exacerbation J44.9 ; Long-term use of high-risk medication Z79.899 ; Anxiety F41.9 and Dysthymia F34.1 [place] [address] [address]- [address] Dec, [place] [address] [place] [id number] [address] Dec, Lumbago with sciatica, unspecified side M54.40 [place] [address] [address]- 4601 Dec, Anxiety F41.9 and Dysthymia F34.1 [place] [address] [address]- 0406 Nov, Other chronic pain G89.29 and Lumbago with sciatica, unspecified side M54.40 [place] [address] [address]- 8893 Oct, Lumbago with sciatica, unspecified side M54.40 [place] [address] [address]957- 4116 Oct, Anxiety F41.9 and Dysthymia F34.1 [place] [address] 25489- 4273 Oct, Abnormal fasting glucose R73.01 [place] [id number] [place] [address] 94785- 1018 Oct, Essential (primary) hypertension I10 and Lumbago with sciatica, unspecified side M54.40 [place] [id number] [place] [address] 95302- 4407 Sep, Abnormal fasting glucose R73.01 [place] [address] 89398- 5566 Sep, Pulmonary nodule R91.1 ; Aortic ectasia, abdominal I77.811 and Anxiety F41.9 [place] [address] 01502- 7472 Sep, Lumbago with sciatica, unspecified side M54.40 [place] [address] 27774- 5779 Aug, Essential (primary) hypertension I10 and Lumbago with sciatica, unspecified side M54.40 [place] [id number] [place] [address] 06366- 6432 Jul, Abnormal chest CT R93.8 [place] [address] 41898- 6234 Jul, Right pulmonary lesion R91.1 [place] [id number] [place] [address] 59948- 2548 Jul, Lumbago with sciatica, unspecified side M54.40 [place] [id number] [place] [address] 23385- 0565 Jul, Pain in thoracic spine M54.6 ; Lumbago with sciatica, left side M54.42 and Lumbago with sciatica, right side M54.41 [place] [id number] [place] [address] 75464- 0882 13 Jun, 2017 Essential (primary) hypertension I10 [...] Z79.899 and Pain in thoracic spine M54.6 [place] [address] 329[address]- 7901 May, [place] [address] 35241- 5119 Apr, Lumbago with sciatica, unspecified side M54.40 [place] [address] 49712- 4642 Mar, Essential (primary) hypertension I10 ; Lumbago with sciatica , unspecified side M54.40 ; Chronic viral hepatitis C B18.2 ; Chronic obstructive pulmonary disease, unspecified J44.9 ; Other iron deficiency anemia D50.8 and Long-term use of high-risk medication Z79.899 [place] [id number] [place] [address] 41388- 3659 Mar, Essential (primary) hypertension I10 [place] [address] [address]- 0812 February, [place] [id number] [place] [address] 44674- 7412 February, Lumbago with sciatica, unspecified side M54.40 [place] [address] 73385- 1277 Jan, Lumbago with sciatica, unspecified side M54.40 [place] [address] 03462- 3877 Dec, Essential (primary) hypertension I10 ; Lumbago with sciatica , unspecified side M54.40 ; Chronic viral hepatitis C B18.2 ; Chronic obstructive pulmonary disease, unspecified J44.9 ; Other iron deficiency anemia D50.8 ; Long-term use of high-risk medication Z79.899 and General medical exam Z00.00 [place] [id number] [place] [address] 19755- 5416 Nov, Essential (primary) hypertension I10 [place] [id number] [place] [address] 60909- 1295 Oct, [place] [address] 42173- 9535 Oct, Essential (primary) hypertension I10 [place] [id number] [place] [address] 76932- 2433 Oct, Anxiety F41.9 and Dysthymia F34.1 [place] [id number] [place] [address] 03133- 5844 Oct, [place] [id number] [place] [address] 37101- 1675 Oct, [place] [id number] [place] [address] 35987- 4935 Oct, Essential (primary) hypertension I10 ; Lumbago with sciatica , unspecified side M54.40 ; Chronic viral hepatitis C B18.2 ; Chronic obstructive pulmonary disease, unspecified J44.9 ; Other iron deficiency anemia D50.8 ; Long-term use of high-risk medication Z79.899 and Anxiety F41.9 [place] [id number] [place] [address] 87748- 3986 Sep, [place] [id number] [place] [address] 11137- 4020 Aug, [place] [id number] [place] [address] 99688- 9567 Jul, Abnormal fasting glucose R73.01 [facility] [id number] [place] [address] 71446- 2546 Jul, Essential (primary) hypertension I10 ; Lumbago with sciatica , unspecified side M54.40 ; Chronic viral hepatitis C B18.2 ; Chronic obstructive pulmonary disease, unspecified J44.9 ; Other iron deficiency anemia D50.8 ; Long-term use of high-risk medication Z79.899 and Encounter for immunization Z23 [facility] [id number] [place] [address] 47160- 8606 Jun, [place] [address] 13126- 1626 May, [place] [id number] [place] [address] 07448- 0254 Apr, Other iron deficiency anemia D50.8 [facility] [id number] [place] [address] 00377 -6719 Apr, Chronic fatigue R53.82 and Bradycardia R00.1 [place] [id number] [place] [address] 64393- 2904 Apr, [place] [id number] [place] [address] 07337- 4918 Mar, Essential (primary) hypertension I10 ; Lumbago with sciatica , unspecified side M54.40 ; Chronic viral hepatitis C B18.2 ; Chronic obstructive pulmonary disease, unspecified J44.9 and Other iron deficiency anemia D50.8 [place] [id number] [place] [address] 23019- 6152 February, [place] [id number] [place] [address] 22168- 1331 Jan, [place] [id number] [place] [address] 31692- 7505 Jan, Fatigue R53.83 [place] [id number] [place] [address] 42691- 4139 Dec, Essential (primary) hypertension I10 ; Lumbago with sciatica , unspecified side M54.40 ; Chronic viral hepatitis C B18.2 ; Chronic obstructive pulmonary disease, unspecified J44.9 ; Sinusitis J32.9 and Fatigue R53.83 [place] [id number] [place] [address] 17985- 6067 Dec, [place] [address] 19119- 5308 Nov, [place] [id number] [place] [address] 44826- 6761 Oct, Essential (primary) hypertension I10 ; Lumbago with sciatica , unspecified side M54.40 ; Chronic viral hepatitis C B18.2 ; Chronic obstructive pulmonary disease, unspecified J44.9 and History of long-term use of multiple prescription drugs Z92.29 [place] [id number] [place] [address] 43926- 7452 Sep, [place] [id number] [place] [address] 89056- 6846 Aug, [place] [id number] [place] [address] 91612- 5585 Jul, Essential (primary) hypertension I10 ; Lumbago with sciatica , unspecified side M54.40 ; Chronic viral hepatitis C B18.2 ; Chronic obstructive pulmonary disease, unspecified J44.9 and Anxiety F41.9 [place] [id number] [place] [address] 60333- 0804 Jun, [place] [id number] [place] [address] 70833- 3742 May, [place] [id number] [place] [address] 02830- 3055 Apr, Essential hypertension, benign 401.1 ; Lumbago 724.2 ; Nondependent tobacco use disorder 305.1 and Chronic hepatitis C without mention of hepatic coma 070.54 [facility] [address] [address]- 9396 Mar, Lumbago 724.2 [facility] [address], [place] [address]- 6310 February, Essential hypertension, benign 401.1 ; Lumbago 724.2 ; Nondependent tobacco use disorder 305.1 and Chronic hepatitis C without mention of hepatic coma 070.54 [facility] [address], [place] [address]- 5399 February, [facility] [address] [address] 9357 Jan, [facility] [address] [address] 6940 Jan, [facility] [address] [address] 8137 Dec, [facility] [address] [address] 7671 Dec, [facility] [address] [address] 3255 Nov, [facility] [address] [address] 2443 Nov, [facility] [address], [place] [address]- 5099 Oct, [facility] [id number], [place] [address]- 7461 Oct, [facility] [address]- 80[address] Sep, [facility] [address] [address] Sep, [facility] [id number] [address]100 Aug, [facility] [place] [facility] [address] [id number] [place] [address]- 6771 Aug, [facility] [place] [facility] [address] [id number] [place] [address]- 6656 Aug, [facility] [place] [facility] [address] [id number] [place] [address]- 2798 Aug, [facility] [place] [facility] [address] [id number] [place] [address]- 2978 17 Jul, 2014 [facility] [place] [facility] [address] [id number] [place] [address]- 8619 17 Jul, 2014 [facility] [place] [facility] [address] [id number] [place] [address]- 3401 16 Jul, 2014 [facility] [place] [facility] [address] [id number] [place] [address]- 4014 Jul, [facility] [place] [facility] [address] [id number] [place] [address]- 7842 Jul, [facility] [place] [facility] [address] [id number] [place] [address]- 1742 10 Jul, 2014 [facility] [place] [facility] [address] [id number] [place] [address]- 2934 10 Jul, 2014 [facility] [place] [facility] [address] [id number] [place] [address]- 4017 11 Jun, 2014 [facility] [place] [facility] [address] [id number] [place] [address]- 0907 11 Jun, 2014 [facility] [place] [facility] [address] [id number] [place] [address]- 9426 11 Jun, 2014 [facility] [place] [facility] [address] [id number] [place] [address]- 8450 11 Jun, 2014 [facility] [place] [facility] [address] [id number] [place] [address]- 0585 11 Jun, 2014 [facility] [place] [facility] [address] [id number] [place] [address]- 2325 Jun, [facility] [place] [facility] [address] [id number] [place] [address]- 0305 Jun, [facility] [place] [facility] [address] [id number] [place] [address]- 3121 Jun, [facility] [place] [facility] [address] [id number] [place] [address]- 0282 May, [facility] [place] [facility] [address] [id number] [place] [address]- 5441 May, [facility] [place] [facility] [address] [id number] [place] [address]- 8630 Apr, [facility] [place] [facility] [address] [id number] [place] [address]- 6654 Apr, [facility] [place] [facility] [address] [id number] [place] [address]- 1114 Mar, [facility] [place] [facility] [address] [id number] [place] [address]- 4552 Mar, [facility] [place] [facility] [address] [id number] [place] [address]- 1299 Mar, [facility] [place] [facility] [address] [id number] [place] [address]- 0283 Mar, [facility] [place] [facility] [address] [id number] [place] [address]- 3507 Mar, [facility] [place] [facility] [address] [id number] [place] [address]- 6034 February, [facility] [place] [facility] [address] [id number] [place] [address]- 0834 February, [facility] [place] [facility] [address] [id number] [place] [address]- 3175 February, [facility] [place] [facility] [address] [id number] [place] [address]- 7712 February, [facility] [place] [facility] [address] [id number] [place] [address]- 9212 11 Jan, 2014 [facility] [place] [facility] [address] [id number] [place] [address]- 0246 Jan, [facility] [place] [facility] [address] [id number] [place] [address]- 6026 Jan, [facility] [place] [facility] [address] [id number] [place] [address]- 3706 Jan, [facility] [place] [facility] [address] [id number] [place] [address]- 5779 Jan, [facility] [place] [facility] [address] [id number] [place] [address]- 6602 Jan, [facility] [place] [facility] [address] [id number] [place] [address]- 8898 Jan, [facility] [place] [facility] [address] [id number] [place] [address]- 8532 Jan, [facility] [address] [id number] [place] [address]- 6115 Dec, [facility] [place] [facility] [address] [id number] [place] [address]- 9591 25 Dec, 2013 [facility] [place] [facility] [address] [id number] [place] [address]- 7690 14 Dec, 2013 [facility] [place] [facility] [address] [id number] [place] [address]- 4012 14 Dec, 2013 [facility] [place] [facility] [address] [id number] [place] [address]- 1224 Dec, [facility] [place] [facility] [address] [id number] [place] [address]- 5225 Dec, [facility] [place] [facility] [address] [id number] [place] [address]- 7634 Dec, [facility] [place] [facility] [address] [id number] [place] [address]- 2781 Dec, [facility] [place] [facility] [address] [id number] [place] [address]- 2004 Dec, [facility] [place] [facility] [address] [id number] [place] [address]- 5243 Dec, [facility] [place] [facility] [address] [id number] [place] [address]- 1078 Nov, [facility] [place] [facility] [address] [id number] [place] [address]- 5785 Nov, [facility] [place] [facility] [address] [id number] [place] [address]- 9353 Nov, [facility] [place] [facility] [address] [id number] [place] [address]- 8775 Nov, [facility] [place] [facility] [address] [id number] [place] [address]- 9775 Nov, [facility] [place] [facility] [address] [id number] [place] [address]- 6328 Nov, [facility] [place] [facility] [address] [id number] [place] [address]- 9614 Oct, [facility] [place] [facility] [address] [id number] [place] [address]- 4373 Oct, [facility] [place] [facility] [address] [id number] [place] [address]- 1998 Sep, [facility] [place] [facility] [address] [id number] [place] [address]- 2380 Sep, [facility] [place] [facility] [address] [id number] [place] [address]- 1051 Sep, [facility] [place] [facility] [address] [id number] [place] [address]- 0281 Sep, [facility] [place] [facility] [address] [id number] [place] [address]- 3626 Aug, [facility] [place] [facility] [address] [id number] [place] [address]- 6817 Aug, [facility] [address] [id number] [place] [address]- 7152 Aug, [facility] [place] [facility] [address] [id number] [place] [address]- 1306 Aug, [facility] [address] [id number] [place] [address]- 5377 Aug, [facility] [place] [facility] [address] [id number] [place] [address]- 3252 Aug, [facility] [address] [id number] [place] [address]- 5814 Aug, [facility] [place] [facility] [address] [id number] [place] [address]- 4078 Aug, [facility] [place] [facility] [address] [id number] [place] [address]- 6131 Jul, [facility] [address] [id number] [place] [address]- 2945 Jul, [facility] [place] [facility] [address] [id number] [place] [address]- 8554 Jul, [facility] [address] [id number] [place] [address]- 6606 Jul, [facility] [place] [facility] [address] [id number] [place] [address]- 7663 Jul, [facility] [place] [facility] [address] [id number] [place] [address]- 6613 Jul, [facility] [place] [facility] [address] [id number] [place] [address]- 2027 Jul, [facility] [place] [facility] [address] [id number] [place] [address]- 8529 Jul, [facility] [place] [facility] [address] [id number] [place] [address]- 5671 Jul, [facility] [place] [facility] [address] [id number] [place] [address]- 0652 21 Jul, 2012 [facility] [place] [facility] [address] [id number] [place] [address]- 2833 17 Jul, 2012 [facility] [place] [facility] [address] [id number] [place] [address]- 8461 17 Jul, 2012 [facility] [place] [facility] [address] [id number] [place] [address]- 1659 15 Jul, 2012 [facility] [place] [facility] [address] [id number] [place] [address]- 1945 15 Jul, 2012 [facility] [place] [facility] [address] [id number] [place] [address]- 7583 15 Jul, 2012 [facility] [place] [facility] [address] [id number] [place] [address]- 8220 15 Jul, 2012 [facility] [place] [facility] [address] [id number], [place] [address]- 8357 14 Jul, 2013 [facility] [place] [facility] [address] [id number], [place] [address]- 4370 14 Jul, 2013 [facility] [place] [facility] [address] [id number], [place] [address]- 4964 11 Jul, 2013 [facility] [place] [facility] [address] [id number], [place] [address]- 3751 11 Jul, 2012 [facility] [place] [facility] [address] [id number], [place] [address]- 0520 11 Jul, 2013 [facility] [place] [facility] [address] [id number], [place] [address]- 7298 11 Jul, 2013 [facility] [place] [facility] [address] [id number], [place] [address]- 9257 02 Jul, 2013 [facility] [place] [facility] [address] [id number], [place] [address]- 2271 27 Jun, 2013 [facility] [place] [facility] [address] [id number], [place] [address]- 0846 05 Jun, 2013 [facility] [address] [id number] [place] [address]- 7066 May, [facility] [place] [facility] [address] [id number] [place] [address]- 5555 May, [facility] [address] [id number] [place] [address] May, [facility] [place] [facility] [address] [id number] [place] [address] May, [facility] [address] [id number] [place] [address] May, [facility] [place] [facility] [address] [id number] [place] [address] May, [facility] [address] [id number] [place] [address] May, [facility] [place] [facility] [address] [id number] [place] [address] May, [facility] [address] [id number] [place] [address] Apr, [facility] [place] [facility] [address] [id number] [place] [address] Mar, [facility] [place] [facility] [address] [id number] [place] [address] February, [facility] [place] [facility] [address] [id number] [place] [address] Jan, [facility] [place] [facility] [address] [id number] [place] [address] Dec, [facility] [place] [facility] [address] [id number] [place] [address] 18 Dec, 2012 [facility] [place] [facility] [address] [id number] [place] [address] 15 Dec, 2012 [facility] [place] [facility] [id number] [address] Dec, [facility] [id number] [address] Nov, [facility] [id number] [address] Nov, [facility] [id number] [place] [address] Nov, [facility] [id number] [address] Nov, [facility] [id number] [place] [address] Oct, [facility] [id number] [address] Oct, [facility] [id number] [place] [address] Oct, [facility] [id number] [address] Sep, [facility] [id number] [address] Sep, [facility] [id number] [address] Sep, [facility] [id number] [address] Sep, IMMUNIZATIONS No Known Immunizations SOCIAL HISTORY Never Assessed REASON FOR VISIT Controlled Med Refill PLAN OF CARE VITAL SIGNS MEDICATIONS Medication Instructions Dosage Frequency Start Date End Date Duration Status Oxycodone HCl 10 mg Orally every 4-6 hrs hrs prn must last 28 days 1 tablet as needed Oct, 28 days Active Lisinopril 10 mg Orally [...]
--- OUTSIDE RECORDS SUMMARY | 2018-07-03 09:57 | XMS REPORT ---
Author Author DARLENE HARRY [facility] Address [address] [place] [address] Care Team Providers Care Cotton Baler Name Role Phone DARLENE HARRY Unavailable PROBLEMS Type Condition ICD9-CM Code [id number] Code Onset Dates Condition Status SNOMED Code Problem Anxiety F41.9 Active 72307205 Problem Other iron deficiency anemia D50.8 Active 73824548 Problem History of long-term use of multiple prescription drugs Z92.29 Active 507110776 Problem Pulmonary nodule R91.1 Active 916754505 Problem Aortic ectasia, abdominal I77.811 Active [id number] Problem Dysthymia F34.1 Active 81334989 Problem Long-term use of high-risk medication Z79.899 Active 666926992 Problem Right pulmonary lesion R91.1 Active 656635462 Problem Pain in thoracic spine M54.6 Active 580532800516474 Problem Abnormal chest CT R93.8 Active 575482822 Problem Foraminal stenosis of lumbar region M99.83 Active 37303147 Problem COPD without exacerbation J44.9 Active 16844877 Problem Abnormal fasting glucose R73.01 Active 804086666 Problem Lumbago with sciatica, right side M54.41 Active 917781537 Problem Other chronic pain G89.29 Active 97670243 Problem Pulmonary nodule, right R91.1 Active 097958536 Problem Chronic viral hepatitis C B18.2 Active 469265157 Problem Lumbago with sciatica, left side M54.42 Active 699139838 Problem Essential (primary) hypertension I10 Active 66436490 ALLERGIES No Information ENCOUNTERS Encounter Location Date Diagnosis [facility] [id number] [address] February, [facility] [address] [address] Jan, [place] [place] [id number] [place] [address]- 7364 Jan, [place] [address] [address] Dec, [facility] [address] [address]- [address] Dec, Lumbago with sciatica, unspecified side M54.40 [place] [address] [address]- 0918 Dec, Anxiety F41.9 and Dysthymia F34.1 [place] [address] [address]- [address] Nov, Other chronic pain G89.29 and Lumbago with sciatica, unspecified side M54.40 [place] [address] [address]- 3515 Oct, Lumbago with sciatica, unspecified side M54.40 [place] [address] [address]- 1362 Oct, Anxiety F41.9 and Dysthymia F34.1 [place] [address] [address]- 2964 Oct, Abnormal fasting glucose R73.01 [place] [address] [address]8765- 9918 Oct, Essential (primary) hypertension I10 and Lumbago with sciatica, unspecified side M54.40 [place] [id number] [place] [address]6565- 1326 Sep, Abnormal fasting glucose R73.01 [place] [address] [address]71- 7967 Sep, Pulmonary nodule R91.1 ; Aortic ectasia, abdominal I77.811 and Anxiety F41.9 [place] [address] 68695- 1006 Sep, Lumbago with sciatica, unspecified side M54.40 [place] [id number] [place] [address] 8[address]28- 1982 Aug, Essential (primary) hypertension I10 and Lumbago with sciatica, unspecified side M54.40 [facility] [id number] [place] [address] 11171- [address] Jul, [address] R93.8 [place] [address] 07388- 5880 16 Jul, 2017 Right pulmonary lesion R91.[address] [address]- [address] Jul, Lumbago with sciatica, unspecified side M54.40 [place] [id number] [place] [address] 54500- 0420 Jul, Pain in thoracic spine M54.6 ; Lumbago with sciatica, left side M54.42 and Lumbago with sciatica, right side M54.41 [place] [id number] [place] [address] 79598- 0717 13 Jun, 2017 Essential (primary) hypertension I10 [...] Z79.899 and Pain in thoracic spine M54.6 [place] [id number] [place] [address] 69408- 7977 May, [place] [address] [address] Apr, Lumbago with sciatica, unspecified side M54.40 [place] [id number] [place] [address] 39952- 3557 Mar, Essential (primary) hypertension I10 ; Lumbago with sciatica , unspecified side M54.40 ; Chronic viral hepatitis C B18.2 ; Chronic obstructive pulmonary disease, unspecified J44.9 ; Other iron deficiency anemia D50.8 and Long-term use of high-risk medication Z79.899 [place] [id number] [place] [address] 31285- 7630 Mar, Essential (primary) hypertension I10 [place] [id number] [place] [address] 56338- 9826 February, [place] [id number] [place] [address] 71999- 5072 February, Lumbago with sciatica, unspecified side M54.40 [place] [id number] [address] Jan, Lumbago with sciatica, unspecified side M54.40 [place] [address] [place] [address] 20145- 6681 Dec, Essential (primary) hypertension I10 ; Lumbago with sciatica , unspecified side M54.40 ; Chronic viral hepatitis C B18.2 ; Chronic obstructive pulmonary disease, unspecified J44.9 ; Other iron deficiency anemia D50.8 ; Long-term use of high-risk medication Z79.899 and General medical exam Z00.00 [place] [id number] [place] [address] 64284- 8937 Nov, Essential (primary) hypertension I10 [place] [address] [address]- 9284 Oct, [place] [id number] [place] [address] 29503- 3478 Oct, Essential (primary) hypertension I10 [place] [address] [place] [address] 04179- 5186 Oct, Anxiety F41.9 and Dysthymia F34.1 [place] [id number] [place] [address] 70846- 8675 Oct, [place] [id number] [place] [address] 10516- 8469 Oct, [place] [id number] [place] [address] 54224- 8160 Oct, Essential (primary) hypertension I10 ; Lumbago with sciatica , unspecified side M54.40 ; Chronic viral hepatitis C B18.2 ; Chronic obstructive pulmonary disease, unspecified J44.9 ; Other iron deficiency anemia D50.8 ; Long-term use of high-risk medication Z79.899 and Anxiety F41.9 [place] [id number] [place] [address] 19354- 6627 Sep, [place] [id number] [place] [address] 94642- 8338 Aug, [place] [id number] [place] [address] 80341- 3575 Jul, Abnormal fasting glucose R73.01 [place] [id number] [place] [address] 79772- 7781 Jul, Essential (primary) hypertension I10 ; Lumbago with sciatica , unspecified side M54.40 ; Chronic viral hepatitis C B18.2 ; Chronic obstructive pulmonary disease, unspecified J44.9 ; Other iron deficiency anemia D50.8 ; Long-term use of high-risk medication Z79.899 and Encounter for immunization Z23 [place] [address] [place] [address] 00916- 9753 Jun, [place] [id number] [place] [address] 74865- 3857 May, [facility] [address] [address]- 6055 Apr, Other iron deficiency anemia D50.8 [facility] [address] [address] Apr, Chronic fatigue R53.82 and Bradycardia R00.1 [facility] [id number] [place] [address] 60392- 7042 Apr, [facility] [id number] [place] [address] 64328- 0850 Mar, Essential (primary) hypertension I10 ; Lumbago with sciatica , unspecified side M54.40 ; Chronic viral hepatitis C B18.2 ; Chronic obstructive pulmonary disease, unspecified J44.9 and Other iron deficiency anemia D50.8 [facility] [id number] [place] [address] 20812- 3752 February, [facility] [id number] [place] [address] 85876- 9400 Jan, [place] [id number] [place] [address] 06832- 5510 Jan, Fatigue R53.83 [place] [id number] [place] [address] 16809- 2025 Dec, Essential (primary) hypertension I10 ; Lumbago with sciatica , unspecified side M54.40 ; Chronic viral hepatitis C B18.2 ; Chronic obstructive pulmonary disease, unspecified J44.9 ; Sinusitis J32.9 and Fatigue R53.83 [facility] [id number] [place] [address] 47943- 2073 Dec, [place] [id number] [place] [address] 19005- 5129 Nov, [facility] [id number] [place] [address] 68123- 1246 Oct, Essential (primary) hypertension I10 ; Lumbago with sciatica , unspecified side M54.40 ; Chronic viral hepatitis C B18.2 ; Chronic obstructive pulmonary disease, unspecified J44.9 and History of long-term use of multiple prescription drugs Z92.29 [place] [address] [address] Sep, [place] [id number] [place] [address] 47621- 9381 Aug, [place] [id number] [place] [address] 16284- 9816 Jul, Essential (primary) hypertension I10 ; Lumbago with sciatica , unspecified side M54.40 ; Chronic viral hepatitis C B18.2 ; Chronic obstructive pulmonary disease, unspecified J44.9 and Anxiety F41.9 [place] [id number] [place] [address] 37116- 0236 Jun, [place] [id number] [place] [address] 35382- 2021 May, [place] [id number] [place] [address] 93550- 8361 Apr, Essential hypertension, benign 401.1 ; Lumbago 724.2 ; Nondependent tobacco use disorder 305.1 and Chronic hepatitis C without mention of hepatic coma 070.54 [place] [address] [address]- 5776 Mar, Lumbago 724.2 [place] [id number] [place] [address] 99402- 9048 February, Essential hypertension, benign 401.1 ; Lumbago 724.2 ; Nondependent tobacco use disorder 305.1 and Chronic hepatitis C without mention of hepatic coma 070.54 [place] [address] [address]- 5163 February, [place] [id number] [place] [address] 79916- 6701 Jan, [facility] [place] [facility] [address] [id number] [place] [address]- 1423 Jan, [facility] [place] [facility] [address] [id number] [place] [address]- 2859 Dec, [facility] [place] [facility] [address] [id number] [place] [address]- 0420 Dec, [facility] [place] [facility] [address] [id number] [place] [address]- 9664 Nov, [facility] [place] [facility] [address] [id number] [place] [address]- 3499 Nov, [facility] [place] [facility] [address] [id number] [place] [address]- 1917 Oct, [facility] [place] [facility] [address] [id number] [place] [address]- 4678 Oct, [facility] [place] [facility] [address] [id number] [address]- 9364 Sep, [facility] [place] [facility] [address] [id number] [place] [address]- 5340 Sep, [facility] [place] [facility] [address] [id number] [place] [address]- 7404 Aug, [facility] [place] [facility] [address] [id number] [place] [address]- 7448 Aug, [facility] [place] [facility] [address] [id number] [place] [address]- 0304 Aug, [facility] [place] [facility] [address] [id number] [place] [address]- 6933 Aug, [facility] [place] [facility] [address] [id number] [place] 7837 Jul, [facility] [place] [facility] [address] [id number] [place] [address]- 9775 Jul, [facility] [place] [facility] [address] [id number] [place] [address]- 9417 16 Jul, 2014 [facility] [place] [facility] [address] [id number] [place] [address]- 0578 13 Jul, 2014 [facility] [place] [facility] [address] [id number] [place] [address]- 2408 13 Jul, 2014 [facility] [place] [facility] [address] [id number] [place] [address]- 2058 10 Jul, 2014 [facility] [place] [facility] [address] [id number] [place] [address]- 1658 10 Jul, 2014 [facility] [place] [facility] [address] [id number] [place] [address]- 8810 11 Jun, 2014 [facility] [place] [facility] [address] [id number] [place] [address]- 6945 11 Jun, 2014 [facility] [place] [facility] [address] [id number] [place] [address]- 2044 11 Jun, 2014 [facility] [place] [facility] [address] [id number] [place] [address]- 4189 Jun, [facility] [place] [facility] [address] [id number] [place] [address]- 2212 Jun, [facility] [place] [facility] [address] [id number] [place] [address]- 7289 Jun, [facility] [place] [facility] [address] [id number] [place] [address]- 1729 Jun, [facility] [place] [facility] [address] [id number] [place] [address]- 254 Jun, [facility] [place] [facility] [address] [id number] [place] [address]- 8251 May, [facility] [place] [facility] [address] [id number] [place] [address]- 5402 May, [facility] [place] [facility] [address] [id number] [place] [address]- 3714 Apr, [facility] [place] [facility] [address] [id number] [place] [address]- 6008 Apr, [facility] [place] [facility] [address] [id number] [place] [address]- 7577 Mar, [facility] [place] [facility] [address] [id number] [place] [address]- 3025 Mar, [facility] [place] [facility] [address] [id number] [place] [address]- 4209 Mar, [facility] [place] [facility] [address] [id number] [place] [address]- 0119 Mar, [facility] [place] [facility] [address] [id number] [place] [address]- 8565 Mar, [facility] [place] [facility] [address] [id number] [place] [address]- 5619 February, [facility] [place] [facility] [address] [id number] [place] [address]- 8717 February, [facility] [place] [facility] [address] [id number] [place] [address]- 1723 February, [facility] [place] [facility] [address] [id number] [place] [address]- 3471 February, [facility] [place] [facility] [address] [id number] [place] [address]- 3008 Jan, [facility] [place] [facility] [address] [id number] [place] [address]- 9907 Jan, [facility] [place] [facility] [address] [id number] [place] [address]- 3946 Jan, [facility] [place] [facility] [address] [id number] [place] [address]- 2249 Jan, [facility] [place] [facility] [address] [id number] [place] [address]- 9659 Jan, [facility] [place] [facility] [address] [id number] [place] [address]- 4788 Jan, [facility] [place] [facility] [address] [id number] [place] [address]- 3646 Jan, [facility] [place] [facility] [address] [id number] [place] [address]- 2442 Jan, [facility] [place] [facility] [address] [id number] [place] [address]- 7536 Dec, [facility] [place] [facility] [address] [id number] [place] [address]- 4949 Dec, [facility] [place] [facility] [address] [id number] [place] [address]- 1840 Dec, [facility] [place] [facility] [address] [id number] [place] [address]- 3138 Dec, [facility] [place] [facility] [address] [id number] [place] [address]- 7978 Dec, [facility] [place] [facility] [address] [id number] [place] [address]- 9568 Dec, [facility] [place] [facility] [address] [id number] [place] [address]- 2337 Dec, [facility] [place] [facility] [address] [id number] [place] [address]- 8532 Dec, [facility] [place] [facility] [address] [id number] [place] [address]- 2364 Dec, [facility] [place] [facility] [address] [id number] [place] [address]- 8709 Dec, [facility] [place] [facility] [address] [id number] [place] [address]- 1024 Nov, [facility] [place] [facility] [address] [id number] [place] [address]- 8570 Nov, [facility] [place] [facility] [address] [id number] [place] [address]- 0057 Nov, [facility] [place] [facility] [address] [id number] [place] [address]- 9439 Nov, [facility] [address] [id number] [place] [address]- 4693 Nov, [facility] [place] [facility] [address] [id number] [place] [address]- 2856 Nov, [facility] [place] [facility] [address] [id number] [place] [address]- 2195 Oct, [facility] [place] [facility] [address] [id number] [place] [address]- 8845 Oct, [facility] [place] [facility] [address] [id number] [place] [address]- 9763 Sep, [facility] [place] [facility] [address] [id number] [place] [address]- 9670 Sep, [facility] [place] [facility] [address] [id number] [place] [address]- 3066 Sep, [facility] [place] [facility] [address] [id number] [place] [address]- 9988 Sep, [facility] [place] [facility] [address] [id number] [place] [address]- 3190 Aug, [facility] [place] [facility] [address] [id number] [place] [address]- 0345 Aug, [facility] [place] [facility] [address] [id number] [place] [address]- 0212 Aug, [facility] [place] [facility] [address] [id number] [place] [address]- 7778 Aug, [facility] [place] [facility] [address] [id number] [place] [address]- 6298 Aug, [facility] [place] [facility] [address] [id number] [place] [address]- 4016 Aug, [facility] [place] [facility] [address] [id number] [place] [address]- 6085 Aug, [facility] [place] [facility] [address] [id number] [place] [address]- 5913 Aug, [facility] [place] [facility] [address] [id number] [place] [address]- 7716 Jul, [facility] [place] [facility] [address] [id number] [place] [address]- 7533 Jul, [facility] [place] [facility] [address] [id number] [place] [address]- 4449 Jul, [facility] [place] [facility] [address] [id number] [place] [address]- 0655 Jul, [facility] [place] [facility] [address] [id number] [place] [address]- 3264 Jul, [facility] [place] [facility] [address] [id number] [place] [address]- 9057 Jul, [facility] [place] [facility] [address] [id number] [place] [address]- 8077 Jul, [facility] [place] [facility] [address] [id number] [place] [address]- 9887 Jul, [facility] [place] [facility] [address] [id number] [place] [address]- 3153 Jul, [facility] [place] [facility] [address] [id number] [place] [address]- 1893 Jul, [facility] [place] [facility] [address] [id number] [place] [address]- 6076 Jul, [facility] [place] [facility] [address] [id number] [place] [address]- 2475 Jul, [facility] [place] [facility] [address] [id number] [place] [address]- 1289 15 Jul, 2013 [facility] [place] [facility] [address] [id number] [place] 3095 Jul, [facility] [place] [facility] [address] [id number] [place] [address]- 0824 15 Jul, 2013 [facility] [place] [facility] [address] [id number] [place] [address]- 8702 15 Jul, 2013 [facility] [place] [facility] [address] [id number] [place] [address]- 6417 14 Jul, 2013 [facility] [place] [facility] [address] [id number] [place] [address]- 3594 14 Jul, 2013 [facility] [place] [facility] [address] [id number] [place] [address]- 1088 11 Jul, 2013 [facility] [place] [facility] [address] [id number] [place] [address]- 8918 Jul, [facility] [place] [facility] [address] [id number] [place] [address]- 4599 11 Jul, 2013 [facility] [place] [facility] [address] [id number] [place] [address]- 0535 11 Jul, 2013 [facility] [place] [facility] [address] [id number] [place] [address]- 9506 02 Jul, 2013 [facility] [place] [facility] [address] [id number] [place] [address] 27 Jun, 2013 [facility] [place] [facility] [address] [id number] [place] [address] 05 Jun, 2013 [facility] [place] [facility] [address] [id number] [place] [address] May, [facility] [place] [facility] [address] [id number] [place] [address] May, [facility] [place] [facility] [address] [id number] [place] [address] May, [facility] [place] [facility] [address] [id number] [place] [address] May, [facility] [place] [facility] [address] [id number] [place] [address] 16 May, 2013 [facility] [place] [facility] [address] [id number] [place] [address] May, [facility] [place] [facility] [address] [id number] [place] [address] May, [facility] [place] [facility] [address] [id number] [place] [address] May, [facility] [place] [facility] [address] [id number] [place] [address] Apr, [facility] [address] [id number] [place] [address] Mar, [facility] [place] [facility] [address] [id number] [place] [address] February, [facility] [address] [id number] [place] [address] Jan, [facility] [address] [id number] [place] [address] Dec, [facility] [address] [id number] [place] [address] Dec, [facility] [address] [id number] [place] [address] Dec, [facility] [place] [facility] [address] [id number] [place] [address] Dec, [facility] [place] [facility] [address] [id number] [place] [address] Nov, [facility] [place] [facility] [address] [id number] [place] [address] Nov, [facility] [place] [facility] [address] [id number] [place] [address] 15 Nov, 2012 [facility] [place] [facility] [address] [id number] [place] [address] 15 Nov, 2012 [facility] [place] [facility] [address] [id number] [place] [address] Oct, [facility] [address] [facility] [id number] [place] [address] Oct, [facility] [address] [facility] [id number] [place] [address] Oct, [facility] [address] [facility] [id number] [place] [address] Sep, [facility] [address] [facility] [id number] [place] [address] Sep, [facility] [address] [facility] [id number] [place] [address] Sep, [facility] [address] [facility] [id number] [place] [address] Sep, IMMUNIZATIONS No Known Immunizations SOCIAL HISTORY Never Assessed REASON FOR VISIT Controlled Med Refill PLAN OF CARE VITAL SIGNS MEDICATIONS Medication Instructions Dosage Frequency Start Date End Date Duration Status oxycodone 10 mg orally every 4-6 hours [...] Disorder Medical History herniated disc Medical History Node on lower left lung Surgical History appendectomy Hospitalization History Blood transfusions for anemia from Hep C Treatments 2012
--- OUTSIDE RECORDS SUMMARY | 2018-07-03 09:58 | XMS REPORT ---
Author Author DARLENE HARRY Organization [employer] Address Unknown Phone Unavailable Care Team Providers Care Associate Store Director Name Role Phone DARLENE HARRY CP Unavailable Allergies No Known Allergies Problems Problem Type Condition Code Onset Dates Condition Status Problem Essential (primary) hypertension I10 Active Problem Lumbago with sciatica, unspecified side M54.40 Active Problem History of long-term use of multiple prescription drugs Z92.29 Active Problem Anxiety F41.9 Active Problem Chronic viral hepatitis C B18.2 Active Problem Chronic obstructive pulmonary disease, unspecified J44.9 Active Medications Medication Code System Code Instructions Start Date End Date Status Dosage oxycodone NDC 0 10 mg orally every 4-6 hours prn must last 28 days take 1 tablet Results No Known Results Summary Purpose [employer] Submission
--- OUTSIDE RECORDS SUMMARY | 2018-07-03 09:58 | XMS REPORT ---
Author Author DARLENE HARRY [facility] Address [address] [place] [address] Care Team Providers Care Station Operator Name Role Phone DARLENE HARRY Unavailable PROBLEMS Type Condition ICD9-CM Code IPK85-VL Code Onset Dates Condition Status SNOMED Code Problem Anxiety F41.9 Active 27187097 Problem Other iron deficiency anemia D50.8 Active 73548075 Problem History of long-term use of multiple prescription drugs Z92.29 Active 915015776 Problem Pulmonary nodule R91.1 Active 633195873 Problem Aortic ectasia, abdominal I77.811 Active [id number] Problem Dysthymia F34.1 Active 39590981 Problem Long-term use of high-risk medication Z79.899 Active 569447694 Problem Right pulmonary lesion R91.1 Active 137403186 Problem Pain in thoracic spine M54.6 Active 858568497475325 Problem Abnormal chest CT R93.8 Active 630458215 Problem Foraminal stenosis of lumbar region M99.83 Active 89218898 Problem COPD without exacerbation J44.9 Active 85720111 Problem Abnormal fasting glucose R73.01 Active 116704775 Problem Lumbago with sciatica, right side M54.41 Active 080468744 Problem Other chronic pain G89.29 Active 15236419 Problem Pulmonary nodule, right R91.1 Active 352255421 Problem Chronic viral hepatitis C B18.2 Active 265740928 Problem Lumbago with sciatica, left side M54.42 Active 152536903 Problem Essential (primary) hypertension I10 Active 73704331 ALLERGIES No Known Allergies ENCOUNTERS Encounter Location Date Diagnosis [facility] [id number] [address] February, [facility] [id number], [place] [address] Jan, [place] [id number] [place] [address] 07357- 9099 Jan, [place] [address] [address]- [address] Dec, Anxiety F41.9 and Dysthymia F34.1 [place] [address] [address]- 4877 Nov, Other chronic pain G89.29 and Lumbago with sciatica, unspecified side M54.40 [place] [address] [address]- [address]40 Oct, Lumbago with sciatica, unspecified side M54.40 [place] [address] 43733- 9083 Oct, Anxiety F41.9 and Dysthymia F34.1 [place] [address] [address]34- 4764 Oct, Abnormal fasting glucose R73.01 [place] [address] 19789- 8957 Oct, Essential (primary) hypertension I10 and Lumbago with sciatica, unspecified side M54.40 [place] [id number] [place] [address] 73558- 0982 Sep, Abnormal fasting glucose R73.01 [place] [id number] [place] [address] 80768- 0861 Sep, Pulmonary nodule R91.1 ; Aortic ectasia, abdominal I77.811 and Anxiety F41.9 [place] [address] 20336- 2533 Sep, Lumbago with sciatica, unspecified side M54.40 [place] [id number] [place] [address] 44415- 8244 Aug, Essential (primary) hypertension I10 and Lumbago with sciatica, unspecified side M54.40 [place] [address], [place] [address] [address] Jul, [address] R93.8 [place] [id number] [place] [address] 59068- 1510 Jul, Right pulmonary lesion R91.1 [place] [id number] [place] [address] 79224- 7394 Jul, Lumbago with sciatica, unspecified side M54.40 [place] [id number] [place] [address] 65843- 2874 Jul, Pain in thoracic spine M54.6 ; Lumbago with sciatica, left side M54.42 and Lumbago with sciatica, right side M54.41 [place] [id number] [place] [address] 16950- 8839 Jun, Essential (primary) hypertension I10 ; Other [...] Z79.899 and Pain in thoracic spine M54.6 [place] [id number], [place] [address] May, [place] [id number] [place] [address] 76724- 6608 Apr, Lumbago with sciatica, unspecified side M54.40 [place] [address], [place] [address] 74[address] Mar, Essential (primary) hypertension I10 ; Lumbago with sciatica , unspecified side M54.40 ; Chronic viral hepatitis C B18.2 ; Chronic obstructive pulmonary disease, unspecified J44.9 ; Other iron deficiency anemia D50.8 and Long-term use of high-risk medication Z79.899 [place] [address], [place] [address] 290[address] Mar, Essential (primary) hypertension I10 [place] [id number] [place] [address] 34452- 2494 February, [place] [id number] [place] [address] 50425- 1836 February, Lumbago with sciatica, unspecified side M54.40 [place] [id number] [place] [address] 60949- 6541 Jan, Lumbago with sciatica, unspecified side M54.40 [place] [id number] [place] [address] 22642- 7262 Dec, Essential (primary) hypertension I10 ; Lumbago with sciatica , unspecified side M54.40 ; Chronic viral hepatitis C B18.2 ; Chronic obstructive pulmonary disease, unspecified J44.9 ; Other iron deficiency anemia D50.8 ; Long-term use of high-risk medication Z79.899 and General medical exam Z00.00 [place] [id number] [place] [address] 11806- 3120 Nov, Essential (primary) hypertension I10 [place] [id number] [place] [address] 24524- 9155 Oct, [place] [id number] [place] [address] 38780- 7511 Oct, Essential (primary) hypertension I10 [place] [id number] [place] [address] 00900- 9684 Oct, Anxiety F41.9 and Dysthymia F34.1 [place] [id number] [place] [address]- 6796 Oct, [facility] [id number] [place] [address] 11752- 3785 Oct, [place] [id number] [place] [address] 86176- 8959 Oct, Essential (primary) hypertension I10 ; Lumbago with sciatica , unspecified side M54.40 ; Chronic viral hepatitis C B18.2 ; Chronic obstructive pulmonary disease, unspecified J44.9 ; Other iron deficiency anemia D50.8 ; Long-term use of high-risk medication Z79.899 and Anxiety F41.9 [place] [address] 58159- 5124 Sep, [place] [address] 73452- 3886 Aug, [place] [address] 82202- 2558 Jul, Abnormal fasting glucose R73.01 [place] [id number] [place] [address] 56863- 9091 Jul, Essential (primary) hypertension I10 ; Lumbago with sciatica , unspecified side M54.40 ; Chronic viral hepatitis C B18.2 ; Chronic obstructive pulmonary disease, unspecified J44.9 ; Other iron deficiency anemia D50.8 ; Long-term use of high-risk medication Z79.899 and Encounter for immunization Z23 [place] [id number] [place] [address] 70476- 1056 Jun, [place] [id number] [place] [address] 81376- 0356 May, [place] [id number] [place] [address] 54455- 6138 Apr, Other iron deficiency anemia D50.8 [facility] [id number] [place] [address] 11151 -8751 Apr, Chronic fatigue R53.82 and Bradycardia R00.1 [place] [id number] [place] [address] 05758- 7167 Apr, [place] [id number] [place] [address] 43446- 2438 Mar, Essential (primary) hypertension I10 ; Lumbago with sciatica , unspecified side M54.40 ; Chronic viral hepatitis C B18.2 ; Chronic obstructive pulmonary disease, unspecified J44.9 and Other iron deficiency anemia D50.8 [place] [id number] [place] [address] 64746- 0075 February, [place] [id number] [place] [address] 22252- 6079 Jan, [place] [id number] [place] [address] 50075- 4527 Jan, Fatigue R53.83 [place] [id number] [place] [address] 87059- 0574 Dec, Essential (primary) hypertension I10 ; Lumbago with sciatica , unspecified side M54.40 ; Chronic viral hepatitis C B18.2 ; Chronic obstructive pulmonary disease, unspecified J44.9 ; Sinusitis J32.9 and Fatigue R53.83 [place] [id number] [place] [address] 96815- 1758 Dec, [place] [id number] [place] [address] 68865- 9103 Nov, [place] [id number] [place] [address] 38513- 8636 Oct, Essential (primary) hypertension I10 ; Lumbago with sciatica , unspecified side M54.40 ; Chronic viral hepatitis C B18.2 ; Chronic obstructive pulmonary disease, unspecified J44.9 and History of long-term use of multiple prescription drugs Z92.29 [place] [id number] [place] [address] 75495- 8279 Sep, [facility] [address], [place] [address]- 4791 Aug, [facility] [id number] [place] [address] 409928- 4972 Jul, Essential (primary) hypertension I10 ; Lumbago with sciatica , unspecified side M54.40 ; Chronic viral hepatitis C B18.2 ; Chronic obstructive pulmonary disease, unspecified J44.9 and Anxiety F41.9 [facility] [id number], [place] [address]- 8643 Jun, [facility] [id number] [place] [address] 38154- 5786 May, [facility] [id number] [place] [address] 52960- 1111 Apr, Essential hypertension, benign 401.1 ; Lumbago 724.2 ; Nondependent tobacco use disorder 305.1 and Chronic hepatitis C without mention of hepatic coma 070.54 [facility] [address], [place] [address]- 6662 Mar, Lumbago 724.2 [facility] [id number] [place] [address] 15347- 3970 February, Essential hypertension, benign 401.1 ; Lumbago 724.2 ; Nondependent tobacco use disorder 305.1 and Chronic hepatitis C without mention of hepatic coma 070.54 [facility] [address], [place] [address]- 0381 February, [facility] [address], [place] [address]- 4939 Jan, [facility] [id number] [place] [address] 987093- 9409 Jan, [facility] [address] [address] 9378 Dec, [facility] [id number] [place] [address]- 0607 Dec, [facility] [address] [id number] [place] [address]- 8967 Nov, 2014 [facility] [place] [facility] [address] [id number] [place] [address]- 2891 Nov, [facility] [place] [facility] [address] [id number] [place] [address]- 5976 Oct, [facility] [place] [facility] [address] [id number] [place] [address]- 9953 Oct, [facility] [place] [facility] [address] [id number] [place] [address]- 5916 Sep, [facility] [place] [facility] [address] [id number] [place] [address]- 5850 Sep, [facility] [place] [facility] [address] [id number] [place] [address]- 1059 Aug, [facility] [place] [facility] [address] [id number] [place] [address]- 0567 Aug, [facility] [place] [facility] [address] [id number] [place] [address]- 3309 Aug, [facility] [place] [facility] [address] [facility] [place] [id number] [place] [address]- 9937 Aug, [facility] [place] [facility] [address] [id number] [place] [address]- 1305 Jul, [facility] [place] [facility] [address] [id number] [place] [address]- 6343 17 Jul, 2014 [facility] [place] [facility] [address] [id number] [place] [address]- 3248 16 Jul, 2014 [facility] [place] [facility] [address] [id number] [place] [address]- 7130 13 Jul, 2014 [facility] [place] [facility] [address] [id number] [place] [address]751 Jul, [facility] [place] [facility] [address] [id number] [place] [address]- 4314 Jul, [facility] [place] [facility] [address] [id number] [place] [address]- 5076 Jul, [facility] [place] [facility] [address] [id number] [place] [address]- 6520 Jun, [facility] [place] [facility] [address] [id number] [place] [address]- 1560 Jun, [facility] [place] [facility] [address] [id number] [place] [address]- 4209 Jun, [facility] [place] [facility] [address] [id number] [place] [address]- 0361 Jun, [facility] [place] [facility] [address] [id number] [place] [address]- 8654 Jun, [facility] [place] [facility] [address] [id number] [place] [address]- 0124 Jun, [facility] [place] [facility] [address] [id number] [place] [address]- 0815 Jun, [facility] [place] [facility] [address] [id number] [place] [address]- 7491 Jun, [facility] [place] [facility] [address] [id number] [place] [address]- 7759 May, [facility] [place] [facility] [address] [id number] [place] [address]- 3671 May, [facility] [place] [facility] [address] [id number] [place] [address]- 4598 Apr, [facility] [place] [facility] [address] [id number] [place] [address]- 8344 Apr, [facility] [place] [facility] [address] [id number] [place] [address]- 2940 Mar, [facility] [place] [facility] [address] [id number] [place] [address]- 3933 Mar, [facility] [place] [facility] [address] [id number] [place] [address]- 1006 Mar, [facility] [place] [facility] [address] [id number] [place] [address]- 9235 Mar, [facility] [place] [facility] [address] [id number] [place] [address]- 2072 Mar, [facility] [place] [facility] [address] [id number] [place] [address]- 9048 February, [facility] [place] [facility] [address] [id number] [place] [address]- 4553 February, [facility] [place] [facility] [address] [id number] [place] [address]- 2575 February, [facility] [place] [facility] [address] [id number] [place] [address]- 1349 February, [facility] [place] [facility] [address] [id number] [place] [address]- 4370 Jan, [facility] [place] [facility] [address] [id number] [place] [address]- 0404 Jan, [facility] [place] [facility] [address] [id number] [place] [address]- 9388 Jan, [facility] [place] [facility] [address] [id number] [place] [address]- 0237 Jan, [facility] [place] [facility] [address] [id number] [place] [address]- 7562 Jan, [facility] [place] [facility] [address] [id number] [place] [address]- 1978 Jan, [facility] [place] [facility] [address] [id number] [place] [address]- 1317 Jan, [facility] [place] [facility] [address] [id number] [place] [address]- 8192 Jan, [facility] [place] [facility] [address] [id number] [place] [address]- 0683 25 Dec, 2013 [facility] [place] [facility] [address] [id number] [place] [address]- 3521 25 Dec, 2013 [facility] [place] [facility] [address] [id number] [place] [address]- 3806 14 Dec, 2013 [facility] [place] [facility] [address] [id number] [place] [address]- 4987 14 Dec, 2013 [facility] [place] [facility] [address] [id number] [place] [address]- 7001 Dec, [facility] [place] [facility] [address] [id number] [place] [address]- 6322 Dec, [facility] [place] [facility] [address] [id number] [place] [address]- 5238 Dec, [facility] [place] [facility] [address] [id number] [place] [address]- 4237 Dec, [facility] [place] [facility] [address] [id number] [place] [address]- 0168 Dec, [facility] [place] [facility] [address] [id number] [place] [address]- 1879 Dec, [facility] [place] [facility] [address] [id number] [place] [address]- 7712 Nov, [facility] [place] [facility] [address] [id number] [place] [address]- 2774 Nov, [facility] [place] [facility] [address] [id number] [place] [address]- 9779 Nov, [facility] [place] [facility] [address] [id number] [place] [address]- 5619 Nov, [facility] [place] [facility] [address] [id number] [place] [address]- 9514 Nov, [facility] [place] [facility] [address] [id number], [place] [address]- 8091 Nov, [facility] [address] [id number] [place] [address]- 3226 Oct, [facility] [place] [facility] [address] [id number] [place] [address]- 8397 Oct, [facility] [address] [facility] [id number] [place] [address]- 5317 Sep, [facility] [place] [facility] [address] [id number] [place] [address]- 5506 Sep, [facility] [address] [id number] [place] [address]- 4684 Sep, [facility] [place] [facility] [address] [facility] [place] [place] [id number] [place] [address]- 7320 Sep, [facility] [address] [facility] [place] [place] [id number] [place] [address]- 0551 Aug, [facility] [place] [facility] [address] [facility] [place] [id number] [place] [address]- 5197 Aug, [facility] [address] [facility] [place] [place] [id number] [place] [address]- 7023 Aug, [facility] [place] [facility] [address] [facility] [place] [place] [id number] [place] [address]- 0204 Aug, [facility] [place] [facility] [address] [facility] [id number], [place] [address]- 3623 Aug, [facility] [place] [facility] [address] [facility] [place] [id number], [place] [address]- 4176 Aug, [facility] [place] [facility] [address] [id number], [place] [address]- 5713 Aug, [facility] [place] [facility] [address] [facility] [id number], [place] [address]- 5502 Aug, [facility] [place] [facility] [address] [facility] [place] [place] [id number] [place] [address]- 0621 Jul, [facility] [place] [facility] [address] [id number] [place] [address]- 5175 30 Jul, 2012 [facility] [place] [facility] [address] [id number] [place] [address]- 0690 Jul, 2012 [facility] [place] [facility] [address] [id number] [place] [address]- 0777 Jul, 2012 [facility] [place] [facility] [address] [id number] [place] [address]- 5573 Jul, 2012 [facility] [place] [facility] [address] [id number] [place] [address]- 6917 Jul, 2012 [facility] [place] [facility] [address] [id number] [place] [address]- 4417 Jul, 2012 [facility] [place] [facility] [address] [id number] [place] [address]- 0747 Jul, 2012 [facility] [place] [facility] [address] [id number] [place] [address]- 1931 Jul, 2012 [facility] [place] [facility] [address] [id number] [place] [address]- 4764 Jul, 2012 [facility] [place] [facility] [address] [id number] [place] [address]- 6238 17 Jul, 2012 [facility] [place] [facility] [address] [id number] [place] [address]- 3174 17 Jul, 2012 [facility] [place] [facility] [address] [id number] [place] [address]- 2762 15 Jul, 2012 [facility] [place] [facility] [address] [id number] [place] [address]- 5915 15 Jul, 2012 [facility] [place] [facility] [address] [id number] [place] [address]- 3435 15 Jul, 2012 [facility] [place] [facility] [address] [id number] [place] [address]- 5019 15 Jul, 2012 [facility] [place] [facility] [address] [id number] [place] [address]- 7373 14 Jul, 2013 [facility] [place] [facility] [address] [id number] [place] [address]- 5149 14 Jul, 2013 [facility] [place] [facility] [address] [id number] [place] [address]- 4811 Jul, [facility] [place] [facility] [address] [id number] [place] [address]- 4686 Jul, [facility] [place] [facility] [address] [id number] [place] [address] Jul, [facility] [place] [facility] [address] [id number] [place] [address] Jul, [facility] [place] [facility] [address] [id number] [place] [address] Jul, [facility] [place] [facility] [address] [id number] [place] [address] Jun, [facility] [place] [facility] [address] [id number] [place] [address] 05 Jun, 2013 [facility] [place] [facility] [address] [id number] [place] [address] May, [facility] [place] [facility] [address] [id number] [place] [address] May, [facility] [place] [facility] [address] [id number], [place] [address] May, [facility] [place] [facility] [address] [id number], [place] [address] May, [facility] [place] [facility] [address] [id number] [place] [address] 16 May, 2013 [facility] [place] [facility] [address] [id number] [place] [address] 14 May, 2013 [facility] [place] [facility] [address] [id number] [place] [address] May, [facility] [place] [facility] [address] [id number] [place] [address] 02 May, 2013 [facility] [address] [id number] [place] [address] Apr, [facility] [place] [facility] [address] [id number] [place] [address] 14 Mar, 2013 [facility] [address] [id number] [place] [address] February, [facility] [place] [facility] [address] [id number] [place] [address] Jan, [facility] [address] [id number] [place] [address] 21 Dec, 2012 [facility] [place] [facility] [address] [id number] [place] [address] 18 Dec, 2012 [facility] [address] [id number] [place] [address] 15 Dec, 2012 [facility] [place] [facility] [address] [id number] [place] [address] 07 Dec, 2012 [facility] [address] [id number] [place] [address] 28 Nov, 2012 [facility] [address] [id number] [place] [address] 26 Nov, 2012 [facility] [place] [facility] [address] [id number] [place] [address] 15 Nov, 2012 [facility] [place] [facility] [address] [id number] [place] [address] 15 Nov, 2012 [facility] [place] [facility] [address] [id number] [place] [address] 16 Oct, 2012 [facility] [place] [facility] [address] [id number] [place] [address] 15 Oct, 2012 [facility] [place] [facility] [address] [id number] [place] [address] Oct, [facility] [address] [facility] [id number], [place] [address] Sep, [facility] [address] [facility] [place] [id number], [place] [address] Sep, [facility] [address] [facility] [place] [id number], [place] [address] Sep, [facility] [address] [facility] [place] [id number] [address] Sep, IMMUNIZATIONS No Known Immunizations SOCIAL HISTORY Never Assessed REASON FOR VISIT med review---CLARISSA Coronado PLAN OF CARE Activity Details Follow Up 3 Months Reason:pain/HTN VITAL SIGNS Height 70 in 2017-04-06 Weight 132.9 lbs 2017-04-06 Temperature 99.8 degrees Fahrenheit 2017-04-06 Heart Rate 90 bpm 2017-04-06 Respiratory Rate 18 2017-04-06 BMI 19.07 kg/m2 2017-04-06 Blood pressure systolic 123 mmHg 2017-04-06 Blood pressure diastolic 78 mmHg 2017-04-06 MEDICATIONS Medication Instructions Dosage Frequency Start Date End Date Duration Status Trintellix 10 MG Orally Once a day 1 tablet 24h Oct, 30 day(s) Active Multivitamin Adult Active Vitamin C 500 MG Active Lisinopril 10 MG Orally Once a day 1 tablet 24h Active Iron 65 MG Orally Once a day 1 tabley 24h Active Oxycodone HCl 10 mg Orally every 4-6 hrs hrs prn must last 28 days 1 tablet as needed Mar, 28 days Active oxycodone 10 mg orally every 4-6 hours prn must last 28 days take 1 tablet Active ProAir HFA 108 (90 Base) mcg/act Inhalation every 4 hrs prn inhale 2 puffs by Inhalation route every 4 hours as needed PRN must transition care- no more refills Active Remeron 15 MG Orally QHS 1/2 tablet Oct, 30 day(s) Active RESULTS No Results PROCEDURES No Known procedures INSTRUCTIONS MEDICATIONS ADMINISTERED No Known Medications MEDICAL (GENERAL) HISTORY Type Description Date Medical History hypertension Medical History hepatitis C - Completed 6 months of treatment and had to have multiple transfusions. Did not complete full treatment. Medical History chronic bronchitis Medical History lower back pain Medical History 2009 MRI L-spine: Marked degenerative disc changes present [...]
--- OUTSIDE RECORDS SUMMARY | 2018-07-03 09:58 | XMS REPORT ---
Author Author DARLENE HARRY [facility] Address [address] [place] [address] Care Team Providers Care Publication Editor Name Role Phone DARLENE HARRY Unavailable PROBLEMS Type Condition ICD9-CM Code OSI06-XU Code Onset Dates Condition Status SNOMED Code Problem Other chronic pain G89.29 Active 09463073 Problem Essential (primary) hypertension I10 Active 00734103 Problem Chronic viral hepatitis C B18.2 Active 658083855 Problem COPD without exacerbation J44.9 Active 29030470 Problem Foraminal stenosis of lumbar region M99.83 Active 19755129 Problem Lumbago with sciatica, left side M54.42 Active 982691618 Problem Lumbago with sciatica, right side M54.41 Active 019060380 Problem Aortic ectasia, abdominal I77.811 Active 242400999362887 Problem Pain in thoracic spine M54.6 Active 174800729065685 Problem Other iron deficiency anemia D50.8 Active 81851272 Problem Anxiety F41.9 Active 36109078 Problem Dysthymia F34.1 Active 13361127 Problem Long-term use of high-risk medication Z79.899 Active 691373768 ALLERGIES No Information ENCOUNTERS Encounter Location Date Diagnosis [address] [id number] [address] May, [address] [place] [id number] [place] [address] 87059- 8290 Mar, Foraminal stenosis of lumbar region M99.83 [address] [id number] [place] [address] 37664- 9322 Mar, Essential (primary) hypertension I10 ; Foraminal stenosis of lumbar region M99.83 ; Long-term use of high-risk medication Z79.899 and Aortic ectasia, abdominal I77.811 [place] [id number] [place] [address] 57240- 7712 February, Lumbago with sciatica, unspecified side M54.40 [place] [address] [id number] [address]841 Jan, Lumbago with sciatica, unspecified side M54.40 [place] [address] [address]- [address] Jan, Lumbago with sciatica, unspecified side M54.40 ; Essential ( primary) hypertension I10 ; COPD without exacerbation J44.9 ; Long-term use of high-risk medication Z79.899 ; Anxiety F41.9 and Dysthymia F34.1 [place] [address] 77150- 4656 Dec, [place] [address] 745187- 8105 Dec, Lumbago with sciatica, unspecified side M54.40 [place] [id number] [place] [address] 34101- 9716 Dec, Anxiety F41.9 and Dysthymia F34.1 [place] [id number] [place] [address] 07619- 4739 Nov, Other chronic pain G89.29 and Lumbago with sciatica, unspecified side M54.40 [place] [id number] [place] [address] 99146- 7135 Oct, Lumbago with sciatica, unspecified side M54.40 [place] [address] [id number]- 3306 Oct, Anxiety F41.9 and Dysthymia F34.1 [place] [address] [id number] [place] [address] 50809- 2421 Oct, Abnormal fasting glucose R73.01 [address] [place] [address]- 8531 Oct, Essential (primary) hypertension I10 and Lumbago with sciatica, unspecified side M54.40 [place] [id number] [place] [address] 41056- 2928 Sep, Abnormal fasting glucose R73.01 [place] [address] 85281- 6594 Sep, Pulmonary nodule R91.1 ; Aortic ectasia, abdominal I77.811 and Anxiety F41.9 [place] [address] 90431- 2964 Sep, Lumbago with sciatica, unspecified side M54.40 [place] [id number] [place] [address] 58714- 4380 Aug, Essential (primary) hypertension I10 and Lumbago with sciatica, unspecified side M54.40 [place] [id number] [place] [address] 84107- 1980 Jul, Abnormal chest CT R93.8 [place] [address] 30432- 1526 Jul, Right pulmonary lesion R91.1 [place] [id number] [place] [address] 51722- 7268 Jul, Lumbago with sciatica, unspecified side M54.40 [place] [id number] [place] [address] 05441- 3928 Jul, Pain in thoracic spine M54.6 ; Lumbago with sciatica, left side M54.42 and Lumbago with sciatica, right side M54.41 [place] [id number] [place] [address] 59437- 7744 13 Jun, 2017 Essential (primary) hypertension I10 [...] Z79.899 and Pain in thoracic spine M54.6 [place] [id number] [place] [address] 26247- 0482 May, [place] [address] 36799- 3978 Apr, Lumbago with sciatica, unspecified side M54.40 [place] [id number] [place] [address] 31369- 1987 Mar, Essential (primary) hypertension I10 ; Lumbago with sciatica , unspecified side M54.40 ; Chronic viral hepatitis C B18.2 ; Chronic obstructive pulmonary disease, unspecified J44.9 ; Other iron deficiency anemia D50.8 and Long-term use of high-risk medication Z79.899 [place] [id number] [place] [address] 14017- 2514 Mar, Essential (primary) hypertension I10 [place] [id number] [place] [address] 68507- 8890 February, [place] [id number] [place] [address] 03092- 7486 February, Lumbago with sciatica, unspecified side M54.40 [place] [id number] [place] [address] 08290- 9217 Jan, Lumbago with sciatica, unspecified side M54.40 [place] [id number] [place] [address] 25290- 9769 Dec, Essential (primary) hypertension I10 ; Lumbago with sciatica , unspecified side M54.40 ; Chronic viral hepatitis C B18.2 ; Chronic obstructive pulmonary disease, unspecified J44.9 ; Other iron deficiency anemia D50.8 ; Long-term use of high-risk medication Z79.899 and General medical exam Z00.00 [place] [id number] [place] [address] 52215- 9689 Nov, Essential (primary) hypertension I10 [place] [id number] [place] [address] 76195- 2446 Oct, [place] [id number] [place] [address] 77167- 5786 Oct, Essential (primary) hypertension I10 [place] [id number] [place] [address] 33926- 6644 Oct, Anxiety F41.9 and Dysthymia F34.1 [place] [id number] [place] [address] 27000- 9883 Oct, [place] [id number] [place] [address] 12294- 9634 Oct, [place] [id number] [place] [address] 90687- 4925 Oct, Essential (primary) hypertension I10 ; Lumbago with sciatica , unspecified side M54.40 ; Chronic viral hepatitis C B18.2 ; Chronic obstructive pulmonary disease, unspecified J44.9 ; Other iron deficiency anemia D50.8 ; Long-term use of high-risk medication Z79.899 and Anxiety F41.9 [place] [id number] [place] [address] 38852- 3388 Sep, [place] [id number] [place] [address] 99542- 1770 Aug, [place] [id number] [place] [address] 55669- 0864 Jul, Abnormal fasting glucose R73.01 [place] [id number] [place] [address] 74439- 2192 Jul, Essential (primary) hypertension I10 ; Lumbago with sciatica , unspecified side M54.40 ; Chronic viral hepatitis C B18.2 ; Chronic obstructive pulmonary disease, unspecified J44.9 ; Other iron deficiency anemia D50.8 ; Long-term use of high-risk medication Z79.899 and Encounter for immunization Z23 [place] [address] 14197- 7139 Jun, [place] [id number] [place] [address] 55192- 4992 May, [address] 98534- 7119 Apr, Other iron deficiency anemia D50.8 [facility] [id number] [place] [address] 43595 -9874 Apr, Chronic fatigue R53.82 and Bradycardia R00.1 [address] [id number] [place] [address] 51752- 9293 Apr, [address] [id number] [place] [address] 56784- 1650 Mar, Essential (primary) hypertension I10 ; Lumbago with sciatica , unspecified side M54.40 ; Chronic viral hepatitis C B18.2 ; Chronic obstructive pulmonary disease, unspecified J44.9 and Other iron deficiency anemia D50.8 [place] [id number] [place] [address] 19023- 5227 February, [place] [id number] [place] [address] 15939- 8803 Jan, [address] [id number] [place] [address] 21375- 2736 Jan, Fatigue R53.83 [address] [address] [id number] [place] [address] 95024- 3270 Dec, Essential (primary) hypertension I10 ; Lumbago with sciatica , unspecified side M54.40 ; Chronic viral hepatitis C B18.2 ; Chronic obstructive pulmonary disease, unspecified J44.9 ; Sinusitis J32.9 and Fatigue R53.83 [place] [id number] [place] [address] 17831- 4800 Dec, [place] [address] 16386- 3625 Nov, [place] [address] 46529- 1162 Oct, Essential (primary) hypertension I10 ; Lumbago with sciatica , unspecified side M54.40 ; Chronic viral hepatitis C B18.2 ; Chronic obstructive pulmonary disease, unspecified J44.9 and History of long-term use of multiple prescription drugs Z92.[address] 22402- 6856 Sep, [place] [address] 84031- 0829 Aug, [address] 18078- 9669 Jul, Essential (primary) hypertension I10 ; Lumbago with sciatica , unspecified side M54.40 ; Chronic viral hepatitis C B18.2 ; Chronic obstructive pulmonary disease, unspecified J44.9 and Anxiety F41.9 [place] [id number] [place] [address] 00383- 3882 Jun, [place] [id number] [place] [address] 15472- 9099 May, [address] 21424- 1618 Apr, Essential hypertension, benign 401.1 ; Lumbago 724.2 ; Nondependent tobacco use disorder 305.1 and Chronic hepatitis C without mention of hepatic coma 070.54 [place] [address] [place] [address]- 4821 Mar, Lumbago 724.2 [facility] [id number] [place] [address] 13405- 6709 February, Essential hypertension, benign 401.1 ; Lumbago 724.2 ; Nondependent tobacco use disorder 305.1 and Chronic hepatitis C without mention of hepatic coma 070.54 [facility] [id number] [place] [address] 54799- 9783 February, [facility] [id number] [place] [address] 25415- 9324 Jan, [facility] [id number] [place] [address] 85258- 3797 Jan, [facility] [id number] [place] [address] 76393- 8388 Dec, [facility] [id number] [place] [address] 13632- 4899 Dec, [facility] [id number] [place] [address] 62886- 1596 Nov, [facility] [id number] [place] [address] 93752- 0557 Nov, [facility] [id number] [place] [address] 65600- 5968 Oct, [facility] [id number] [place] [address] 41782- 0862 Oct, [facility] [address] [place] [address] 33080- 0201 Sep, [facility] [id number] [place] [address] 77278- 9748 Sep, [facility] [id number] [place] [address] 16724- 5244 Aug, [facility] [id number] [place] [address] 72652- 2835 Aug, [facility] [place] [facility] [address] [id number] [place] [address]- 5423 Aug, [facility] [place] [facility] [address] [id number] [place] [address]- 6186 Aug, [facility] [place] [facility] [address] [id number] [place] [address]- 1197 17 Jul, 2014 [facility] [place] [facility] [address] [id number] [place] [address]- 5216 17 Jul, 2014 [facility] [place] [facility] [address] [id number] [place] [address]- 8987 16 Jul, 2014 [facility] [place] [facility] [address] [id number] [place] [address]- 0430 13 Jul, 2014 [facility] [place] [facility] [address] [id number] [place] [address]- 1176 13 Jul, 2014 [facility] [place] [facility] [address] [id number] [place] [address]- 0911 10 Jul, 2014 [facility] [place] [facility] [address] [id number] [place] [address]- 4211 10 Jul, 2014 [facility] [place] [facility] [address] [id number] [place] [address]- 3425 11 Jun, 2014 [facility] [place] [facility] [address] [id number] [place] [address]- 8942 11 Jun, 2014 [facility] [place] [facility] [address] [id number] [place] [address]- 2456 11 Jun, 2014 [facility] [place] [facility] [address] [id number] [place] [address]- 8974 11 Jun, 2014 [facility] [place] [facility] [address] [id number] [place] [address]- 7667 11 Jun, 2014 [facility] [place] [facility] [address] [id number] [place] [address]- 6018 11 Jun, 2013 [facility] [place] [facility] [address] [id number] [place] [address]- 4563 Jun, [facility] [place] [facility] [address] [id number] [place] [address]- 6261 Jun, [facility] [place] [facility] [address] [id number] [place] [address]- 8953 May, [facility] [place] [facility] [address] [id number] [place] [address]- 0040 May, [facility] [place] [facility] [address] [id number] [place] [address]- 2913 Apr, [facility] [place] [facility] [address] [id number] [place] [address]- 0616 Apr, [facility] [place] [facility] [address] [id number] [place] [address]- 3722 Mar, [facility] [place] [facility] [address] [id number] [place] [address]- 7512 Mar, [facility] [place] [facility] [address] [id number] [place] [address]- 5152 Mar, [facility] [place] [facility] [address] [id number] [place] [address]- 6803 Mar, [facility] [place] [facility] [address] [id number] [place] [address]- 3069 Mar, [facility] [place] [facility] [address] [id number] [place] [address]- 9928 February, [facility] [place] [facility] [address] [id number] [place] [address]- 7448 February, [facility] [place] [facility] [address] [id number] [place] [address]- 7509 February, [facility] [place] [facility] [address] [id number] [place] [address]- 1496 February, [facility] [place] [facility] [address] [id number] [place] 6903 Jan, [facility] [place] [facility] [address] [id number] [place] [address]- 3458 Jan, [facility] [place] [facility] [address] [id number] [place] [address]- 7816 Jan, [facility] [place] [facility] [address] [id number] [place] [address]- 9595 Jan, [facility] [place] [facility] [address] [id number] [place] [address]- 2869 Jan, [facility] [place] [facility] [address] [id number] [place] [address]- 0166 Jan, [facility] [place] [facility] [address] [id number] [place] [address]- 2727 Jan, [facility] [place] [facility] [address] [id number] [place] [address]- 6442 Jan, [facility] [place] [facility] [address] [id number] [place] [address]- 9542 Dec, [facility] [place] [facility] [address] [id number] [place] [address]- 6685 Dec, [facility] [place] [facility] [address] [id number] [place] [address]- 4780 Dec, [facility] [place] [facility] [address] [id number] [place] [address]- 9283 14 Dec, 2013 [facility] [place] [facility] [address] [id number] [place] [address]- 7859 Dec, [facility] [place] [facility] [address] [id number] [place] [address]- 3951 Dec, [facility] [place] [facility] [address] [id number] [place] [address]- 2931 Dec, [facility] [place] [facility] [address] [id number] [place] [address]- 6121 Dec, [facility] [place] [facility] [address] [id number], [place] [address]- 6998 Dec, [facility] [address] [id number] [place] [address]- 0464 Dec, [facility] [place] [facility] [address] [id number] [place] [address]- 7866 Nov, [facility] [place] [facility] [address] [id number] [place] 8206 Nov, [facility] [place] [facility] [address] [id number] [place] [address]- 0919 Nov, [facility] [place] [facility] [address] [id number] [place] [address]- 5638 Nov, [facility] [place] [facility] [address] [facility] [id number] [place] [address]- 3405 Nov, [facility] [place] [facility] [address] [facility] [id number] [place] [address]- 1614 Nov, [facility] [address] [id number] [place] [address]- 3636 Oct, [facility] [place] [facility] [address] [id number] [place] [address]- 3773 Oct, [facility] [address] [facility] [id number] [place] [address]- 5293 Sep, [facility] [place] [facility] [address] [id number] [place] [address] 2546 Sep, [facility] [place] [facility] [address] [id number] [place] [address]- 7542 Sep, [facility] [place] [facility] [address] [id number] [place] [address]- 7904 Sep, [facility] [place] [facility] [address] [facility] [id number] [place]- 8204 Aug, [facility] [place] [facility] [address] [id number] [place] [address]- 1580 Aug, [facility] [place] [facility] [address] [id number] [place] [address]- 9574 Aug, [facility] [place] [facility] [address] [id number] [place] [address]- 6876 Aug, [facility] [place] [facility] [address] [id number] [place] [address]- 3041 Aug, [facility] [place] [facility] [address] [id number] [place] [address]- 8668 Aug, [facility] [place] [facility] [address] [id number] [place] [address]- 5635 Aug, [facility] [place] [facility] [address] [id number] [place] [address]- 8362 Aug, [facility] [place] [facility] [address] [id number] [place] [address]- 6249 Jul, [facility] [place] [facility] [address] [id number], [place] [address]- 8880 Jul, [facility] [place] [facility] [address] [id number] [place] [address]- 4795 Jul, [facility] [place] [facility] [address] [id number], [place] [address]- 8045 Jul, [facility] [place] [facility] [address] [id number], [place] [address]- 5686 Jul, [facility] [place] [facility] [address] [id number], [place] [address]- 5002 Jul, [facility] [place] [facility] [address] [id number], [place] [address]- 7373 Jul, [facility] [place] [facility] [address] [id number], [place] [address]- 2503 Jul, [facility] [place] [facility] [address] [id number], [place] [address]- 7574 Jul, [facility] [place] [facility] [address] [id number], [place] [address]- 7570 21 Jul, 2012 [facility] [place] [facility] [address] [id number] [place] [address]- 1123 17 Jul, 2012 [facility] [place] [facility] [address] [id number], [place] [address]- 3750 17 Jul, 2012 [facility] [place] [facility] [address] [id number] [place] [address]- 7147 15 Jul, 2012 [facility] [place] [facility] [address] [id number] [place] [address]- 5316 15 Jul, 2012 [facility] [place] [facility] [address] [id number] [place] [address] 15 Jul, 2012 [facility] [place] [facility] [address] [id number] [place] [address] 15 Jul, 2012 [facility] [place] [facility] [address] [id number], [place] [address] 14 Jul, 2012 [facility] [place] [facility] [address] [id number] [place] [address] 14 Jul, 2012 [facility] [place] [facility] [address] [id number] [place] [address] 11 Jul, 2012 [facility] [place] [facility] [address] [id number], [place] [address] 11 Jul, 2012 [facility] [place] [facility] [address] [id number], [place] [address] 11 Jul, 2012 [facility] [place] [facility] [address] [id number], [place] [address] 11 Jul, 2012 [facility] [place] [facility] [address] [id number], [place] [address] 02 Jul, 2012 [facility] [place] [facility] [address] [id number], [place] [address] 27 Jun, 2012 [facility] [place] [facility] [address] [id number] [place] [address] 05 Sep, 2012 [facility] [place] [facility] [address] [id number] [place] [address] May, [facility] [address] [id number] [place] [address] May, [facility] [place] [facility] [address] [id number] [place] [address] May, [facility] [address] [id number] [place] [address] May, [facility] [address] [id number] [place] [address] May, [facility] [address] [id number] [place] [address] May, [facility] [address] [id number] [place] [address] May, [facility] [address] [id number] [place] [address] May, [facility] [address] [id number] [place] [address] Apr, [facility] [address] [id number] [place] [address] Mar, [facility] [address] [id number] [place] [address] February, [facility] [address] [id number] [place] [address] Jan, [facility] [address] [id number] [place] [address] Dec, [facility] [place] [facility] [address] [id number] [place] [address] 18 Dec, 2012 [facility] [place] [facility] [address] [id number] [place] [address] 15 Dec, 2012 [facility] [place] [facility] [address] [id number] [place] [address] Dec, [facility] [id number], [place] [address] Nov, [facility] [id number], [place] [address] Nov, [facility] [id number], [place] [address] Nov, [facility] [id number], [place] [address] Nov, [facility] [id number], [place] [address] Oct, [facility] [id number], [place] [address] Oct, [facility] [id number], [place] [address] Oct, [facility] [id number] [place] [address] Sep, [facility] [id number], [place] [address] Sep, [facility] [id number] [address] [address] Sep, [facility] [address] [id number], [place] [address] Sep, IMMUNIZATIONS No Known Immunizations SOCIAL HISTORY Never Assessed REASON FOR VISIT Controlled Med Refill 12/12 PLAN OF CARE VITAL SIGNS MEDICATIONS Medication Instructions Dosage Frequency Start Date End Date Duration Status Oxycodone HCl 10 mg Orally every 4-6 hrs hrs prn must last 28 days 1 tablet as needed Nov, 28 days Active RESULTS No Results PROCEDURES [...]
--- OUTSIDE RECORDS SUMMARY | 2018-07-03 09:59 | XMS REPORT ---
Author Author DARLENE HARRY [facility] eClinicalWorks Address Unknown Phone Unavailable Care Team Providers Care Home Therapy Clinician Name Role Phone DARLENE HARRY CP Unavailable Allergies No Known Allergies Problems Problem Type Condition Code Onset Dates Condition Status Assessment Abnormal fasting glucose R73.01 Active Problem Chronic obstructive pulmonary disease, unspecified [...] Problem Essential (primary) hypertension I10 Active Medications No Known Medications Results No Known Results Summary Purpose eClinicalWorks Submission
--- OUTSIDE RECORDS SUMMARY | 2018-07-03 09:59 | XMS REPORT ---
Author Author DARLENE HARRY Organization [facility] Address [address] [place] [address] Care Team Providers Care Watch Dial Maker Name Role Phone DARLENE HARRY Unavailable PROBLEMS Type Condition ICD9-CM Code [id number] Code Onset Dates Condition Status SNOMED Code Problem Other chronic pain G89.29 Active 13435189 Problem Chronic viral hepatitis C B18.2 Active 500009797 Problem Anxiety F41.9 Active 80722323 Problem COPD without exacerbation J44.9 Active 21542761 Problem Lumbago with sciatica, left side M54.42 Active 103211816 Problem Lumbago with sciatica, right side M54.41 Active 512701265 Problem Dysthymia F34.1 Active 75345245 Problem Long-term use of high-risk medication Z79.899 Active 539102262 Problem History of long-term use of multiple prescription drugs Z92.29 Active 993192814 Problem Essential (primary) hypertension I10 Active 93072451 Problem Other iron deficiency anemia D50.8 Active 49211598 Problem Sinusitis J32.9 Active 57355006 ALLERGIES Unknown Allergies SOCIAL HISTORY No smoking Hx information available PLAN OF CARE VITAL SIGNS MEDICATIONS Unknown Medications RESULTS No Results PROCEDURES No Known procedures IMMUNIZATIONS No Known Immunizations
--- OUTSIDE RECORDS SUMMARY | 2018-07-03 09:59 | XMS REPORT ---
Author Author [facility] Address [address] [place] [address] Care Team Providers Care Manufacturer'S Representative Name Role Phone CHELLY LOVEABHINAV Unavailable PROBLEMS Type Condition ICD9-CM Code IGY55-OW Code Onset Dates Condition Status SNOMED Code Problem Chronic viral hepatitis C B18.2 Active 613252763 Problem Anxiety F41.9 Active 74076298 Problem Essential (primary) hypertension I10 Active 61917939 Problem COPD without exacerbation J44.9 Active 43822488 Problem Lumbago with sciatica, left side M54.42 Active 726279246 Problem Lumbago with sciatica, right side M54.41 Active 125553621 Problem Other chronic pain G89.29 Active 21892594 Problem Pain in thoracic spine M54.6 Active 061403418859975 Problem Dysthymia F34.1 Active 22065898 Problem Sinusitis J32.9 Active 74719578 Problem History of long-term use of multiple prescription drugs Z92.29 Active 247457788 Problem Long-term use of high-risk medication Z79.899 Active 714652014 Problem Other iron deficiency anemia D50.8 Active 30721506 ALLERGIES No Known Allergies SOCIAL HISTORY Never Assessed PLAN OF CARE Activity Details Follow Up 4 Weeks Reason: VITAL SIGNS Height 70 in 2016-11-15 Weight 137.4 lbs 2016-11-15 Heart Rate 88 bpm 2016-11-15 Respiratory Rate 20 2016-11-15 BMI 19.71 kg/m2 2016-11-15 Blood pressure systolic 136 mmHg 2016-11-15 Blood pressure diastolic 83 mmHg 2016-11-15 MEDICATIONS Medication Instructions Dosage Frequency Start Date End Date Duration Status Multivitamin Adult Active Remeron 15 MG Orally QHS 1/2 tablet Oct, 30 day(s) Active Xanax 1 mg Orally Three times a day 1 tablet by Oral route 3 times per day 8h Nov, Active ProAir HFA 90 mcg/actuation Inhalation every 4 hrs prn inhale 2 puffs by Inhalation route every 4 hours as needed PRN must transition care- no more refills Active Trintellix 10 MG Orally Once a day 1 tablet 24h Oct, 30 day(s) Active Vitamin C 500 MG Active Iron 65 MG Orally Once a day 1 tabley 24h Active Oxycodone HCl 10 mg TAKE ONE TABLET BY MOUTH EVERY 4 TO 6 HOURS NEEDED ( MUST LAST 28 DAYS) 28 Active Celexa 20 MG Orally Once a day 1 tablet 24h Active oxycodone 10 mg orally every 4-6 hours prn must last 28 days take 1 tablet Active Lisinopril 10 MG Orally Once a [...]
[2018-07-03 10:00] LABS: HEMOGLOBIN 10.6 G/DL (13.3-17.7); MEAN PLATELET VOLUME 10.8 FL (7.4-10.4); RED BLOOD COUNT 2.81 10^6/uL (4.35-5.85); RED CELL DISTRIBUTION WIDTH 13.5 % (10.0-14.5); WHITE BLOOD COUNT 6.6 10^3/uL (4.3-11.0)
[2018-07-03] MEDS ORDERED: NS IV 1000 ML 1,000 ML IV SCH ×2 (10:00→11:05)
--- OUTSIDE RECORDS SUMMARY | 2018-07-03 10:00 | XMS REPORT | Continuity of Care Document ---
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 Allergies, Adverse Reactions, Alerts No known allergies Medications Medication Dose Units Route Sig Qty Days Ipratropium/Albuterol Sulfate (Combivent Inhaler) 2 Puff IH PRN Oxycodone HCl (Oxycodone Hcl) 1 Tab PO Q6H Quetiapine Fumarate (Seroquel 100 Mg) 1 Tab PO BID Lisinopril (Prinivil) 20 Mg PO BID Response Recorded Date/Time Status not known Unknown Results Test Date Result Interp. Ref. Range Lab Scanned Report July 30, 2013 1:18pm Transfusion Reaction Form [id number] -
--- OUTSIDE RECORDS SUMMARY | 2018-07-03 10:00 | XMS REPORT ---
Author Author DARLENE HARRY 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 Name Role Phone DARLENE HARRY Unavailable PROBLEMS Type Condition ICD9-CM Code SND56-MK Code Onset Dates Condition Status SNOMED Code Problem Other chronic pain G89.29 Active 79067195 Problem Essential (primary) hypertension I10 Active 86269436 Problem Chronic viral hepatitis C B18.2 Active 466962603 Problem COPD without exacerbation J44.9 Active 09437422 Problem Foraminal stenosis of lumbar region M99.83 Active 47671545 Problem Lumbago with sciatica, left side M54.42 Active 237981343 Problem Lumbago with sciatica, right side M54.41 Active 608506358 Problem Aortic ectasia, abdominal I77.811 Active 140525561545952 Problem Pain in thoracic spine M54.6 Active 235812061022731 Problem Other iron deficiency anemia D50.8 Active 35693582 Problem Anxiety F41.9 Active 46499083 Problem Dysthymia F34.1 Active 36573897 Problem Long-term use of high-risk medication Z79.899 Active 544629817 ALLERGIES No Known Allergies ENCOUNTERS Encounter Location Date Diagnosis [place] [id number] [place] [address] 68195- 1263 February, [facility] [id number] [place] [address] 07221- 4623 February, [facility] [address] [place] [id number] [place] [address] 37612- 1068 Jan, Lumbago with sciatica, unspecified side M54.40 [facility] [id number] [place] [address] 86876- 6677 Jan, Lumbago with sciatica, unspecified side M54.40 ; Essential ( primary) hypertension I10 ; COPD without exacerbation J44.9 ; Long-term use of high-risk medication Z79.899 ; Anxiety F41.9 and Dysthymia F34.1 [place] [address] [id number]- 0377 Dec, [place] [address] 962 Dec, Lumbago with sciatica, unspecified side M54.40 [place] [address] [place] [id number] 4852 Dec, Anxiety F41.9 and Dysthymia F34.1 [place] [address] [place] [id number]- 5670 Nov, Other chronic pain G89.29 and Lumbago with sciatica, unspecified side M54.40 [place] [address] [place] [id number]- 6825 Oct, Lumbago with sciatica, unspecified side M54.40 [place] [address] [place] 674513- 4316 Oct, Anxiety F41.9 and Dysthymia F34.1 [place] [address] 70853- 3312 Oct, Abnormal fasting glucose R73.01 [place] [address] 69551- 3232 Oct, Essential (primary) hypertension I10 and Lumbago with sciatica, unspecified side M54.40 [place] [address] 23164- 3352 Sep, Abnormal fasting glucose R73.01 [place] [address] 76578- 1849 Sep, Pulmonary nodule R91.1 ; Aortic ectasia, abdominal I77.811 and Anxiety F41.9 [place] [address] [place] [id number] [place] [address] 42913- 3611 Sep, Lumbago with sciatica, unspecified side M54.40 [place] [address] [place] [id number] [place] [address] 85605- 5013 Aug, Essential (primary) hypertension I10 and Lumbago with sciatica, unspecified side M54.40 [place] [address] 64466- 2737 Jul, Abnormal chest CT R93.[address] 51053- 0208 Jul, Right pulmonary lesion R91.[address] 60766- 5087 Jul, Lumbago with sciatica, unspecified side M54.40 [place] [address] 99341- 2758 Jul, Pain in thoracic spine M54.6 ; Lumbago with sciatica, left side M54.42 and Lumbago with sciatica, right side M54.41 [place] [address] [place] [id number] [place] [address] 81956- 9295 13 Jun, 2017 Essential (primary) hypertension I10 [...] Z79.899 and Pain in thoracic spine M54.6 [place] [address] [place] [id number] [place] [address] 57180- 8608 May, [place] [address] [place] [id number] [place] [address] 57577- 2493 Apr, Lumbago with sciatica, unspecified side M54.40 [place] [address] [place] [id number] [place] [address] 71797- 1965 Mar, Essential (primary) hypertension I10 ; Lumbago with sciatica , unspecified side M54.40 ; Chronic viral hepatitis C B18.2 ; Chronic obstructive pulmonary disease, unspecified J44.9 ; Other iron deficiency anemia D50.8 and Long-term use of high-risk medication Z79.899 [place] [address] [place] [id number] [place] [address] 77775- 5490 Mar, Essential (primary) hypertension I10 [place] [address] [place] [id number] [place] [address] 26221- 3650 February, [place] [address] [place] [id number] [place] [address] 88519- 8232 February, Lumbago with sciatica, unspecified side M54.40 [place] [address] [place] [id number] [place] [address] 19727- 9144 Jan, Lumbago with sciatica, unspecified side M54.40 [place] [address] [place] [id number] [place] [address] 89230- 3185 Dec, Essential (primary) hypertension I10 ; Lumbago with sciatica , unspecified side M54.40 ; Chronic viral hepatitis C B18.2 ; Chronic obstructive pulmonary disease, unspecified J44.9 ; Other iron deficiency anemia D50.8 ; Long-term use of high-risk medication Z79.899 and General medical exam Z00.00 [place] [address] [place] [address] 95717- 8190 Nov, Essential (primary) hypertension I10 [place] [address] [place] [id number] [place] [address] 08829- 8277 Oct, [place] [address] [place] [id number] [place] [address] 71854- 3681 Oct, Essential (primary) hypertension I10 [place] [address] [place] [id number] [place] [address] 99320- 8648 Oct, Anxiety F41.9 and Dysthymia F34.1 [place] [address] 38259- 6011 Oct, [place] [address] 06096- 7916 Oct, [place] [address] 54725- 4494 Oct, Essential (primary) hypertension I10 ; Lumbago with sciatica , unspecified side M54.40 ; Chronic viral hepatitis C B18.2 ; Chronic obstructive pulmonary disease, unspecified J44.9 ; Other iron deficiency anemia D50.8 ; Long-term use of high-risk medication Z79.899 and Anxiety F41.9 [place] [address] [place] [id number] [place] [address] 22912- 7375 Sep, [place] [address] 88110- 3474 Aug, [place] [address] [place] [id number] [place] [address] 81667- 1260 Jul, Abnormal fasting glucose R73.01 [place] [address] [place] [id number] [place] [address] 38430- 8987 Jul, Essential (primary) hypertension I10 ; Lumbago with sciatica , unspecified side M54.40 ; Chronic viral hepatitis C B18.2 ; Chronic obstructive pulmonary disease, unspecified J44.9 ; Other iron deficiency anemia D50.8 ; Long-term use of high-risk medication Z79.899 and Encounter for immunization Z23 [place] [address] [place] [id number] [place] [address] 71230- 4377 Jun, [place] [address] [address]- 8665 May, [facility] [address] [place] [id number] [place] [address] 96502- 1014 Apr, Other iron deficiency anemia D50.8 [facility] [address] [place] [address] 82954 -7051 Apr, Chronic fatigue R53.82 and Bradycardia R00.1 [facility] [address] [place] [id number] [place] [address] 54434- 8653 Apr, [facility] [address] [place] [id number] [place] [address] 48648- 1715 Mar, Essential (primary) hypertension I10 ; Lumbago with sciatica , unspecified side M54.40 ; Chronic viral hepatitis C B18.2 ; Chronic obstructive pulmonary disease, unspecified J44.9 and Other iron deficiency anemia D50.8 [facility] [address] [place] [id number] [place] [address] 70402- 3887 February, [facility] [address] [place] [id number] [place] [address] 31762- 1600 Jan, [facility] [address] [place] [id number] [place] [address] 71604- 7796 Jan, Fatigue R53.83 [facility] [address] [place] [id number] [place] [address] 58803- 5237 Dec, Essential (primary) hypertension I10 ; Lumbago with sciatica , unspecified side M54.40 ; Chronic viral hepatitis C B18.2 ; Chronic obstructive pulmonary disease, unspecified J44.9 ; Sinusitis J32.9 and Fatigue R53.83 [facility] [address] [place] [id number] [place] [address] 62567- 3887 Dec, [facility] [address] [place] [id number] [place] [address] 95561- 3219 Nov, [facility] [address] [place] [id number] [place] [address] 68720- 5199 Oct, Essential (primary) hypertension I10 ; Lumbago with sciatica , unspecified side M54.40 ; Chronic viral hepatitis C B18.2 ; Chronic obstructive pulmonary disease, unspecified J44.9 and History of long-term use of multiple prescription drugs Z92.29 [place] [address] [address]- 5166 Sep, [place] [address] [place] [id number] [place] [address] 90958- 5260 Aug, [place] [address] [place] [id number] [place] [address] 73134- 3429 Jul, Essential (primary) hypertension I10 ; Lumbago with sciatica , unspecified side M54.40 ; Chronic viral hepatitis C B18.2 ; Chronic obstructive pulmonary disease, unspecified J44.9 and Anxiety F41.9 [place] [address] [place] [id number] [place] [address] 62816- 2050 Jun, [place] [address] [place] [id number] [place] [address] 78383- 3292 May, [place] [address] [place] [id number] [place] [address] 10033- 6410 Apr, Essential hypertension, benign 401.1 ; Lumbago 724.2 ; Nondependent tobacco use disorder 305.1 and Chronic hepatitis C without mention of hepatic coma 070.54 [place] [address] [place] [address] 43515- 7931 Mar, Lumbago 724.2 [place] [address] [address]- 1421 February, Essential hypertension, benign 401.1 ; Lumbago 724.2 ; Nondependent tobacco use disorder 305.1 and Chronic hepatitis C without mention of hepatic coma 070.54 [place] [address], [place] [address]- 0290 February, [place] [address] [place] [id number] [address]- 3344 14 Jan, 2015 [facility] [place] [facility] [address] [id number] [place] [address]- 6994 Jan, [facility] [place] [facility] [address] [id number] [place] [address]- 0178 Dec, [facility] [place] [facility] [address] [id number] [place] [address]- 6302 Dec, [facility] [place] [facility] [address] [id number] [place] [address]- 8804 Nov, [facility] [place] [facility] [address] [id number] [place] [address]- 8860 Nov, [facility] [place] [facility] [address] [facility] [id number] [place] [address]- 4481 Oct, [facility] [place] [facility] [address] [id number] [place] [address]- 5014 Oct, [facility] [place] [facility] [address] [id number] [place] [address]- 8231 Sep, [facility] [place] [facility] [address] [id number] [place] [address]- 2623 Sep, [facility] [place] [facility] [address] [facility] [id number] [place] [address]- 2316 Aug, [facility] [place] [facility] [address] [id number] [place] [address]- 8805 Aug, [facility] [place] [facility] [address] [id number] [place] [address]- 2194 Aug, [facility] [place] [facility] [address] [id number] [place] [address]- 4840 Aug, [facility] [place] [facility] [address] [id number] [place] [address]- 0356 Jul, [facility] [place] [facility] [address] [id number] [place] [address]- 7508 17 Jul, 2014 [facility] [place] [facility] [address] [id number] [place] [address]- 8429 16 Jul, 2014 [facility] [place] [facility] [address] [id number] [place] [address]- 0068 13 Jul, 2014 [facility] [place] [facility] [address] [id number] [place] [address]- 2156 13 Jul, 2014 [facility] [place] [facility] [address] [id number] [place] [address]- 5362 10 Jul, 2014 [facility] [place] [facility] [address] [id number] [place] [address]- 0717 10 Jul, 2014 [facility] [place] [facility] [address] [id number] [place] [address]- 1311 11 Jun, 2014 [facility] [place] [facility] [address] [id number] [place] [address]- 2791 11 Jun, 2014 [facility] [place] [facility] [address] [id number] [place] [address]- 1634 11 Jun, 2014 [facility] [place] [facility] [address] [id number] [place] [address]- 7297 11 Jun, 2014 [facility] [place] [facility] [address] [id number] [place] [address]- 0710 11 Jun, 2014 [facility] [place] [facility] [address] [id number], [place] [address]- 7515 Jun, [facility] [place] [facility] [address] [id number], [place] [address]- 8165 Jun, [facility] [place] [facility] [address] [id number] [place] [address]- 7882 Jun, [facility] [place] [facility] [address] [id number], [place] [address]- 3579 May, [facility] [place] [facility] [address] [id number] [place] [address]- 2590 May, [facility] [place] [facility] [address] [id number] [place] [address]- 1446 11 Apr, 2014 [facility] [place] [facility] [address] [id number] [place] [address]- 9712 Apr, [facility] [place] [facility] [address] [id number] [place] [address]- 6013 Mar, [facility] [place] [facility] [address] [id number] [place] [address]- 5872 Mar, [facility] [place] [facility] [address] [id number] [place] [address]- 5130 Mar, [facility] [place] [facility] [address] [id number] [place] [address]- 0639 Mar, [facility] [place] [facility] [address] [id number] [place] [address]- 5602 Mar, [facility] [place] [facility] [address] [id number] [place] [address]- 7421 February, [facility] [place] [facility] [address] [id number] [place] [address]- 9104 February, [facility] [place] [facility] [address] [id number] [place] [address]- 3776 February, [facility] [place] [facility] [address] [id number] [place] [address]- 3063 February, [facility] [place] [facility] [address] [id number] [place] [address]- 9429 Jan, [facility] [place] [facility] [address] [id number] [place] [address]- 0420 Jan, [facility] [place] [facility] [address] [id number] [place] [address]- 7219 Jan, [facility] [place] [facility] [address] [id number] [place] [address]- 9232 Jan, [facility] [place] [facility] [address] [id number] [place] [address]- 2565 Jan, [facility] [place] [facility] [address] [id number] [place] [address]- 4145 Jan, [facility] [place] [facility] [address] [id number] [place] [address]- 5624 Jan, [facility] [place] [facility] [address] [id number] [place] [address]- 4526 Jan, [facility] [place] [facility] [address] [id number] [place] [address]- 5648 Dec, [facility] [place] [facility] [address] [id number] [place] [address]- 1581 Dec, [facility] [place] [facility] [address] [id number] [place] [address]- 8030 Dec, [facility] [place] [facility] [address] [id number] [place] [address]- 6435 Dec, [facility] [place] [facility] [address] [id number] [place] [address]- 3829 Dec, [facility] [place] [facility] [address] [id number] [place] [address]- 1597 Dec, [facility] [place] [facility] [address] [id number] [place] [address]- 8040 Dec, [facility] [place] [facility] [address] [id number] [place] [address]- 7480 Dec, [facility] [place] [facility] [address] [id number] [place] [address]- 5484 Dec, [facility] [place] [facility] [address] [id number] [place] [address]- 6242 Dec, [facility] [place] [facility] [address] [id number] [place] [address]- 1858 Nov, [facility] [place] [facility] [address] [id number] [place] [address]- 1164 Nov, [facility] [place] [facility] [address] [id number] [place] [address]- 9060 Nov, [facility] [address] [id number] [place] [address]- 9582 Nov, [facility] [place] [facility] [address] [id number] [place] [address]- 3015 Nov, [facility] [address] [id number] [place] [address]- 1426 Nov, [facility] [place] [facility] [address] [id number] [place] [address]- 7254 Oct, [facility] [address] [id number] [place] [address]- 6997 Oct, [facility] [address] [id number] [place] [address]- 4517 Sep, [facility] [address] [id number] [place] [address]- 1800 Sep, [facility] [address] [id number] [place] [address]- 5560 Sep, [facility] [address] [id number] [place] [address]- 2435 Sep, [facility] [address] [facility] [id number] [place] [address]- 6191 Aug, [facility] [address] [id number] [place] [address]- 9528 Aug, [facility] [place] [facility] [address] [id number], [place] [address]- 0893 Aug, [facility] [place] [facility] [address] [id number] [place] [address]- 3266 Aug, [facility] [place] [facility] [address] [id number] [place] [address]- 7114 Aug, [facility] [place] [facility] [address] [facility] [id number], [place] [address]- 8434 Aug, [facility] [place] [facility] [address] [id number] [place] [address]- 0718 Aug, [facility] [place] [facility] [address] [id number] [place] [address]- 1772 Aug, [facility] [place] [facility] [address] [id number] [place] [address]- 5444 Jul, [facility] [place] [facility] [address] [id number] [place] [address]- 1376 Jul, [facility] [place] [facility] [address] [id number] [place] [address]- 9575 Jul, [facility] [place] [facility] [address] [id number] [place] [address]- 7005 Jul, [facility] [place] [facility] [address] [id number] [place] [address]- 8439 Jul, [facility] [place] [facility] [address] [id number] [place] [address]- 3076 Jul, [facility] [place] [facility] [address] [id number] [place] [address]- 1288 Jul, [facility] [place] [facility] [address] [id number] [place] [address]- 2312 Jul, [facility] [place] [facility] [address] [id number] [place] [address]- 9616 Jul, [facility] [place] [facility] [address] [id number] [place] [address]- 6506 Jul, [facility] [place] [facility] [address] [id number] [place] [address]- 8742 Jul, [facility] [place] [facility] [address] [id number] [place] [address]- 4816 Jul, [facility] [place] [facility] [address] [id number] [place] [address]- 2543 Jul, [facility] [place] [facility] [address] [id number] [place] [address]- 9274 15 Jul, 2013 [facility] [place] [facility] [address] [id number] [place] [address]- 8518 15 Jul, 2013 [facility] [place] [facility] [address] [id number] [place] [address]- 3823 15 Jul, 2013 [facility] [place] [facility] [address] [id number] [place] [address]- 4218 14 Jul, 2013 [facility] [place] [facility] [address] [id number] [place] [address]- 7219 14 Jul, 2013 [facility] [place] [facility] [address] [id number] [place] [address]- 0756 11 Jul, 2013 [facility] [place] [facility] [address] [id number] [place] [address]- 0871 11 Jul, 2013 [facility] [place] [facility] [address] [id number] [place] [address]- 1233 Jul, [facility] [place] [facility] [address] [id number], [place] [address]- 8142 11 Jul, 2013 [facility] [place] [facility] [address] [id number], [place] [address] 02 Jul, 2013 [facility] [place] [facility] [address] [id number], [place] [address] Jun, [facility] [place] [facility] [address] [id number], [place] [address] 05 Jun, 2013 [facility] [place] [facility] [address] [id number], [place] [address] May, [facility] [place] [facility] [address] [id number] [place] [address] May, [facility] [place] [facility] [address] [id number], [place] [address] May, [facility] [place] [facility] [address] [id number], [place] [address] May, [facility] [place] [facility] [address] [id number] [place] [address] 16 May, 2013 [facility] [address] [id number] [place] [address] May, [facility] [place] [facility] [address] [id number] [place] [address] May, [facility] [address] [id number] [place] [address] May, [facility] [place] [facility] [address] [id number] [place] [address] Apr, [facility] [address] [id number] [place] [address] Mar, [facility] [address] [id number] [place] [address] February, [facility] [address] [id number] [place] [address] Jan, [facility] [address] [id number] [place] [address] Dec, [facility] [place] [facility] [address] [id number] [place] [address] Dec, [facility] [address] [facility] [id number] [place] [address] Dec, [facility] [place] [facility] [address] [id number] [place] [address] Dec, [facility] [place] [facility] [address] [id number] [place] [address] 28 Nov, 2012 [facility] [place] [facility] [address] [id number] [place] [address] 26 Nov, 2012 [facility] [place] [facility] [address] [id number] [place] [address] 15 Nov, 2012 [facility] [place] [facility] [address] [id number] [place] [address] Nov, [facility] [address] [facility] [id number], [place] [address] Oct, [facility] [address] [id number], [place] [address] Oct, [facility] [address] [facility] [id number] [address] Oct, [facility] [address] [id number] [address] [address] Sep, [facility] [address] [facility] [id number][place] [address] Sep, [facility] [address] [id number] [address] Sep, [facility] [address] [id number], [place] [address] Sep, IMMUNIZATIONS No Known Immunizations SOCIAL HISTORY Never Assessed REASON FOR VISIT med review, pt. states he was prescribed oxycodone and didnt know if there was something strong. 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 states he did shrimp picker a bag of feed here recently and got the sharpest pain he has ever had and now is having increasing pain in the middle of the back PLAN OF CARE Activity Details Follow Up 3 Months or pending xray Reason:Pain VITAL SIGNS Height 70 in 2017-06-28 Weight 133.7 lbs 2017-06-28 Temperature 99.8 degrees Fahrenheit 2017-06-28 Heart Rate 88 bpm 2017-06-28 Respiratory Rate 18 2017-06-28 BMI 19.18 kg/m2 2017-06-28 Blood pressure systolic 142 mmHg 2017-06-28 Blood pressure diastolic 85 mmHg 2017-06-28 MEDICATIONS Medication Instructions Dosage Frequency Start Date End Date Duration Status Multivitamin Adult Active Vitamin C 500 MG Active Iron 65 MG Orally Once a day 1 tabley 24h Active Remeron 15 MG Orally QHS 1/2 tablet Oct, 30 day(s) Active PredniSONE 20 mg Orally Once a day 2 tabs daily x 3 days then 1 tab daily x 3 days 24h Jun, Jun, 6 days Active Oxycodone HCl 10 mg Orally every 4-6 hrs hrs prn must last 28 days 1 tablet as needed Jun, 28 days Active Lisinopril 10 MG Orally Once a day 1 tablet 24h Active ProAir HFA 108 (90 Base) mcg/act Inhalation every 4 hrs prn inhale 2 puffs by Inhalation route every 4 hours as needed PRN must transition care- no more refills Active RESULTS Name Result Date Reference Range CBC 2017-06-28 WBC 3.9 3.4-10.8 RBC 3.55 4.14-5.80 Hemoglobin 12.1 12.6-17.7 Hematocrit 36.1 37.5-51.0 MCV 102 79-97 MCH 34.1 26.6-33.0 MCHC 33.5 31.5-35.7 RDW 13.8 12.3-15.4 Platelets 181 150-379 Neutrophils 60 Lymphs 25 Monocytes 12 Eos 2 Basos 1 Neutrophils (Absolute) 2.4 1.4-7.0 Lymphs (Absolute) 1.0 0.7-3.1 Monocytes(Absolute) 0.5 0.1-0.9 Eos (Absolute) 0.1 0.0-0.4 Baso (Absolute) 0.0 0.0-0.2 Immature Granulocytes 0 Immature Grans (Abs) 0.0 0.0-0.1 CMP 2017-06-28 Glucose, Serum 110 65-99 BUN 18 6-24 Creatinine, Serum 0.88 0.76-1.27 eGFR If NonAfricn Am 95 >59 eGFR If Africn Am 110 >59 BUN/Creatinine Ratio 20 9-20 Sodium, Serum 139 134-144 Potassium, Serum 4.4 3.5-5.2 Chloride, Serum 99 96-106 Carbon Dioxide, Total 26 18-29 Calcium, Serum 9.0 8.7-10.2 Protein, Total, Serum 7.2 6.0-8.5 Albumin, Serum 4.5 3.5-5.5 Globulin, Total 2.7 1.5-4.5 A/G Ratio 1.7 1.2-2.2 Bilirubin, Total 0.6 0.0-1.2 Alkaline Phosphatase, S 56 39-117 AST (SGOT) 15 0-40 ALT (SGPT) 10 0-44 Xray : Spine, Thoracic 2 views (IN HOUSE) 2017-06-28 Xray : Spine, Lumbar 2-3 views (IN HOUSE) 2017-06-28 PROCEDURES Procedure Date Ordered Result Body Site X-RAY EXAM OF THORACIC SPINE Jun 28, 2017 X-RAY EXAM OF LOWER SPINE Jun 28, 2017 COMPREHEN METABOLIC PANEL Jun 28, 2017 COMPLETE CBC W/AUTO DIFF WBC Jun 28, 2017 VENIPUNCT, ROUTINE* Jun 28, 2017 INSTRUCTIONS MEDICATIONS ADMINISTERED No Known Medications [...]
--- OUTSIDE RECORDS SUMMARY | 2018-07-03 10:00 | XMS REPORT | Continuity of Care Document ---
Author Author [facility] Organization [facility] Address Unknown Phone Unavailable Allergies Active Description Code Type Severity Reaction Onset Reported/Identified Relationship to Patient Clinical Status Yes No Known Drug Allergies [id number] Drug Allergy Unknown N/A 09/13/2013 Medications There is no data. Problems Date Dx Coded Attending Type Code Diagnosis Diagnosed By 11/12/2012 Ot 724.2 LUMBAGO 11/12/2012 Ot V57.1 PHYSICAL THERAPY NEC 08/05/2013 PÉREZ TRAN, CHERISE Cronin Ot 285.9 ANEMIA NOS 09/14/2013 PÉREZ TRAN, CHERISE Cronin Ot 070.54 CHRONIC HEPATITIS C W/O HEPATIC COMA 09/14/2013 CHERISE ORTEZ MD Ot 285.9 ANEMIA NOS 09/14/2013 PÉREZ TRAN, CHERISE Cronin Ot 338.29 OTHER CHRONIC PAIN 09/14/2013 PÉREZ TRAN, CHERISE Cronin Ot 401.9 HYPERTENSION NOS 09/14/2013 PÉREZ TRAN, CHERISE Cronin Ot 722.93 DISC DIS NEC/NOS-LUMBAR 10/24/2013 PÉREZ TRAN, CHERISE Cronin Ot 285.9 ANEMIA NOS 07/28/2017 Ot 285.9 ANEMIA NOS 07/31/2017 Ot 285.9 ANEMIA NOS 08/01/2017 MADL, DARLENE L FRIT MIXER Ot M43.17 SPONDYLOLISTHESIS, LUMBOSACRAL REGION 08/01/2017 MADL, DARLENE L FRIT MIXER Ot M48.07 SPINAL STENOSIS, LUMBOSACRAL REGION 08/01/2017 MADL, DARLENE L FRIT MIXER Ot R91.1 SOLITARY PULMONARY NODULE 08/10/2017 MADL, DARLENE L FRIT MIXER Ot M43.17 SPONDYLOLISTHESIS, LUMBOSACRAL REGION 08/10/2017 MADL, DARLENE L FRIT MIXER Ot M48.07 SPINAL STENOSIS, LUMBOSACRAL REGION 08/10/2017 MADL, DARLENE L FRIT MIXER Ot R91.1 SOLITARY PULMONARY NODULE 08/21/2017 Ot 285.9 ANEMIA NOS 08/21/2017 MADL, DARLENE L FRIT MIXER Ot M43.17 SPONDYLOLISTHESIS, LUMBOSACRAL REGION 08/21/2017 MADL, DARLENE L FRIT MIXER Ot M48.07 SPINAL STENOSIS, LUMBOSACRAL REGION 08/21/2017 MADL, DARLENE L FRIT MIXER Ot R91.1 SOLITARY PULMONARY NODULE 08/22/2017 JOSE MANUEL WELCH ADULT MANAGER Ot J42 UNSPECIFIED CHRONIC BRONCHITIS 08/22/2017 JOSE MANUEL WELCH ADULT MANAGER Ot R91.1 SOLITARY PULMONARY NODULE 08/22/2017 JOSE MANUEL WELCH ADULT MANAGER Ot Z72.0 TOBACCO USE 09/01/2017 JOSE MANUEL WELCH ADULT MANAGER Ot R91.1 SOLITARY PULMONARY NODULE 09/01/2017 JOSE MANUEL WELCH ADULT MANAGER Ot Z72.0 TOBACCO USE 09/11/2017 JOSE MANUEL WELCH ADULT MANAGER Ot J42 UNSPECIFIED CHRONIC BRONCHITIS 09/11/2017 JOSE MANUEL WELCH ADULT MANAGER Ot R91.1 SOLITARY PULMONARY NODULE 09/11/2017 JOSE MANUEL WELCH ADULT MANAGER Ot Z72.0 TOBACCO USE 09/11/2017 JOSE MANUEL WELCH ADULT MANAGER Ot R91.1 SOLITARY PULMONARY NODULE 09/11/2017 JOSE MANUEL WELCH ADULT MANAGER Ot Z72.0 TOBACCO USE 11/24/2017 Ot 285.9 ANEMIA NOS 11/24/2017 MADL, DARLENE L FRIT MIXER Ot M43.17 SPONDYLOLISTHESIS, LUMBOSACRAL REGION 11/24/2017 MADL, DARLENE L FRIT MIXER Ot M48.07 SPINAL STENOSIS, LUMBOSACRAL REGION 11/24/2017 MADL, DARLENE L FRIT MIXER Ot R91.1 SOLITARY PULMONARY NODULE 11/24/2017 JOSE MANUEL WELCH ADULT MANAGER Ot J42 UNSPECIFIED CHRONIC BRONCHITIS 11/24/2017 JOSE MANUEL WELCH ADULT MANAGER Ot R91.1 SOLITARY PULMONARY NODULE 11/24/2017 JOSE MANUEL WELCH ADULT MANAGER Ot Z72.0 TOBACCO USE 11/24/2017 JOSE MANUEL WELCH ADULT MANAGER Ot R91.1 SOLITARY PULMONARY NODULE 11/24/2017 JOSE MANUEL WELCH ADULT MANAGER Ot Z72.0 TOBACCO USE 11/27/2017 Ot 285.9 ANEMIA NOS 11/27/2017 MADL, DARLENE L FRIT MIXER Ot M43.17 SPONDYLOLISTHESIS, LUMBOSACRAL REGION 11/27/2017 MADL, DARLENE L FRIT MIXER Ot M48.07 SPINAL STENOSIS, LUMBOSACRAL REGION 11/27/2017 MADL, DARLENE L FRIT MIXER Ot R91.1 SOLITARY PULMONARY NODULE 11/27/2017 JOSE MANUEL WELCH E ADULT MANAGER Ot J42 UNSPECIFIED CHRONIC BRONCHITIS 11/27/2017 JOSE MANUEL WELCH E ADULT MANAGER Ot R91.1 SOLITARY PULMONARY NODULE 11/27/2017 JOSE MANUEL WELCH ADULT MANAGER Ot Z72.0 TOBACCO USE 11/27/2017 AHSAN WELCHINE E ADULT MANAGER Ot R91.1 SOLITARY PULMONARY NODULE 11/27/2017 JOSE MANUEL WELCH ADULT MANAGER Ot Z72.0 TOBACCO USE 11/28/2017 JOSE MANUEL WELCH E ADULT MANAGER Ot J44.9 CHRONIC OBSTRUCTIVE PULMONARY DISEASE, U 11/28/2017 JOSE MANUEL WELCH ADULT MANAGER Ot Z72.0 TOBACCO USE 01/08/2018 MADL, DARLENE L FRIT MIXER Ot M43.17 SPONDYLOLISTHESIS, LUMBOSACRAL REGION 01/08/2018 MADL, DARLENE L FRIT MIXER Ot M48.07 SPINAL STENOSIS, LUMBOSACRAL REGION 01/08/2018 MADL, DARLENE L FRIT MIXER Ot R91.1 SOLITARY PULMONARY NODULE 01/08/2018 JOSE MANUEL WELCH ADULT MANAGER Ot J44.9 CHRONIC OBSTRUCTIVE PULMONARY DISEASE, U 01/08/2018 JOSE MANUEL WELCH ADULT MANAGER Ot Z72.0 TOBACCO USE 01/08/2018 JOSE MANUEL WELCH ADULT MANAGER Ot R91.1 SOLITARY PULMONARY NODULE 01/08/2018 JOSE MANUEL WELCH ADULT MANAGER Ot Z72.0 TOBACCO USE 01/08/2018 JOSE MANUEL WELCH E ADULT MANAGER Ot J42 UNSPECIFIED CHRONIC BRONCHITIS 01/08/2018 JOSE MANUEL WELCH E ADULT MANAGER Ot R91.1 SOLITARY PULMONARY NODULE 01/08/2018 JOSE MANUEL WELCH ADULT MANAGER Ot Z72.0 TOBACCO USE 01/08/2018 MADL, DARLENE L FRIT MIXER Ot M43.17 SPONDYLOLISTHESIS, LUMBOSACRAL REGION 01/08/2018 MADL, DARLENE L FRIT MIXER Ot M48.07 SPINAL STENOSIS, LUMBOSACRAL REGION 01/08/2018 DARLENE HARRY FRIT MIXER Ot R91.1 SOLITARY PULMONARY NODULE 01/09/2018 JOSE MANUEL WELCH APRN Ot J44.9 CHRONIC OBSTRUCTIVE PULMONARY DISEASE, U 01/09/2018 JOSE MANUEL WELCH APRN Ot Z72.0 TOBACCO USE 06/21/2018 EDISON JULIEN FRIT MIXER Ot I10 ESSENTIAL (PRIMARY) HYPERTENSION 06/21/2018 EDISON JULIEN FRIT MIXER Ot I34.0 NONRHEUMATIC MITRAL (VALVE) INSUFFICIENC 06/21/2018 EDISON JULIEN FRIT MIXER Ot J44.9 CHRONIC OBSTRUCTIVE PULMONARY DISEASE, U 06/21/2018 EDISON JULIEN FRIT MIXER Ot R09.89 OTH SYMPTOMS AND SIGNS INVOLVING THE CIR Procedures There is no data. Results Test Result Range CBC With Differential/Platelet - 10/18/16 08:54 WBC 4.7 x10E3/uL 3.4-10.8 RBC 3.51 x10E6/uL 4.14-5.80 Hemoglobin 12.7 g/dL 12.6-17.7 Hematocrit 35.7 % 37.5-51.0 MCV 102 fL 79-97 MCH 36.2 pg 26.6-33.0 MCHC 35.6 g/dL 31.5-35.7 RDW 13.3 % 12.3-15.4 Platelets 181 x10E3/uL 150-379 Neutrophils 56 % Lymphs 30 % Monocytes 11 % Eos 2 % Basos 1 % Neutrophils (Absolute) 2.7 x10E3/uL 1.4-7.0 Lymphs (Absolute) 1.4 x10E3/uL 0.7-3.1 Monocytes(Absolute) 0.5 x10E3/uL 0.1-0.9 Eos (Absolute) 0.1 x10E3/uL 0.0-0.4 Baso (Absolute) 0.0 x10E3/uL 0.0-0.2 Immature Granulocytes 0 % Immature Grans (Abs) 0.0 x10E3/uL 0.0-0.1 Comp. Metabolic Panel (14) - 10/18/16 08:54 Glucose, Serum 125 mg/dL 65-99 BUN 16 mg/dL 6-24 Creatinine, Serum 0.90 mg/dL 0.76-1.27 eGFR If NonAfricn Am 95 mL/min/1.73 >59 eGFR If Africn Am 110 mL/min/1.73 >59 BUN/Creatinine Ratio 18 9-20 Sodium, Serum 139 mmol/L 134-144 Potassium, Serum 4.4 mmol/L 3.5-5.2 Chloride, Serum 100 mmol/L 96-106 Carbon Dioxide, Total 25 mmol/L 18-29 Calcium, Serum 9.5 mg/dL 8.7-10.2 Protein, Total, Serum 7.2 g/dL 6.0-8.5 Albumin, Serum 4.3 g/dL 3.5-5.5 Globulin, Total 2.9 g/dL 1.5-4.5 A/G Ratio 1.5 1.1-2.5 Bilirubin, Total 0.3 mg/dL 0.0-1.2 Alkaline Phosphatase, S 58 IU/L 39-117 AST (SGOT) 12 IU/L 0-40 ALT (SGPT) 8 IU/L 0-44 CBC With Differential/Platelet - 01/10/17 09:43 WBC 3.7 x10E3/uL 3.4-10.8 RBC 3.62 x10E6/uL 4.14-5.80 Hemoglobin 12.4 g/dL 12.6-17.7 Hematocrit 37.1 % 37.5-51.0 MCV 103 fL 79-97 MCH 34.3 pg 26.6-33.0 MCHC 33.4 g/dL 31.5-35.7 RDW 13.8 % 12.3-15.4 Platelets 198 x10E3/uL 150-379 Neutrophils 49 % Lymphs 32 % Monocytes 14 % Eos 3 % Basos 1 % Neutrophils (Absolute) 1.8 x10E3/uL 1.4-7.0 Lymphs (Absolute) 1.2 x10E3/uL 0.7-3.1 Monocytes(Absolute) 0.5 x10E3/uL 0.1-0.9 Eos (Absolute) 0.1 x10E3/uL 0.0-0.4 Baso (Absolute) 0.0 x10E3/uL 0.0-0.2 Immature Granulocytes 1 % Immature Grans (Abs) 0.0 x10E3/uL 0.0-0.1 Comp. Metabolic Panel (14) - 01/10/17 09:43 Glucose, Serum 100 mg/dL 65-99 BUN 24 mg/dL 6-24 Creatinine, Serum 1.13 mg/dL 0.76-1.27 eGFR If NonAfricn Am 72 mL/min/1.73 >59 eGFR If Africn Am 83 mL/min/1.73 >59 BUN/Creatinine Ratio 21 9-20 Sodium, Serum 141 mmol/L 134-144 Potassium, Serum 4.6 mmol/L 3.5-5.2 Chloride, Serum 100 mmol/L 96-106 Carbon Dioxide, Total 25 mmol/L 18-29 Calcium, Serum 9.3 mg/dL 8.7-10.2 Protein, Total, Serum 7.3 g/dL 6.0-8.5 Albumin, Serum 4.4 g/dL 3.5-5.5 Globulin, Total 2.9 g/dL 1.5-4.5 A/G Ratio 1.5 1.2-2.2 Bilirubin, Total 0.4 mg/dL 0.0-1.2 Alkaline Phosphatase, S 58 IU/L 39-117 AST (SGOT) 16 IU/L 0-40 ALT (SGPT) 10 IU/L 0-44 HCV RT-PCR, Quant (Non-Graph) - 01/10/17 09:43 Hepatitis C Quantitation HCV Not Detected IU/mL Test Information: Comment Prostate-Specific Ag, Serum - 01/10/17 09:43 Prostate Specific Ag, Serum 0.3 ng/mL 0.0-4.0 Vitamin B12 - 01/10/17 09:43 Vitamin B12 226 pg/mL 211-946 CBC With Differential/Platelet - 06/28/17 08:56 WBC 3.9 x10E3/uL 3.4-10.8 RBC 3.55 x10E6/uL 4.14-5.80 Hemoglobin 12.1 g/dL 12.6-17.7 Hematocrit 36.1 % 37.5-51.0 MCV 102 fL 79-97 MCH 34.1 pg 26.6-33.0 MCHC 33.5 g/dL 31.5-35.7 RDW 13.8 % 12.3-15.4 Platelets 181 x10E3/uL 150-379 Neutrophils 60 % Lymphs 25 % Monocytes 12 % Eos 2 % Basos 1 % Neutrophils (Absolute) 2.4 x10E3/uL 1.4-7.0 Lymphs (Absolute) 1.0 x10E3/uL 0.7-3.1 Monocytes(Absolute) 0.5 x10E3/uL 0.1-0.9 Eos (Absolute) 0.1 x10E3/uL 0.0-0.4 Baso (Absolute) 0.0 x10E3/uL 0.0-0.2 Immature Granulocytes 0 % Immature Grans (Abs) 0.0 x10E3/uL 0.0-0.1 Comp. Metabolic Panel (14) - 06/28/17 08:56 Glucose, Serum 110 mg/dL 65-99 BUN 18 mg/dL 6-24 Creatinine, Serum 0.88 mg/dL 0.76-1.27 eGFR If NonAfricn Am 95 mL/min/1.73 >59 eGFR If Africn Am 110 mL/min/1.73 >59 BUN/Creatinine Ratio 20 9-20 Sodium, Serum 139 mmol/L 134-144 Potassium, Serum 4.4 mmol/L 3.5-5.2 Chloride, Serum 99 mmol/L 96-106 Carbon Dioxide, Total 26 mmol/L 18-29 Calcium, Serum 9.0 mg/dL 8.7-10.2 Protein, Total, Serum 7.2 g/dL 6.0-8.5 Albumin, Serum 4.5 g/dL 3.5-5.5 Globulin, Total 2.7 g/dL 1.5-4.5 A/G Ratio 1.7 1.2-2.2 Bilirubin, Total 0.6 mg/dL 0.0-1.2 Alkaline Phosphatase, S 56 IU/L 39-117 AST (SGOT) 15 IU/L 0-40 ALT (SGPT) 10 IU/L 0-44 CMP - 06/28/17 08:56 Glucose, Serum 110 mg/dL 65-99 BUN 18 mg/dL 6-24 Creatinine, Serum 0.88 mg/dL 0.76-1.27 eGFR If NonAfricn Am 95 mL/min/1.73 >59 eGFR If Africn Am 110 mL/min/1.73 >59 BUN/Creatinine Ratio 20 9-20 Sodium, Serum 139 mmol/L 134-144 Potassium, Serum 4.4 mmol/L 3.5-5.2 Chloride, Serum 99 mmol/L 96-106 Carbon Dioxide, Total 26 mmol/L 18-29 Calcium, Serum 9.0 mg/dL 8.7-10.2 Protein, Total, Serum 7.2 g/dL 6.0-8.5 Albumin, Serum 4.5 g/dL 3.5-5.5 Globulin, Total 2.7 g/dL 1.5-4.5 A/G Ratio 1.7 1.2-2.2 Bilirubin, Total 0.6 mg/dL 0.0-1.2 Alkaline Phosphatase, S 56 IU/L 39-117 AST (SGOT) 15 IU/L 0-40 ALT (SGPT) 10 IU/L 0-44 TSH - 10/04/17 10:08 TSH 2.03 mIU/L 0.40-4.50 A1C - 11/01/17 15:43 HEMOGLOBIN A1c 5.1 % of total Hgb <5.7 PDM - PAIN MGMT (PROFILE 3 WITH CONFIRMATION) - 03/26/18 08:30 Prescribed Drug 1 Oxycodone NRG Creatinine 5.5 mg/dL > or=20.0 pH 8.17 4.5 - 9.0 Oxidant NEGATIVE mcg/mL <200 Amphetamines NEGATIVE ng/mL <500 medMATCH Amphetamines CONSISTENT NRG Benzodiazepines NEGATIVE ng/mL <100 medMATCH Benzodiazepines CONSISTENT NRG Marijuana Metabolite NEGATIVE ng/mL <20 medMATCH Marijuana Metab CONSISTENT NRG Cocaine Metabolite NEGATIVE ng/mL <150 medMATCH Cocaine Metab CONSISTENT NRG Opiates POSITIVE ng/mL <100 Oxycodone POSITIVE ng/mL <100 COMMENT NRG Codeine NEGATIVE ng/mL <50 medMATCH Codeine CONSISTENT NRG Hydrocodone 93 ng/mL <50 medMATCH Hydrocodone INCONSISTENT NRG Hydromorphone NEGATIVE ng/mL <50 medMATCH Hydromorphone CONSISTENT NRG Morphine NEGATIVE ng/mL <50 medMATCH Morphine CONSISTENT NRG Norhydrocodone NEGATIVE ng/mL <50 medMATCH Norhydrocodone CONSISTENT NRG Specific [place] 1.004 > or=1.003 Noroxycodone 1070 ng/mL <50 medMATCH Noroxycodone CONSISTENT NRG Oxycodone >13996 ng/mL <50 medMATCH Oxycodone CONSISTENT NRG Oxymorphone NEGATIVE ng/mL <50 medMATCH Oxymorphone CONSISTENT NRG Encounters ACCT No. Visit Date/Time Discharge Status Pt. Type Provider Facility Loc./Unit Complaint [id number] 06/12/2018 10:49:00 06/12/2018 23:59:59 CLS Outpatient EDISON JULIEN [facility] RAD SOB,HYPERTENSION, CHRONIC OBSTRUCTIVE PULMONARY DIS [id number] 11/27/2017 10:58:00 11/27/2017 23:59:59 CLS Outpatient JOSE MANUEL WELCH APRN [facility] RAD J44.9 COPD [id number] 08/29/2017 08:19:00 08/29/2017 23:59:59 CLS Outpatient JOSE MANUEL WELCH APRN [facility] RAD R91.1 LUNG NODULE SEEN ON IMAGING STUDY [id number] 08/21/2017 16:43:00 08/21/2017 23:59:59 CLS Outpatient JOSE MANUEL WELCH APRN [facility] RT Z72.0 TOBACCO USER [id number] 07/31/2017 15:42:00 07/31/2017 23:59:59 CLS Outpatient DARLENE HARRY [facility] RAD LUMBAGO WITH SCIATICA [id number] 07/26/2013 13:53:00 10/24/2013 00:01:00 DIS Outpatient CHERISE ORTEZ MD [facility] ANEMIA [id number] 09/13/2013 17:45:00 09/14/2013 16:12:00 DIS Inpatient CHERISE ORTEZ MD [facility] 4TH SYMPTOMATIC ANEMIA [id number] 08/05/2013 08:34:00 08/05/2013 13:55:00 DIS Outpatient CHERISE ORTEZ MD [facility] ANEMIA [id number] 07/03/2018 11:00:00 SEBLE MIRANDA MD FACC, AFRICA VELAZQUEZ CCDS [facility] CATH ABN ST,DYSPNEA ON EXERTION,HTN [id number] 10/25/2013 00:00:00 Document Registration [id number] 11/06/2012 10:15:00 Document Registration [id number] 06/29/2017 07:06:00 Document Registration [id number] 05/23/2018 09:30:00 05/23/2018 23:59:59 [facility] Outpatient SAMUEL VARGAS [facility] [id number] 03/26/2018 08:00:00 Document Registration [id number] 11/01/2017 16:00:00 Document Registration [id number] 10/04/2017 08:40:00 Document Registration [id number] 06/28/2017 08:20:00 Document Registration [id number] 10/19/2016 08:36:00 Document Registration [id number] 01/12/2017 12:09:00 Document Registration
--- OUTSIDE RECORDS SUMMARY | 2018-07-03 10:00 | XMS REPORT ---
Author Author DARLENE HARRY [facility] eClinical[employer] Address Unknown Phone Unavailable Care Team Providers Care Collection Systems Technician Name Role Phone DARLENE HARRY Unavailable Allergies, Adverse Reactions, Alerts Substance Reaction Event Type N.K.D.A. Info Not Available Non Drug Allergy Problems Problem Type Condition Code Onset Dates Condition Status Assessment Anxiety F41.9 Active Assessment Chronic viral hepatitis C B18.2 Active Assessment Chronic obstructive pulmonary disease, unspecified J44.9 Active Problem Lumbago with sciatica, unspecified side M54.40 Active Problem Chronic viral hepatitis C B18.2 Active Problem Essential (primary) hypertension I10 Active Assessment Essential (primary) hypertension I10 Active Assessment Lumbago with sciatica, unspecified side M54.40 Active Problem Chronic obstructive pulmonary disease, unspecified J44.9 Active Problem Anxiety F41.9 Active Medications Medication Code System Code Instructions Start Date End Date Status Dosage Seroquel [facility] [address]-46 50 MG Orally Once a day 1 tablet at bedtime Xanax [facility] [address]-28 1 mg Nov 24, 2014 1 tablet by Oral route 3 times per day Lisinopril [facility] [address]-02 10 MG Orally Once a day 1 tablet oxycodone [facility] 0 10 mg orally every 4-6 hours prn must last 30 days December take 1 tablet ProAir HFA [facility] [address]-94 90 mcg/actuation December 27, 2013 inhale 2 puffs by Inhalation route every 4 hours as needed PRN must transition care- no more refills Saphris [facility] [address]-08 5 mg Nov 24, 2014 place 1 tablet under the tongue and allow to dissolve by Sublingual route 1 time per day Procedures Procedure Coding System Code Date Office Visit, Est Pt., Level 3 CPT-4 08500 Jul 22, 2015 Vital Signs Date/Time: Jul 22, 2015 Temperature 98.1 F Weight 139.4 lbs Height 70 in BMI 20.00 Index Blood Pressure Diastolic 88 mmHg Blood Pressure Systolic 150 mmHg Cardiac Monitoring Heart Rate 88 bpm Results No Known Results Summary Purpose eClinicalWorks Submission
--- OUTSIDE RECORDS SUMMARY | 2018-07-03 10:00 | XMS REPORT ---
Author Author DARLENE HARRY [facility] eClinicalWorks Address Unknown Phone Unavailable Care Team Providers Care Sewer Pipe Sorter Name Role Phone DARLENE HARRY CP Unavailable Allergies, Adverse Reactions, Alerts Substance Reaction Event Type N.K.D.A. Info Not Available Non Drug Allergy Problems Problem Type Condition Code Onset Dates Condition Status Assessment Chronic obstructive pulmonary disease, unspecified J44.9 Active Assessment Lumbago with sciatica, unspecified side M54.40 Active Assessment Chronic viral hepatitis C B18.2 Active Assessment History of long-term use of multiple prescription drugs Z92.29 Active Problem Essential (primary) hypertension I10 Active Problem Lumbago with sciatica, unspecified side M54.40 Active Problem History of long-term use of multiple prescription drugs Z92.29 Active Problem Anxiety F41.9 Active Assessment Essential (primary) hypertension I10 Active Problem Chronic viral hepatitis C B18.2 Active Problem Chronic obstructive pulmonary disease, unspecified J44.9 Active Medications Medication Code System Code Instructions Start Date End Date Status Dosage Seroquel [facility] [address]-67 50 MG Orally Once a day 1 tablet at bedtime Saphris [facility] [address]-60 5 mg Nov 24, 2014 place 1 tablet under the tongue and allow to dissolve by Sublingual route 1 time per day Lisinopril [facility] [address]-23 10 MG Orally Once a day 1 tablet ProAir HFA [facility] [address]-77 90 mcg/actuation inhale 2 puffs by Inhalation route every 4 hours as needed PRN must transition care- no more refills oxycodone [facility] 0 10 mg orally every 4-6 hours prn must last 28 days take 1 tablet Xanax [facility] [address]-53 1 mg Nov 24, 2014 1 tablet by Oral route 3 times per day Procedures Procedure Coding System Code Date COMPLETE CBC W/AUTO DIFF WBC CPT-4 74256 Oct 20, 2015 VENIPUNCT, ROUTINE* CPT-4 63709 Oct 20, 2015 COMPREHEN METABOLIC PANEL CPT-4 45264 Oct 20, 2015 Office Visit, Est Pt., Level 4 CPT-4 16054 Oct 20, 2015 Vital Signs Date/Time: Oct 20, 2015 Temperature 99.9 F Weight 138.4 lbs Height 70 in BMI 19.86 Index Blood Pressure Diastolic 80 mmHg Blood Pressure Systolic 118 mmHg Cardiac Monitoring Heart Rate 84 bpm Results Name Result Date Reference Range Unit Abnormality Flag CMP ----Calcium, Serum 9.1 20151020 8.7-10.2 mg/dL ----Carbon Dioxide, Total 22 20151020 18-29 mmol/L ----ALT (SGPT) 8 20151020 0-44 IU/L ----Creatinine, Serum 0.81 20151020 0.76-1.27 mg/dL ----AST (SGOT) 19 20151020 0-40 IU/L ----eGFR If NonAfricn Am 100 [id number] >59 mL/min/1.73 ----Alkaline Phosphatase, S 57 20151020 39-117 IU/L ----eGFR If Africn Am 116 [id number] >59 mL/min/1.73 ----Bilirubin, Total 1.0 20151020 0.0-1.2 mg/dL ----BUN/Creatinine Ratio 21 20151020 9-20 H ----A/G Ratio 1.5 20151020 1.1-2.5 ----Sodium, Serum 140 20151020 134-144 mmol/L ----Globulin, Total 3.0 20151020 1.5-4.5 g/dL ----Potassium, Serum 4.5 42721199 3.5-5.2 mmol/L ----Glucose, Serum 100 62030373 65-99 mg/dL H ----Chloride, Serum 101 11283694 97-108 mmol/L ----Albumin, Serum 4.5 34237977 3.5-5.5 g/dL ----BUN 17 20151020 6-24 mg/dL ----Protein, Total, Serum 7.5 97267771 6.0-8.5 g/dL ROUTINE VENIPUNCTURE CBC ----MCHC 33.2 16593547 31.5-35.7 g/dL ----MCH 32.6 76001340 26.6-33.0 pg ----Platelets 202 [id number] 150-379 x10E3/uL ----RDW 13.3 35802446 12.3-15.4 % ----Immature Granulocytes 0 20151020 % ----Immature Grans (Abs) 0.0 60962332 0.0-0.1 x10E3/uL ----Lymphs 21 20151020 % ----Monocytes 11 20151020 % ----Neutrophils 68 59565276 % ----Neutrophils (Absolute) 3.3 08178833 1.4-7.0 x10E3/uL ----Hematocrit 37.0 65104319 37.5-51.0 % L ----Lymphs (Absolute) 1.0 34526762 0.7-3.1 x10E3/uL ----MCV 98 94742873 79-97 fL H ----RBC 3.77 95479767 4.14-5.80 x10E6/uL L ----Eos 0 20151020 % ----Basos 0 09777528 % ----Hemoglobin 12.3 57660276 12.6-17.7 g/dL L ----Baso (Absolute) 0.0 23114673 0.0-0.2 x10E3/uL ----WBC 4.9 08411210 3.4-10.8 x10E3/uL ----Monocytes(Absolute) 0.5 30193984 0.1-0.9 x10E3/uL ----Eos (Absolute) 0.0 24725316 0.0-0.4 x10E3/uL Summary Purpose [employer] Submission
--- OUTSIDE RECORDS SUMMARY | 2018-07-03 10:00 | XMS REPORT ---
Author Author DARLENE HARRY Organization [employer] Address Unknown Phone Unavailable Care Team Providers [employer] Name Role Phone DARLENE HARRY CP Unavailable Allergies No Known Allergies Problems Problem Type Condition Code Onset Dates Condition Status Problem History of long-term use of multiple prescription drugs Z92.29 Active Problem Essential (primary) hypertension I10 Active Problem Sinusitis J32.9 Active Problem Chronic obstructive pulmonary disease, unspecified J44.9 Active Problem Anxiety F41.9 Active Problem Lumbago with sciatica, unspecified side M54.40 Active Problem Chronic viral hepatitis C B18.2 Active Medications Medication Code System Code Instructions Start Date End Date Status Dosage oxycodone NDC 0 10 mg orally every 4-6 hours prn must last 28 days take 1 tablet Results No Known Results Summary Purpose [employer] Submission
[2018-07-03] MEDS ORDERED: MULT-517 PO (10:03)
[2018-07-03] MEDS ORDERED: ASCO500C17 PO (10:03)
[2018-07-03] MEDS ORDERED: ASPI-586 PO (10:03)
[2018-07-03] MEDS ORDERED: IRON1TAB95 PO (10:03)
[2018-07-03] MEDS ORDERED: FLU QUADRIvalent (5+ YOA) 2018-2019 (AFLURIA) 0.5 ML IM ONE (10:15)
[2018-07-03 10:16] LABS: INR 1.4 (0.8-1.4); PROTHROMBIN TIME PATIENT 16.8 SEC (12.2-14.7)
[2018-07-03 10:24] LABS: ALANINE AMINOTRANSFERASE 14 U/L (0-55); ALBUMIN 4.2 GM/DL (3.2-4.5); ALKALINE PHOSPHATASE 59 U/L (40-136); BILIRUBIN,TOTAL 0.5 MG/DL (0.1-1.0); BUN/CREATININE RATIO 19; CALCIUM 9.2 MG/DL (8.5-10.1); CARBON DIOXIDE 27 MMOL/L (21-32); CHLORIDE 106 MMOL/L (98-107); CHOLESTEROL 142 MG/DL (< 200); CREATININE SERUM 0.96 MG/DL (0.60-1.30); GFR ESTIMATED > 60; GLUCOSE 103 MG/DL (70-105); HDL CHOLESTEROL 43 MG/DL (40-60); POTASSIUM 3.4 MMOL/L (3.6-5.0); SODIUM 141 MMOL/L (135-145); TOTAL PROTEIN 7.7 GM/DL (6.4-8.2); TRIGLYCERIDES 82 MG/DL (<150); VLDL CHOLESTEROL 16 MG/DL (5-40)
--- NOTE | 2018-07-03 10:45 | Cardiac Procedure Note-CS/ASA ---
Pre-Procedure Note Pre-Op Procedure Note H&P Reviewed The H&P was reviewed, patient examined and no changes noted. Date H&P Reviewed: Jul 03, 2018 Time H&P Reviewed: 10:45 Conscious Sedation Pre-Proced Time Reviewed: 10:45 ASA Class: 3 Airway Mallampati Classification: ([place] appropriate class) I. II. III, IV Lungs Heart ASA score ASA 1: a normal healthy patient ASA 2: a patient with a mild systemic disease (mid diabetes, controlled hypertension, obesity ASA 3: a patient with a severe systemic disease that limits activity (angina , COPD, prior Myocardial infarction) ASA 4: a patient with an incapacitating disease that is a constant threat to life (CHF, renal failure) ASA 5: a moribund patient not expected to survive 24 hrs. (ruptured aneurysm) ASA 6: a declared brain patient whose organs are being harvested. For emergent operations, add the letter E after the classification Grade 2 Sedation Plan: Analgesia, Amnesia, Plan communicated to team members, Discussed options with patient/fam, Discussed risks with patient/fam Note The patient is an appropriate candidate to undergo the planned procedure, sedation, and anesthesia. The patient immediately re-assessed prior to indication. AFRICA MIRANDA MD FACP FAC CCDS Jul 03, 2018 10:45
--- NOTE | 2018-07-03 11:09 | Discharge Inst-Post CATH ---
Discharge Inst-CATH Post Cardiac Cath D/C Inst Follow Up/Plan F/u with Dr Franklin in 2 weeks F/u with your family physician as soon as possible for evaluation and treatment of anemia No smoking CARDIAC CATH DISCHARGE INSTRUCTIONS *Hold Metformin for 48 hours post heart cath. ACTIVITY * Go Home directly and rest. * Limit activity of the leg (or wrist if it was used) for 7 days including aerobics, swimming, jogging, bicycling, etc. * Restrict stair-climbing for 7 days if possible, if not, climb up with your non -cath leg, then bring together on the same step. * Avoid lifting, pushing, pulling or excessive movement of the affected extremity for 7 days. * Customary sexual activity may be resumed after 2 days-use caution not to use a position that strains or causes pain to the affected extremity. * No driving for 24 hours. * NO SMOKING. * Avoid straining for bowel movements for 7 days. * Gentle walking on level ground is allowed. * Returning to work will depend on the type of procedure and the results. Your doctor will discuss this with you. CALL YOUR DOCTOR FOR ANY OF THE FOLLOWING: *If bleeding from the puncture site occurs- Apply gentle pressure to site with clean cloth and call your doctor or EMS. * If a knot or lump forms under the skin, increases in size, or causes pain. * If bruising appears to be worsening or moving further down your leg instead of disappearing. * Temperature above 101 F. CARE OF YOUR GROIN INCISION; * Bruising or purple discoloration of the skin near the puncture site is common. * You may shower only, no bathtub bathing for 5 days. Be careful to avoid slipping as your leg may feel stiff. * If a closure device was used on your femoral artery, please see the attached guide regarding care of the device and your leg. * REMOVE the dressing from your groin the next day after your procedure in the shower. CARE OF YOUR WRIST INCISION; * Bruising or purple discoloration of the skin near the puncture site is common. * You may shower. * DO NOT submerge wrist. * Remove dressing in 24 hours. AFRICA FRANKLIN MD [facility] CCDS Jul 03, 2018 11:09
--- NOTE | 2018-07-03 11:10 | Discharge Inst-Cardiology ---
Discharge Inst-Cardiac Discharge Medications Continued Medications: Ascorbic Acid (Vitamin C) 500 Mg Capsule 500 MG PO DAILY, CAP Aspirin (Aspir 81) 81 Mg Tablet.dr 81 MG PO DAILY, TAB Iron,Carbonyl/Vit C/Vit B12/FA (Iron 100 Plus Tablet) 1 Each Tablet 1 EACH PO DAILY, TAB Lisinopril (Prinivil) 20 Mg Tablet 20 MG PO DAILY Multivitamin (Men's Multi-Vitamin) 1 Each Tablet 1 EACH PO DAILY, TAB Oxycodone Hcl (Oxycodone Hcl ER) 10 Mg Tab 1 TAB PO Q6H PRN for PAIN-MILD TO MODERATE, TAB Patient Instructions Patient Instructions: F/u with Dr Franklin in 2 weeks F/u with your family physician as soon as possible for evaluation and treatment of anemia No smoking AFRICA FRANKLIN MD FACP FAC CCDS Jul 03, 2018 11:10
[2018-07-03] MEDS ORDERED: PATIENT MAY USE OWN MEDS, ALL PO SCH (11:15)
[2018-07-03] MEDS ORDERED: KCL 20 MEQ TAB (K-DUR) PO NR (11:15)
--- NOTE | 2018-07-03 13:57 | CARDIAC CATHETERIZATION ---
DATE OF SERVICE: 07/03/2018 CARDIAC CATHETERIZATION REPORT The patient is a 57-year-old man who has multiple coronary artery disease risk factors who has been experiencing exertional shortness of breath and a stress test was borderline positive for ischemia. Cardiac catheterization was carried out today after having obtained an informed consent. PROCEDURE: He was brought to the cardiac catheterization laboratory in a fasting state. Right groin was prepared and draped in the usual sterile fashion, lidocaine 1% with local anesthesia. Modified Seldinger technique was used to advance a 5-Monegas[place] sheath in right femoral artery. Angiography of the right femoral artery was carried out through the sheath. A 5-[place]onegas[place] JL3.5 catheter was used for left coronary angiography. A 5-Monegasque JR4 catheter was used for right coronary angiography. A 5-Monegasque pigtail catheter was used for left heart catheterization and left ventricular angiography. At the end of the procedure, Mynx was used to achieve hemostasis following sheath removal. He tolerated the procedure well. HEMODYNAMICS: Left ventricular end-diastolic pressure following coronary angiography was 17 mmHg. There is no significant pressure gradient on pullback across the aortic valve. Ascending aortic pressure was 91/51 CORONARY ANGIOGRAPHY: Diffuse coronary calcification is present. Left main coronary artery does not exhibit significant obstructive disease. Left anterior descending artery has up to approximately 50% stenosis in the proximal and mid portions. The rest of the coronaries have diffuse [id number] plaque. Right coronary artery is dominant. LEFT VENTRICULAR ANGIOGRAPHY: Left ventricular angiography was carried out in the right anterior oblique projection. Global left ventricular systolic function is normal. No regional wall motion abnormalities are seen. Left ventricular ejection fraction is approximately 60%. CONCLUSIONS: 1. Coronary artery disease, moderate. 2. Normal global left ventricular systolic function with ejection fraction of approximately 60%. 3. Mildly to moderately elevated left ventricular end diastolic pressure. DISCUSSION AND RECOMMENDATIONS: Based on results of the study, it appears appropriate to continue a conservative approach. Risk factor modification has been discussed. He has again been advised to quit smoking immediately and completely. Outpatient followup is advised. Continuation of aspirin therapy is advised. We have advised workup and treatment of anemia with his family physician. Job ID: [id number] DocumentID: [id number] Dictated Date: 07/03/2018 11:17:40 [employer] Pain[employer] Date: 07/03/2018 13:56:57 Dictated By: AFRICA MIRANDA MD, MA, FACP, FACC, MTDD
== END 2018-07-03 14:08 | disposition home or self-care (01) ==
LOC: CATH 09:22 → SDC 11:29 → CATH 14:08
PROVIDERS: ATTEND Internal Medicine Cardiovascular Disease
DX: I25.10 Atherosclerotic heart disease of native coronary artery without angina pectoris (principal); R06.02 Shortness of breath; R94.39 Abnormal result of other cardiovascular function study; F17.210 Nicotine dependence, cigarettes, uncomplicated; D64.9 Anemia, unspecified; I10 Essential (primary) hypertension; J44.9 Chronic obstructive pulmonary disease, unspecified; F41.9 Anxiety disorder, unspecified; F32.9 Major depressive disorder, single episode, unspecified; B19.20 Unspecified viral hepatitis C without hepatic coma; Z79.82 Long term (current) use of aspirin; Z79.899 Other long term (current) drug therapy
CPT/HCPCS: 36415; 80053; 80061; 85027; 85610; 85730; 87081; 93458

== ENCOUNTER → 2019-12-30 | Outpatient (CLI) | payer SELFPAY ==
[~2019-12-30] MED LIST changes: +ASCO500C17 PO; +ASPI-586 PO; +IRON1TAB95 PO; +MULT-517 PO
--- NOTE | 2019-12-30 10:42 | Diagnostic Imaging Report ---
PROCEDURE: MRI lumbar spine. TECHNIQUE: Multiplanar, multisequence MRI of the lumbar spine was performed without contrast. INDICATION: Low back pain and right lower extremity radiculopathy. COMPARISON: Correlation is made with prior MRI of the lumbar spine from 07/31/2017. FINDINGS: Curvature of the lumbar spine is normal. Mild spondylolisthesis of L5 on S1 is again noted. There is minimal anterolisthesis of L4 on L5. Vertebral body heights are maintained. No acute compression fracture or geographic marrow lesion is detected. There is generalized degenerative disc disease with variable disc space narrowing and desiccation. There are some mild Modic changes at the L2-L3 level. The conus is unremarkable at the L1-L2 level. T12-L1: Central canal is widely patent. Neuroforamina are patent. L1-T2: Central canal is widely patent. No significant neuroforaminal narrowing is seen. L2-L3: Central canal is widely patent. There is some narrowing of the lateral recesses bilaterally. There is also moderate right neuroforaminal narrowing. L3-L4: Central canal is widely patent. There is some narrowing of the lateral recesses bilaterally. Mild left and moderate right neuroforaminal narrowing is seen. L4-L5: Hypertrophic facet degenerative changes are noted. Central canal is widely patent. Moderate left and mild right neuroforaminal stenosis is seen. L5-S1: Hypertrophic facet degenerative changes are seen. There is ligamentous thickening. There is some trefoil configuration of the thecal sac, similar to prior exam. Severe bilateral neuroforaminal stenosis is again noted. Paraspinous tissues are unremarkable. IMPRESSION: Multilevel lumbar spondylosis with multilevel lateral recess and neuroforaminal stenosis, described level by level above. Overall appearance is similar to prior exam from 2017. No acute compression fracture is seen. Dictated by: Dictated on workstation # [id number]
== END ==
LOC: RAD 09:40
PROVIDERS: ATTEND Chiropractor
DX: M47.27 Other spondylosis with radiculopathy, lumbosacral region (principal); M48.07 Spinal stenosis, lumbosacral region; M43.17 Spondylolisthesis, lumbosacral region; M51.16 Intervertebral disc disorders with radiculopathy, lumbar region
CPT/HCPCS: 72148

== ENCOUNTER 2021-07-01 06:57 | Outpatient (RCR) | payer OTHER ==
[~2021-07-01] VITALS: Ht 177.8 cm; Wt 63.1 kg
[2021-07-05] MEDS ORDERED: ASPI-999 PO ×2 (12:40)
[2021-07-05] MEDS ORDERED: NAPR220C61 PO ×2 (12:40)
[2021-07-05] MEDS ORDERED: MULT-298 PO ×2 (12:40)
== END 2021-07-12 10:34 | disposition home or self-care (01) ==
LOC: PREOP 06:57
PROVIDERS: ATTEND Surgery
DX: Z01.818 Encounter for other preprocedural examination (principal); Z12.11 Encounter for screening for malignant neoplasm of colon; D50.9 Iron deficiency anemia, unspecified; Z20.822 Contact with and (suspected) exposure to COVID-19
CPT/HCPCS: 87635

== ENCOUNTER 2021-07-12 07:48 | Day surgery (SDC) | payer OTHER ==
[~2021-07-12] VITALS: Ht 177.8 cm; Wt 63.1 kg
[2021-07-12] VITALS (7 sets, daily range): BP systolic 92–137; BP diastolic 6–76
[~2021-07-12 07:48] MED LIST changes: +ASPI-999 PO; +MULT-298 PO; +NAPR220C61 PO
[2021-07-12] MEDS ORDERED: LACTATED RINGERS 1,000 ML IV STA (08:01)
[2021-07-12] MEDS ORDERED: LACTATED RINGERS 1,000 ML IV ONE (08:02)
--- NOTE | 2021-07-12 08:12 | Progress Note-Pre Operative ---
Pre-Operative Progress Note H&P Reviewed The H&P was reviewed, patient examined and no changes noted. Time Seen by Provider: 08:10 Date H&P Reviewed: Jul 12, 2021 Time H&P Reviewed: 08:10 Pre-Operative Diagnosis: Iron deficiency anemia, Screening colon KEVIN NIEVES DO Jul 12, 2021 08:12
[2021-07-12] MEDS ORDERED: HURRICAINE EXT TUBE (BENZOCAINE) XX PRN (08:15)
[2021-07-12] MEDS ORDERED: MIDAZOLAM 2 MG/2 ML (VERSED) VIAL ONE (09:15)
[2021-07-12] MEDS ORDERED: PROPOFOL INJECTION 50 ML IV ONE (09:15)
--- NOTE | 2021-07-12 10:18 | Progress Note-Post Operative ---
Post-Operative Progess Note Surgeon (s)/Book Editor (s) Surgeon KEVIN NIEVES DO Book Editor: James Serna, MSIII Pre-Operative Diagnosis Iron deficiency anemia, Screening colon Post-Operative Diagnosis Gastritis with possible ulcer hiatal hernia Esophagitis Polyp int hemorrhoids Procedure & Operative Findings Date of Procedure 07/12/21 Procedure Performed/Findings EGD with biopsy Colonoscopy with snare polypectomy PROCEDURE NOTE: After informed consent was obtained, the patient was brought to the endoscopy suite, placed in bed in left lateral decubitus position. He was administered IV sedation by the STATION ENGINEER MAIN LINE who then monitored vitals the entire time, heart rate, blood pressure and pulse ox and the scope was inserted down the mouth through the esophagus into the stomach. On the way down, noted some mild esophagitis, took a picture, pushed into the stomach. Noted some mild to moderate gastritis of the antrum and then pushed into the duodenum. Duodenum looked good. Pulled back and did a biopsy of the antrum and then a biopsy of the body of the stomach. Also saw what could have been an ulcer near the antrum. Then retroflexed the scope and saw a small hiatal hernia, took a picture of this and then pulled the scope into the GE junction and did a biopsy of the GE junction. Pushed the scope back into the stomach, suctioned all the air out of the stomach. At this point pulled the scope up the esophagus and out the mouth. Switched camera, switched gloves, went down below, started the colonoscopy. Pushed all the way into about 140 cm to get all the way to cecum, took a picture of the appendiceal orifice, noted the ileocecal valve and then slowly withdrew the scope, insufflating to look circumferentially at the day starting in the cecum, up the ascending colon to the hepatic flexure, then down the transverse colon and to the splenic flexure. Just got into the descending colon and saw a polyp; elected to do a snare polypectomy to remove it. Continued down into the sigmoid and finally into the rectum, retroflexed in the rectal vault, saw some minimal internal hemorrhoids and took a picture of this. The patient tolerated the procedure and he recovered in the endoscopy suite. Anesthesia Type IV Sedation by [employer] MAIN LINE Estimated Blood Loss Estimated blood loss (mL): scant Specimens/Packing Specimens Removed antral bx body of stomach bx GE jxn bx desc colon polyp KEVIN NIEVES DO Jul 12, 2021 10:18
--- NOTE | 2021-07-12 10:20 | Endoscopy Discharge Instruct ---
Endo Procedure/Findings Findings 1.: Gastritis 2.: Hiatal Hernia, Other Findings (Esophagitis) 3.: Polyp 4.: Internal Hemorrhoids Discharge Instructions - Activity: You might feel a little sleepy until tomorrow. This is due to the medicine you received to relax you. Until tomorrow, you should: NOT drive a car, operate machinery or power tools. NOT drink any alcoholic beverages. NOT make any important decisions or sign importortant papers. Do not return to work until tomorrow, unless otherwise instructed. Resume previous activities tomorrow. Diet: Start by taking liquids. If you tolerate liquids, advance to solid food. 1.: EGD in 1 year 2.: Colonscopy in 5 years Notify Physician - If you experience excessive bleeding, unusual abdominal pain, fever, or chest pain, contact your doctor immediately. KEVIN NIEVES DO Jul 12, 2021 10:20
--- NOTE | 2021-07-12 12:39 | Anesthesia-General Post-Op ---
MAC Patient Condition Mental Status/LOC: Same as Preop Cardiovascular: Satisfactory Nausea/Vomiting: Absent Respiratory: Satisfactory Pain: Controlled Complications: Absent Post Op Complications Complications None Follow Up Care/Instructions Patient Instructions None needed. Anesthesiology Discharge Order Discharge Order Patient is doing well, no complaints, stable vital signs, no apparent adverse anesthesia problems. No complications reported per nursing. DARREL YANG CRNA Jul 12, 2021 12:39
== END 2021-07-12 10:55 | disposition home or self-care (01) ==
LOC: ENDO 07:48
PROVIDERS: ATTEND Surgery
DX: Z12.11 Encounter for screening for malignant neoplasm of colon (principal); D50.9 Iron deficiency anemia, unspecified; D12.4 Benign neoplasm of descending colon; K29.70 Gastritis, unspecified, without bleeding; K31.9 Disease of stomach and duodenum, unspecified; K44.9 Diaphragmatic hernia without obstruction or gangrene; K64.8 Other hemorrhoids; K20.90 Esophagitis, unspecified without bleeding; I10 Essential (primary) hypertension; I25.10 Atherosclerotic heart disease of native coronary artery without angina pectoris; I65.29 Occlusion and stenosis of unspecified carotid artery; J44.9 Chronic obstructive pulmonary disease, unspecified; F32.9 Major depressive disorder, single episode, unspecified; F41.9 Anxiety disorder, unspecified; F17.210 Nicotine dependence, cigarettes, uncomplicated; Z79.82 Long term (current) use of aspirin; Z79.899 Other long term (current) drug therapy